=== PATIENT | female | born 1960 | race Two or more races ===

== ENCOUNTER 2020-02-07 14:23 | Outpatient (REF) | payer OTHER, SELFPAY ==
[2020-02-10 08:47] LABS: C. trachomatis RNA TMA NOT DETECTED (NOT DETECTED); N. gonorrhoeae RNA TMA NOT DETECTED (NOT DETECTED)
[2020-02-11 02:47] LABS: HPV mRNA E6/E7 rflx Not Detected (Not Detected)
== END 2020-02-07 14:24 | disposition home or self-care (01) ==
LOC: HO.LAB 14:23
PROVIDERS: PCP Nurse Practitioner Family; Visit Provider Advanced Practice Midwife
DX: Z12.4 Encounter for screening for malignant neoplasm of cervix (principal); R19.00 Intra-abdominal and pelvic swelling, mass and lump, unspecified site; Z20.2 Contact with and (suspected) exposure to infections with a predominantly sexual mode of transmission
CPT/HCPCS: 87491; 87591; 87624; 88141; 88142

== ENCOUNTER 2020-02-20 15:45 | Outpatient (REF) | payer OTHER, SELFPAY | END 2020-02-20 15:46 | disposition home or self-care (01) | LOC: HO.US 15:45 | PROVIDERS: PCP Nurse Practitioner Family; Visit Provider Advanced Practice Midwife | DX: Z13.89 Encounter for screening for other disorder (principal) ==

== ENCOUNTER 2020-02-21 11:49 | Outpatient (REF) | payer OTHER, SELFPAY ==
--- NOTE | 2020-02-21 11:54 | MM_ITS ---
EXAMINATION: MM SCREENING DIGITAL BREAST TOMOSYNTHESIS, BILATERAL CLINICAL INFORMATION: Screening. Asymptomatic. Prior outside mammography from [place] performed decades ago and no longer available. Family history breast cancer paternal aunt, age 50. The lifetime risk of breast cancer based on the Tyrer-Cuzick Model is 15%. COMPARISON: None (current study represents new baseline exam). TECHNIQUE: Digital breast tomosynthesis is performed in both the craniocaudal and mediolateral oblique views along with computer-aided detection (CAD). Synthesized 2D images are generated from the tomosynthesis. FINDINGS: There are scattered areas of fibroglandular density (ACR BI-RADS breast composition Category b). Right breast shows no mass or architectural abnormality or abnormal calcifications. There is a biopsy clip marker 3:30 o'clock position mid to posterior depth. The left breast has a benign-appearing oval nodule mid 5:00 position measuring under 1 cm with smooth borders. As this represents new baseline, patient will be recalled for additional targeted ultrasound. Remainder of the left breast shows no mass or architectural abnormality or abnormal calcifications. The bilateral axilla and skin contours are unremarkable. MM/MM tomosynthesis screening BI IMPRESSION: 1. Left: Benign-appearing nodule mid 5:00 position. 2. Right: No mammographic evidence of malignancy. ASSESSMENT: BI-RADS 0: Incomplete - Need Additional Imaging Evaluation RECOMMENDATION: 1. Targeted ultrasound left breast. 2. Radiology department staff will contact the patient for additional imaging. This patient's information was entered into a reminder system with a target due date for their next mammogram.
== END 2020-02-21 11:50 | disposition home or self-care (01) ==
LOC: HO.MAMMO 11:49
PROVIDERS: PCP Nurse Practitioner Family; Visit Provider Nurse Practitioner Family
DX: Z12.31 Encounter for screening mammogram for malignant neoplasm of breast (principal)
CPT/HCPCS: 77063; 77067

== ENCOUNTER 2020-02-26 12:42 | Outpatient (REF) | payer OTHER, SELFPAY ==
--- NOTE | 2020-02-26 | US_ITS ---
EXAMINATION: US DIAGNOSTIC ULTRASOUND BREAST, LEFT CLINICAL INFORMATION: Recall from new baseline for benign-appearing nodule mid 5:00 position left breast. COMPARISON: New baseline mammography 02/21/2020. TECHNIQUE: Ultrasound left breast is targeted to the lower outer quadrant. Grayscale imaging and color Doppler are performed without and with harmonics. FINDINGS: The nodule lower left breast corresponds to a simple cyst 5:00 position 5 cm from nipple measuring approximately 0.7 x 0.5 x 0.4 cm. There is also a smaller cyst in this area measuring 0.5 x 0.4 cm. The cysts show increased through-transmission of sound. There is no solid mass or architectural abnormality. Results are discussed with the patient at time of visit, using an pharmacist manager. US/US breast LT limited IMPRESSION: Nodule left breast corresponds to a simple cyst. There is a smaller satellite cyst in this area. ASSESSMENT: BI-RADS 2: Benign RECOMMENDATION: Routine annual mammography screening. This patient's information was entered into a reminder system with a target due date for their next mammogram.
== END 2020-02-26 12:43 | disposition home or self-care (01) ==
LOC: HO.MAMMO 12:42
PROVIDERS: Visit Provider Nurse Practitioner Family
DX: N63.23 Unspecified lump in the left breast, lower outer quadrant (principal)
CPT/HCPCS: 76642

== ENCOUNTER 2020-08-19 14:49 | Emergency (ER) | payer OTHER, SELFPAY ==
--- NOTE | 2020-08-19 | ECG_ITS ---
Test Reason : ARITHMIA Blood Pressure : / mmHG Vent. Rate : 058 BPM Atrial Rate : 058 BPM P-R Int : 168 ms QRS Dur : 078 ms QT Int : 422 ms P-R-T Axes : 055 015 016 degrees QTc Int : 414 ms Sinus bradycardia with sinus arrhythmia Otherwise normal ECG No previous ECGs available Referred By: Generic ED Physician Electronically Signed By:Alpesh Ayers
--- NOTE | ~2020-08-19 | XR_ITS ---
EXAMINATION: XR CHEST CLINICAL INFORMATION: Chest pain COMPARISON: None TECHNIQUE: Frontal view of the chest was obtained. FINDINGS: No significant abnormality is noted involving the heart, lungs, mediastinum, bony thorax or soft tissues. Incidental note made of biconvex thoracolumbar scoliosis. XR/XR chest 1V IMPRESSION: No acute intrathoracic disease
[2020-08-19 15:04] VITALS: BP 151/73; PULSE 63; RESP 18; TEMP 36.8; O2SAT 98; BMI 34.2
--- NOTE | 2020-08-19 17:15 | ED.ARRPALP ---
HPI - Arrhythmia/Palpitations General Chief Complaint: Arrhythmia/Palpitations Stated Complaint: Chest Pain Time Seen by Provider: 08/19/20 17:15 Source: patient Mode of arrival: ambulatory Limitations: no limitations History of Present Illness HPI narrative: 59 yo female no sig PMH here with palpitations, chest pressure x 3 weeks no sig associated symptoms but reports tachycardia and pressure, no prior issues with her heart MD complaint: heart racing Onset (ago): week(s) (3) Duration: constant Severity: moderate Context: occurred during rest and occurred during exertion Associated symptoms: chest pain and shortness of breath Related Data Home Medications Medication Instructions Recorded Confirmed albuterol sulfate 90 mcg/actuation 2 puff INHALATION Q6H PRN 02/07/20 aerosol inhaler fluticasone propionate 250 1 inh INHALATION Q12H 02/07/20 mcg/actuation blister powder for inhalation Previous Rx's Medication Instructions Recorded cyclobenzaprine 10 mg PO TID PRN #14 tab 08/19/20 famotidine [Pepcid] 20 mg PO DAILY PRN #30 tab 08/19/20 ondansetron 4 mg PO Q8H PRN #20 tab 08/19/20 Allergies Allergy/AdvReac Type Severity Reaction Status Date / Time No Known Allergies Allergy Verified 08/19/20 15:04 Review of Systems Review of Systems: Constitutional : No Weight loss, No Fever, No Chills ENT/Mouth : No sore throat, No Rhinorrhea Eyes: No Eye Pain, No Swelling Cardiovascular : pos Chest Pain, no SOB, no Dyspnea on Exertion, No Orthopnea, No Edema, pos Palpitations Respiratory : No Cough, No Sputum Gastrointestinal : pos Nausea, No Vomiting, No Diarrhea, No abdominal Pain, No Hematochezia, No Melena Genitourinary : No Dysuria, No Urinary Frequency Musculoskeletal : No joint pain, No Myalgias, No Joint Swelling Skin : No Skin Lesions, No rash Neuro : No Weakness, No Numbness, No Dizziness, No Headache Psych : No Anxiety/Panic, No Depression Heme/Lymph: No Bruising, No Lymphadenopathy Endocrine : No Polyuria, No Polydipsia All other systems reviewed and are negative PMFSH Past Medical History Attestation statement: The following information was validated with the patient. Medical History Asthma Family History Family History Father Cancer Mother Respiratory arrest Social History Social History (Updated 08/19/20 @ 17:56 by Brandie Trent DO) Alcohol intake: current Alcohol intake frequency: holidays/special occasions only Patient Tobacco Use Status: Never used Tobacco Use of substances other than those prescribed or required for medical reasons: No Advance Directives: No Advance Directives Information Provided: No Patient : No Gender identity: female Physical Exam Vital Signs: Vital Signs: Last Vital Signs Temp 98.3 F 08/19/20 15:04 Pulse 65 08/19/20 18:03 Resp 15 08/19/20 18:03 BP 146/61 H 08/19/20 18:03 Pulse Ox 97 08/19/20 18:03 Body Mass Index 34.2 Appearance: Alert. Oriented X3. No acute distress. Eyes: Pupils equal, round and reactive to light. ENT: Pharynx normal. Neck: Normal inspection. Neck supple. CVS: Normal heart rate and rhythm. Pulses normal. Chest: mild ttp along bilateral chest wall Respiratory: No respiratory distress. Breath sounds normal. Abdomen: Soft and nontender. Skin: Skin warm and dry. Normal skin color. Normal skin turgor. Extremities: No lower extremity edema. No calf ttp Neuro: Oriented X 3. No motor deficit. No sensory deficit. Course Course Course Narrative: EKG, CXR, troponin negative, ddimer negative, stable for DC at this time MDM - Arrhythmia/Palpitations MDM Narrative Medical decision making narrative: 59 yo female no sig PMH here with palpitations, chest pressure x 3 weeks no sig associated symptoms but reports tachycardia and pressure, no prior issues with her heart at this time will need labs, EKG, CXR, troponin x 1 given duration, ddimer - dispo per results and findings Lab Data Result diagrams: 08/19/20 17:59 08/19/20 17:59 Labs: Lab Results 08/19/20 08/19/20 08/19/20 Range/Units 17:59 17:59 17:59 WBC 6.7 (4.8-10.8) X10*3/uL RBC 4.89 (4.20-5.50) X10*6/uL Hgb 14.1 (12.0-16.0) g/dl Hct 42.5 (37-47) % MCV 86.9 (80-98) fL MCH 28.8 (27.0-33.0) pg MCHC 33.2 (31.0-35.0) g/dl RDW 12.3 (11.0-16.0) % Plt Count 225 (160-400) X10*3/uL MPV 11.7 (9.4-12.3) fL Immature Gran % (Auto) 1.0 H (0.0-0.4) % Neut % (Auto) 54.2 (45-73) % Lymph % (Auto) 26.1 (20-40) % Treasure % (Auto) 8.1 (2-11) % Eos % (Auto) 9.3 H (0-4) % Baso % (Auto) 1.3 (0-2) % Lymph # (Auto) 1.7 (1.2-4.9) X10*3/uL [place] # (Auto) 0.5 (0.1-1.2) X10*3/uL Eos # (Auto) 0.6 H (0.0-0.4) X10*3/uL Baso # (Auto) 0.1 (0.0-0.2) X10*3/uL Abs Immat Gran (auto) 0.07 H (0.00-0.03) X10*3/uL Absolute Neuts (auto) 3.6 (2.0-8.3) X10*3/uL Absolute Nucleated RBC 0.000 (0.0-0.012) X10*3/uL Nucleated RBC % (auto) 0.0 (0.0-0.2) /100WBC D-Dimer NG/ML Sodium 142 (135-145) mmol/L Potassium 4.1 (3.3-5.1) mmol/L Chloride 107 (96-108) mmol/L Carbon Dioxide 26 (22-29) mmol/L Anion Gap 13 (12-20) BUN 11 (9-16) mg/dL Creatinine 0.79 (0.5-1.4) mg/dL Estim Creat Clear Calc 69.8 Estimated GFR > 60 Random Glucose 94 (60-115) mg/dL Calcium 9.7 (8.4-10.2) mg/dL Magnesium 2.2 (1.6-2.6) mg/dL Total Bilirubin 0.5 (0.0-1.0) mg/dL Direct Bilirubin 0.2 (0.0-0.5) mg/dL AST 19 (5-31) U/L ALT 22 (0-31) U/L Alkaline Phosphatase 81 (39-117) U/L Troponin I High Sens < 3.5 (<3.5-17.0) ng/L Total Protein 7.3 (6.5-8.0) g/dL Albumin 4.3 (3.5-5.0) g/dL TSH 2.45 (0.32-4.0) uIU/mL 08/19/20 Range/Units 18:55 WBC (4.8-10.8) X10*3/uL RBC (4.20-5.50) X10*6/uL Hgb (12.0-16.0) g/dl Hct (37-47) % MCV (80-98) fL MCH (27.0-33.0) pg MCHC (31.0-35.0) g/dl RDW (11.0-16.0) % Plt Count (160-400) X10*3/uL MPV (9.4-12.3) fL Immature Gran % (Auto) (0.0-0.4) % Neut % (Auto) (45-73) % Lymph % (Auto) (20-40) % Treasure % (Auto) (2-11) % Eos % (Auto) (0-4) % Baso % (Auto) (0-2) % Lymph # (Auto) (1.2-4.9) X10*3/uL Treasure # (Auto) (0.1-1.2) X10*3/uL Eos # (Auto) (0.0-0.4) X10*3/uL Baso # (Auto) (0.0-0.2) X10*3/uL Abs Immat Gran (auto) (0.00-0.03) X10*3/uL Absolute Neuts (auto) (2.0-8.3) X10*3/uL Absolute Nucleated RBC (0.0-0.012) X10*3/uL Nucleated RBC % (auto) (0.0-0.2) /100WBC D-Dimer < 200 NG/ML Sodium (135-145) mmol/L Potassium (3.3-5.1) mmol/L Chloride (96-108) mmol/L Carbon Dioxide (22-29) mmol/L Anion Gap (12-20) BUN (9-16) mg/dL Creatinine (0.5-1.4) mg/dL Estim Creat Clear Calc Estimated GFR Random Glucose (60-115) mg/dL Calcium (8.4-10.2) mg/dL Magnesium (1.6-2.6) mg/dL Total Bilirubin (0.0-1.0) mg/dL Direct Bilirubin (0.0-0.5) mg/dL AST (5-31) U/L ALT (0-31) U/L Alkaline Phosphatase (39-117) U/L Troponin I High Sens (<3.5-17.0) ng/L Total Protein (6.5-8.0) g/dL Albumin (3.5-5.0) g/dL TSH (0.32-4.0) uIU/mL ECG Data Attestation: I personally reviewed and interpreted this ECG as follows: ECG interpretation date: 08/19/20 ECG interpretation time: 17:54 Interpretation: Rate: 58 Rhythm: sinus bradycardia [place]: normal Normal P waves. Normal ADRIANO. Normal QRS complex. ST T wave : normal no ELVA qTC: normal prior studies: no acute ischemia The study has been interpreted contemporaneously by me. . Discharge Plan Discharge Clinical Impression: Chest pain Qualifiers: Chest pain type: unspecified Qualified Code(s): R07.9 - Chest pain, unspecified Patient Disposition: Home, Self-Care Instructions: Chest Pain (ED) Additional Instructions: return to ED for any worsening symptoms or concerns debe comunicarse con velasquez m?dico sobre kinsey posible prueba de esfuerzo para pacientes ambulatorios Prescriptions: New cyclobenzaprine 10 mg tablet 10 mg PO TID PRN (Reason: muscle spasm) Qty: 14 RF: 0 famotidine [Pepcid] 20 mg tablet 20 mg PO DAILY PRN (Reason: abdominal discomfort) Qty: 30 RF: 0 ondansetron 4 mg tablet,disintegrating 4 mg PO Q8H PRN (Reason: nausea and vomiting) Qty: 20 RF: 0 No Action Flovent Diskus 250 mcg/actuation blister with device 1 inh inhalation Q12H RF: 0 albuterol sulfate [Ventolin HFA] 90 mcg/actuation HFA aerosol inhaler 2 puff inhalation Q6H PRNRF: 0 Referrals: Physician,Unknown [Primary Care Provider] - 2 days Stand Alone Forms: Work/School Release Print Language: Canadian
[2020-08-19 18:01] VITALS: PULSE 61
[2020-08-19 18:03] VITALS: BP 146/61; PULSE 65; RESP 15; O2SAT 97
[2020-08-19 18:12] LABS: MANUAL DIFF FLAG NO
[2020-08-19 18:32] LABS: Basophils Absolute Auto 0.1 X10*3/uL (0.0-0.2); Basophils Percent Auto 1.3 % (0-2); Eosinophils Absolute Auto 0.6 X10*3/uL (0.0-0.4); Eosinophils Percent Auto 9.3 % (0-4); Hematocrit 42.5 % (37-47); Hemoglobin 14.1 g/dl (12.0-16.0); Imm Gran Abs Auto 0.07 X10*3/uL (0.00-0.03); Lymphocytes Absolute Auto 1.7 X10*3/uL (1.2-4.9); Lymphocytes Percent Auto 26.1 % (20-40); Mean Corpuscular HGB Conc 33.2 g/dl (31.0-35.0); Mean Corpuscular Hemoglobin 28.8 pg (27.0-33.0); Mean Corpuscular Volume 86.9 fL (80-98); Mean Platelet Volume 11.7 fL (9.4-12.3); Monocytes Absolute Auto 0.5 X10*3/uL (0.1-1.2); Monocytes Percent Auto 8.1 % (2-11); Neutrophils Absolute Auto 3.6 X10*3/uL (2.0-8.3); Neutrophils Percent Auto 54.2 % (45-73); Platelet Count 225 X10*3/uL (160-400); Red Blood Count 4.89 X10*6/uL (4.20-5.50); Red Cell Distribution Width 12.3 % (11.0-16.0); White Blood Count 6.7 X10*3/uL (4.8-10.8)
[2020-08-19 18:41] LABS: Alanine Aminotransferase 22 U/L (0-31); Albumin Level 4.3 g/dL (3.5-5.0); Alkaline Phosphatase 81 U/L (39-117); Anion Gap 13 (12-20); Aspartate Amino Transferase 19 U/L (5-31); Bilirubin Direct 0.2 mg/dL (0.0-0.5); Bilirubin Total 0.5 mg/dL (0.0-1.0); Blood Urea Nitrogen 11 mg/dL (9-16); Calcium 9.7 mg/dL (8.4-10.2); Carbon Dioxide 26 mmol/L (22-29); Chloride 107 mmol/L (96-108); Creatinine Clr Calc Pharmacy 69.8; Estimated Glomerular Filt Rate > 60; Glucose Random 94 mg/dL (60-115); Magnesium 2.2 mg/dL (1.6-2.6); Potassium 4.1 mmol/L (3.3-5.1); Sodium 142 mmol/L (135-145); Total Protein 7.3 g/dL (6.5-8.0)
[2020-08-19 18:44] LABS: Troponin-I High Sensitivity < 3.5 ng/L (<3.5-17.0)
[2020-08-19 19:02] LABS: TSH reflex Free T4 2.45 uIU/mL (0.32-4.0)
[2020-08-19 19:10] LABS: D Dimer < 200 NG/ML
== END 2020-08-19 19:32 | disposition home or self-care (01) ==
PROVIDERS: Emergency Provider Emergency Medicine
DX: R07.9 Chest pain, unspecified (principal); Z79.899 Other long term (current) drug therapy
CPT/HCPCS: 36415; 71045; 80048; 80076; 83735; 84443; 84484; 85025; 85379; 93005; 99285

== ENCOUNTER 2021-03-12 13:37 | Outpatient (REF) | payer OTHER, SELFPAY ==
--- NOTE | ~2021-03-12 | MM_ITS ---
EXAMINATION: MM SCREENING DIGITAL BREAST TOMOSYNTHESIS, BILATERAL CLINICAL INFORMATION: Screening. Asymptomatic. The lifetime risk of breast cancer based on the Tyrer-Cuzick Model is 11%. COMPARISON: Mammography: 02/21/2020 (new baseline, left breast ultrasound 02/26/2020. TECHNIQUE: Digital breast tomosynthesis is performed in both the craniocaudal and mediolateral oblique views along with computer-aided detection (CAD). Synthesized 2D images are generated from the tomosynthesis. FINDINGS: There are scattered areas of fibroglandular density (ACR BI-RADS breast composition Category b). There are no significant masses, abnormal calcifications, or other abnormalities. There is a nodule mid 5:00 left breast corresponding to a simple cyst on prior ultrasound. There are no interval architectural changes. Small clip marker again noted right breast lower inner quadrant. The axilla and skin contours are unremarkable. No significant changes. MM/MM tomosynthesis screening BI IMPRESSION: There are no significant changes from prior new baseline exam. ASSESSMENT: BI-RADS 2: Benign RECOMMENDATION: Routine annual mammography screening. This patient's information was entered into a reminder system with a target due date for their next mammogram.
== END 2021-03-12 13:38 | disposition home or self-care (01) ==
LOC: HO.MAMMO 13:37
PROVIDERS: PCP Physician Assistant; Visit Provider Physician Assistant
DX: Z12.31 Encounter for screening mammogram for malignant neoplasm of breast (principal)
CPT/HCPCS: 77063; 77067

== ENCOUNTER 2021-09-11 07:27 | Outpatient (REF) | payer OTHER, SELFPAY ==
[2021-09-11 08:08] LABS: Hematocrit 40.8 % (37.0-47.0); Hemoglobin 13.4 g/dl (12.0-16.0); Mean Corpuscular HGB Conc 32.8 g/dl (31.0-35.0); Mean Corpuscular Hemoglobin 28.5 pg (27.0-33.0); Mean Corpuscular Volume 86.8 fL (80.0-98.0); Mean Platelet Volume 11.5 fL (9.4-12.3); Platelet Count 220 X10*3/uL (160-400); Red Cell Distribution Width 11.9 % (11.0-16.0); White Blood Count 5.8 X10*3/uL (4.8-10.8)
[2021-09-11 08:17] LABS: Estimated Average Glucose 111 mg/dL; Hemoglobin A1c % 5.5 %
[2021-09-11 08:34] LABS: Alanine Aminotransferase 27 U/L (0-31); Albumin Level 4.3 g/dL (3.5-5.0); Alkaline Phosphatase 79 U/L (39-117); Anion Gap 13 (12-20); Aspartate Amino Transferase 17 U/L (5-31); Bilirubin Total 0.5 mg/dL (0.0-1.0); Blood Urea Nitrogen 16 mg/dL (9-16); Calcium 9.4 mg/dL (8.4-10.2); Carbon Dioxide 30 mmol/L (22-29); Chloride 106 mmol/L (96-108); Cholesterol 233 mg/dL; Estimated Glomerular Filt Rate > 60; Glucose Fasting 102 mg/dL (60-99); HDL Cholesterol 59 mg/dL; LDL Cholesterol Calculated 156 mg/dl; Potassium 4.6 mmol/L (3.3-5.1); Sodium 144 mmol/L (135-145); Triglycerides 93 mg/dL
[2021-09-11 08:56] LABS: TSH reflex Free T4 3.05 uIU/mL (0.32-4.0)
== END 2021-09-11 07:28 | disposition home or self-care (01) ==
LOC: HO.LAB 07:27
PROVIDERS: PCP Physician Assistant; Visit Provider Physician Assistant
DX: Z13.29 Encounter for screening for other suspected endocrine disorder (principal); Z13.220 Encounter for screening for lipoid disorders
CPT/HCPCS: 36415; 80053; 80061; 83036; 84443; 85027

== ENCOUNTER 2021-10-30 15:58 | Inpatient (IN) | payer OTHER, SELFPAY ==
[2021-10-30 16:47] VITALS: BP 139/70; PULSE 81; RESP 18; TEMP 36.8; O2SAT 97; BMI 35.3
[2021-10-30 17:24] LABS: MANUAL DIFF FLAG NO
[2021-10-30 17:33] LABS: Basophils Absolute Auto 0.1 X10*3/uL (0.0-0.2); Basophils Percent Auto 1.2 % (0-2); Eosinophils Absolute Auto 0.4 X10*3/uL (0.0-0.4); Eosinophils Percent Auto 5.4 % (0-4); Hematocrit 43.3 % (37.0-47.0); Hemoglobin 14.1 g/dl (12.0-16.0); Imm Gran Abs Auto 0.13 X10*3/uL (0.00-0.03); Imm Gran Pct Auto 1.7 % (0.0-0.4); Lymphocytes Absolute Auto 1.9 X10*3/uL (1.2-4.9); Lymphocytes Percent Auto 25.7 % (20-40); Mean Corpuscular HGB Conc 32.6 g/dl (31.0-35.0); Mean Corpuscular Hemoglobin 27.8 pg (27.0-33.0); Mean Corpuscular Volume 85.2 fL (80.0-98.0); Mean Platelet Volume 10.1 fL (9.4-12.3); Monocytes Absolute Auto 0.8 X10*3/uL (0.1-1.2); Monocytes Percent Auto 10.1 % (2-11); Neutrophils Absolute Auto 4.2 x10*3/uL (2.0-8.3); Neutrophils Percent Auto 55.9 % (45-73); Platelet Count 328 X10*3/uL (160-400); Red Blood Count 5.08 X10*6/uL (4.20-5.50); Red Cell Distribution Width 11.8 % (11.0-16.0); White Blood Count 7.6 X10*3/uL (4.8-10.8)
[2021-10-30 17:39] LABS: Lactic Acid 1.3 mmol/L (0.5-2.0)
[2021-10-30 17:43] LABS: COVID-19 Test Negative (Negative); IDNOW Serial# 55D5AD1C
[2021-10-30 17:46] LABS: Alanine Aminotransferase 63 U/L (0-31); Albumin Level 4.2 g/dL (3.5-5.0); Alkaline Phosphatase 81 U/L (39-117); Anion Gap 17 (12-20); Aspartate Amino Transferase 48 U/L (5-31); Blood Urea Nitrogen 15 mg/dL (9-16); Calcium 9.5 mg/dL (8.4-10.2); Carbon Dioxide 24 mmol/L (22-29); Chloride 103 mmol/L (96-108); Creatinine Clr Calc Pharmacy 52.4; Estimated Glomerular Filt Rate 56; Glucose Random 99 mg/dL (60-115); Potassium 4.5 mmol/L (3.3-5.1); Sodium 139 mmol/L (135-145); Total Protein 7.2 g/dL (6.5-8.0)
[2021-10-30 17:57] LABS: Bilirubin Direct < 0.2 mg/dL (0.0-0.5); Bilirubin Total 0.2 mg/dL (0.0-1.0)
[2021-10-30 21:51] VITALS: BP 118/55; PULSE 62; RESP 18; TEMP 36; O2SAT 97
--- NOTE | 2021-10-31 02:26 | ED.GENADULT ---
HPI - General Adult General Chief complaint: Skin/Abscess/Foreign Body Stated complaint: Abscess/Fever Time Seen by Provider: 10/31/21 01:56 Source: patient Mode of arrival: ambulatory Limitations: language barrier (Luxembourgish speaking, technology integration specialist used) History of Present Illness HPI narrative: 61-year-old female who presents emergency department for evaluation of possible infection after having an abscess incised and drained at [facility] on 10/26/2021 (6 days prior to evaluation). The patient states that she developed some small pimples to her left inner thigh approximately 8 days prior. The pimples then became large and she developed a large abscess with significant cellulitis to her left inner thigh (patient does have pictures on her phone). She went to [facility] and she states that she was taken to the operating room and had the abscess incised and drained. She states she spent 2 days in the hospital and received IV antibiotics with improvement of the redness and warmth of the left thigh pain. She states that she did grow MRSA out of the wound. She was discharged on Bactrim. She states that over the past 2 days she has felt sick again. She states she has had subjective fever and chills. She has felt weak and fatigued. She has lost her appetite and has not been able to eat or drink secondary to feeling ill. She had nausea with no vomiting. She states that the redness on her left thigh has come back but is not as bad as it was previously. She has also noted red circular lesions on her left and right lower abdomen and on her left buttocks area. She was concerned that her infection was coming back and getting worse again therefore she came to the emergency department for evaluation. She denied rhinorrhea, sore throat, cough, chest pain, shortness of breath, dyspnea on exertion, diarrhea. Related Data Previous Rx's Medication Instructions Recorded albuterol sulfate 2.5 mg/3 mL 2.5 mg (3 mL) inhalation Q6H 30 05/15/21 (0.083 %) solution for nebulization days #360 mL albuterol sulfate 90 mcg/actuation 2 puff inhalation Q6H PRN 05/15/21 aerosol inhaler (Ventolin HFA) shortness of breath or wheezing #8.5 grams fluticasone propionate 110 2 puff inhalation BID 30 days #12 05/15/21 mcg/actuation HFA aerosol inhaler grams (Flovent HFA) triamcinolone acetonide 0.1 % 1 appl topical DAILY 14 days #30 05/15/21 topical cream grams prednisone 10 mg tablet 10 mg PO DAILY 9 days #18 tabs 05/27/21 Allergies Allergy/AdvReac Type Severity Reaction Status Date / Time No Known Allergies Allergy Verified 05/15/21 15:18 Review of Systems Review of Systems: Yes all other systems are reviewed and are negative [facility] Past Medical History [facility] Narrative: Past medical history: Asthma, obesity. Past surgical history: Abscess incised and drained at [facility] 10/26/2021, no other surgical procedures. Social history: She denies tobacco use. She states she drinks alcohol once or twice a week. She denies drug use. 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 Gender identity: Female Cognitive needs: No Hearing needs: No Vision needs: No Physical Exam ED Vital Signs: Vital Signs - 24 hr 10/30/21 16:47 10/30/21 21:51 Temperature 98.3 F 96.8 F Pulse Rate 81 62 Respiratory Rate 18 18 Blood Pressure 139/70 118/55 L Pulse Oximetry 97 97 Oxygen Delivery Method Room Air Room Air BMI result Body Mass Index 35.3 Const General: cooperative and no acute distress Orientation/consciousness: oriented to person and oriented to place Limitations: no limitations [facility] Head: Yes normal to inspection, Yes normocephalic and Yes atraumatic Ears: external ears normal General nose exam: Normal external nose present Face and sinus: Yes normal facial exam Mouth: Normal oral and palatal mucosa present Throat: Yes posterior oropharynx normal Eyes General: appearance normal, both eyes and all related structures Pupils: Equal, round and reactive pupils present Neck Neck: Yes normal visual inspection, Yes no lymphadenopathy, Yes trachea midline and Yes supple Chest Chest palpation & inspection: normal inspection of the chest and normal palpation of entire chest wall Resp Effort & Inspection: normal respiratory effort and able to speak in complete sentences Auscultation: clear to auscultation bilaterally Cardio Rate: regular rate Rhythm: regular rhythm Heart sounds: S1 normal heart sound present, S2 normal heart sound present and no murmurs GI Inspection: Yes normal to inspection Palpation (GI): Soft to palpation, nontender and no guarding Auscultation: normal bowel sounds General: Yes no CVA tenderness Back/Spine/Pelvis Back: no CVA tenderness Skin General skin exam: no rashes or lesions noted Neuro General: oriented to person and oriented to place Cranial nerves: Yes CN's II-XII intact bilaterally and Yes Equal, round and reactive pupils present Cognition (Neuro): normal cognition Motor exam (neuro): 5/5 motor strength present throughout Extrem Other: The patient has an ulcerative wound to the left inner thigh with several jones and dark areas in the wound, there does not appear to be any purulent discharge. The patient does have erythema to the left fine which is warm to the touch and blanches pressure (see the photo). Patient also has 2 circular erythematous lesions to the right and left lower abdomen and 2 circular lesions the left lateral thigh area consistent with staph infection. Psych Appearance: grossly normal Speech and movement: Normal speech and movement present Affect: normal affect Attitude: cooperative Thought process: Normal thought process present Thought content: Normal thought content present Course Course Course Narrative: 61-year-old female who had a MRSA abscess to her left inner thigh requiring incision and drainage in the operating room at [facility] on 10/26/2021 who spent 2 days in the hospital for IV antibiotics and then discharged. Over the last several days the patient has felt ill with systemic symptoms including subjective fever, chills, weakness, loss of appetite. She has also noticed increased erythema around the left thigh wound with several small circular erythematous lesions to her lower abdomen and to her left thigh. The patient has been taking Bactrim orally. The patient's initial laboratory evaluation revealed a normal CBC and CMP. COVID-19 was negative. I ordered blood cultures x2, lactic acid, ESR and CRP. Patient's presentation is concerning for recurrence of her MRSA cellulitis and she may be bacteremic developing staff lesions on other parts of her skin. I ordered vancomycin 2 g IV and normal saline x1 L. I will discuss admission with the covering hospitalist. The wound may also need to be debrided. I will discuss admission with the covering hospitalist. Medical Decision Making Lab Data Result diagrams: 10/30/21 17:19 10/30/21 17:19 Labs: Lab Results 10/30/21 10/30/21 10/30/21 Range/Units 17:13 17:19 17:19 WBC 7.6 (4.8-10.8) X10*3/uL RBC 5.08 (4.20-5.50) X10*6/uL Hgb 14.1 (12.0-16.0) g/dl Hct 43.3 (37.0-47.0) % MCV 85.2 (80.0-98.0) fL MCH 27.8 (27.0-33.0) pg MCHC 32.6 (31.0-35.0) g/dl RDW 11.8 (11.0-16.0) % Plt Count 328 D (160-400) X10*3/uL MPV 10.1 (9.4-12.3) fL Immature Gran % (Auto) 1.7 H (0.0-0.4) % Neut % (Auto) 55.9 (45-73) % Lymph % (Auto) 25.7 (20-40) % Long % (Auto) 10.1 (2-11) % Eos % (Auto) 5.4 H (0-4) % Baso % (Auto) 1.2 (0-2) % Lymph # (Auto) 1.9 (1.2-4.9) X10*3/uL Long # (Auto) 0.8 (0.1-1.2) X10*3/uL Eos # (Auto) 0.4 (0.0-0.4) X10*3/uL Baso # (Auto) 0.1 (0.0-0.2) X10*3/uL Abs Immat Gran (auto) 0.13 H (0.00-0.03) X10*3/uL Absolute Neuts (auto) 4.2 (2.0-8.3) x10*3/uL Absolute Nucleated RBC 0.000 (0.0-0.012) X10*3/uL Nucleated RBC % (auto) 0.0 (0.0-0.2) /100WBC Sodium 139 (135-145) mmol/L Potassium 4.5 (3.3-5.1) mmol/L Chloride 103 (96-108) mmol/L Carbon Dioxide 24 (22-29) mmol/L Anion Gap 17 (12-20) BUN 15 (9-16) mg/dL Creatinine 1.00 (0.5-1.4) mg/dL Estim Creat Clear Calc 52.4 Estimated GFR 56 Random Glucose 99 (60-115) mg/dL Lactic Acid (0.5-2.0) mmol/L Calcium 9.5 (8.4-10.2) mg/dL Total Bilirubin 0.2 (0.0-1.0) mg/dL Direct Bilirubin < 0.2 (0.0-0.5) mg/dL AST 48 H D (5-31) U/L ALT 63 H (0-31) U/L Alkaline Phosphatase 81 (39-117) U/L C-Reactive Protein 0.56 H (< or = 0.50) mg/dL Total Protein 7.2 (6.5-8.0) g/dL Albumin 4.2 (3.5-5.0) g/dL COVID-19 (KARELY) Negative (Negative) COVID-19 Clin Com See Note 10/30/21 Range/Units 17:19 WBC (4.8-10.8) X10*3/uL RBC (4.20-5.50) X10*6/uL Hgb (12.0-16.0) g/dl Hct (37.0-47.0) % MCV (80.0-98.0) fL MCH (27.0-33.0) pg MCHC (31.0-35.0) g/dl RDW (11.0-16.0) % Plt Count (160-400) X10*3/uL MPV (9.4-12.3) fL Immature Gran % (Auto) (0.0-0.4) % Neut % (Auto) (45-73) % Lymph % (Auto) (20-40) % Long % (Auto) (2-11) % Eos % (Auto) (0-4) % Baso % (Auto) (0-2) % Lymph # (Auto) (1.2-4.9) X10*3/uL Long # (Auto) (0.1-1.2) X10*3/uL Eos # (Auto) (0.0-0.4) X10*3/uL Baso # (Auto) (0.0-0.2) X10*3/uL Abs Immat Gran (auto) (0.00-0.03) X10*3/uL Absolute Neuts (auto) (2.0-8.3) x10*3/uL Absolute Nucleated RBC (0.0-0.012) X10*3/uL Nucleated RBC % (auto) (0.0-0.2) /100WBC Sodium (135-145) mmol/L Potassium (3.3-5.1) mmol/L Chloride (96-108) mmol/L Carbon Dioxide (22-29) mmol/L Anion Gap (12-20) BUN (9-16) mg/dL Creatinine (0.5-1.4) mg/dL Estim Creat Clear Calc Estimated GFR Random Glucose (60-115) mg/dL Lactic Acid 1.3 (0.5-2.0) mmol/L Calcium (8.4-10.2) mg/dL Total Bilirubin (0.0-1.0) mg/dL Direct Bilirubin (0.0-0.5) mg/dL AST (5-31) U/L ALT (0-31) U/L Alkaline Phosphatase (39-117) U/L C-Reactive Protein (< or = 0.50) mg/dL Total Protein (6.5-8.0) g/dL Albumin (3.5-5.0) g/dL COVID-19 (KARELY) (Negative) COVID-19 Clin Com Discharge Plan Discharge Prescriptions: No Action prednisone 10 mg tablet 10 mg PO DAILY 9 Days Qty: 18 0RF albuterol sulfate [Ventolin HFA] 90 mcg/actuation HFA aerosol inhaler 2 puff inhalation Q6H PRN (Reason: shortness of breath or wheezing) Qty: 8.5 2RF Flovent HFA 110 mcg/actuation HFA aerosol inhaler 2 puff inhalation BID 30 Days Qty: 12 3RF albuterol sulfate 2.5 mg /3 mL (0.083 %) solution for nebulization 2.5 mg inhalation Q6H 30 Days Qty: 360 3RF triamcinolone acetonide 0.1 % cream 1 appl topical DAILY 14 Days Qty: 30 1RF
[2021-10-31 02:47] LABS: C Reactive Protein 0.56 mg/dL (< or = 0.50)
[2021-10-31 03:37] LABS: Lactic Acid 0.8 mmol/L (0.5-2.0)
[2021-10-31] MEDS: 0.9 % Sodium Chloride 1,000 ML 999 ML IV (03:37)
--- NOTE | 2021-10-31 03:41 | PC.NURSE ---
Pt a&o, no sob or chest pain, labs drawn, Iv placed. Wound area marked and dressing applied. Medicated per apr. Will continue to monitor.
[2021-10-31 03:48] LABS: Erythrocyte Sedimentation Rate 20 MM/HR (0-20)
[2021-10-31 03:53] VITALS: BP 96/52; PULSE 54; TEMP 36.6; O2SAT 96
[2021-10-31] MEDS: Enoxaparin Sodium 40 MG/0.4 ML SYRINGE SUBCUT (03:59)
--- NOTE | 2021-10-31 05:38 | P.HPHOSP_ITS ---
History of Present Illness Date of Service: 10/31/21 Chief Complaint: cellulitis patient is Urdu-speaking only, history is obtained with the help of an set designer 61-year-old female with past medical history of asthma presents to the hospital with complaints of cellulitis. Patient reports that she had a red spots on her thigh that developed about a week ago, she went to outside hospital, had I&D done on 10/26 and discharged on 10/28 on p.o. antibiotics returns stating that she has recurrence of these red spots on her thigh in different locations now. She reports no fever but has chills. Reports compliance with her p.o. medications. She denies any chest pain, no shortness of breath, no dizziness or headache, no change in vision. No chest pain, no shortness of breath, no abdominal pain nausea vomiting, no diarrhea constipation, no urinary symptoms and no lower extremity edema. Arrival to the ED patient hemodynamically stable with no significant abnormal vitals labs are significant for WBC count of 7.6, hemoglobin 14.1, AST of 48, ALT of 63, labs otherwise stable patient started on IV antibiotics will be admitted for further management Review of Systems Review of Systems: Yes all other systems are reviewed and are negative [facility] Medical History Asthma Family History Father Cancer Colon cancer Mother Respiratory arrest Daughter Lymphoma Surgical History (Updated 10/31/21 @ 05:51 by Roselyn Dowling MD) No pertinent past surgical history Social History Housing: Apartment Alcohol intake: current Alcohol intake frequency: holidays/special occasions only Patient Tobacco Use Status: Never used Tobacco Use of substances other than those prescribed or required for medical reasons: No Advance Directives: No Current occupational status: employed 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 [employer] Gender identity: Female Cognitive needs: No Hearing needs: No Vision needs: No Meds Allergies Allergy/AdvReac Type Severity Reaction Status Date / Time No Known Allergies Allergy Verified 05/15/21 15:18 Active Medications: Current Medications Acetaminophen (Acetaminophen 325 Mg Tablet) 650 mg PO Q6H PRN PRN Reason: Pain, Mild (Pain Scale 1-3) Docusate Sodium (Docusate Sodium 100 Mg Capsule) 100 mg PO DAILY PRN PRN Reason: Constipation Enoxaparin Sodium (Enoxaparin Sodium 40 Mg/0.4 Ml Syringe) 40 mg SUBCUT Q24H [facility] Last Admin: 10/31/21 03:59 Dose: 40 mg Vancomycin HCl 1,250 mg/ (Sodium Chloride) 250 mls @ 166.667 mls/hr IV Q12H [facility] Ceftriaxone Sodium 1 gm/ (Sodium Chloride) 50 mls @ 100 mls/hr IV Q24H [facility] Ondansetron HCl (Ondansetron Hcl 4 Mg/2 Ml Vial) 4 mg IVPUSH Q8H PRN PRN Reason: Nausea and Vomiting Oxycodone HCl (Oxycodone Hcl Immed Release 5 Mg Tablet) 5 mg PO Q6H PRN PRN Reason: Pain, Severe (Pain Scale 7-10) Pharmacy Consult (Consult Rx Vancomycin Dosing) 1 each MISCELLANE DAILY PRN PRN Reason: Consult order Pharmacy Consult (Consult Rx Vancomycin Dosing) 1 each MISCELLANE DAILY PRN PRN Reason: Consult order Pharmacy Consult (Consult Rx Perform Med Rec) 1 each MISCELLANE ONCE PRN PRN Reason: Consult order Sodium Chloride (0.9 % Sodium Chloride Flush 3 Ml Syringe) 3 ml IVFLUSH QSHIFT [facility] Physical Exam Vital Signs and Narrative: Vital Signs: Last Vital Signs Temp 97.9 F 10/31/21 03:53 Pulse 54 10/31/21 03:53 Resp 18 10/30/21 21:51 BP 96/52 L 10/31/21 03:53 Pulse Ox 96 10/31/21 03:53 O2 Del Method 10/31/21 03:53 BMI result Body Mass Index 35.3 Const: General: cooperative and no acute distress Orientation/consciousness: patient oriented x3 Eyes: General: appearance normal, both eyes and all related structures Resp: Effort & Inspection: normal respiratory effort Auscultation: clear to auscultation bilaterally Cardio: Rate: regular rate Rhythm: regular rhythm GI: Palpation (GI): Soft to palpation Auscultation: normal bowel sounds Skin: Other: patient has about a 5 cm induration in the left inner thigh, status post I&D she has multiple small there is modest lesion in the lateral thigh on the left inner thigh lesion is very tender, there is modest, swollen, Neuro: General: patient oriented x3 Cognition (Neuro): normal cognition Extrem: General: Yes no pedal edema Results Labs CBC and Chem 7: 10/30/21 17:19 10/30/21 17:19 Labs: Laboratory Results - last 24 hr 10/30/21 10/30/21 10/30/21 17:13 17:19 17:19 MCV 85.2 MCH 27.8 MCHC 32.6 RDW 11.8 Plt Count 328 D MPV 10.1 Immature Gran % (Auto) 1.7 H Neut % (Auto) 55.9 Lymph % (Auto) 25.7 Bland % (Auto) 10.1 Eos % (Auto) 5.4 H Baso % (Auto) 1.2 Lymph # (Auto) 1.9 Bland # (Auto) 0.8 Eos # (Auto) 0.4 Baso # (Auto) 0.1 Abs Immat Gran (auto) 0.13 H Absolute Neuts (auto) 4.2 Absolute Nucleated RBC 0.000 Nucleated RBC % (auto) 0.0 ESR Anion Gap 17 Estim Creat Clear Calc 52.4 Estimated GFR 56 Random Glucose 99 Lactic Acid Calcium 9.5 Total Bilirubin 0.2 Direct Bilirubin < 0.2 AST 48 H D ALT 63 H Alkaline Phosphatase 81 C-Reactive Protein 0.56 H Total Protein 7.2 Albumin 4.2 COVID-19 (KARELY) Negative COVID-19 Clin Com See Note 10/30/21 10/31/21 10/31/21 17:19 03:11 03:11 MCV MCH MCHC RDW Plt Count MPV Immature Gran % (Auto) Neut % (Auto) Lymph % (Auto) Bland % (Auto) Eos % (Auto) Baso % (Auto) Lymph # (Auto) Bland # (Auto) Eos # (Auto) Baso # (Auto) Abs Immat Gran (auto) Absolute Neuts (auto) Absolute Nucleated RBC Nucleated RBC % (auto) ESR 20 Anion Gap Estim Creat Clear Calc Estimated GFR Random Glucose Lactic Acid 1.3 0.8 Calcium Total Bilirubin Direct Bilirubin AST ALT Alkaline Phosphatase C-Reactive Protein Total Protein Albumin COVID-19 (KARELY) COVID-19 Clin Com Assessment and Plan (1) Cellulitis due to methicillin-resistant Staphylococcus aureus (MRSA): Status: Acute Plan 61-year-old female with a recent I&D due to cellulitis / abscess of the left inner thigh with MRSA colonization, returns with worsening cellulitis # cellulitis due to MRSA - failed outpatient therapy with p.o. antibiotics - will treat with vancomycin - follow cultures # asthma - controlled - p.r.n. DuoNeb if necessary DVT prophylaxis: Lovenox given need for IV antibiotics patient will require a minimum 2 night hospital stay for further management and monitoring Quality Stroke Does the patient have a stroke diagnosis?: No VTE Prior VTE?: No VTE Risk Level:: Medical - moderate - high VTE Device Contraindication: Treatment Not Indicated VTE Drug Contraindication: N/A - Med Ordered
[2021-10-31 06:00] VITALS: BP 129/70; PULSE 56; RESP 12; O2SAT 98
[2021-10-31] MEDS: cefTRIAXone sodium 1 GM in 0.9 % Sodium Chloride 50 ML IV (06:39)
--- NOTE | 2021-10-31 06:44 | PC.NURSE ---
pt on the phone with daughter. pt oob to bedside commode. pillow placed under left leg for comfort. pedal pulse and cms intact.
[2021-10-31 07:10] LABS: MANUAL DIFF FLAG NO
[2021-10-31 07:13] LABS: Basophils Absolute Auto 0.1 X10*3/uL (0.0-0.2); Basophils Percent Auto 1.1 % (0-2); Eosinophils Absolute Auto 0.6 X10*3/uL (0.0-0.4); Eosinophils Percent Auto 7.5 % (0-4); Hematocrit 36.7 % (37.0-47.0); Imm Gran Abs Auto 0.15 X10*3/uL (0.00-0.03); Lymphocytes Absolute Auto 2.5 X10*3/uL (1.2-4.9); Lymphocytes Percent Auto 33.4 % (20-40); Mean Corpuscular HGB Conc 32.7 g/dl (31.0-35.0); Mean Corpuscular Hemoglobin 28.2 pg (27.0-33.0); Mean Corpuscular Volume 86.2 fL (80.0-98.0); Mean Platelet Volume 10.2 fL (9.4-12.3); Monocytes Absolute Auto 0.6 X10*3/uL (0.1-1.2); Monocytes Percent Auto 8.3 % (2-11); Neutrophils Absolute Auto 3.6 x10*3/uL (2.0-8.3); Neutrophils Percent Auto 47.7 % (45-73); Platelet Count 285 X10*3/uL (160-400); Red Blood Count 4.26 X10*6/uL (4.20-5.50); Red Cell Distribution Width 11.8 % (11.0-16.0); White Blood Count 7.6 X10*3/uL (4.8-10.8)
[2021-10-31 07:35] LABS: Anion Gap 13 (12-20); Blood Urea Nitrogen 11 mg/dL (9-16); Calcium 8.5 mg/dL (8.4-10.2); Carbon Dioxide 23 mmol/L (22-29); Chloride 109 mmol/L (96-108); Creatinine Clr Calc Pharmacy 60.9; Estimated Glomerular Filt Rate > 60; Glucose Random 101 mg/dL (60-115); Potassium 4.3 mmol/L (3.3-5.1); Sodium 141 mmol/L (135-145)
--- NOTE | 2021-10-31 07:51 | PHA.MEDREC ---
Pharmacy Consult ? Medication Reconciliation Pharmacy has completed the medication reconciliation.
[2021-10-31] MEDS: Lactated Ringers 1,000 ML 999 ML IV (08:28)
[2021-10-31] MEDS: 0.9 % Sodium Chloride Flush 3 ML SYRINGE IVFLUSH ×2 (08:29→16:07)
[2021-10-31 08:30] VITALS: BP 129/70; PULSE 62; RESP 16; TEMP 36.7; O2SAT 97
--- NOTE | 2021-10-31 08:38 | PC.NURSE ---
patient assessed with use of driver examiner.patient a/ox4 . rayo . heart rate regular at 70 beats . lungs clear . abdomen soft non tender . positive bowel sounds in all quadrants . patient recently had procedure at [facility] inner left thigh . wound size 3 cm by 3 cm . wound open covered with alleve , no drainage noted . redness noted around area . previous nurse outlined area with skin marker no further traveling noted at this time . patient is aware of the plan of care for admission .
--- NOTE | 2021-10-31 08:51 | PHA.PROG ---
Admission Date/Time: October 31, 2021 03:32 Indication: Skin Infection Weight in k.379 kg Adjusted body weight in Kg: Steen body weight in Kg: Obesity Dosing Indication % IBW: Serum Creatinine - Last 168 Hours 10/30/21 10/31/21 17:19 06:57 Creatinine 1.00 0.86 Estimated CrCl and GFR - Last 168 Hours 10/30/21 10/31/21 17:19 06:57 Estim Creat Clear Calc 52.4 60.9 Estimated GFR 56 > 60 Vancomycin Loading Dose: 2000 mg Current Vancomycin Dosing Regimen: 1250 mg Q24H Date and Time for next Vancomycin Level to be drawn: 11/02 @ 2099 Pharmacist Comments on Vancomycin Plan: Patient is obese with BMI of 35 Patient received loading dose vancomycin 2000 mg in the ed 10/31 @ 0330. Maintenance dose vancomycin 1250 mg Q12H scheduled 10/31 @ 2300. Dose given slightly earlier to allow trough to be drawn while pharmacy can access and change if necessary. Expected AUC 534 with a trough of 14.3. Trough to be drawn 11/02 @ 2100. Pharmacy to monitor renal function daily. Abigail Walls pharmD Vancomycin dosing will take advantage of [employer] as a clinical decision support tool that uses Bayesian modeling to calculate individual patient's pharmacokinetic parameters and forecast the patient's drug concentration time course with the target goal AUC 24 range of 400 - 600 mg/L/hr.
--- NOTE | 2021-10-31 10:15 | PM.EVENT ---
Event Note Date of Service: 10/31/21 Event Note: Seen for ? cellulitis or wound infectin.. woud doesn't appear infectious to me and will ID--wound of left inner tight area
--- NOTE | 2021-10-31 12:17 | P.CDIC_ITS ---
CDI Concurrent Query Documentation Clarification: PHYSICIAN'S DOCUMENTATION REQUEST Date of Query: 10/31/21 1217 Patient Name: Sandra Patton Admit Date: 10/31/21 Dear Doctor, Please review the following and provide your response in the progress notes. Clinical Indicators: Risk Factors/Clinical Indicators/Treatments PMH: Asthma Controlled p.r.n. Duoneb if necessary Based on the above, please clarify in the Progress Notes further specificity regarding the type and acuity of the asthma: Type: * Mild intermittent - less than 2x/week * Mild persistent - more than 2x/week but not daily * Moderate persistent - daily and may restrict physical activity * Severe persistent - throughout the day with frequent attacks, limiting activities * Exercise induced * Other ? please specify * Unable to determine Use of terms such as suspected, likely, concern for, or probable (associated with a specific diagnosis that is being evaluated, monitored, or treated as if it exists) are acceptable and can be coded in the inpatient setting, when documented at the time of discharge. Thank you, Nano Breaux [facility], CDIS Extension: [phone] Please use your independent medical judgment in providing your response. THIS QUERY IS PART OF THE PERMANENT MEDICAL RECORD
--- NOTE | 2021-10-31 12:17 | MHC.CDI.CONC ---
CDI Concurrent Query Documentation Clarification: PHYSICIAN'S DOCUMENTATION REQUEST Date of Query: 10/31/21 1217 Patient Name: Sandra Patton Admit Date: 10/31/21 Dear Doctor, Please review the following and provide your response in the progress notes. Clinical Indicators: Risk Factors/Clinical Indicators/Treatments PMH: Asthma Controlled p.r.n. Duoneb if necessary Based on the above, please clarify in the Progress Notes further specificity regarding the type and acuity of the asthma: Type: Mild intermittent - less than 2x/week Mild persistent - more than 2x/week but not daily Moderate persistent - daily and may restrict physical activity Severe persistent - throughout the day with frequent attacks, limiting activities Exercise induced Other ? please specify Unable to determine Use of terms such as suspected, likely, concern for, or probable (associated with a specific diagnosis that is being evaluated, monitored, or treated as if it exists) are acceptable and can be coded in the inpatient setting, when documented at the time of discharge. Thank you, Nano Breaux [facility], CDIS Extension: [phone] Please use your independent medical judgment in providing your response. THIS QUERY IS PART OF THE PERMANENT MEDICAL RECORD
[2021-10-31] MEDS: Acetaminophen 325 MG TABLET 650 MG PO (16:06)
--- NOTE | 2021-10-31 16:10 | PC.NURSE ---
patient medicated with PRN 650 mg tylenol for pain 10/10 for wound on inner thigh .
[2021-10-31 16:11] VITALS: BP 121/56; PULSE 65; RESP 18; TEMP 36.8; O2SAT 96
--- NOTE | 2021-10-31 19:13 | PC.NURSE ---
Report given to KENYETTA Gordon at this time
[2021-10-31 21:01] VITALS: BP 127/64; PULSE 64; RESP 16; TEMP 36.7; O2SAT 96
[2021-10-31] MEDS: vancomycin HCL 1,250 MG in 0.9 % Sodium Chloride 250 ML 166.67 MG IV (22:42)
[2021-11-01] VITALS: BP 128/78; PULSE 61; RESP 17; TEMP 36.1; O2SAT 98
--- NOTE | 2021-11-01 00:01 | PC.NURSE ---
Assumed care of patient at 1900. Patient is alert and oriented. Offers no complaints at this time. [place] foam dressing changed to left inner thigh. Patient independent to bathroom.
[2021-11-01] MEDS: 0.9 % Sodium Chloride Flush 3 ML SYRINGE IVFLUSH ×3 (00:12→16:03)
[2021-11-01 03:53] VITALS: BP 103/67; PULSE 60; RESP 17; TEMP 35.9; O2SAT 98
[2021-11-01] MEDS: cefTRIAXone sodium 1 GM in 0.9 % Sodium Chloride 50 ML IV (06:21)
--- NOTE | 2021-11-01 07:00 | PC.NURSE ---
Assumed care of patient at this time.
[2021-11-01 07:53] VITALS: BP 128/54; PULSE 58; RESP 18; TEMP 35.9; O2SAT 98
[2021-11-01] MEDS: Acetaminophen 325 MG TABLET 650 MG PO ×2 (09:04→16:01)
--- NOTE | 2021-11-01 09:37 | HO.PM.IMPN ---
Subjective Subjective Date of Service: 11/01/21 Interval History: Pt seen for follow up on LLE cellulitis No purulent drainage from abcess s/p I&D 6 days ago [facility]. Afebrile. Pt reports 9/10 burning pain. Only wants tylenol. Review of Systems General: No fevers, malaise, unintentional weight loss Cardiovascular: No chest pain, palpitations, or leg edema Respiratory: No shortness of breath, wheezing, cough Neuro: +pain L upper thigh. No headaches, weakness, paresthesias Skin: +cellulitis/abscess left upper thigh. Physical Exam Vital Signs: Vital Signs: Last Vital Signs Temp 96.7 F L 11/01/21 07:53 Pulse 58 11/01/21 07:53 Resp 18 11/01/21 07:53 BP 128/54 L 11/01/21 07:53 Pulse Ox 98 11/01/21 07:53 O2 Del Method 11/01/21 07:53 BMI result Body Mass Index 35.3 Constitutional - Awake and Alert, No apparent distress Eyes - PERRLA, EOMI Cardiovascular - S1S2, RRR, No edema Respiratory - Normal lung expansion, Normal respiratory effort, No respiratory distress, CTA bilaterally Gastrointestinal - NT / ND; +BS; No rebound or guarding - No CVA tenderness Extremities - no calf tenderness bilaterally, no swelling Skin - Warm/Dry. 4cm area induration with surrounding erythema that is receding from skin marker. No purulent drainage. See below Neurological - Alert & oriented x3, No focal deficit Psychological - Appropriate affect Objective Data Active Medications Acetaminophen (Acetaminophen 325 Mg Tablet) 650 mg PO Q6H PRN PRN Reason: Pain, Mild (Pain Scale 1-3) Last Admin: 11/01/21 09:04 Dose: 650 mg Documented By: SHRUTHI Docusate Sodium (Docusate Sodium 100 Mg Capsule) 100 mg PO DAILY PRN PRN Reason: Constipation Enoxaparin Sodium (Enoxaparin Sodium 40 Mg/0.4 Ml Syringe) 40 mg SUBCUT Q24H [facility] Last Admin: 11/01/21 05:21 Dose: Not Given Documented By: VIDYA Non-Admin Reason: Patient Refused Ceftriaxone Sodium 1 gm/ (Sodium Chloride) 50 mls @ 100 mls/hr IV Q24H [facility] Last Infusion: 11/01/21 07:17 Dose: 0 mls/hr Documented By: VIDYA Vancomycin HCl 1,250 mg/ (Sodium Chloride) 250 mls @ 166.667 mls/hr IV Q24H [facility] Last Infusion: 11/01/21 02:43 Dose: 0 mls/hr Documented By: VIDYA Ondansetron HCl (Ondansetron Hcl 4 Mg/2 Ml Vial) 4 mg IVPUSH Q8H PRN PRN Reason: Nausea and Vomiting Oxycodone HCl (Oxycodone Hcl Immed Release 5 Mg Tablet) 5 mg PO Q6H PRN PRN Reason: Pain, Severe (Pain Scale 7-10) Pharmacy Consult (Consult Rx Vancomycin Dosing) 1 each MISCELLANE DAILY PRN PRN Reason: Consult order Pharmacy Consult (Consult Rx Perform Med Rec) 1 each MISCELLANE ONCE PRN PRN Reason: Consult order Sodium Chloride (0.9 % Sodium Chloride Flush 3 Ml Syringe) 3 ml IVFLUSH QSHIFT [facility] Last Admin: 11/01/21 09:14 Dose: 3 ml Documented By: SHRUTHI Labs CBC & Chem 7: 10/31/21 06:57 10/31/21 06:57 Microbiology Microbiology Results: Microbiology 10/30/21 17:20 Blood Culture - Preliminary Blood - Venous No growth after 24 hours. 10/30/21 17:19 Blood Culture - Preliminary Blood - Venous No growth after 24 hours. 10/31/21 02:42 Blood Culture - Final Blood - Venous 10/31/21 02:42 Blood Culture - Final Blood - Venous Assessment and Plan (1) Cellulitis due to methicillin-resistant Staphylococcus aureus (MRSA): Status: Acute (2) Wound of left lower extremity: Status: Acute Plan 61-year-old female with a recent I&D due to cellulitis / abscess of the left inner thigh with? MRSA colonization, returns with worsening cellulitis 1- Cellulitis due to MRSA -Continue vancomycin -Blood cultures negative. No leukocytosis. Hemodynamically stable. No sepsis -Pt with history of abscess s/p I&D [facility] 6 days ago. Wound is clean and dry. Continue sterile dressings and reposition q2h. May need outpt wound care -ID consult pending -Tylenol prn pain 2-Mild persistent asthma -Continue maintenance inhalers -Albuterol prn DVT prophylaxis- lovenox Full code Pt requires ongoing inpt stay due to MRSA cellulitis s/p I&D requiring IV antiobiotics and consultation with infectious disease to prevent worsening infection having failed outpt abx. Quality Stroke Does the patient have a stroke diagnosis?: No VTE Prior VTE?: No VTE Risk Level:: Medical - moderate - high VTE Device Contraindication: Treatment Not Indicated VTE Drug Contraindication: N/A - Med Ordered
[2021-11-01 11:45] VITALS: BP 142/55; PULSE 63; RESP 20; TEMP 36.4; O2SAT 97
[2021-11-01 11:58] LABS: Creatinine Clr Calc Pharmacy 66.3; Estimated Glomerular Filt Rate > 60
--- NOTE | 2021-11-01 12:10 | HE.PHANOTE ---
belinda hager continue current dose, next trough due 11/02 @2100
[2021-11-01] MEDS: hydrOXYzine HCL 10 MG TABLET PO ×2 (13:00→20:08)
[2021-11-01 16:56] VITALS: BP 124/55; PULSE 64; RESP 17; TEMP 36.5; O2SAT 97
--- NOTE | 2021-11-01 19:04 | PC.NURSE ---
Report given to KENYETTA Florence assuming care of patient at this time.
[2021-11-01 20:06] VITALS: BP 115/57; PULSE 62; RESP 17; TEMP 36.7; O2SAT 97
[2021-11-01] MEDS: vancomycin HCL 1,250 MG in 0.9 % Sodium Chloride 250 ML 166.67 MG IV (22:29)
[2021-11-02 00:02] VITALS: BP 109/54; PULSE 65; RESP 18; TEMP 36.4; O2SAT 94
[2021-11-02] MEDS: 0.9 % Sodium Chloride Flush 3 ML SYRINGE IVFLUSH ×2 (00:13→09:33)
[2021-11-02] MEDS: Enoxaparin Sodium 40 MG/0.4 ML SYRINGE SUBCUT (03:42)
[2021-11-02] MEDS: Acetaminophen 325 MG TABLET 650 MG PO ×2 (03:46→18:38)
[2021-11-02 04:20] VITALS: BP 135/61; PULSE 60; RESP 18; TEMP 35.6; O2SAT 96
[2021-11-02] MEDS: cefTRIAXone sodium 1 GM in 0.9 % Sodium Chloride 50 ML IV (05:35)
[2021-11-02 05:44] LABS: Creatinine Clr Calc Pharmacy 63.9; Estimated Glomerular Filt Rate > 60
[2021-11-02 08:15] VITALS: BP 110/61; PULSE 62; RESP 18; TEMP 36.3; O2SAT 98
--- NOTE | 2021-11-02 10:17 | HO.PM.IMPN ---
Subjective Subjective Date of Service: 11/02/21 Interval History: Pt seen for follow up on LLE cellulitis No purulent drainage from abcess s/p I&D 6 days ago [facility]. Afebrile. Pt improvement in pain to 7/10. No purulent drainage. Still indurated and warm. Review of Systems General: No fevers, malaise, unintentional weight loss Cardiovascular: No chest pain, palpitations, or leg edema Respiratory: No shortness of breath, wheezing, cough Neuro: +pain L upper thigh. No headaches, weakness, paresthesias Skin: +cellulitis/abscess left upper thigh. Physical Exam Vital Signs: Vital Signs: Last Vital Signs Temp 97.3 F 11/02/21 08:15 Pulse 62 11/02/21 08:15 Resp 18 11/02/21 08:15 BP 110/61 11/02/21 08:15 Pulse Ox 98 11/02/21 08:15 O2 Del Method 11/02/21 08:15 BMI result Body Mass Index 35.3 Constitutional - Awake and Alert, No apparent distress Eyes - PERRLA, EOMI Cardiovascular - S1S2, RRR, No edema Respiratory - Normal lung expansion, Normal respiratory effort, No respiratory distress, CTA bilaterally Gastrointestinal - NT / ND; +BS; No rebound or guarding - No CVA tenderness Extremities - no calf tenderness bilaterally, no swelling Skin - Warm/Dry. 4cm area induration with faint surrounding erythema that remains within borders of skin marker. No purulent drainage. There are also 2 ciruclar erythematous lesions on the right and left lower abdomen and two similar lesions on the lateral left thigh. See below- no change Neurological - Alert & oriented x3, No focal deficit Psychological - Appropriate affect Objective Data Active Medications Acetaminophen (Acetaminophen 325 Mg Tablet) 650 mg PO Q6H PRN PRN Reason: Pain, Mild (Pain Scale 1-3) Last Admin: 11/02/21 03:46 Dose: 650 mg Documented By: LAURA Docusate Sodium (Docusate Sodium 100 Mg Capsule) 100 mg PO DAILY PRN PRN Reason: Constipation Enoxaparin Sodium (Enoxaparin Sodium 40 Mg/0.4 Ml Syringe) 40 mg SUBCUT Q24H [facility] Last Admin: 11/02/21 03:42 Dose: 40 mg Documented By: LAURA Fluticasone Propionate (Fluticasone Propionate 100 Mcg Blst.W.Dev) 2 puff INHALE RBID COUNTS INCLUDE 234 BEDS AT THE [facility] Last Admin: 11/02/21 08:10 Dose: Not Given Documented By: MNIDI Non-Admin Reason: Med Not Available Hydroxyzine HCl (Hydroxyzine Hcl 10 Mg Tablet) 10 mg PO Q8H PRN PRN Reason: Itching Last Admin: 11/01/21 20:08 Dose: 10 mg Documented By: BIRD Ceftriaxone Sodium 1 gm/ (Sodium Chloride) 50 mls @ 100 mls/hr IV Q24H COUNTS INCLUDE 234 BEDS AT THE [facility] Last Infusion: 11/02/21 06:52 Dose: 0 mls/hr Documented By: LAURA Vancomycin HCl 1,250 mg/ (Sodium Chloride) 250 mls @ 166.667 mls/hr IV Q24H COUNTS INCLUDE 234 BEDS AT THE [facility] Last Infusion: 11/02/21 00:14 Dose: 0 mls/hr Documented By: LAURA Ondansetron HCl (Ondansetron Hcl 4 Mg/2 Ml Vial) 4 mg IVPUSH Q8H PRN PRN Reason: Nausea and Vomiting Oxycodone HCl (Oxycodone Hcl Immed Release 5 Mg Tablet) 5 mg PO Q6H PRN PRN Reason: Pain, Severe (Pain Scale 7-10) Pharmacy Consult (Consult Rx Vancomycin Dosing) 1 each MISCELLANE DAILY PRN PRN Reason: Consult order Pharmacy Consult (Consult Rx Perform Med Rec) 1 each MISCELLANE ONCE PRN PRN Reason: Consult order Sodium Chloride (0.9 % Sodium Chloride Flush 3 Ml Syringe) 3 ml IVFLUSH QSHIFT COUNTS INCLUDE 234 BEDS AT THE [facility] Last Admin: 11/02/21 09:33 Dose: 3 ml Documented By: BRANDI Labs CBC & Chem 7: 10/31/21 06:57 11/02/21 04:43 Labs: Laboratory Results - last 24 hr 11/01/21 11/02/21 11:14 04:43 Estim Creat Clear Calc 66.3 63.9 Estimated GFR > 60 > 60 Microbiology Microbiology Results: Microbiology 10/30/21 17:20 Blood Culture - Preliminary Blood - Venous No growth after 48 hours. 10/30/21 17:19 Blood Culture - Preliminary Blood - Venous No growth after 48 hours. Assessment and Plan (1) Cellulitis due to methicillin-resistant Staphylococcus aureus (MRSA): Status: Acute (2) Wound of left lower extremity: Status: Acute Plan 61-year-old female with a recent I&D due to cellulitis / abscess of the left inner thigh with? MRSA colonization, returns with worsening cellulitis 1- Cellulitis due to MRSA -Pt received 3 doses vancomycin and ceftriaxone. Continue -Blood cultures negative. No leukocytosis. Hemodynamically stable. No sepsis -Pt with history of abscess s/p I&D [facility] 6 days ago. Wound is clean and dry. Discussed with general surgery. I&D not indicated. Cover with silver agitate dressings daily. May need outpt wound care -ID consult pending -Tylenol prn pain 2-Mild persistent asthma -Continue maintenance inhalers -Albuterol prn DVT prophylaxis- lovenox Full code Pt requires ongoing inpt stay due to MRSA cellulitis s/p I&D requiring IV antiobiotics and consultation with infectious disease to prevent worsening infection having failed outpt abx. Quality Stroke Does the patient have a stroke diagnosis?: No VTE Prior VTE?: No VTE Risk Level:: Medical - moderate - high VTE Device Contraindication: Treatment Not Indicated VTE Drug Contraindication: N/A - Med Ordered
--- NOTE | 2021-11-02 10:47 | MHC.CM.PN ---
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 For D/C planning, she is requesting (if qualifies) for home w/new VNA-nursing. She has a friend who will provide transportation. CM to follow for D/C planning needs.
[2021-11-02 11:18] VITALS: BP 140/82; PULSE 61; RESP 20; TEMP 36.5; O2SAT 96
[2021-11-02] MEDS: Ibuprofen 600 MG TABLET PO (11:50)
[2021-11-02 20:00] VITALS: BP 106/48; PULSE 65; RESP 16; TEMP 36.9; O2SAT 98
[2021-11-02 22:04] LABS: Vancomycin Random 7.4 mcg/mL (15-20)
--- NOTE | 2021-11-02 22:55 | PC.NURSE ---
PATIENT HAD A SHOWER ,BEDDING CHANGE .
[2021-11-02] MEDS: vancomycin HCL 750 MG in 0.9 % Sodium Chloride 250 ML 265 MG IV (23:34)
[2021-11-03] VITALS (7 sets, daily range): BP systolic 115–133; BP diastolic 56–80; PULSE 60–76; RESP 14–18; TEMP 35.9–36.8; O2SAT 92–98; BMI 35.6
[2021-11-03] MEDS: Acetaminophen 325 MG TABLET 650 MG PO ×3 (00:50→23:00)
[2021-11-03] MEDS: Enoxaparin Sodium 40 MG/0.4 ML SYRINGE SUBCUT (03:33)
--- NOTE | 2021-11-03 03:50 | PC.NURSE ---
Patient reports burning pain in the center of the left inner thigh wound. Dressing removed, wound assessed: wound bed remaining unchanged-mixed about 15% granulation tissue, 70% yellow/whitish slough, and 15% brown eschar. Small amount of serosang drainage noted on the old dressing, circumferential erythema to periwound resolving-at present pink/red, mild warmth. Wound cleansed with NS, gently dried, Aquacel Ag applied to wound bed, covered with adhesive border foam dressing. Patient reports less burning pain after wound assessment/care.
[2021-11-03] MEDS: cefTRIAXone sodium 1 GM in 0.9 % Sodium Chloride 50 ML IV (05:48)
[2021-11-03 07:18] LABS: Creatinine Clr Calc Pharmacy 71.7; Estimated Glomerular Filt Rate > 60
[2021-11-03] MEDS: 0.9 % Sodium Chloride Flush 3 ML SYRINGE IVFLUSH ×3 (08:45→22:32)
[2021-11-03] MEDS: vancomycin HCL 750 MG in 0.9 % Sodium Chloride 250 ML 265 MG IV (11:20)
[2021-11-03] MEDS: Fluticasone Propionate 100 MCG BLST.W.DEV 2 PUFF INHALE ×2 (11:37→19:46)
--- NOTE | 2021-11-03 12:22 | P.PNIM_ITS ---
Subjective Subjective Date of Service: 11/03/21 Review of Systems Follow-up cellulitis with MRSA Denies pain, nausea, vomiting Physical Exam Vital Signs: Vital Signs: Last Vital Signs Temp 96.8 F 11/03/21 09:06 Pulse 71 11/03/21 11:41 Resp 18 11/03/21 11:41 BP 127/56 L 11/03/21 09:06 Pulse Ox 98 11/03/21 09:06 O2 Del Method 11/03/21 09:06 BMI result Body Mass Index 35.3 Appearing in no acute distress lung sounds are clear to auscultation heart regular rate rhythm, clear S1, S2 positive bowel sounds, abdomen is soft, nontender neuro patient is alert x3, no focal deficits half dollar size open wound to left inner thigh Objective Data Active Medications Acetaminophen (Acetaminophen 325 Mg Tablet) 650 mg PO Q6H PRN PRN Reason: Pain, Mild (Pain Scale 1-3) Last Admin: 11/03/21 08:44 Dose: 650 mg Documented By: KENZIE Docusate Sodium (Docusate Sodium 100 Mg Capsule) 100 mg PO DAILY PRN PRN Reason: Constipation Enoxaparin Sodium (Enoxaparin Sodium 40 Mg/0.4 Ml Syringe) 40 mg SUBCUT Q24H [facility] Last Admin: 11/03/21 03:33 Dose: 40 mg Documented By: NICK Fluticasone Propionate (Fluticasone Propionate 100 Mcg Blst.W.Dev) 2 puff INHALE RBID [facility] Last Admin: 11/03/21 11:37 Dose: 2 puff Documented By: MEG Hydroxyzine HCl (Hydroxyzine Hcl 10 Mg Tablet) 10 mg PO Q8H PRN PRN Reason: Itching Last Admin: 11/01/21 20:08 Dose: 10 mg Documented By: BIRD Ceftriaxone Sodium 1 gm/ (Sodium Chloride) 50 mls @ 100 mls/hr IV Q24H [facility] Last Infusion: 11/03/21 06:45 Dose: 0 mls/hr Documented By: NICK Vancomycin HCl 750 mg/ Sodium (Chloride) 265 mls @ 265 mls/hr IV Q12H [facility] Last Admin: 11/03/21 11:20 Dose: 265 mls/hr Documented By: KENZIE Ibuprofen (Ibuprofen 600 Mg Tablet) 600 mg PO Q6H PRN PRN Reason: Pain, Moderate (Pain Scale 4-6 Last Admin: 11/02/21 11:50 Dose: 600 mg Documented By: BRANDI Ondansetron HCl (Ondansetron Hcl 4 Mg/2 Ml Vial) 4 mg IVPUSH Q8H PRN PRN Reason: Nausea and Vomiting Oxycodone HCl (Oxycodone Hcl Immed Release 5 Mg Tablet) 5 mg PO Q6H PRN PRN Reason: Pain, Severe (Pain Scale 7-10) Pharmacy Consult (Consult Rx Vancomycin Dosing) 1 each MISCELLANE DAILY PRN PRN Reason: Consult order Pharmacy Consult (Consult Rx Perform Med Rec) 1 each MISCELLANE ONCE PRN PRN Reason: Consult order Sodium Chloride (0.9 % Sodium Chloride Flush 3 Ml Syringe) 3 ml IVFLUSH QSHIFT [facility] Last Admin: 11/03/21 08:45 Dose: 3 ml Documented By: KENZIE Labs CBC & Chem 7: 10/31/21 06:57 11/03/21 06:42 Labs: Laboratory Results - last 24 hr 11/02/21 11/03/21 21:13 06:42 Estim Creat Clear Calc 71.7 Estimated GFR > 60 Random Vancomycin 7.4 L Assessment and Plan (1) Cellulitis due to methicillin-resistant Staphylococcus aureus (MRSA): Status: Acute (2) Wound of left lower extremity: Status: Acute Plan 61-year-old female with a recent I&D due to cellulitis / abscess of the left inner thigh with?MRSA colonization, returns with worsening cellulitis Cellulitis with history of MRSA colonization Recent I&D at [facility] approximately 1 week ago MRSA nasal swab pending Blood cultures negative ID consult pending Continue vancomycin Rocephin for now Pain management Wound dressing alginate daily Mild intermittent asthma No exacerbation Albuterol as needed DVT prophylaxis- lovenox Attending Dr. Tarango Full code Pt requires ongoing inpt stay due to MRSA cellulitis s/p I&D requiring IV antiobiotics and consultation with infectious disease to prevent worsening infection having failed outpt abx. Quality Stroke Does the patient have a stroke diagnosis?: No VTE Prior VTE?: No VTE Risk Level:: Medical - moderate - high VTE Device Contraindication: Treatment Not Indicated VTE Drug Contraindication: N/A - Med Ordered
[2021-11-03 13:24] LABS: MRSA Nasal PCR POSITIVE (Negative); SA Nasal PCR POSITIVE (Negative)
--- NOTE | 2021-11-03 16:31 | P.CNID_ITS ---
History of Present Illness Data of Consult Service Date: 11/03/21 Requesting physician: Yudy Eden Primary Care Provider: EFFIE Overton Reason for consult: ulcer left thigh She presents with blister lateral left leg and inner thigh which has 1 cm area with no cellulitis. She has no fever or chills. She has no nausea or vomiting. Review of Systems Review of Systems: Yes all other systems are reviewed and are negative PMFSH Past Medical History Medical History Asthma Family History Family History Father Cancer Colon cancer Mother Respiratory arrest Daughter Lymphoma Family history: reviewed and not pertinent Surgical History Surgical History No pertinent past surgical history Social History Social History Housing: Apartment Alcohol intake: current Alcohol intake frequency: holidays/special occasions only Patient Tobacco Use Status: Never used Tobacco Use of substances other than those prescribed or required for medical reasons: No Advance Directives: No Patient : No service: No Current occupational status: employed 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 Gender identity: Female Cognitive needs: No Hearing needs: No Vision needs: No Meds Allergies Allergy/AdvReac Type Severity Reaction Status Date / Time No Known Allergies Allergy Verified 05/15/21 15:18 Active Medications: Current Medications Acetaminophen (Acetaminophen 325 Mg Tablet) 650 mg PO Q6H PRN PRN Reason: Pain, Mild (Pain Scale 1-3) Last Admin: 11/03/21 08:44 Dose: 650 mg Docusate Sodium (Docusate Sodium 100 Mg Capsule) 100 mg PO DAILY PRN PRN Reason: Constipation Enoxaparin Sodium (Enoxaparin Sodium 40 Mg/0.4 Ml Syringe) 40 mg SUBCUT Q24H [facility] Last Admin: 11/03/21 03:33 Dose: 40 mg Fluticasone Propionate (Fluticasone Propionate 100 Mcg Blst.W.Dev) 2 puff INHALE RBID [facility] Last Admin: 11/03/21 11:37 Dose: 2 puff Hydroxyzine HCl (Hydroxyzine Hcl 10 Mg Tablet) 10 mg PO Q8H PRN PRN Reason: Itching Last Admin: 11/01/21 20:08 Dose: 10 mg Ceftriaxone Sodium 1 gm/ (Sodium Chloride) 50 mls @ 100 mls/hr IV Q24H [facility] Last Infusion: 11/03/21 06:45 Dose: Infused Vancomycin HCl 750 mg/ Sodium (Chloride) 265 mls @ 265 mls/hr IV Q12H [facility] Last Infusion: 11/03/21 12:22 Dose: Infused Ibuprofen (Ibuprofen 600 Mg Tablet) 600 mg PO Q6H PRN PRN Reason: Pain, Moderate (Pain Scale 4-6 Last Admin: 11/02/21 11:50 Dose: 600 mg Ondansetron HCl (Ondansetron Hcl 4 Mg/2 Ml Vial) 4 mg IVPUSH Q8H PRN PRN Reason: Nausea and Vomiting Oxycodone HCl (Oxycodone Hcl Immed Release 5 Mg Tablet) 5 mg PO Q6H PRN PRN Reason: Pain, Severe (Pain Scale 7-10) Pharmacy Consult (Consult Rx Vancomycin Dosing) 1 each MISCELLANE DAILY PRN PRN Reason: Consult order Pharmacy Consult (Consult Rx Perform Med Rec) 1 each MISCELLANE ONCE PRN PRN Reason: Consult order Sodium Chloride (0.9 % Sodium Chloride Flush 3 Ml Syringe) [facility] Last Admin: 11/03/21 08:45 Dose: 3 ml Home Medications Medication Instructions Recorded Confirmed Last Taken Type sulfamethoxazole 800 1 tab PO BID 10/31/21 10/31/21 Unknown History mg-trimethoprim 160 mg tablet tramadol 50 mg tablet 50 mg PO Q12H 10/31/21 10/31/21 Unknown History Physical Exam Vital Signs: Vital Signs: Last Vital Signs Temp 96.6 F L 11/03/21 16:00 Pulse 70 11/03/21 16:00 Resp 18 11/03/21 16:00 BP 133/61 11/03/21 16:00 Pulse Ox 96 11/03/21 16:00 O2 Del Method 11/03/21 16:00 BMI result Body Mass Index 35.3 Const: General: cooperative HEENT: Head: Yes normal to inspection Face and sinus: Yes normal facial exam Mouth: Normal oral and palatal mucosa present Teeth and gingiva: dentition normal Eyes: General: appearance normal, both eyes and all related structures Pupils: Equal, round and reactive pupils present Resp: Effort & Inspection: normal respiratory effort Cardio: Rate: regular rate Rhythm: regular rhythm GI: Palpation (GI): Soft to palpation and nontender : General: Yes no CVA tenderness Back/Spine/Pelvis: Back: no CVA tenderness Skin: General skin exam: no rashes or lesions noted Neuro: General: moves all extremities Cranial nerves: Yes Equal, round and reactive pupils present Extrem: Other: clear open area left thigh 3 x 5 cm,resolving lesions lateral leg Psych: Appearance: grossly normal Results Labs CBC & Chem 7: 10/31/21 06:57 11/03/21 06:42 Labs: BMP 11/03/21 06:42 Creatinine 0.73 Microbiology Microbiology Results: Microbiology 10/30/21 17:20 Blood - Venous Blood Culture - Preliminary No growth after 48 hours. 10/30/21 17:19 Blood - Venous Blood Culture - Preliminary No growth after 48 hours. 10/31/21 02:42 Blood - Venous Blood Culture - Final 10/31/21 02:42 Blood - Venous Blood Culture - Final Assessment and Plan (1) Wound of left lower extremity: Status: Acute (2) Cellulitis due to methicillin-resistant Staphylococcus aureus (MRSA): Status: Acute There are no active areas cellulitis,just open wound area. Plan Po Doxycycline 100 mg bid for two weeks.
--- NOTE | 2021-11-03 18:35 | PC.NURSE ---
Report received from ED overflow RN. Pt up to floor at 1600. [employer] called for assistance with admission as pt is primarily estonian speaking. A+Ox4, c/o pain at wound site but states she does not want any tylenol navarro and will call when she feels she needs it. Pt oriented to room, admission complete and pt set up and assisted into bathroom to shower, IV wrapped. Pt requests after shower for her dressing to be changed. call miranda within reach, safety precautions taken.
[2021-11-03 21:31] LABS: Vancomycin Random 10.5 mcg/mL (15-20)
--- NOTE | 2021-11-03 22:35 | HE.PHANOTE ---
VANCO DOSING ADJUSTMENT Based on trough of 10.5 doses increased to [id number]. next trough 11/04 @ 2100
[2021-11-03] MEDS: hydrOXYzine HCL 10 MG TABLET PO (23:00)
[2021-11-03] MEDS: vancomycin HCL 1,000 MG in 0.9 % Sodium Chloride 250 ML 270 MG IV (23:01)
[2021-11-04 04:00] VITALS: BP 125/73; PULSE 68; RESP 15; O2SAT 98
[2021-11-04] MEDS: Enoxaparin Sodium 40 MG/0.4 ML SYRINGE SUBCUT (04:35)
[2021-11-04 06:11] LABS: MANUAL DIFF FLAG NO
[2021-11-04 06:17] LABS: Basophils Absolute Auto 0.1 X10*3/uL (0.0-0.2); Basophils Percent Auto 1.1 % (0-2); Eosinophils Absolute Auto 0.5 X10*3/uL (0.0-0.4); Hematocrit 41.2 % (37.0-47.0); Hemoglobin 13.5 g/dl (12.0-16.0); Imm Gran Abs Auto 0.06 X10*3/uL (0.00-0.03); Lymphocytes Absolute Auto 1.7 X10*3/uL (1.2-4.9); Lymphocytes Percent Auto 27.7 % (20-40); Mean Corpuscular HGB Conc 32.8 g/dl (31.0-35.0); Mean Corpuscular Hemoglobin 28.2 pg (27.0-33.0); Mean Corpuscular Volume 86.2 fL (80.0-98.0); Mean Platelet Volume 10.8 fL (9.4-12.3); Monocytes Absolute Auto 0.6 X10*3/uL (0.1-1.2); Monocytes Percent Auto 9.1 % (2-11); Neutrophils Absolute Auto 3.3 x10*3/uL (2.0-8.3); Neutrophils Percent Auto 53.1 % (45-73); Platelet Count 261 X10*3/uL (160-400); Red Blood Count 4.78 X10*6/uL (4.20-5.50); Red Cell Distribution Width 11.9 % (11.0-16.0); White Blood Count 6.1 X10*3/uL (4.8-10.8)
[2021-11-04] MEDS: cefTRIAXone sodium 1 GM in 0.9 % Sodium Chloride 50 ML IV (06:29)
[2021-11-04 06:32] LABS: Creatinine Clr Calc Pharmacy 65.8; Estimated Glomerular Filt Rate > 60
[2021-11-04 06:39] LABS: Anion Gap 14 (12-20); Blood Urea Nitrogen 14 mg/dL (9-16); Calcium 9.6 mg/dL (8.4-10.2); Carbon Dioxide 25 mmol/L (22-29); Chloride 107 mmol/L (96-108); Creatinine Clr Calc Pharmacy 64.2; Estimated Glomerular Filt Rate > 60; Glucose Random 103 mg/dL (60-115); Potassium 4.2 mmol/L (3.3-5.1); Sodium 142 mmol/L (135-145)
[2021-11-04] MEDS: Acetaminophen 325 MG TABLET 650 MG PO (07:27)
[2021-11-04 07:42] VITALS: BP 136/65; PULSE 62; RESP 18; TEMP 36.4; O2SAT 95
[2021-11-04] MEDS: Fluticasone Propionate 100 MCG BLST.W.DEV 2 PUFF INHALE (08:35)
[2021-11-04 08:36] VITALS: PULSE 65; RESP 18; O2SAT 95
[2021-11-04] MEDS: vancomycin HCL 1,000 MG in 0.9 % Sodium Chloride 250 ML 270 MG IV (11:01)
[2021-11-04] MEDS: 0.9 % Sodium Chloride Flush 3 ML SYRINGE IVFLUSH (11:01)
--- NOTE | 2021-11-04 11:20 | P.DS_ITS ---
DS: Providers Provider Date of Service: 11/04/21 Date of admission: 10/31/21 03:32 Primary care physician: Vaughn Ly PA-C Consults: 10/31/21 10:12 Consult to Infectious Diseases Routine Consulting Provider: Anisa Carmichael Reason for consultation: cellulitis of the tight Has provider been notified: No Attending physician on discharge: Compa Tarango Discharging clinician: Yudy Eden DS: Diagnosis Discharge Diagnosis (1) Wound of left lower extremity: Status: Acute (2) Cellulitis due to methicillin-resistant Staphylococcus aureus (MRSA): Status: Acute DS: Summary Hospital Course Hospital Course: HP as per admitting provider 61-year-old female with past medical history of asthma presents to the hospital with complaints of cellulitis.? Patient reports that she had a red spots on her? thigh that developed about a week ago, she went to outside hospital, had I&D done on 10/26 and discharged? on 10/28 on p.o. antibiotics returns stating that she has recurrence? of these red spots on her thigh in different locations now.? She reports no fever but has chills.? Reports compliance with her p.o. medications.? She denies any chest pain, no shortness of breath, no dizziness or headache, no change in vision.? No chest pain, no shortness of breath, no abdominal pain nausea vomiting, no diarrhea constipation, no urinary symptoms and no lower extremity edema. Arrival to the ED patient hemodynamically stable with no significant abnormal vitals labs are significant for? WBC count of 7.6, hemoglobin 14.1, AST of 48, ALT of 63, labs otherwise stable patient started on IV antibiotics will be admitted for further management . Cellulitis with history of MRSA colonization Recent I&D at [facility] approximately 1 week ago MRSA nasal swab positive Blood cultures negative Be evaluated by Dr. Nelson, ID with recommendation for 2 weeks of doxycycline Treated with vancomycin Rocephin while inpatient Wound dressing alginate daily, continue at home Mild intermittent asthma No exacerbation Albuterol as needed Time Spent with Patient Time attestation: Total time spent providing and/or coordinating discharge services: Discharge coordination time: Greater than 30 minutes Quality: Safe Use of Opioids Does Pt have an Active Cancer Diagnosis on the Problem List?: No Quality: Stroke Does the patient have a stroke diagnosis?: No Physical Exam Vital Signs: Vital Signs: Last Vital Signs Temp 97.6 F 11/04/21 07:42 Pulse 65 11/04/21 08:36 Resp 18 11/04/21 08:36 BP 136/65 11/04/21 07:42 Pulse Ox 95 11/04/21 07:42 O2 Del Method 11/04/21 07:42 BMI result Body Mass Index 35.6 Appearing in no acute distress head is normocephalic atraumatic eyes pupils are PERRLA sclera is anicteric mouth throat mucous membranes are intact and moist neck is supple no lymphadenopathy, no JVD noted lung sounds are clear to auscultation heart regular rate rhythm, clear S1, S2 positive bowel sounds, abdomen is soft, nontender neuro patient is alert x3, no focal deficits DS: Data Data Completed and Pending Labs on day of discharge: Laboratory Results - last 24 hr 11/03/21 11/03/21 11/04/21 10:54 20:59 05:43 WBC RBC Hgb Hct MCV MCH MCHC RDW Plt Count MPV Immature Gran % (Auto) Neut % (Auto) Lymph % (Auto) [place] % (Auto) Eos % (Auto) Baso % (Auto) Lymph # (Auto) [place] # (Auto) Eos # (Auto) Baso # (Auto) Abs Immat Gran (auto) Absolute Neuts (auto) Absolute Nucleated RBC Nucleated RBC % (auto) Sodium Potassium Chloride Carbon Dioxide Anion Gap BUN Creatinine 0.80 Estim Creat Clear Calc 65.8 Estimated GFR > 60 Random Glucose Calcium Nasal Screen MRSA (PCR) POSITIVE A Nasal S. aureus Screen POSITIVE A Nasal MRSA/S.aureus Interp SEE NOTE Random Vancomycin 10.5 L 11/04/21 11/04/21 05:43 05:43 WBC 6.1 RBC 4.78 Hgb 13.5 Hct 41.2 MCV 86.2 MCH 28.2 MCHC 32.8 RDW 11.9 Plt Count 261 MPV 10.8 Immature Gran % (Auto) 1.0 H Neut % (Auto) 53.1 Lymph % (Auto) 27.7 [place] % (Auto) 9.1 Eos % (Auto) 8.0 H Baso % (Auto) 1.1 Lymph # (Auto) 1.7 [place] # (Auto) 0.6 Eos # (Auto) 0.5 H Baso # (Auto) 0.1 Abs Immat Gran (auto) 0.06 H Absolute Neuts (auto) 3.3 Absolute Nucleated RBC 0.000 Nucleated RBC % (auto) 0.0 Sodium 142 Potassium 4.2 Chloride 107 Carbon Dioxide 25 Anion Gap 14 BUN 14 Creatinine 0.82 Estim Creat Clear Calc 64.2 Estimated GFR > 60 Random Glucose 103 Calcium 9.6 D Nasal Screen MRSA (PCR) Nasal S. aureus Screen Nasal MRSA/S.aureus Interp Random Vancomycin Preliminary micro results at discharge 10/30/21 17:20 Blood Culture - Preliminary Blood - Venous No growth after 48 hours. 10/30/21 17:19 Blood Culture - Preliminary Blood - Venous No growth after 48 hours. Discharge Plan Discharge Anticipated Discharge Date/Time: 11/04/21 11:09 Patient Disposition: Home, Self-Care Discharge Diagnosis: Cellulitis with history of MRSA colonization Referrals: Vaughn Ly PA-C [Primary Care Provider] - 1 Week Anisa Carmichael MD [Physician] - 2 Weeks (Follow-up after completion of antibiotics) Odalis Chen MD [Physician] - 1 Week (Please call to make an appointment) Discharge Medications: New ibuprofen 600 mg Tablet 600 mg PO Q6H PRN (Reason: Pain, Moderate (Pain Scale 4-6) Qty: 12 0RF doxycycline hyclate 100 mg tablet 100 mg PO BID Qty: 28 0RF Continued tramadol 50 mg tablet 50 mg PO Q12H Flovent HFA 110 mcg/actuation HFA aerosol inhaler 2 puff inhalation BID 30 Days Qty: 12 3RF Discontinued sulfamethoxazole-trimethoprim 800-160 mg tablet 1 tab PO BID Discharge Orders: Discharge Order (Routine); Ordered 11/04/21 Ordered By: Yudy Eden Diet: Advance to usual diet Activity on Discharge: As tolerated Stand Alone Forms: Patient Portal Discharge page Activity Restrictions/Additional Instructions: ?C?mo puedo evitar el contagio del SARM? Para evitar la propagaci?n del SARM y otras bacterias: L?vese las charles krystal 15 a 20 segundos con agua y jab?n o use desinfectante con alcohol a menudo, en especial despu?s de tocar kinsey lesi?n en la piel. Mantenga limpio cualquier alin o lesi?n. Mant?ngalos cubiertos con vendajes limpios y secos hasta que cicatricen. No toque los ruelas o vendajes de otras personas. No comparta art?culos personales rm toallas, navajas, ropa o equipos. Limpie las superficies que se frotan contra la piel descubierta rm equipos de ejercicios, colchones de huan cara y superficies en el hogar. D?ch viraj con jab?n despu?s de hacer ejercicios o hacer deportes. Lave la ropa y la ropa de cama con white earth. Use lej?a, cuando sea posible Care Plan Goals: Complete resolution of symptoms Health Concerns: Cellulitis with history of MRSA colonization Plan of Treatment: Make an appointment with [facility] Continue daily wound care with alginate dressing, keep wound clean and dry Take doxycycline for 2 weeks and follow up with Dr. Tiffanie Carmichael, infectious Disease provider You may use hydrocortisone cream for itching, keep areas clean and dry Assessment: See discharge summary
--- NOTE | 2021-11-04 11:21 | MHC.CM.PN ---
Patient has been medically cleared for dc to home today, self care.
== END 2021-11-04 14:34 | disposition home or self-care (01) | DRG 721 ==
LOC: HO.ED 10-31 03:29 → HO.EDOVER 10-31 03:37 → HO.IMC 11-03 14:20
PROVIDERS: Physician Assistant; Admitting Provider Internal Medicine; Emergency Provider Emergency Medicine Emergency Medical Services; PCP Physician Assistant; Visit Provider Nurse Practitioner Acute Care
DX: T81.41XA Infection following a procedure, superficial incisional surgical site, initial encounter (principal); L03.116 Cellulitis of left lower limb; B95.62 Methicillin resistant Staphylococcus aureus infection as the cause of diseases classified elsewhere; J45.20 Mild intermittent asthma, uncomplicated; Z20.822 Contact with and (suspected) exposure to COVID-19; Z79.51 Long term (current) use of inhaled steroids; Z79.899 Other long term (current) drug therapy
CPT/HCPCS: 36415; 80048; 80053; 80202; 82248; 82565; 83605; 85025; 85652; 86140; 87040; 87635; 87640; 87641; 94640; 99219; 99285; J0696; J1650; J3370

== ENCOUNTER 2021-11-12 08:10 | Outpatient (RCR) | payer OTHER, SELFPAY | END 2022-01-06 14:09 | disposition home or self-care (01) | LOC: HO.WCC 08:10 | PROVIDERS: PCP Physician Assistant; Visit Provider Surgery | DX: S71.102D Unspecified open wound, left thigh, subsequent encounter (principal); L02.225 Furuncle of perineum | CPT/HCPCS: 11042; 99212 ==

== ENCOUNTER 2022-03-11 17:06 | Emergency (ER) | payer OTHER, SELFPAY ==
--- NOTE | ~2022-03-11 | CT_ITS ---
EXAMINATION: CT ABDOMEN AND PELVIS WITHOUT CONTRAST CLINICAL INFORMATION: Epigastric, left upper quadrant, left lower quadrant pain and tenderness COMPARISON: None TECHNIQUE: Multidetector volumetric imaging was performed from the superior aspect of the liver through the pubic symphysis. Sagittal and coronal reformatted images were obtained on the technologist's workstation. This CT examination was performed using dose optimization techniques as appropriate, variously including the following: *Automated exposure control *Adjustment of mA and/or kV according to patient size (this includes techniques or standardized protocols for targeted exams where dose is matched to indication/reason for exam; i.e. extremities or head) *Use of iterative reconstruction technique DLP: 672 mGy-cm FINDINGS: LUNG BASES: The visualized lung bases are unremarkable aside from bibasilar scarring/atelectasis.. LIVER, GALLBLADDER, AND BILIARY TREE: The liver is normal in size, shape, and attenuation. No focal hepatic lesion or biliary ductal dilatation is present. 2 large gallstones are present in the contracted gallbladder without obvious pericholecystic inflammatory changes. PANCREAS: Unremarkable. SPLEEN: Unremarkable. ADRENAL GLANDS: Unremarkable. KIDNEYS AND URETERS: The kidneys are normal in size, shape, and attenuation. No hydronephrosis, hydroureter, or calculi seen. No perinephric stranding. BLADDER: Unremarkable. GASTROINTESTINAL TRACT: The small and large bowel are unremarkable aside from colonic diverticula without diverticulitis. The appendix is unremarkable. ABDOMINAL WALL: No significant hernia is appreciated. Tiny periumbilical hernia containing only fat. LYMPH NODES: No retroperitoneal lymphadenopathy. VASCULAR: Unremarkable. PELVIC VISCERA: An anteverted uterus is present. This is 3.8 cm left ovarian cyst present within the adjacent smaller cyst or possibly a septation. No free pelvic fluid is seen. A normal anteverted uterus is present OSSEOUS STRUCTURES: Unremarkable. CT/CT abdomen pelvis wo IV con IMPRESSION: 1. A cause for the patient's abdominal pain has not been found. 2. Cholelithiasis without cholecystitis. 3. Left ovarian cyst. Pelvic ultrasound is recommended for further evaluation and characterization. Fleischner guidelines were followed.
--- NOTE | 2022-03-11 17:24 | ED.ABDPAIN ---
HPI - Abdominal Pain General Chief Complaint: Abdominal Pain <Harriett Denny NP - Last Filed: 03/11/22 17:26> Stated Complaint: abdominal pain <Harriett Denny NP - Last Filed: 03/11/22 17:26> Time Seen by Provider: 03/11/22 21:58 <Harriett Denny NP - Last Filed: 03/11/22 17:26> Source: patient and family (Daughter, [place]) <Bryce Perez MD - Last Filed: 03/11/22 23:49> Mode of arrival: ambulatory <Bryce Perez MD - Last Filed: 03/11/22 23:49> Limitations: no limitations <Bryce Perez MD - Last Filed: 03/11/22 23:49> History of Present Illness HPI narrative: 61-year-old female who presents emergency department for evaluation epigastric, left upper quadrant and left lower quadrant abdominal pain. The patient states that the pain started on 02/13/2022 after she ate 2 bites of a sandwich. She states she developed immediate epigastric pain and then immediate diarrhea. Since that time she has had epigastric pain, left upper quadrant and left lower quadrant pain. She states that the pain is constant but is made worse immediately after eating. She describes the pain is a burning sensation and she runs or hand from her throat down to her epigastric area and then down her left side of her abdomen when asked to localize the pain. The pain is currently 10/10. She states that she has had difficulty eating secondary to the pain but she can drink Ensure shakes. She denies any weight loss. She denied fever, chills, night sweats, dark tarry stools or bloody stools. She states that she does have nausea after eating and has vomited 2 times a day for the past 2 days. Patient states that there is a history of colon cancer, pancreatic cancer and ovarian cancer in her family. She states that she had a negative colonoscopy 5 years prior. <Bryce Perez MD - Last Filed: 03/11/22 23:49> Related Data Home Medications: Home Medications Medication Instructions Recorded Confirmed hydrocolloid dressing 4 X 4 11/18/21 11/18/21 (Durafiber Dressing) Previous Rx's Medication Instructions Recorded fluticasone propionate 110 2 puff inhalation BID 30 days #12 05/15/21 mcg/actuation HFA aerosol inhaler grams (Flovent HFA) ibuprofen 600 mg tablet 600 mg PO Q6H PRN Pain, Moderate 11/04/21 (Pain Scale 4-6 #12 tabs chlorhexidine gluconate 4 % 1 appl topical .twice per week 30 11/05/21 topical liquid days #946 mL mupirocin 2 % topical ointment 1 appl topical BID 15 days #22 11/05/21 grams MEPILEX #30 ea 11/07/21 ostomy supplies (Skin Prep Wipes) #50 ea 11/18/21 silver 1.2 %-hydrocolloid dressing 1 ea topical DAILY 10 days #10 ea 11/18/21 3.5 X 12 bandage doxycycline hyclate 100 mg tablet 100 mg PO BID 5 days #10 tabs 12/16/21 aluminum hydrox-magnesium carb 254 10 ml PO QID PRN dyspepsia #355 mL 03/11/22 mg-237.5 mg/5 mL oral suspension (Gaviscon Extra Strength) omeprazole 20 mg capsule,delayed 20 mg PO DAILY 30 days #30 caps 03/11/22 release <Harriett Denny NP - Last Filed: 03/11/22 17:26> Allergies/Adverse Reactions: Allergies Allergy/AdvReac Type Severity Reaction Status Date / Time No Known Allergies Allergy Verified 11/18/21 13:55 <Harriett Denny NP - Last Filed: 03/11/22 17:26> Review of Systems Review of Systems Yes all other systems are reviewed and are negative <Bryce Perez MD - Last Filed: 03/11/22 23:49> [facility] Past Medical History [facility] Narrative: Past medical history: Hyperlipidemia, asthma, obesity, MRSA cellulitis admitted on 10/31/2021. Social history: She denies tobacco use. She occasionally drinks alcohol. She denies drug use. <Bryce Perez MD - Last Filed: 03/11/22 23:49> Medical History: Medical History Asthma <Harriett Denny NP - Last Filed: 03/11/22 17:26> Surgical History: Surgical History No pertinent past surgical history <Harriett Denny NP - Last Filed: 03/11/22 17:26> Family History Family History: Family History Father Cancer Colon cancer Mother Respiratory arrest Daughter Lymphoma <Harriett Denny NP - Last Filed: 03/11/22 17:26> Social History Social History: Social History Household Members: Family Housing: Apartment Do you presently have visiting nurse or other home services: No Alcohol intake: current Alcohol intake frequency: holidays/special occasions only Patient Tobacco Use Status: Never used Tobacco e-Cigarette/Vaping Use: Never Used Advance Directives: No Advance Directives Information Provided: Yes service: No Current occupational status: employed 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 [employer] Gender identity: Female Cognitive needs: No Hearing needs: No Vision needs: No <Harriett Denny NP - Last Filed: 03/11/22 17:26> Physical Exam ED Vital Signs: Vital Signs - 24 hr 03/11/22 17:25 03/11/22 21:31 Temperature 98.2 F 98.6 F Pulse Rate 73 66 Respiratory Rate 18 16 Blood Pressure 152/70 H 131/60 Pulse Oximetry 98 94 Oxygen Delivery Method Room Air Room Air BMI result Body Mass Index 36.3 <Harriett Denny NP - Last Filed: 03/11/22 17:26> Vital Signs - 24 hr 03/11/22 17:25 03/11/22 21:31 Temperature 98.2 F 98.6 F Pulse Rate 73 66 Respiratory Rate 18 16 Blood Pressure 152/70 H 131/60 Pulse Oximetry 98 94 Oxygen Delivery Method Room Air Room Air BMI result Body Mass Index 36.3 <Bryce Perez MD - Last Filed: 03/11/22 23:49> Const General: cooperative and no acute distress <Bryce Perez MD - Last Filed: 03/11/22 23:49> Orientation/consciousness: oriented to person and oriented to place <MD Shelly Szymanski Last Filed: 03/11/22 23:49> Limitations: no limitations <MD Shelly Szymanski Last Filed: 03/11/22 23:49> HENMT Head: Yes normal to inspection, Yes normocephalic and Yes atraumatic <MD Shelly Szymanski Last Filed: 03/11/22 23:49> Ears: external ears normal <MD Shelly Szymanski Last Filed: 03/11/22 23:49> General nose exam: Normal external nose present <MD Shelly Szymanski Last Filed: 03/11/22 23:49> Face and sinus: Yes normal facial exam <MD Shelly Szymanski Last Filed: 03/11/22 23:49> Mouth: Normal oral and palatal mucosa present <MD Shelly Szymanski Last Filed: 03/11/22 23:49> Throat: Yes posterior oropharynx normal <MD Shelly Szymanski Last Filed: 03/11/22 23:49> Eyes General: appearance normal, both eyes and all related structures <MD Shelly Szymanski Last Filed: 03/11/22 23:49> Pupils: Equal, round and reactive pupils present <MD Shelly Szymanski Last Filed: 03/11/22 23:49> Neck Neck: Yes normal visual inspection, Yes no lymphadenopathy, Yes trachea midline and Yes supple <MD Shelly Szymanski Last Filed: 03/11/22 23:49> Chest Chest palpation & inspection: normal inspection of the chest and normal palpation of entire chest wall <MD Shelly Szymanski Last Filed: 03/11/22 23:49> Resp Effort & Inspection: normal respiratory effort and able to speak in complete sentences <MD Shelly Szymanski Last Filed: 03/11/22 23:49> Auscultation: clear to auscultation bilaterally <MD Shelly Szymanski Last Filed: 03/11/22 23:49> Cardio Rate: regular rate <MD Shelly Szymanski Last Filed: 03/11/22 23:49> Rhythm: regular rhythm <Bryce Perez MD - Last Filed: 03/11/22 23:49> Heart sounds: S1 normal heart sound present, S2 normal heart sound present and no murmurs <Bryce Perez MD - Last Filed: 03/11/22 23:49> GI Other: Patient's abdomen is obese, soft, she has moderate epigastric, left upper quadrant and left lower quadrant tenderness, she has normoactive bowel sounds, there is no rebound, no voluntary or involuntary guarding <Bryce Perez MD - Last Filed: 03/11/22 23:49> General: Yes no CVA tenderness <Bryce Perez MD - Last Filed: 03/11/22 23:49> Back/Spine/Pelvis Back: no CVA tenderness <Bryce Perez MD - Last Filed: 03/11/22 23:49> Skin General skin exam: no rashes or lesions noted <Bryce Perez MD - Last Filed: 03/11/22 23:49> Neuro General: oriented to person and oriented to place <Bryce Perez MD - Last Filed: 03/11/22 23:49> Cranial nerves: Yes CN's II-XII intact bilaterally and Yes Equal, round and reactive pupils present <Bryce Perez MD - Last Filed: 03/11/22 23:49> Cognition (Neuro): normal cognition <Bryce Perez MD - Last Filed: 03/11/22 23:49> Motor exam (neuro): 5/5 motor strength present throughout <Bryce Perez MD - Last Filed: 03/11/22 23:49> Extrem General: Yes normal to inspection <Bryce Perez MD - Last Filed: 03/11/22 23:49> Psych Appearance: grossly normal <Bryce Perez MD - Last Filed: 03/11/22 23:49> Speech and movement: Normal speech and movement present <Bryce Perez MD - Last Filed: 03/11/22 23:49> Affect: normal affect <Bryce Perez MD - Last Filed: 03/11/22 23:49> Attitude: cooperative <Bryce Perez MD - Last Filed: 03/11/22 23:49> Thought process: Normal thought process present <Bryce Perez MD - Last Filed: 03/11/22 23:49> Thought content: Normal thought content present <Bryce Perez MD - Last Filed: 03/11/22 23:49> Course Course Course Narrative: This is rapid medical exam. Deferred additional HPI, ROS, PE to primary provider. 61-year-old female with a history of asthma, obesity presents with 1 month of upper abdominal pain/vomiting worsened with eating. No fevers, chills, urinary symptoms. Will obtain labs, UA, covid screen. VSS, <Harriett Denny NP - Last Filed: 03/11/22 17:26> Medical Decision Making Medical Decision Making MDM Narrative: 61-year-old female who presents emergency department for evaluation of 1 month epigastric, left upper quadrant left lower quadrant pain, the pain has gotten worse over the past week. The pain is immediately worse after eating and associated with nausea and occasional vomiting. She has had no systemic symptoms such as fever, chills, night sweats, weight loss. Vital signs were unremarkable. Patient does have epigastric, left upper quadrant left lower quadrant tenderness. Laboratory evaluation was ordered at [facility] including CBC, BMP, liver panel, lipase and COVID-19. My interpretation of these tests are as follows: CBC was normal. CMP was normal except for an elevated CO2 of 30. Liver panel was normal. Lipase was normal. COVID-19 was negative. Given her tenderness and concerned that she may have diverticulitis therefore I did order a CT scan of the abdomen pelvis without IV contrast. Patient was also treated with Maalox 30 cc orally, viscous lidocaine 10 cc orally and 1139: The CT scan of the patient's abdomen pelvis did not reveal a clear cause for her pain. She did have 2 incidental findings (cholelithiasis and left ovarian cyst). I did discuss these findings with the patient. The patient did receive her GI cocktail with some improvement of her pain. This time I believe the patient's pain is consistent with gastritis or peptic ulcer disease. The patient was prescribed Gaviscon extra-strength and Prilosec. Patient was advised to follow-up with her PCP for re-evaluation and to pursue outpatient ultrasound of her left ovarian cyst. <Bryce Perez MD - Last Filed: 03/11/22 23:49> Differential Diagnosis The differential diagnosis includes was not limited to gastritis, peptic ulcer disease, diverticulitis, malignancy, ovarian cyst, ovarian torsion <Bryce Perez MD - Last Filed: 03/11/22 23:49> Lab Data [facility] Lab Attestation statement: I reviewed the patient's lab results. <Bryce Perez MD - Last Filed: 03/11/22 23:49> Please see the [facility] discussion of the patient's labs <Bryce Perez MD - Last Filed: 03/11/22 23:49> Result Diagrams: 03/11/22 20:25 03/11/22 20:25 <Harriett Denny NP - Last Filed: 03/11/22 17:26> Labs: Lab Results 03/11/22 03/11/22 03/11/22 Range/Units 20:22 20:25 20:25 WBC 7.1 (4.8-10.8) X10*3/uL RBC 4.86 (4.20-5.50) X10*6/uL Hgb 13.5 (12.0-16.0) g/dl Hct 41.9 (37.0-47.0) % MCV 86.2 (80.0-98.0) fL MCH 27.8 (27.0-33.0) pg MCHC 32.2 (31.0-35.0) g/dl RDW 12.3 (11.0-16.0) % Plt Count 227 (160-400) X10*3/uL MPV 11.7 (9.4-12.3) fL Immature Gran % (Auto) 0.3 (0.0-0.4) % Neut % (Auto) 53.4 (45-73) % Lymph % (Auto) 29.8 (20-40) % [place] % (Auto) 7.6 (2-11) % Eos % (Auto) 7.8 H (0-4) % Baso % (Auto) 1.1 (0-2) % Lymph # (Auto) 2.1 (1.2-4.9) X10*3/uL [place] # (Auto) 0.5 (0.1-1.2) X10*3/uL Eos # (Auto) 0.6 H (0.0-0.4) X10*3/uL Baso # (Auto) 0.1 (0.0-0.2) X10*3/uL Abs Immat Gran (auto) 0.02 (0.00-0.03) X10*3/uL Absolute Neuts (auto) 3.8 (2.0-8.3) x10*3/uL Absolute Nucleated RBC 0.000 (0.0-0.012) X10*3/uL Nucleated RBC % (auto) 0.0 (0.0-0.2) /100WBC Sodium 142 (135-145) mmol/L Potassium 4.0 (3.3-5.1) mmol/L Chloride 107 (96-108) mmol/L Carbon Dioxide 30 H (22-29) mmol/L Anion Gap 9 L (12-20) BUN 15 (9-16) mg/dL Creatinine 0.89 (0.5-1.4) mg/dL Estim Creat Clear Calc 59.8 Estimated GFR > 60 Random Glucose 103 (60-115) mg/dL Calcium 9.7 (8.4-10.2) mg/dL Total Bilirubin 0.4 (0.0-1.0) mg/dL Direct Bilirubin < 0.2 (0.0-0.5) mg/dL AST 15 (5-31) U/L ALT 18 (0-31) U/L Alkaline Phosphatase 85 (39-117) U/L Total Protein 6.9 (6.5-8.0) g/dL Albumin 4.3 (3.5-5.0) g/dL Lipase 34 (8-78) U/L Urine Color Urine Appearance Urine pH (5.0-9.0) Ur Specific [place] (1.005-1.025) Urine Protein (Neg-Trace) mg/dL Urine Glucose (UA) (Negative) mg/dL Urine Ketones (Negative) mg/dL Urine Blood (Negative) Urine Nitrite (Negative) Ur Leukocyte Esterase (Negative) Urine RBC (0-2) /HPF Urine WBC (0-5) /HPF Ur Squamous Epith Cells (0-2) /HPF Urine Bacteria (None Seen) Hyaline Casts (0-2) /LPF COVID-19 (KARELY) Negative (Negative) COVID-19 Clin Com See Note 03/11/22 Range/Units 20:34 WBC (4.8-10.8) X10*3/uL RBC (4.20-5.50) X10*6/uL Hgb (12.0-16.0) g/dl Hct (37.0-47.0) % MCV (80.0-98.0) fL MCH (27.0-33.0) pg MCHC (31.0-35.0) g/dl RDW (11.0-16.0) % Plt Count (160-400) X10*3/uL MPV (9.4-12.3) fL Immature Gran % (Auto) (0.0-0.4) % Neut % (Auto) (45-73) % Lymph % (Auto) (20-40) % [place] % (Auto) (2-11) % Eos % (Auto) (0-4) % Baso % (Auto) (0-2) % Lymph # (Auto) (1.2-4.9) X10*3/uL [place] # (Auto) (0.1-1.2) X10*3/uL Eos # (Auto) (0.0-0.4) X10*3/uL Baso # (Auto) (0.0-0.2) X10*3/uL Abs Immat Gran (auto) (0.00-0.03) X10*3/uL Absolute Neuts (auto) (2.0-8.3) x10*3/uL Absolute Nucleated RBC (0.0-0.012) X10*3/uL Nucleated RBC % (auto) (0.0-0.2) /100WBC Sodium (135-145) mmol/L Potassium (3.3-5.1) mmol/L Chloride (96-108) mmol/L Carbon Dioxide (22-29) mmol/L Anion Gap (12-20) BUN (9-16) mg/dL Creatinine (0.5-1.4) mg/dL Estim Creat Clear Calc Estimated GFR Random Glucose (60-115) mg/dL Calcium (8.4-10.2) mg/dL Total Bilirubin (0.0-1.0) mg/dL Direct Bilirubin (0.0-0.5) mg/dL AST (5-31) U/L ALT (0-31) U/L Alkaline Phosphatase (39-117) U/L Total Protein (6.5-8.0) g/dL Albumin (3.5-5.0) g/dL Lipase (8-78) U/L Urine Color Yellow Urine Appearance Clear Urine pH 6.5 (5.0-9.0) Ur Specific [place] 1.020 (1.005-1.025) Urine Protein Negative (Neg-Trace) mg/dL Urine Glucose (UA) Negative (Negative) mg/dL Urine Ketones Negative (Negative) mg/dL Urine Blood Negative (Negative) Urine Nitrite Negative (Negative) Ur Leukocyte Esterase Trace H (Negative) Urine RBC 3-5 H (0-2) /HPF Urine WBC 0-5 (0-5) /HPF Ur Squamous Epith Cells 0-2 (0-2) /HPF Urine Bacteria None Seen (None Seen) Hyaline Casts 0-2 (0-2) /LPF COVID-19 (KARELY) (Negative) COVID-19 Clin Com <Harriett Denny, [employer] - Last Filed: 03/11/22 17:26> Lab Results 03/11/22 03/11/22 03/11/22 Range/Units 20:22 20:25 20:25 WBC 7.1 (4.8-10.8) X10*3/uL RBC 4.86 (4.20-5.50) X10*6/uL Hgb 13.5 (12.0-16.0) g/dl Hct 41.9 (37.0-47.0) % MCV 86.2 (80.0-98.0) fL MCH 27.8 (27.0-33.0) pg MCHC 32.2 (31.0-35.0) g/dl RDW 12.3 (11.0-16.0) % Plt Count 227 (160-400) X10*3/uL MPV 11.7 (9.4-12.3) fL Immature Gran % (Auto) 0.3 (0.0-0.4) % Neut % (Auto) 53.4 (45-73) % Lymph % (Auto) 29.8 (20-40) % [place] % (Auto) 7.6 (2-11) % Eos % (Auto) 7.8 H (0-4) % Baso % (Auto) 1.1 (0-2) % Lymph # (Auto) 2.1 (1.2-4.9) X10*3/uL [place] # (Auto) 0.5 (0.1-1.2) X10*3/uL Eos # (Auto) 0.6 H (0.0-0.4) X10*3/uL Baso # (Auto) 0.1 (0.0-0.2) X10*3/uL Abs Immat Gran (auto) 0.02 (0.00-0.03) X10*3/uL Absolute Neuts (auto) 3.8 (2.0-8.3) x10*3/uL Absolute Nucleated RBC 0.000 (0.0-0.012) X10*3/uL Nucleated RBC % (auto) 0.0 (0.0-0.2) /100WBC Sodium 142 (135-145) mmol/L Potassium 4.0 (3.3-5.1) mmol/L Chloride 107 (96-108) mmol/L Carbon Dioxide 30 H (22-29) mmol/L Anion Gap 9 L (12-20) BUN 15 (9-16) mg/dL Creatinine 0.89 (0.5-1.4) mg/dL Estim Creat Clear Calc 59.8 Estimated GFR > 60 Random Glucose 103 (60-115) mg/dL Calcium 9.7 (8.4-10.2) mg/dL Total Bilirubin 0.4 (0.0-1.0) mg/dL Direct Bilirubin < 0.2 (0.0-0.5) mg/dL AST 15 (5-31) U/L ALT 18 (0-31) U/L Alkaline Phosphatase 85 (39-117) U/L Total Protein 6.9 (6.5-8.0) g/dL Albumin 4.3 (3.5-5.0) g/dL Lipase 34 (8-78) U/L Urine Color Urine Appearance Urine pH (5.0-9.0) Ur Specific [place] (1.005-1.025) Urine Protein (Neg-Trace) mg/dL Urine Glucose (UA) (Negative) mg/dL Urine Ketones (Negative) mg/dL Urine Blood (Negative) Urine Nitrite (Negative) Ur Leukocyte Esterase (Negative) Urine RBC (0-2) /HPF Urine WBC (0-5) /HPF Ur Squamous Epith Cells (0-2) /HPF Urine Bacteria (None Seen) Hyaline Casts (0-2) /LPF COVID-19 (KARELY) Negative (Negative) COVID-19 Clin Com See Note 03/11/22 Range/Units 20:34 WBC (4.8-10.8) X10*3/uL RBC (4.20-5.50) X10*6/uL Hgb (12.0-16.0) g/dl Hct (37.0-47.0) % MCV (80.0-98.0) fL MCH (27.0-33.0) pg MCHC (31.0-35.0) g/dl RDW (11.0-16.0) % Plt Count (160-400) X10*3/uL MPV (9.4-12.3) fL Immature Gran % (Auto) (0.0-0.4) % Neut % (Auto) (45-73) % Lymph % (Auto) (20-40) % [place] % (Auto) (2-11) % Eos % (Auto) (0-4) % Baso % (Auto) (0-2) % Lymph # (Auto) (1.2-4.9) X10*3/uL [place] # (Auto) (0.1-1.2) X10*3/uL Eos # (Auto) (0.0-0.4) X10*3/uL Baso # (Auto) (0.0-0.2) X10*3/uL Abs Immat Gran (auto) (0.00-0.03) X10*3/uL Absolute Neuts (auto) (2.0-8.3) x10*3/uL Absolute Nucleated RBC (0.0-0.012) X10*3/uL Nucleated RBC % (auto) (0.0-0.2) /100WBC Sodium (135-145) mmol/L Potassium (3.3-5.1) mmol/L Chloride (96-108) mmol/L Carbon Dioxide (22-29) mmol/L Anion Gap (12-20) BUN (9-16) mg/dL Creatinine (0.5-1.4) mg/dL Estim Creat Clear Calc Estimated GFR Random Glucose (60-115) mg/dL Calcium (8.4-10.2) mg/dL Total Bilirubin (0.0-1.0) mg/dL Direct Bilirubin (0.0-0.5) mg/dL AST (5-31) U/L ALT (0-31) U/L Alkaline Phosphatase (39-117) U/L Total Protein (6.5-8.0) g/dL Albumin (3.5-5.0) g/dL Lipase (8-78) U/L Urine Color Yellow Urine Appearance Clear Urine pH 6.5 (5.0-9.0) Ur Specific [place] 1.020 (1.005-1.025) Urine Protein Negative (Neg-Trace) mg/dL Urine Glucose (UA) Negative (Negative) mg/dL Urine Ketones Negative (Negative) mg/dL Urine Blood Negative (Negative) Urine Nitrite Negative (Negative) Ur Leukocyte Esterase Trace H (Negative) Urine RBC 3-5 H (0-2) /HPF Urine WBC 0-5 (0-5) /HPF Ur Squamous Epith Cells 0-2 (0-2) /HPF Urine Bacteria None Seen (None Seen) Hyaline Casts 0-2 (0-2) /LPF COVID-19 (KARELY) (Negative) COVID-19 Clin Com <Bryce Perez MD - Last Filed: 03/11/22 23:49> Radiology Impression Discussion of test interpretation with radiology: I have reviewed the radiologist's reading. <Bryce Perez MD - Last Filed: 03/11/22 23:49> Radiologist Impression: CT abdomen pelvis wo IV con IMPRESSION: 1.? A cause for the patient's abdominal pain has not been found. 2.? Cholelithiasis without cholecystitis. 3.? Left ovarian cyst. Pelvic ultrasound is recommended for further evaluation and characterization. ?Fleischner guidelines were followed. Dictated By: Esteban Castro MD Signed By:<Electronically signed by Esteban Castro MD in [place]>03/11/222258 <Bryce Perez MD - Last Filed: 03/11/22 23:49> Independent Historian Clinical information obtained from an independent historian. History obtained from or confirmed by: Other (Daughter) <Bryce Perez MD - Last Filed: 03/11/22 23:49> External Record Review External record reviewed: Inpatient record (10/31/2021 until 11/04/2021 records regarding MRSA infection/nonhealing wound) <Bryce Perez MD - Last Filed: 03/11/22 23:49> Chronic Conditions Hyperlipidemia, asthma, obesity, MRSA cellulitis <Bryce Perez MD - Last Filed: 03/11/22 23:49> Medications Administered Discontinued Medications Generic Name Dose Route Start Last Admin Trade Name Freq PRN Reason Stop Dose Admin Al Hydroxide/Mg Hydroxide 30 ml 03/11/22 22:26 03/11/22 23:20 Magnesium Hydrox/Alum Hydrox 30 Ml Oral.Susp PO 03/11/22 22:27 30 ml ONCE STA Administration Belladonna Alkaloids/Phenobarbital 10 ml 03/11/22 22:26 03/11/22 23:20 Phenobarb/Hyoscy/Atropine/Scop 10 Ml Elixir PO 03/11/22 22:27 10 ml ONCE ONE Administration Lidocaine HCl 10 ml 03/11/22 22:26 03/11/22 23:20 Lidocaine Hcl Viscous 2 % 15 Ml Solution PO 03/11/22 22:27 10 ml ONCE ONE Administration <Harriett Denny NP - Last Filed: 03/11/22 17:26> Medications Administered Discontinued Medications Generic Name Dose Route Start Last Admin Trade Name Freq PRN Reason Stop Dose Admin Al Hydroxide/Mg Hydroxide 30 ml 03/11/22 22:26 03/11/22 23:20 Magnesium Hydrox/Alum Hydrox 30 Ml Oral.Susp PO 03/11/22 22:27 30 ml ONCE STA Administration Belladonna Alkaloids/Phenobarbital 10 ml 03/11/22 22:26 03/11/22 23:20 Phenobarb/Hyoscy/Atropine/Scop 10 Ml Elixir PO 03/11/22 22:27 10 ml ONCE ONE Administration Lidocaine HCl 10 ml 03/11/22 22:26 03/11/22 23:20 Lidocaine Hcl Viscous 2 % 15 Ml Solution PO 03/11/22 22:27 10 ml ONCE ONE Administration <Bryce Perez MD - Last Filed: 03/11/22 23:49> Discharge Plan Discharge Clinical Impression: Gastritis Qualifiers: Gastritis type: unspecified gastritis Chronicity: acute Gastritis bleeding: without bleeding Qualified Code(s): K29.00 - Acute gastritis without bleeding Cholelithiasis Qualifiers: Cholelithiasis location: gallbladder Cholecystitis presence: with cholecystitis Biliary obstruction: without biliary obstruction Ovarian cyst Qualifiers: Laterality: left Qualified Code(s): N83.202 - Unspecified ovarian cyst, left side <Harriett Denny NP - Last Filed: 03/11/22 17:26> Patient Disposition: Home, Self-Care <Harriett Denny NP - Last Filed: 03/11/22 17:26> Additional Instructions: Your complete blood count was normal. Your basic metabolic panel was normal. Your liver tests were normal. Your lipase (pancreas enzyme) was normal. The CT scan of your abdomen pelvis did not reveal a clear cause for your abdominal pain. There were 2 incidental findings, please see the report below, you will need to follow-up outpatient ultrasound of your left ovarian cyst as per the radiologist recommendation Your symptoms and exam are consistent with gastritis (inflammation of your stomach secondary to too much acid) or small stomach ulcer (peptic ulcer disease) Take Prilosec (omeprazole) 20 mg pills, 1 pill once a day for 1 month. This medication shuts off your acid production and lets the inflammation in your stomach and esophagus heal. Take extra-strength Gaviscon 10 mL (2 tsp) 4 times a day as needed for abdominal pain. Follow-up with your doctor in 2 days. Please return to the emergency department if your symptoms get worse or if you develop any symptoms that are concerning to you. Below is the radiology impression of your CT scan of the abdomen pelvis without IV contrast, you need to review this with your doctor. CT abdomen pelvis wo IV con IMPRESSION: 1.? A cause for the patient's abdominal pain has not been found. 2.? Cholelithiasis without cholecystitis. 3.? Left ovarian cyst. Pelvic ultrasound is recommended for further evaluation and characterization. ?Fleischner guidelines were followed. Dictated By: Esteban Castro MD Signed By:<Electronically signed by Esteban Castro MD in [place]>03/11/22 4118 <Harriett Denny NP - Last Filed: 03/11/22 17:26> Prescriptions: New omeprazole 20 mg capsule,delayed release(DR/EC) 20 mg PO DAILY 30 Days Qty: 30 0RF Gaviscon Extra Strength 254-237.5 mg/5 mL suspension 10 ml PO QID PRN (Reason: dyspepsia) Qty: 355 0RF No Action (DME) MEPILEX See Rx Instructions .Route .MEDSUPPLY Qty: 30 11RF Rx Instructions: As directed doxycycline hyclate 100 mg tablet 100 mg PO BID 5 Days Qty: 10 0RF ibuprofen 600 mg Tablet 600 mg PO Q6H PRN (Reason: Pain, Moderate (Pain Scale 4-6) Qty: 12 0RF Flovent HFA 110 mcg/actuation HFA aerosol inhaler 2 puff inhalation BID 30 Days Qty: 12 3RF mupirocin 2 % ointment 1 appl topical BID 15 Days Qty: 22 0RF chlorhexidine gluconate 4 % liquid 1 appl topical .twice per week 30 Days Qty: 946 0RF (DME) hydrocolloid dressing [Durafiber Dressing] 4 X 4 bandage See Rx Instructions .Route Rx Instructions: As directed silver-hydrocolloid dressing 1.2-3.5 X 12 %- bandage 1 ea topical DAILY 10 Days Qty: 10 3RF (DME) Skin Prep Wipes Misc See Rx Instructions .Route Qty: 50 1RF Rx Instructions: As directed <Harriett Denny NP - Last Filed: 03/11/22 17:26> Print Language: Kinyarwanda <Harriett Denny NP - Last Filed: 03/11/22 17:26>
[2022-03-11 17:25] VITALS: BP 152/70; PULSE 73; RESP 18; TEMP 36.8; O2SAT 98; BMI 36.3
[2022-03-11 20:41] LABS: MANUAL DIFF FLAG NO
[2022-03-11 20:42] LABS: Basophils Absolute Auto 0.1 X10*3/uL (0.0-0.2); Basophils Percent Auto 1.1 % (0-2); Eosinophils Absolute Auto 0.6 X10*3/uL (0.0-0.4); Eosinophils Percent Auto 7.8 % (0-4); Hematocrit 41.9 % (37.0-47.0); Hemoglobin 13.5 g/dl (12.0-16.0); Imm Gran Abs Auto 0.02 X10*3/uL (0.00-0.03); Imm Gran Pct Auto 0.3 % (0.0-0.4); Lymphocytes Absolute Auto 2.1 X10*3/uL (1.2-4.9); Lymphocytes Percent Auto 29.8 % (20-40); Mean Corpuscular HGB Conc 32.2 g/dl (31.0-35.0); Mean Corpuscular Hemoglobin 27.8 pg (27.0-33.0); Mean Corpuscular Volume 86.2 fL (80.0-98.0); Mean Platelet Volume 11.7 fL (9.4-12.3); Monocytes Absolute Auto 0.5 X10*3/uL (0.1-1.2); Monocytes Percent Auto 7.6 % (2-11); Neutrophils Absolute Auto 3.8 x10*3/uL (2.0-8.3); Neutrophils Percent Auto 53.4 % (45-73); Platelet Count 227 X10*3/uL (160-400); Red Blood Count 4.86 X10*6/uL (4.20-5.50); Red Cell Distribution Width 12.3 % (11.0-16.0); White Blood Count 7.1 X10*3/uL (4.8-10.8)
[2022-03-11 20:43] LABS: Appearance Urine Clear; Color Urine Yellow; Glucose Urine UA Negative (Negative); Leukocyte Esterase Urine Trace (Negative); Nitrite Urine Negative (Negative); PH 6.5 (5.0-9.0); UMIC TRIGGER UACC YES; Urine Blood Negative (Negative); Urine Ketones Negative (Negative); Urine Protein Negative (Neg-Trace)
[2022-03-11 20:48] LABS: Bacteria Urine None Seen (None Seen); Hyaline Casts Urine 0-2 /LPF (0-2); Squamous Epithelial Cell Urine 0-2 /HPF (0-2); WBC Urine 0-5 /HPF (0-5)
[2022-03-11 20:57] LABS: COVID-19 Test Negative (Negative); IDNOW Serial# 6674DD1D
[2022-03-11 21:15] LABS: Alanine Aminotransferase 18 U/L (0-31); Albumin Level 4.3 g/dL (3.5-5.0); Alkaline Phosphatase 85 U/L (39-117); Anion Gap 9 (12-20); Aspartate Amino Transferase 15 U/L (5-31); Bilirubin Direct < 0.2 mg/dL (0.0-0.5); Bilirubin Total 0.4 mg/dL (0.0-1.0); Blood Urea Nitrogen 15 mg/dL (9-16); Calcium 9.7 mg/dL (8.4-10.2); Carbon Dioxide 30 mmol/L (22-29); Chloride 107 mmol/L (96-108); Creatinine Clr Calc Pharmacy 59.8; Estimated Glomerular Filt Rate > 60; Glucose Random 103 mg/dL (60-115); Lipase 34 U/L (8-78); Sodium 142 mmol/L (135-145); Total Protein 6.9 g/dL (6.5-8.0)
[2022-03-11 21:31] VITALS: BP 131/60; PULSE 66; RESP 16; TEMP 37; O2SAT 94
[2022-03-11] MEDS: Lidocaine HCl Viscous 2 % 15 ML SOLUTION 10 ML PO (23:20)
[2022-03-11] MEDS: Magnesium Hydrox/Alum Hydrox 30 ML ORAL.SUSP PO (23:20)
[2022-03-11] MEDS: PHENobarb/Hyoscy/Atropine/Scop 10 ML ELIXIR PO (23:20)
[2022-03-11 23:47] VITALS: BP 134/85; PULSE 71; RESP 14; O2SAT 98
== END 2022-03-11 23:50 | disposition home or self-care (01) ==
PROVIDERS: Nurse Practitioner Family; Emergency Provider Emergency Medicine Emergency Medical Services; PCP Physician Assistant
DX: K29.00 Acute gastritis without bleeding (principal); N83.202 Unspecified ovarian cyst, left side; R10.13 Epigastric pain; R10.12 Left upper quadrant pain; Z20.828 Contact with and (suspected) exposure to other viral communicable diseases; Z20.822 Contact with and (suspected) exposure to COVID-19; Z79.899 Other long term (current) drug therapy
CPT/HCPCS: 36415; 74176; 80048; 80076; 81001; 83690; 85025; 87635; 99284

== ENCOUNTER 2022-05-29 09:34 | Outpatient (REF) | payer OTHER, SELFPAY ==
--- NOTE | ~2022-05-29 | XR_ITS ---
EXAMINATION: XR THORACIC SPINE CLINICAL INFORMATION: M54.6 - Pain in thoracic spine COMPARISON: Chest radiographs 05/29/2022, 08/19/2020, CT abdomen 03/11/2022 TECHNIQUE: 3 views of the thoracic spine were obtained. FINDINGS: There is normal thoracic segmentation with 12 rib-bearing thoracic vertebrae of normal height and normal thoracic kyphosis. There is a dextrocurvature midthoracic spine and levocurvature lower thoracic spine. No vertebral compression, spondylolisthesis, destructive process, or paraspinal soft tissue swelling. There are multilevel degenerative disc changes with mild disc narrowing and mild endplate sclerosis and borderline vertebral spurring. No erosive changes. XR/XR thoracic spine 3V IMPRESSION: - Mild multilevel degenerative disc changes. - No vertebral compression, spondylolisthesis, or destructive process.
--- NOTE | ~2022-05-29 | XR_ITS ---
EXAMINATION: XR CHEST CLINICAL INFORMATION: J45.20 - Mild intermittent asthma, uncomplicated. Patient notes posterior chest and back pain for 2 months. COMPARISON: Chest radiographs 08/19/2020, thoracic spine 05/29/2022 TECHNIQUE: 2 views of the chest were obtained. FINDINGS: The lungs are clear. No pneumothorax, pleural reaction, airspace consolidation, or groundglass opacity. The costophrenic sulci are clear. There is no effusion. The heart is normal in size. The vascularity is normal. The hilar and mediastinal contours are normal. No acute bony abnormality. XR/XR chest 2V IMPRESSION: Unremarkable examination.
[2022-05-29 11:05] LABS: Hematocrit 40.9 % (37.0-47.0); Hemoglobin 13.4 g/dl (12.0-16.0); Mean Corpuscular HGB Conc 32.8 g/dl (31.0-35.0); Mean Corpuscular Hemoglobin 28.3 pg (27.0-33.0); Mean Corpuscular Volume 86.5 fL (80.0-98.0); Mean Platelet Volume 11.2 fL (9.4-12.3); Platelet Count 210 X10*3/uL (160-400); Red Blood Count 4.73 X10*6/uL (4.20-5.50); Red Cell Distribution Width 12.1 % (11.0-16.0); White Blood Count 5.1 X10*3/uL (4.8-10.8)
[2022-05-29 11:49] LABS: Alanine Aminotransferase 16 U/L (0-31); Albumin Level 4.2 g/dL (3.5-5.0); Alkaline Phosphatase 72 U/L (39-117); Anion Gap 14 (12-20); Aspartate Amino Transferase 13 U/L (5-31); Bilirubin Total 0.4 mg/dL (0.0-1.0); Blood Urea Nitrogen 17 mg/dL (9-16); Calcium 9.1 mg/dL (8.4-10.2); Carbon Dioxide 27 mmol/L (22-29); Chloride 106 mmol/L (96-108); Cholesterol 217 mg/dL; Estimated Glomerular Filt Rate > 60; Glucose Fasting 90 mg/dL (60-99); HDL Cholesterol 53 mg/dL; LDL Cholesterol Calculated 144 mg/dl; Potassium 4.6 mmol/L (3.3-5.1); Sodium 142 mmol/L (135-145); Total Protein 6.8 g/dL (6.5-8.0); Triglycerides 103 mg/dL
[2022-05-29 11:54] LABS: TSH reflex Free T4 2.21 uIU/mL (0.32-4.0)
== END 2022-05-29 09:35 | disposition home or self-care (01) ==
LOC: HO.LAB 09:34
PROVIDERS: PCP Physician Assistant; Visit Provider Physician Assistant
DX: Z13.1 Encounter for screening for diabetes mellitus (principal); E66.09 Other obesity due to excess calories; Z68.35 Body mass index [BMI] 35.0-35.9, adult; E78.9 Disorder of lipoprotein metabolism, unspecified; J45.20 Mild intermittent asthma, uncomplicated; M54.6 Pain in thoracic spine; E78.00 Pure hypercholesterolemia, unspecified
CPT/HCPCS: 36415; 71046; 72072; 80053; 80061; 84443; 85027

== ENCOUNTER 2022-06-11 15:29 | Outpatient (REF) | payer OTHER, SELFPAY ==
--- NOTE | ~2022-06-11 | US_ITS ---
EXAMINATION: US PELVIS CLINICAL INFORMATION: Pelvic fullness, ovarian cyst. COMPARISON: None available. TECHNIQUE: Ultrasound of the pelvis is performed using both transabdominal and transvaginal transducers along with Doppler. Transvaginal imaging is performed due to inadequate visualization transabdominally. FINDINGS: UTERUS: The uterus is anteverted, anteflexed and measures 7.0 x 3.1 x 3.3 cm. The double wall endometrial thickness is 0.5 cm. The uterus is smooth in contour and has normal myometrial echogenicity. There is a hypoechoic lesion in the anterior upper body of uterus measuring 1.9 x 1.8 x 2.0 cm. No additional lesions seen. ADNEXA: Both ovaries are visualized. There is normal color flow to the adnexa. There is no ovarian torsion. There is no pelvic ascites or fluid collection. Right ovary measures 2.7 x 1.4 x 2.2 cm and volume 4.3 mL. It appears unremarkable. Left ovary measures 5.2 x 3.5 x 5.7 cm and volume 54.3 mL. There is a moderate-sized anechoic cyst measuring 3.6 x 3.4 x 3.5 cm with echogenic septation. Normal arterial and venous flow seen in the left ovary. There is no free fluid in the cul-de-sac. US/US pelvic and transvaginal IMPRESSION: 1. Complex cyst with septation left ovary. 2. Small uterine fibroid measuring 1.9 cm.
== END 2022-06-11 15:30 | disposition home or self-care (01) ==
LOC: HO.US 15:29
PROVIDERS: Visit Provider Physician Assistant
DX: N83.202 Unspecified ovarian cyst, left side (principal); R19.00 Intra-abdominal and pelvic swelling, mass and lump, unspecified site
CPT/HCPCS: 76830; 76856

== ENCOUNTER 2022-08-10 14:51 | Outpatient (REF) | payer OTHER, SELFPAY ==
[2022-08-14 10:28] LABS: Carbohydrate Antigen 19-9 22 U/mL (<34)
[2022-08-14 10:54] LABS: CA-125 7 U/mL (<35)
== END 2022-08-10 14:52 | disposition home or self-care (01) ==
LOC: HO.LAB 14:51
PROVIDERS: PCP Physician Assistant; Visit Provider Obstetrics & Gynecology
DX: N83.299 Other ovarian cyst, unspecified side (principal); D25.9 Leiomyoma of uterus, unspecified
CPT/HCPCS: 36415; 82378; 86301; 86304

== ENCOUNTER → 2022-08-17 12:15 | Outpatient (BNV) | payer OTHER, SELFPAY | PROVIDERS: PCP Physician Assistant; Referring Provider Obstetrics & Gynecology; Visit Provider Radiology Diagnostic Radiology | DX: Z12.31 Encounter for screening mammogram for malignant neoplasm of breast (principal) | CPT/HCPCS: 77063; 77067 ==

== ENCOUNTER 2022-08-17 12:17 | Outpatient (REF) | payer OTHER, SELFPAY ==
--- NOTE | ~2022-08-17 | MM_ITS ---
EXAMINATION: MM SCREENING DIGITAL BREAST TOMOSYNTHESIS, BILATERAL CLINICAL INFORMATION: Screening. Asymptomatic. The lifetime risk of breast cancer based on the Tyrer-Cuzick Model is 10.7%. COMPARISON: Mammography: This study is compared with prior exams dating back to 2020. TECHNIQUE: Digital breast tomosynthesis is performed in both the craniocaudal and mediolateral oblique views along with computer-aided detection (CAD). Synthesized 2D images are generated from the tomosynthesis. FINDINGS: There are scattered areas of fibroglandular density (ACR BI-RADS breast composition Category b). There are no significant masses, abnormal calcifications, or other abnormalities. There is a tissue marker in the medial aspect of the right breast from prior benign heterogeneous biopsy. MM/MM tomosynthesis screening BI IMPRESSION: No mammographic evidence of malignancy. ASSESSMENT: BI-RADS BI-RADS 2 - Benign Findings RECOMMENDATION: Routine annual mammography screening. 1 year F/U This examination should not preclude the clinical evaluation of a suspicious palpable abnormality. This patient's information was entered into a reminder system with a target due date for their next mammogram.
== END 2022-08-17 12:18 | disposition home or self-care (01) ==
LOC: HO.MAMMO 12:17
PROVIDERS: PCP Physician Assistant; Referring Provider Obstetrics & Gynecology; Visit Provider Physician Assistant
DX: Z12.31 Encounter for screening mammogram for malignant neoplasm of breast (principal)
CPT/HCPCS: 77063; 77067

== ENCOUNTER 2022-08-26 15:16 | Outpatient (AMB) | payer OTHER, SELFPAY ==
[2022-08-26 15:18] VITALS: BP 114/70; PULSE 61; O2SAT 97; BMI 37.0
--- NOTE | 2022-08-26 15:18 | MHC.PC.OV ---
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 Required: No Accompanied by: Self / Same As Patient Allergies No Known Allergies Allergy (Verified 08/26/22 15:32) Medication List - Last Reconciled 08/26/22 by Vaughn Ly PA-C fluticasone propionate 110 mcg/actuation (Flovent HFA) 2 puffs inhalation BID 30 days Tobacco use date assessed: 08/26/22 Dental Screening Dental Screen Date: 08/26/22 Did you have a dental visit in the last 12 months?: Yes Did you have a dental problem in the last 6 months where you did not have access to dental care?: No Was dental information given to patient?: Patient has dentist HPI f/u HLD HPI Details Patient is a 61-year-old female here today for follow-up visit .? Patient's past medical history significant for asthma and obesity. Recently noted to have a left complex ovarian cyst. Has follow-up with OBGYN and was sent for tumor markers which are essentially negative. Has been ordered a new CT of abdomen pelvis to evaluate. Did have CT abdomen and pelvis and March 2022 that did show 3.8 cm left ovarian cyst. She does report having left pelvic pain from time to time though does not report any abdominal bloating. .. Asthma: Asthma has been generally well controlled on current dose of Flovent though at times she reports having some asthma symptoms flare up. She would like to start which care with them building consultant. Offered her PFT testing though she declines at this time.? . Borderline high cholesterol:? Also noted most recent labs showing borderline high cholesterol has been working on lifestyle modifications to help reduce her total cholesterol. Laboratory Tests 11/03/21 05/29/22 10:54 09:45 Cholesterol 217 LDL Cholesterol, C alc 144 TSH 2.21 Nasal S. aureus Sc reen POSITIVE [facility] Medical History Asthma Surgical History No pertinent past surgical history Family History Father Cancer Colon cancer Mother Respiratory arrest Daughter Lymphoma Paternal Aunt Breast CA Ovarian cancer Social History Household Members: Family Housing: Apartment Do you presently have visiting nurse or other home services: No Alcohol intake: current Alcohol intake frequency: holidays/special occasions only Patient Tobacco Use Status: Never used Tobacco e-Cigarette/Vaping Use: Never Used Second Hand Smoke Exposure: No service: No Current occupational status: employed 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 1. Little interest or pleasure in doing things: not at all 2. Feeling down, depressed, or hopeless: not at all 3. Trouble falling or staying asleep, or sleeping too much: not at all 4. Feeling tired or having little energy: not at all 5. Poor appetite or overeating: not at all 6. Feeling bad about yourself - or that you are a failure or have let yourself or your family down: not at all 7. Trouble concentrating on things, such as reading the newspaper or watching television: not at all 8. Moving or speaking so slowly that other people could have noticed. Or the opposite - being so fidgety or restless that you have been moving around a lot more than usual: not at all 9. Thoughts that you would be better off or of hurting yourself in some way: not at all Total score: 0 Depression Screening Interpretation: Negative 22167 - PHQ-9 Billing: Yes Source: Developed by Drs. Luiz Lee, Lorna Mackay, Kevin Gold and colleagues, with an educational lola from [employer]. Thrive Questionnaire Date Thrive assessed: 08/26/22 I am a: Patient What is your living situation today?: I have a steady place to live Within the past 12 months, did the food you bought not last and you didn't have the money to get more?: Never true Within the past 12 months, did you worry whether your food would run out before you got money to buy more?: Never true Do you have trouble paying for medicines?: No Do you have trouble getting transportation to medical appointments?: No Do you have trouble paying your heating and electricity bill?: No Do you have trouble taking care of your child, family member or friend?: No Do you have trouble with day-to-day activities such as bathing, preparing meals, shopping, managing finances, etc.?: No Are you currently unemployed and looking for a job?: No Are you interested in more education?: No Please select the resources that you would like help with: None Currently or been in a relationship where the following occur: no concerns reported AUDIT C Alcohol Use Questionnaire (AUDIT-C) 1. How often do you have a drink containing alcohol?: Monthly or less 2. How many drinks containing alcohol do you have on a typical day when you are drinking?: 1 or 2 Total Score: 1 FLAKITO-7 AMB Questionnaire FLAKITO-7 Date FLAKITO - 7 assessed: 08/26/22 Feeling nervous, anxious, or on edge: 0 = Not at all Not being able to stop or control worryin = Not at all Worrying too much about different things: 0 = Not at all Trouble relaxin = Not at all Being so restless that it is hard to sit still: 0 = Not at all Becoming easily annoyed or irritable: 0 = Not at all Feeling afraid as if something awful might happen: 0 = Not at all Total FLAKITO-7 score (0-4 normal; 5-9 mild; 10-14 moderate; 15-21 severe): 0 Source: Developed by Drs. Luiz Lee, Lorna Mackay, Kevin Gold and colleagues, with an educational lola from [employer]. FLAKITO-7 Assessment Billing FLAKITO-7 Assessment Tool: FLAKITO-7 Assessment 56325 Review of Systems Const Denies headache(s) Eyes Denies loss of vision ENT Denies vertigo, Denies dizziness, Denies headache(s) and Denies sore throat Card Denies chest pain, Denies leg edema and Denies lightheadedness Resp Denies cough, Denies hemoptysis and Denies wheezing GI Denies abdominal pain, Denies melena, Denies constipation, Denies diarrhea and Denies vomiting Denies urinary frequency, Denies dysuria and Denies urinary urgency Musc Denies arthralgias, Denies joint swelling, Denies numbness and Denies tingling Neuro Denies Abnormal speech present, Denies behavioral changes, Denies vertigo, Denies dizziness, Denies headache(s), Denies loss of vision, Denies memory loss, Denies numbness and Denies tingling Psych Denies anxiety, Denies behavioral changes, Denies depression, Denies memory loss and Denies panic attacks David/Lymph Denies easy bleeding and Denies easy bruising Aller/Immun Denies wheezing Physical exam (Primary Care) Vital Signs: Last Vital Signs Pulse 61 08/26/22 15:18 BP 114/70 08/26/22 15:18 Pulse Ox 97 08/26/22 15:18 Oxygen Delivery Method Room Air 08/26/22 15:18 BMI result Body Mass Index 37.0 BMI Assessment/Plan discussion: High Tobacco/Smoking Status: Tobacco use Status Tobacco use date assessed 08/26/22 08/26/22 15:25 Patient Tobacco Use Status Never used Tobacco 08/26/22 15:25 e-Cigarette/Vaping Use Never Used 08/26/22 15:25 PHQ-9: PHQ-9 Score PHQ-9: Total score 0 08/26/22 15:25 Depression Screening Interpretation: Negative Thrive Assessment: Date of Thrive Assessment Date Thrive assessed 08/26/22 08/26/22 15:25 Currently or been in a relationship where the following occur: no concerns reported Const Other: obese General: healthy appearing, no acute distress, alert and awake Nutritional Appearance: well nourished Orientation/consciousness: oriented to person, oriented to place and oriented to time [facility] Ears: TM's normal bilaterally General nose exam: Normal nasal mucous membranes and turbinates present Eyes Conjunctivae: conjunctivae normal Sclerae: sclerae normal Pupils: Equal, round and reactive pupils present Neck Neck: Yes no lymphadenopathy and Yes no JVD Thyroid: Thyroid normal Carotids: no bruits Resp Effort & Inspection: normal respiratory effort and not tachypneic Auscultation: no crackles, no rales, no rhonchi and no wheezes Cardio Rate: regular rate Rhythm: regular rhythm Heart sounds: no murmurs and normal S1 and S2 GI Palpation (GI): Soft to palpation, nontender, no hepatomegaly and no splenomegaly Auscultation: normal bowel sounds Skin General skin exam: no rashes or lesions noted and dry skin Neuro General: oriented to person, oriented to place and oriented to time Cranial nerves: Yes Equal, round and reactive pupils present Speech: No Abnormal speech present Gait exam (Neuro): Normal gait present Motor exam (neuro): no tremor noted Extrem Right upper extremity: full ROM Left upper extremity: full ROM Right lower extremity: full ROM; no edema Left lower extremity: full ROM; no edema Psych Mental Status: mental status grossly normal Speech and movement: Normal speech and movement present Affect: normal affect Attitude: cooperative Thought process: Normal thought process present Assessment and Plan Assessment & Plan (1) Borderline high cholesterol: Code(s): E78.9 - Disorder of lipoprotein metabolism, unspecified Plan: Patient's most recent fasting lipid panel showing borderline high total cholesterol. Will work on lifestyle modifications to help reduce her cholesterol. (2) Left ovarian cyst: Code(s): N83.202 - Unspecified ovarian cyst, left side Plan: Has a complex left ovarian cyst, has followed up with OBGYN and tumor markers are negative. CT abdomen pelvis recommended in patient awaiting call to schedule this. (3) Asthma: Code(s): J45.909 - Unspecified asthma, uncomplicated Qualifiers: Asthma severity: mild Asthma persistence: intermittent Asthma complication type: uncomplicated Qualified Code(s): J45.20 - Mild intermittent asthma, uncomplicated Plan: Patient reports her asthma is fairly well controlled with current Flovent inhaler p.r.n. use of her albuterol inhaler. She is interested in establishing care with a building consultant as she feels at times her asthma is not the best controlled. Otherwise denies any recent exacerbations of her asthma. (4) Obese: Code(s): E66.9 - Obesity, unspecified Qualifiers: Obesity type: due to excess calories Obesity classification: adult class 2 (BMI 35 - 39.9) Serious obesity comorbidity presence: without serious comorbidity Body mass index: BMI 36.0-36.9 Qualified Code(s): E66.09 - Other obesity due to excess calories; Z68.36 - Body mass index [BMI] 36.0-36.9, adult Plan: Patient does understand her BMI is over 30 will work on being more physically active and adapting to better eating habits to reduce her weight Orders: Orders CT abdomen pelvis wo/w IV con Today N83.299 - Other ovarian cyst, unspecified side Comprehensive [place]. Panel Fast Today E78.9 - Disorder of lipoprotein metabolism, unspecified Lipid Panel Today E78.9 - Disorder of lipoprotein metabolism, unspecified Complete Blood Count no Diff Today E78.9 - Disorder of lipoprotein metabolism, unspecified Referrals Pulmonology Referral J45.20 - Mild intermittent asthma, uncomplicated Coding Level of Care Code Est Pt Level 4 (50214) Diagnoses Borderline high cholesterol E78.9 Left ovarian cyst N83.202 Asthma J45.20 Asthma severity: mild Asthma persistence: intermittent Asthma complication type: uncomplicated Obese E66.09; Z68.36 Obesity type: due to excess calories Obesity classification: adult class 2 (BMI 35 - 39.9) Serious obesity comorbidity presence: without serious comorbidity Body mass index: BMI 36.0-36.9 Additional Codes FLAKITO-7 Assessment Billing - FLAKITO-7 Assessment Tool: FLAKITO-7 Assessment [id number] ([id number])
== END 2022-08-26 16:16 | disposition home or self-care (01) ==
PROVIDERS: Visit Provider Physician Assistant
DX: J45.20 Mild intermittent asthma, uncomplicated (principal); E78.9 Disorder of lipoprotein metabolism, unspecified; E66.09 Other obesity due to excess calories; Z68.36 Body mass index [BMI] 36.0-36.9, adult; N83.202 Unspecified ovarian cyst, left side
CPT/HCPCS: 99214

== ENCOUNTER 2022-09-09 13:44 | Outpatient (REF) | payer OTHER, SELFPAY | END 2022-09-09 13:45 | disposition home or self-care (01) | LOC: HO.LNP 13:44 | PROVIDERS: Visit Provider Obstetrics & Gynecology | DX: Z13.89 Encounter for screening for other disorder (principal) ==

== ENCOUNTER 2022-09-10 11:21 | Outpatient (REF) | payer OTHER, SELFPAY ==
[2022-09-10 12:49] LABS: Blood Urea Nitrogen 15 mg/dL (9-16); Estimated Glomerular Filt Rate > 60
== END 2022-09-10 11:22 | disposition home or self-care (01) ==
LOC: HO.LAB 11:21
PROVIDERS: PCP Physician Assistant; Visit Provider Obstetrics & Gynecology
DX: N83.299 Other ovarian cyst, unspecified side (principal)
CPT/HCPCS: 36415; 82565; 84520

== ENCOUNTER 2022-11-03 15:13 | Outpatient (REF) | payer OTHER, SELFPAY ==
--- NOTE | ~2022-11-03 | CT_ITS ---
EXAMINATION: CT PELVIS WITH CONTRAST CLINICAL INFORMATION: Complex ovarian cyst. COMPARISON: Pelvic ultrasound 06/11/2022. TECHNIQUE: Helical scanning was performed with submillimeter collimation through the pelvis with the use of oral contrast and during bolus intravenous injection of 85 mL of Omnipaque 350 intravenous contrast. Sagittal and coronal multiplanar 2-D reconstructions were obtained. This CT examination was performed using dose optimization techniques as appropriate, variously including the following: *Automated exposure control *Adjustment of mA and/or kV according to patient size (this includes techniques or standardized protocols for targeted exams where dose is matched to indication/reason for exam; i.e. extremities or head) *Use of iterative reconstruction technique DLP: 596 mGy-cm FINDINGS: 4.1 x 3.9 x 3.3 cm (3.8 cm average diameter) cyst in the left ovary measuring simple fluid density. On coronal imaging there is a single thin less than 2 mm septation. The imaging appearance is similar to prior imaging and likely not significantly changed in size allowing for differences in technique between CT and ultrasound. On the prior CT this measured 3.8 x 3.4 x 3.3 cm (3.5 cm average diameter). The right ovary appears normal. Probable small fibroid in the uterus. Diverticulosis of the colon. Visible small bowel normal in caliber. No adenopathy. Degenerative changes in the spine. CT/CT pelvis w IV con IMPRESSION: Thinly septated left ovarian cyst measuring 3.8 cm average diameter increased from 3.5 cm average diameter on CT 03/11/2022. Growth of less than 10% is considered stable. Finding is consistent with a nonneoplastic cyst or benign cystic neoplasm. Gynecology consult recommended. If not resected, imaging follow-up with ultrasound is recommended for 2 years to better establish potential growth pattern.
[2022-11-03] MEDS: Diatrizoate Meglumine, Sodium 30 ML SOLUTION PO (17:58)
[2022-11-03] MEDS: iohexoL 350 MG/ML 75 ML INFUS..BTL 85 ML IV (17:58)
[2022-11-04 13:21] LABS: Creatinine POC 0.6 mg/dL (0.5-1.4); GFR POC > 60
== END 2022-11-03 15:14 | disposition home or self-care (01) ==
LOC: HO.CT 15:13
PROVIDERS: Visit Provider Obstetrics & Gynecology
DX: N83.292 Other ovarian cyst, left side (principal)
CPT/HCPCS: 72193; 82565; Q9967

== ENCOUNTER 2022-11-11 13:27 | Outpatient (AMB) | payer OTHER, SELFPAY ==
--- NOTE | 2022-11-11 13:40 | MHC.OFFVIS ---
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 The double wall endometrial thickness is 0.5 cm. The uterus is smooth in contour and has normal myometrial echogenicity. There is a hypoechoic lesion in the anterior upper body of uterus measuring 1.9 x 1.8 x 2.0 cm. No additional lesions seen. ADNEXA: Both ovaries are visualized. There is normal color flow to the adnexa. There is no ovarian torsion. There is no pelvic ascites or fluid collection. Right ovary measures 2.7 x 1.4 x 2.2 cm and volume 4.3 mL. It appears unremarkable. Left ovary measures 5.2 x 3.5 x 5.7 cm and volume 54.3 mL. There is a moderate-sized anechoic cyst measuring 3.6 x 3.4 x 3.5 cm with echogenic septation. Normal arterial and venous flow seen in the left ovary. There is no free fluid in the cul-de-sac. The following workup was done. CT scan of the pelvis showed the followin.1 x 3.9 x 3.3 cm (3.8 cm average diameter) cyst in the left ovary measuring simple fluid density. On coronal imaging there is a single thin less than 2 mm septation. The imaging appearance is similar to prior imaging and likely not significantly changed in size allowing for differences in technique between CT and ultrasound. On the prior CT this measured 3.8 x 3.4 x 3.3 cm (3.5 cm average diameter). The right ovary appears normal. Probable small fibroid in the uterus. Diverticulosis of the colon. Visible small bowel normal in caliber. No adenopathy. Degenerative changes in the spine. CA 125, CEA and CA 19-9 were negative Mammogram was BI-RADS 2 Last co testing done in 01/27 was negative PFSH Medical History Asthma Surgical History No pertinent past surgical history Family History Father Cancer Colon cancer Mother Respiratory arrest Daughter Lymphoma Paternal Aunt Breast CA Ovarian cancer Social History Household Members: Family Housing: Apartment Do you presently have visiting nurse or other home services: No Alcohol intake: current Alcohol intake frequency: holidays/special occasions only Patient Tobacco Use Status: Never used Tobacco e-Cigarette/Vaping Use: Never Used Second Hand Smoke Exposure: No service: No Current occupational status: employed 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 [employer] Gender identity: Female Cognitive needs: No Hearing needs: No Vision needs: No Female Reproductive History Menstrual Age of Menarche: 9 Review of Systems Const All systems reviewed & are unremarkable except as noted in HPI and below Reports as per HPI and Reports no additional complaints GI Reports no additional complaints Reports no additional complaints Physical Exam Vital Signs: Last Vital Signs BP 122/76 11/11/22 13:43 BMI result Body Mass Index 37.0 Assessment & Plan Assessment & Plan (1) Complex ovarian cyst: Code(s): N83.299 - Other ovarian cyst, unspecified side Plan: Discussed with the patient the complex ovarian cyst by Ultrasound and CT scan and normal CA 125, CEA and CA 19 9. The differential diagnosis discussed with the patient includes the following but not limited to: benign and malignant gynecological and non-gynecological. Will refer to mechanical lead Oncology. All questions answered, the patient verbalized understanding Appointment and [facility] mechanical lead Oncology scheduled on 12/03 at 15:[address] Bonilla, the patient is aware. Orders: Referrals Gynecologic Oncology Referral N83.299 - Other ovarian cyst, unspecified side Coding Level of Care Code Est Pt Level 3 (53354) Diagnoses Complex ovarian cyst N83.299
[2022-11-11 13:43] VITALS: BP 122/76; BMI 37.0
== END 2022-11-11 15:17 | disposition home or self-care (01) ==
PROVIDERS: PCP Physician Assistant; Visit Provider Obstetrics & Gynecology
DX: N83.299 Other ovarian cyst, unspecified side (principal)
CPT/HCPCS: 99213

== ENCOUNTER → 2022-11-11 13:27 | Outpatient (BNVA) | payer OTHER, SELFPAY | PROVIDERS: PCP Physician Assistant; Visit Provider Obstetrics & Gynecology ==

== ENCOUNTER 2023-03-08 09:47 | Outpatient (AMB) | payer OTHER, SELFPAY ==
[2023-03-08 09:50] VITALS: BP 116/80; PULSE 77; O2SAT 97; BMI 36.6
--- NOTE | 2023-03-08 09:50 | MHC.PC.OV ---
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 Required: No Accompanied by: Self / Same As Patient Allergies No Known Allergies Allergy (Verified 03/08/23 10:17) Medication List - Last Reconciled 03/08/23 by Vaughn Ly PA-C fluticasone propionate 110 mcg/actuation (Flovent HFA) 2 puffs inhalation BID 30 days Tobacco use date assessed: 03/08/23 Fall risk assessment: No Falls in past year Last assessed Fall Risk: 03/08/23 Dental Screening Dental Screen Date: 03/08/23 Did you have a dental visit in the last 12 months?: Yes Did you have a dental problem in the last 6 months where you did not have access to dental care?: No Was dental information given to patient?: Patient has dentist HPI HLD HPI Details Patient is a 62-year-old female here today for follow-up visit .? Patient's past medical history significant for asthma and obesity. Concern--> has noted a small skin abnormality at anus. She denies any pain or difficulty defecating. Left posterior knee pain: Also has been having left posterior knee pain over the last several weeks. Has been using a knee brace which has been helpful. She denies any acute trauma to the left knee. 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 She has been doing her home stretches which also has been helpful. Recently noted to have a left complex ovarian cyst. Has follow-up with OBGYN and was sent for tumor markers which are essentially negative. Has been ordered a new CT of abdomen pelvis to evaluate. Did have CT abdomen and pelvis and March 2022 that did show 3.8 cm left ovarian cyst. She she did a follow-up with a [facility] seater grinder surgeon and is considering an oophorectomy .. Asthma: Asthma has been generally well controlled on current dose of Flovent though at times she reports having some asthma symptoms flare up. . Borderline high cholesterol:? Also noted most recent labs showing borderline high cholesterol has been working on lifestyle modifications to help reduce her total cholesterol. 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 1. Little interest or pleasure in doing things: not at all 2. Feeling down, depressed, or hopeless: not at all 3. Trouble falling or staying asleep, or sleeping too much: not at all 4. Feeling tired or having little energy: not at all 5. Poor appetite or overeating: not at all 6. Feeling bad about yourself - or that you are a failure or have let yourself or your family down: not at all 7. Trouble concentrating on things, such as reading the newspaper or watching television: not at all 8. Moving or speaking so slowly that other people could have noticed. Or the opposite - being so fidgety or restless that you have been moving around a lot more than usual: not at all 9. Thoughts that you would be better off or of hurting yourself in some way: not at all Total score: 0 Depression Screening Interpretation: Negative Depression Screening Done: Yes 91037 - PHQ-9 Billing: Yes Source: Developed by Drs. Luiz Lee, Lorna Mackay, Kevin Gold and colleagues, with an educational lola from [employer] Thrive Questionnaire Date Thrive assessed: 03/08/23 I am a: Patient What is your living situation today?: I have a steady place to live Within the past 12 months, did the food you bought not last and you didn't have the money to get more?: Never true Within the past 12 months, did you worry whether your food would run out before you got money to buy more?: Never true Do you have trouble paying for medicines?: No Do you have trouble getting transportation to medical appointments?: No Do you have trouble paying your heating and electricity bill?: No Do you have trouble taking care of your child, family member or friend?: No Do you have trouble with day-to-day activities such as bathing, preparing meals, shopping, managing finances, etc.?: No Are you currently unemployed and looking for a job?: No Are you interested in more education?: No Please select the resources that you would like help with: None Currently or been in a relationship where the following occur: no concerns reported THRIVE Score: 0 AUDIT C Alcohol Use Questionnaire (AUDIT-C) 1. How often do you have a drink containing alcohol?: Monthly or less 2. How many drinks containing alcohol do you have on a typical day when you are drinking?: 1 or 2 Total Score: 1 FLAKITO-7 AMB Questionnaire FLAKITO-7 Date FLAKITO - 7 assessed: 03/08/23 Feeling nervous, anxious, or on edge: 0 = Not at all Not being able to stop or control worryin = Not at all Worrying too much about different things: 0 = Not at all Trouble relaxin = Not at all Being so restless that it is hard to sit still: 0 = Not at all Becoming easily annoyed or irritable: 0 = Not at all Feeling afraid as if something awful might happen: 0 = Not at all Total FLAKITO-7 score (0-4 normal; 5-9 mild; 10-14 moderate; 15-21 severe): 0 Source: Developed by Drs. Luiz Lee, Lorna Mackay, Kevin Gold and colleagues, with an educational lola from [employer] FLAKITO-7 Assessment Billing FLAKITO-7 Assessment Tool: FLAKITO-7 Assessment 41354 Review of Systems Const Denies headache(s) Eyes Denies loss of vision ENT Denies vertigo, Denies dizziness, Denies headache(s) and Denies sore throat Card Denies chest pain, Denies leg edema and Denies lightheadedness Resp Denies cough, Denies hemoptysis and Denies wheezing GI Denies abdominal pain, Denies melena, Denies constipation, Denies diarrhea and Denies vomiting Denies urinary frequency, Denies dysuria and Denies urinary urgency Musc Denies arthralgias, Denies joint swelling, Denies numbness and Denies tingling Neuro Denies Abnormal speech present, Denies behavioral changes, Denies vertigo, Denies dizziness, Denies headache(s), Denies loss of vision, Denies memory loss, Denies numbness and Denies tingling Psych Denies anxiety, Denies behavioral changes, Denies depression, Denies memory loss and Denies panic attacks David/Lymph Denies easy bleeding and Denies easy bruising Aller/Immun Denies wheezing Physical exam (Primary Care) Vital Signs: Last Vital Signs Pulse 77 03/08/23 09:50 BP 116/80 03/08/23 09:50 Pulse Ox 97 03/08/23 09:50 Oxygen Delivery Method Room Air 03/08/23 09:50 BMI result Body Mass Index 36.6 BMI Assessment/Plan discussion: High Tobacco/Smoking Status: Tobacco use Status Tobacco use date assessed 03/08/23 03/08/23 09:58 Patient Tobacco Use Status Never used Tobacco 03/08/23 09:58 e-Cigarette/Vaping Use Never Used 03/08/23 09:58 PHQ-9: PHQ-9 Score PHQ-9: Total score 0 03/08/23 15:41 Depression Screening Interpretation: Negative Thrive Assessment: Date of Thrive Assessment Date Thrive assessed 03/08/23 03/08/23 09:58 Currently or been in a relationship where the following occur: no concerns reported Const General: healthy appearing, no acute distress, alert and awake Nutritional Appearance: well nourished Orientation/consciousness: oriented to person, oriented to place and oriented to time HENMT Ears: TM's normal bilaterally General nose exam: Normal nasal mucous membranes and turbinates present Eyes Conjunctivae: conjunctivae normal Sclerae: sclerae normal Pupils: Equal, round and reactive pupils present Neck Neck: Yes no lymphadenopathy and Yes no JVD Thyroid: Thyroid normal Carotids: no bruits Resp Effort & Inspection: normal respiratory effort and not tachypneic Auscultation: no crackles, no rales, no rhonchi and no wheezes Cardio Rate: regular rate Rhythm: regular rhythm Heart sounds: no murmurs and normal S1 and S2 GI Other: INSPECTION OF THE ANUS NOTED A PEDUNCULATED POLYP AT 06:00 O'CLOCK. FILM PROCESSOR PRESENT DURING EXAM (ANA YOUNG) Palpation (GI): Soft to palpation, nontender, no hepatomegaly and no splenomegaly Auscultation: normal bowel sounds Skin General skin exam: no rashes or lesions noted and dry skin Neuro General: oriented to person, oriented to place and oriented to time Cranial nerves: Yes Equal, round and reactive pupils present Speech: No Abnormal speech present Gait exam (Neuro): Normal gait present Motor exam (neuro): no tremor noted Extrem Right upper extremity: full ROM Left upper extremity: full ROM Right lower extremity: full ROM; no edema Left lower extremity: full ROM; no edema Knee images: 1. PAIN REPORTED IN THE AREA OUTLINED IN THE POSTERIOR ASPECT OF THE KNEE Psych Mental Status: mental status grossly normal Speech and movement: Normal speech and movement present Affect: normal affect Attitude: cooperative Thought process: Normal thought process present Assessment and Plan Assessment & Plan (1) Borderline high cholesterol: Code(s): E78.9 - Disorder of lipoprotein metabolism, unspecified Plan: Patient's most recent fasting lipid panel showing borderline high total cholesterol. Will work on lifestyle modifications to help reduce her cholesterol. (2) Left ovarian cyst: Code(s): N83.202 - Unspecified ovarian cyst, left side Plan: Has a complex left ovarian cyst, has followed up with OBGYN and tumor markers are negative. She has followed up with the [facility] seater grinder surgeon whom recommends oophorectomy though patient is still considering.. (3) Asthma: Code(s): J45.909 - Unspecified asthma, uncomplicated Qualifiers: Asthma complication type: uncomplicated Asthma persistence: intermittent Asthma severity: mild Qualified Code(s): J45.20 - Mild intermittent asthma, uncomplicated Plan: Patient reports her asthma is fairly well controlled with current Flovent inhaler p.r.n. use of her albuterol inhaler. Otherwise denies any recent exacerbations of her asthma. (4) Obese: Code(s): E66.9 - Obesity, unspecified Qualifiers: Body mass index: BMI 36.0-36.9 Obesity classification: adult class 2 (BMI 35 - 39.9) Obesity type: due to excess calories Serious obesity comorbidity presence: without serious comorbidity Qualified Code(s): E66.09 - Other obesity due to excess calories; Z68.36 - Body mass index [BMI] 36.0-36.9, adult Plan: Patient does understand her BMI is over 30 will work on being more physically active and adapting to better eating habits to reduce her weight (5) Hamstring tendinitis of left thigh: Code(s): M76.892 - Other specified enthesopathies of left lower limb, excluding foot Plan: Patient's posterior knee pain is most consistent with a hamstring tendinitis. No notable trauma to her left knee. She has been wearing a knee brace which has been helpful. She would likely benefit from physical therapy to help stretch the hamstring tendons. (6) Anal polyp: Code(s): K62.0 - Anal polyp Plan: On physical exam anal polyp noted. She is asymptomatic.. Give in choice to be seen by general surgeon for removal though patient would like to hold off on this for now. Orders: Orders PT Evaluation and Treatment 03/08/23 M76.892 - Other specified enthesopathies of left lower limb, excluding foot Medications: New mometasone 100 mcg/actuation (Asmanex HFA) 2 puffs inhalation BID 30 days 13 grams 3RF J45.20 - Mild intermittent asthma, uncomplicated albuterol sulfate 2.5 mg (3 mL) inhalation Q6H 30 days PRN 180 mL 0RF shortness of breath or wheezing J45.20 - Mild intermittent asthma, uncomplicated meloxicam 15 mg PO DAILY 30 days 30 tabs 0RF M76.892 - Other specified enthesopathies of left lower limb, excluding foot Discontinued fluticasone propionate 110 mcg/actuation (Flovent HFA) Discontinued Reason: Doctor's Order 2 puffs inhalation BID 30 days 12 grams 3RF J45.20 - Mild intermittent asthma, uncomplicated Coding Level of Care Code Est Pt Level 4 (58052) Diagnoses Borderline high cholesterol E78.9 Left ovarian cyst N83.202 Mild intermittent asthma without complication J45.20 Asthma complication type: uncomplicated Asthma persistence: intermittent Asthma severity: mild Class 2 obesity due to excess calories without serious comorbidity with body mass index (BMI) of 36.0 to 36.9 in adult E66.09; Z68.36 Body mass index: BMI 36.0-36.9 Obesity classification: adult class 2 (BMI 35 - 39.9) Obesity type: due to excess calories Serious obesity comorbidity presence: without serious comorbidity Hamstring tendinitis of left thigh M76.892 Anal polyp K62.0 Additional Codes FLAKITO-7 Assessment Billing - FLAKITO-7 Assessment Tool: FLAKITO-7 Assessment [id number] ([id number])
== END 2023-03-08 10:50 | disposition home or self-care (01) ==
PROVIDERS: PCP Physician Assistant; Visit Provider Physician Assistant
DX: E78.9 Disorder of lipoprotein metabolism, unspecified (principal); N83.202 Unspecified ovarian cyst, left side; J45.20 Mild intermittent asthma, uncomplicated; E66.09 Other obesity due to excess calories; Z68.36 Body mass index [BMI] 36.0-36.9, adult; M76.892 Other specified enthesopathies of left lower limb, excluding foot; K62.0 Anal polyp
CPT/HCPCS: 99214

== ENCOUNTER 2023-06-01 15:55 | Outpatient (AMB) | payer OTHER, SELFPAY ==
[2023-06-01 16:14] VITALS: BP 122/84; PULSE 76; O2SAT 96; BMI 36.6
--- NOTE | 2023-06-01 16:14 | A.OFFPC_ITS ---
Vital Signs 06/01/23 16:14 Height 4 ft 11 in Weight 181 lb 2 oz BMI 36.6 BP 122/84 Blood Pressure Location Lt brachial Position Sitting Pulse 76 Pulse Source Pulse Oximeter Pulse Oximetry (%) 96 Oxygen Delivery Method Room Air Intake Visit Reasons: pe Intake Note: Patient is here today for a physical. 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 Patient's past medical history significant for asthma and obesity. Concern--> has noted a small skin abnormality at anus. She denies any pain or difficulty defecating. Complex left ovarian cyst: Recently noted to have a left complex ovarian cyst. Has follow-up with OBGYN and was sent for tumor markers which are essentially negative. Has been ordered a new CT of abdomen pelvis to evaluate. Did have CT abdomen and pelvis and March 2022 that did show 3.8 cm left ovarian cyst. She she did a follow-up with a [facility] school custodian surgeon and was considering an oophorectomy though is still considering. She is interested in imaging surveillance .. Asthma: Asthma has been generally well controlled on current dose of asthmanex though at times she reports having some asthma symptoms flare up. She does use a portable nebulizer inhaler quite often. She is still interested in seeing a chief medical physicist. . Borderline high cholesterol:? Also noted most recent labs showing borderline high cholesterol has been working on lifestyle modifications to help reduce her total cholesterol. Colon cancer screening: Done in 2014 and [place] Mammogram: Done in 08/2022 BI-RADS 1, .. 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 Pap in 2019 Vaccines: Up-to-date with COVID vaccine, needs tetanus and shingles vaccine, Need PCV-though was still considering [facility] Medical History Asthma Surgical History No pertinent past surgical history Family History Father Cancer Colon cancer Mother Respiratory arrest Daughter Lymphoma Paternal Aunt Breast CA Ovarian cancer Social History Household Members: Family Housing: Apartment Do you presently have visiting nurse or other home services: No Alcohol intake: current Alcohol intake frequency: holidays/special occasions only Patient Tobacco Use Status: Never used Tobacco e-Cigarette/Vaping Use: Never Used Second Hand Smoke Exposure: No service: No Current occupational status: employed 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 Luiz Lee, Lorna Mackay, Kevin Gold and colleagues, with an educational lola from [employer]. ACT Questionnaire In the past 4 weeks, how much of the time did your asthma keep you from getting as much done at work, school or at home?: A little of the time During the past 4 weeks, how often have you had shortness of breath?: 1-2 times a week During the past 4 weeks, how often did your asthma symptoms wake you up at night or earlier than usual in the morning?: Not at all During the past 4 weeks, how often have you had to use your rescue inhaler or nebulizer medication?: 2-3 times a week How would you rate your asthma control during the past 4 weeks?: Well controlled ACT Interpretation: Positive ACT Branch: Change in medication Score: 20 Review of Systems Const Denies body aches, Denies chills, Denies excessive sweating, Denies fatigue, Denies fever(s) and Denies headache(s) Eyes Denies blurry vision ENT Denies dysphagia, Denies vertigo, Denies dizziness, Denies headache(s), Denies hearing loss and Denies tinnitus Card Denies chest pain, Denies chest pain with activity, Denies syncope, Denies irregular heart rhythm and Denies dyspnea Resp Denies chest congestion, Denies cough, Denies hemoptysis, Denies dyspnea and Denies wheezing GI Denies abdominal pain, Denies melena, Denies hematochezia, Denies coffee ground emesis, Denies dysphagia, Denies diarrhea, Denies nausea and Denies vomiting Denies urinary frequency, Denies dysuria, Denies urinary hesitancy and Denies urinary urgency Musc Denies arthralgias, Denies limited range of motion, Denies muscle cramps and Denies muscle weakness Skin/Breast Denies rash and Denies skin ulcer Neuro Denies Abnormal speech present, Denies confusion, Denies vertigo, Denies dizziness, Denies syncope, Denies headache(s), Denies memory loss and Denies seizure-like activity Psych Denies anxiety, Denies confusion, Denies depression, Denies memory loss, Denies panic attacks and Denies paranoia Endo Denies excessive sweating, Denies fatigue, Denies flushing, Denies polydipsia and Denies polyuria Aller/Immun Denies wheezing Physical exam (Primary Care) Vital Signs: Last Vital Signs Pulse 76 06/01/23 16:14 BP 122/84 06/01/23 16:14 Pulse Ox 96 06/01/23 16:14 Oxygen Delivery Method Room Air 06/01/23 16:14 BMI result Body Mass Index 36.6 Tobacco/Smoking Status: Tobacco use Status Tobacco use date assessed 03/08/23 06/01/23 16:18 Patient Tobacco Use Status Never used Tobacco 06/01/23 16:18 e-Cigarette/Vaping Use Never Used 06/01/23 16:18 Thrive Assessment: Date of Thrive Assessment Date Thrive assessed 03/08/23 06/01/23 16:18 Const General: cooperative, comfortable, no acute distress, alert and awake; No confusion Orientation/consciousness: oriented to person, oriented to place, patient oriented x3 and No confusion HENMT Head: Yes normocephalic Ears: external ears normal and TM's normal bilaterally Face and sinus: No sinus tenderness Mouth: Normal oral and palatal mucosa present and tongue normal Teeth and gingiva: dentition normal and gingiva normal Throat: Yes posterior oropharynx normal, Yes tonsils normal and Yes uvula midline Eyes Conjunctivae: conjunctivae normal Sclerae: sclerae normal Pupils: Equal, round and reactive pupils present EOM: EOMs intact bilaterally Direct Ophthalmoscopy: No no photophobia Neck Neck: Yes no lymphadenopathy, No tender and Yes no JVD Thyroid: Thyroid normal Carotids: no bruits Chest Chest palpation & inspection: no tenderness Resp Effort & Inspection: normal respiratory effort, no audible wheezes, not labored and no stridor Auscultation: no crackles, no rales, no rhonchi and no wheezes Cardio Jugular venous distension: no JVD Rate: regular rate, not bradycardic and not tachycardic Rhythm: regular rhythm Bruits: no carotid bruits Peripheral pulses: Peripheral pulses 2+ throughout GI Inspection: Yes normal to inspection, No abdominal wall ecchymosis and No visible herniation Palpation (GI): Soft to palpation, nontender, no guarding, not rigid and No hepatosplenomegaly present Auscultation: normoactive bowel sounds General: Yes no CVA tenderness Back/Spine/Pelvis Back: no CVA tenderness and No back tenderness Cervical Spine: cervical ROM normal Thoracic/Lumbar Spine: thoracic and lumbar spine normal to inspection, straight leg raise negative bilaterally, No thoraco-lumbar ROM limited and No lumbar spinal tenderness Skin Lesions: no lesions Rashes: no rashes Wounds: no wounds Neuro General: oriented to person, oriented to place, patient oriented x3, CN's II-XI intact bilaterally and No confusion Cranial nerves: Yes Equal, round and reactive pupils present and Yes Normal accommodation reflex present Cognition (Neuro): normal cognition Speech: No Abnormal speech present Gait exam (Neuro): Normal gait present Motor exam (neuro): 5/5 motor strength present throughout Extrem Right upper extremity: full ROM; no cyanosis Left upper extremity: full ROM; no cyanosis Right lower extremity: no edema Left lower extremity: no edema Psych Appearance: grossly normal Mental Status: mental status grossly normal Affect: normal affect Attitude: cooperative Thought process: Normal thought process present Assessment and Plan Assessment & Plan (1) Annual physical exam: Code(s): Z00.00 - Encounter for general adult medical examination without abnormal findings (2) Borderline high cholesterol: Code(s): E78.9 - Disorder of lipoprotein metabolism, unspecified Plan: Patient's most recent fasting lipid panel showing borderline high total cholesterol. Will work on lifestyle modifications to help reduce her cholesterol. (3) Left ovarian cyst: Code(s): N83.202 - Unspecified ovarian cyst, left side Plan: Has a complex left ovarian cyst, has followed up with OBGYN and tumor markers are negative. She has followed up with the [facility] school custodian surgeon whom recommends oophorectomy though patient is still considering.. (4) Asthma: Code(s): J45.909 - Unspecified asthma, uncomplicated Qualifiers: Asthma complication type: uncomplicated Asthma persistence: intermittent Asthma severity: mild Qualified Code(s): J45.20 - Mild intermittent asthma, uncomplicated Plan: Patient reports her asthma is fairly well controlled with current maintenance inhaler p.r.n. use of her albuterol inhaler. She does report still using her portable nebulizer quite often due to symptoms of shortness of breath. She is interested establishing care with [place] pulmonology Otherwise denies any recent exacerbations of her asthma. (5) Obese: Code(s): E66.9 - Obesity, unspecified Qualifiers: Body mass index: BMI 36.0-36.9 Obesity classification: adult class 2 (BMI 35 - 39.9) Obesity type: due to excess calories Serious obesity comorbidity presence: without serious comorbidity Qualified Code(s): E66.09 - Other obesity due to excess calories; Z68.36 - Body mass index [BMI] 36.0-36.9, adult Plan: Patient does understand her BMI is over 30 will work on being more physically active and adapting to better eating habits to reduce her weight Orders: Orders MM screening mammo BI 06/01/23 Z12.31 - Encounter for screening mammogram for malignant neoplasm of breast US pelvic and transvaginal 06/01/23 N83.202 - Unspecified ovarian cyst, left side Referrals Pulmonology Referral J45.20 - Mild intermittent asthma, uncomplicated Medications: Refilled albuterol sulfate 2.5 mg (3 mL) inhalation Q6H PRN 180 mL 0RF shortness of breath or wheezing 30 days J45.20 - Mild intermittent asthma, uncomplicated Coding Level of Care Code Est Pt Prev Care 40-64y(34037) Diagnoses Annual physical exam Z00.00 Borderline high cholesterol E78.9 Left ovarian cyst N83.202 Mild intermittent asthma without complication J45.20 Asthma complication type: uncomplicated Asthma persistence: intermittent Asthma severity: mild Class 2 obesity due to excess calories without serious comorbidity with body mass index (BMI) of 36.0 to 36.9 in adult E66.09; Z68.36 Body mass index: BMI 36.0-36.9 Obesity classification: adult class 2 (BMI 35 - 39.9) Obesity type: due to excess calories Serious obesity comorbidity presence: without serious comorbidity
== END 2023-06-01 17:03 | disposition home or self-care (01) ==
PROVIDERS: PCP Physician Assistant; Visit Provider Physician Assistant
DX: Z00.00 Encounter for general adult medical examination without abnormal findings (principal); E78.9 Disorder of lipoprotein metabolism, unspecified; N83.202 Unspecified ovarian cyst, left side; J45.20 Mild intermittent asthma, uncomplicated; E66.09 Other obesity due to excess calories; Z68.36 Body mass index [BMI] 36.0-36.9, adult
CPT/HCPCS: 99396

== ENCOUNTER 2023-06-10 08:36 | Outpatient (REF) | payer OTHER, SELFPAY ==
[2023-06-10 09:24] LABS: Hematocrit 40.9 % (37.0-47.0); Hemoglobin 13.4 g/dl (12.0-16.0); Mean Corpuscular HGB Conc 32.8 g/dl (31.0-35.0); Mean Corpuscular Hemoglobin 28.6 pg (27.0-33.0); Mean Corpuscular Volume 87.2 fL (80.0-98.0); Mean Platelet Volume 11.5 fL (9.4-12.3); Platelet Count 208 X10*3/uL (160-400); Red Blood Count 4.69 X10*6/uL (4.20-5.50); Red Cell Distribution Width 12.5 % (11.0-16.0); White Blood Count 6.5 X10*3/uL (4.8-10.8)
[2023-06-10 10:06] LABS: Alanine Aminotransferase 17 U/L (0-31); Alkaline Phosphatase 75 U/L (39-117); Anion Gap 11 (12-20); Aspartate Amino Transferase 13 U/L (5-31); Bilirubin Total 0.5 mg/dL (0.0-1.0); Blood Urea Nitrogen 12 mg/dL (9-16); Calcium 9.7 mg/dL (8.4-10.2); Carbon Dioxide 26 mmol/L (22-29); Chloride 108 mmol/L (96-108); Cholesterol 224 mg/dL (<200); Estimated Glomerular Filt Rate > 60; Glucose Fasting 109 mg/dL (60-99); HDL Cholesterol 59 mg/dL (>40); LDL Cholesterol Calculated 149 mg/dL (<100); Potassium 3.8 mmol/L (3.3-5.1); Sodium 141 mmol/L (135-145); Triglycerides 83 mg/dL (<150)
== END 2023-06-10 08:37 | disposition home or self-care (01) ==
LOC: HO.LAB 08:36
PROVIDERS: PCP Physician Assistant; Visit Provider Physician Assistant
DX: E78.9 Disorder of lipoprotein metabolism, unspecified (principal)
CPT/HCPCS: 36415; 80053; 80061; 85027

== ENCOUNTER 2023-06-10 09:20 | Emergency (ER) | payer OTHER, SELFPAY ==
--- NOTE | ~2023-06-10 | XR_ITS ---
EXAMINATION: XR CHEST CLINICAL INFORMATION: Dyspnea. COMPARISON: 05/29/2022 TECHNIQUE: 2 views of the chest were obtained. FINDINGS: The lungs are well expanded. No focal consolidation. No pleural effusion. Cardiac silhouette is unchanged. XR/XR chest 2V IMPRESSION: No acute abnormality.
[2023-06-10 09:29] VITALS: BP 122/46; PULSE 74; RESP 16; TEMP 36.4; O2SAT 94; BMI 37.2
--- NOTE | 2023-06-10 09:52 | ECG_ITS ---
Test Reason : dyspnea Blood Pressure : / mmHG Vent. Rate : 072 BPM Atrial Rate : 072 BPM P-R Int : 168 ms QRS Dur : 074 ms QT Int : 374 ms P-R-T Axes : 055 004 -03 degrees QTc Int : 409 ms Normal sinus rhythm Normal ECG When compared with ECG of 19-AUG-2020 17:43, Nonspecific T wave abnormality now evident in Anterior leads Referred By: Meera Trent Electronically Signed By:SIA HOWELL
--- NOTE | 2023-06-10 10:06 | ED_ITS ---
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 Her father was sick with a cough. She notes she ran out of her nebulizer liquid. She denies fevers. She notes her cough is productive. MD complaint: asthma attack , shortness of breath and wheezing Onset (ago): week(s) (1) Severity: moderate Context: recent URI Associated symptoms: productive cough Treatments Prior to Arrival: inhaled bronchodilator Related Data Previous Rx's ?Medication ?Instructions ?Recorded meloxicam 15 mg tablet 15 mg PO DAILY 30 days #30 tabs 03/08/23 mometasone 100 mcg/actuation HFA 2 puff inhalation BID 30 days #13 03/08/23 aerosol inhaler (Asmanex HFA) grams albuterol sulfate 2.5 mg/3 mL 2.5 mg (3 mL) inhalation Q6H PRN 06/01/23 (0.083 %) solution for nebulization shortness of breath or wheezing 30 days #180 mL albuterol sulfate 2.5 mg/3 mL 2.5 mg (3 mL) inhalation Q4-6H PRN 06/10/23 (0.083 %) solution for nebulization bronchospasm #75 mL azithromycin 250 mg tablet See Rx Instructions PO .COMPLEX #6 06/10/23 tabs prednisone 20 mg tablet 40 mg (2 x 20 mg) PO DAILY 5 days 06/10/23 #10 tabs Allergies Allergy/AdvReac Type Severity Reaction Status Date / Time No Known Allergies Allergy Verified 06/10/23 09:36 Review of Systems 2 Review of Systems: Constitutional : No Fever, No Chills ENT/Mouth : No Hoarseness, No sore throat, No Rhinorrhea Eyes: No Redness, No Discharge, No Vision Changes Cardiovascular : No Chest Pain, positive SOB, positive Dyspnea on Exertion, No Edema Respiratory : positive Cough, pos Sputum, positive Wheezing, Gastrointestinal : No Nausea, No Vomiting, No Diarrhea, No abdominal Pain Genitourinary : No Dysuria, No Hematuria Musculoskeletal : No joint pain, No Myalgias Skin : No rash Neuro : No Weakness, No Numbness, No Headache Psych : No anxiety, depression All other systems reviewed and are negative [facility] Past Medical History Attestation statement: The following information was validated with the patient. Source: old records reviewed Medical History Asthma Surgical History No pertinent past surgical history Family History Family History Father Cancer Colon cancer Mother Respiratory arrest Daughter Lymphoma Paternal Aunt Breast CA Ovarian cancer Social History Social History Household Members: Family Housing: Apartment Do you presently have visiting nurse or other home services: No Alcohol intake: current Alcohol intake frequency: holidays/special occasions only Patient Tobacco Use Status: Never used Tobacco Smoked in Last 30 Days: No e-Cigarette/Vaping Use: Never Used Second Hand Smoke Exposure: No Use of substances other than those prescribed or required for medical reasons: No Advance Directives: No Do you have a plan to hurt others: No Plan service: No Current occupational status: employed 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 Oriented X3. No acute distress. Eyes: Pupils equal, round and reactive to light. ENT: Pharynx normal. Neck: Normal inspection. Neck supple. CVS: Normal heart rate and rhythm. Pulses normal. Respiratory: No respiratory distress. Breath sounds coarse throughout and diminished has productive cough Abdomen: Soft and nontender. Skin: Skin warm and dry. Normal skin color. Normal skin turgor. Extremities: No lower extremity edema. No calf ttp Neuro: Oriented X 3. No motor deficit. No sensory deficit. Medications Administered Discontinued Medications Generic Name Dose Route Start Last Admin Trade Name Kimberly PRN Reason Stop Dose Admin Albuterol Sulfate 2.5 mg/ 0 mg 06/10/23 10:26 06/10/23 10:31 Albuterol/Ipratropium 3 ml INHALE 06/10/23 10:27 5 dose ONCE ONE Administration Methylprednisolone Sodium Succinate 125 mg 06/10/23 09:53 06/10/23 10:34 Methylprednisolone Sod Succ 125 Mg/2 Ml Vial IVPUSH 06/10/23 09:54 125 mg ONCE ONE Administration Medical Decision Making Medical Decision Making MDM Narrative: 62 yo female with PMH of asthma, HLD, obesity, MRSA cellulitis, DM, hypothyroidism here with c/o asthma exacerbation x 1 week with productive cough and sick contact in father - ran out of nebulizer liquid. At this time will need basic labs, EKG, CXR, viral panel, bronch protocol and IV steroids ordered. The patient denies chest pain has no signs of leg edema Differential Diagnosis Differential Diagnoses: The differential diagnosis associated with the presentation includes asthma, viral syndrome, bronchitis Admission/Observation Consideration of admission/observation: Escalation of care including admission/observation considered no hypoxia feels better can be managed as outpatient stable for DC Lab Data [facility] Lab Attestation statement: I reviewed the patient's lab results. 06/10/23 10:20 06/10/23 10:20 Labs: Lab Results 06/10/23 06/10/23 Range/Units 09:42 10:20 WBC 5.9 (4.8-10.8) X10*3/uL RBC 4.55 (4.20-5.50) X10*6/uL Hgb 13.1 (12.0-16.0) g/dl Hct 39.3 (37.0-47.0) % MCV 86.4 (80.0-98.0) fL MCH 28.8 (27.0-33.0) pg MCHC 33.3 (31.0-35.0) g/dl RDW 12.4 (11.0-16.0) % Plt Count 203 (160-400) X10*3/uL MPV 11.3 (9.4-12.3) fL Immature Gran % (Auto) 0.5 H (0.0-0.4) % Neut % (Auto) 56.3 (45-73) % Lymph % (Auto) 21.8 (20-40) % [place] % (Auto) 7.8 (2-11) % Eos % (Auto) 11.7 H (0-4) % Baso % (Auto) 1.9 (0-2) % Lymph # (Auto) 1.3 (1.2-4.9) X10*3/uL [place] # (Auto) 0.5 (0.1-1.2) X10*3/uL Eos # (Auto) 0.7 H (0.0-0.4) X10*3/uL Baso # (Auto) 0.1 (0.0-0.2) X10*3/uL Abs Immat Gran (auto) 0.03 (0.00-0.03) X10*3/uL Absolute Neuts (auto) 3.3 (2.0-8.3) x10*3/uL Absolute Nucleated RBC 0.000 (0.0-0.012) X10*3/uL Nucleated RBC % (auto) 0.0 (0.0-0.2) /100WBC Sodium 142 (135-145) mmol/L Potassium 3.8 (3.3-5.1) mmol/L Chloride 108 (96-108) mmol/L Carbon Dioxide 25 (22-29) mmol/L Anion Gap 13 (12-20) BUN 11 (9-16) mg/dL Creatinine 0.80 (0.5-1.4) mg/dL Estim Creat Clear Calc 66.6 Estimated GFR > 60 Random Glucose 119 H (60-115) mg/dL Calcium 9.7 (8.4-10.2) mg/dL Magnesium 2.0 (1.6-2.6) mg/dL Total Bilirubin 0.4 (0.0-1.0) mg/dL Direct Bilirubin 0.2 (0.0-0.5) mg/dL AST 12 (5-31) U/L ALT 15 (0-31) U/L Alkaline Phosphatase 73 (39-117) U/L Troponin I High Sens < 2.7 (<3.5-17.0) ng/L B-Natriuretic Peptide < 10 (<100) pg/mL Total Protein 6.8 (6.5-8.0) g/dL Albumin 3.8 (3.5-5.0) g/dL Lipase 42 (8-78) U/L Influenza Type A (PCR) NEGATIVE (Negative) Influenza Type B (PCR) NEGATIVE (Negative) RSV RNA Qual (PCR) NEGATIVE (Negative) SARS-CoV-2 RNA (RT-PCR) NEGATIVE (Negative) Independent Interpretation I performed an independent interpretation of an: EKG and Plain X-Ray (no pneumonia) Interpretation: Rate: 72 Rhythm: NSR Berkley: normal Normal P waves. Normal ADRIANO. Normal QRS complex. ST T wave : inverted t wave V3, no ELVA qTC: 409 prior studies: normal no acute ischemia The study has been interpreted contemporaneously by me. . Radiology Impression Discussion of test interpretation with radiology: I have reviewed the radiologist's reading. Independent Historian Clinical information obtained from an independent historian. History obtained from or confirmed by: Other External Record Review External record reviewed: Inpatient record Prescription Management I considered prescription management with: Antibiotic and Other Discharge Plan Discharge Clinical Impression: Acute bronchitis Qualifiers: Bronchitis organism: unspecified organism Qualified Code(s): J20.9 - Acute bronchitis, unspecified Patient Disposition: Home, Self-Care Instructions: Acute Bronchitis (ED) Additional Instructions: return for wheezing increased difficulty breathing or any other concerns Prescriptions: New albuterol sulfate 2.5 mg /3 mL (0.083 %) solution for nebulization 2.5 mg inhalation Q4-6H PRN (Reason: bronchospasm) Qty: 75 0RF azithromycin 250 mg tablet See Rx Instructions .ROUTE .COMPLEX Qty: 6 0RF Rx Instructions: For 250 mg dose pack: take 500 mg today (day 1), then 250 mg for 4 days (days 2-5) prednisone 20 mg tablet 40 mg PO DAILY 5 Days Qty: 10 0RF No Action Asmanex HFA 100 mcg/actuation HFA aerosol inhaler 2 puff inhalation BID 30 Days Qty: 13 3RF meloxicam 15 mg tablet 15 mg PO DAILY 30 Days Qty: 30 0RF albuterol sulfate 2.5 mg /3 mL (0.083 %) solution for nebulization 2.5 mg inhalation Q6H PRN (Reason: shortness of breath or wheezing) 30 Days Qty: 180 0RF Stand Alone Forms: Work/School Release Print Language: Turkish
[2023-06-10 10:24] LABS: MANUAL DIFF FLAG NO
[2023-06-10 10:29] LABS: Influenza A PCR NEGATIVE (Negative); Influenza B PCR NEGATIVE (Negative); Resp Syncy Virus RNA Qual PCR NEGATIVE (Negative); SARS COV2 PCR INHOUSE NEGATIVE (Negative)
[2023-06-10 10:29] LABS: Basophils Absolute Auto 0.1 X10*3/uL (0.0-0.2); Basophils Percent Auto 1.9 % (0-2); Eosinophils Absolute Auto 0.7 X10*3/uL (0.0-0.4); Eosinophils Percent Auto 11.7 % (0-4); Hematocrit 39.3 % (37.0-47.0); Hemoglobin 13.1 g/dl (12.0-16.0); Imm Gran Abs Auto 0.03 X10*3/uL (0.00-0.03); Imm Gran Pct Auto 0.5 % (0.0-0.4); Lymphocytes Absolute Auto 1.3 X10*3/uL (1.2-4.9); Lymphocytes Percent Auto 21.8 % (20-40); Mean Corpuscular HGB Conc 33.3 g/dl (31.0-35.0); Mean Corpuscular Hemoglobin 28.8 pg (27.0-33.0); Mean Corpuscular Volume 86.4 fL (80.0-98.0); Mean Platelet Volume 11.3 fL (9.4-12.3); Monocytes Absolute Auto 0.5 X10*3/uL (0.1-1.2); Monocytes Percent Auto 7.8 % (2-11); Neutrophils Absolute Auto 3.3 x10*3/uL (2.0-8.3); Neutrophils Percent Auto 56.3 % (45-73); Platelet Count 203 X10*3/uL (160-400); Red Blood Count 4.55 X10*6/uL (4.20-5.50); Red Cell Distribution Width 12.4 % (11.0-16.0); White Blood Count 5.9 X10*3/uL (4.8-10.8)
[2023-06-10] MEDS: Albuterol Sulfate 2.5 MG, Albuterol/Iprat 2.5/0.5MG 3 ML 3 ML INHALE (10:31)
--- NOTE | 2023-06-10 10:31 | PC.NURSE ---
pt a&o x4, calm and cooperative. 20G IV placed to LAC. EKG obtained, respiratory at bedside with neb treatment. pt resting quietly on stretcher in no apparent distress. rr even/unlabored. plan of care ongoing.
[2023-06-10 10:34] VITALS: PULSE 77; RESP 18; O2SAT 97
[2023-06-10] MEDS: methylPREDNISolone Sod Succ 125 MG/2 ML VIAL IVPUSH (10:34)
[2023-06-10 10:45] LABS: Alanine Aminotransferase 15 U/L (0-31); Albumin Level 3.8 g/dL (3.5-5.0); Alkaline Phosphatase 73 U/L (39-117); Anion Gap 13 (12-20); Aspartate Amino Transferase 12 U/L (5-31); Bilirubin Direct 0.2 mg/dL (0.0-0.5); Bilirubin Total 0.4 mg/dL (0.0-1.0); Blood Urea Nitrogen 11 mg/dL (9-16); Calcium 9.7 mg/dL (8.4-10.2); Carbon Dioxide 25 mmol/L (22-29); Chloride 108 mmol/L (96-108); Creatinine Clr Calc Pharmacy 66.6; Estimated Glomerular Filt Rate > 60; Glucose Random 119 mg/dL (60-115); Lipase 42 U/L (8-78); Potassium 3.8 mmol/L (3.3-5.1); Sodium 142 mmol/L (135-145); Total Protein 6.8 g/dL (6.5-8.0)
[2023-06-10 10:50] LABS: B Type Natriuretic Peptide < 10 pg/mL (<100)
[2023-06-10 10:53] LABS: Troponin-I High Sensitivity < 2.7 ng/L (<3.5-17.0)
[2023-06-10 11:31] VITALS: BP 121/58; PULSE 71; RESP 18; TEMP 36.7; O2SAT 95
[2023-06-10 11:35] VITALS: BP 127/88; PULSE 63; RESP 19; TEMP 36.6; O2SAT 98
[2023-06-10 11:36] VITALS: BP 121/58; PULSE 71; RESP 16; TEMP 36.7; O2SAT 95
== END 2023-06-10 11:37 | disposition home or self-care (01) ==
PROVIDERS: Emergency Provider Emergency Medicine; PCP Physician Assistant
DX: J20.9 Acute bronchitis, unspecified (principal); R06.02 Shortness of breath; R05.9 Cough, unspecified; Z79.899 Other long term (current) drug therapy; Z11.52 Encounter for screening for COVID-19; Z20.822 Contact with and (suspected) exposure to COVID-19
CPT/HCPCS: 0241U; 36415; 71046; 80048; 80076; 83690; 83735; 83880; 84484; 85025; 93005; 94640; 96374; 99284; 99285; J2919

== ENCOUNTER → 2023-06-10 09:52 | Outpatient (BNV) | payer OTHER, SELFPAY | PROVIDERS: Emergency Provider Emergency Medicine; PCP Physician Assistant; Visit Provider Internal Medicine | DX: R06.00 Dyspnea, unspecified (principal) | CPT/HCPCS: 93010 ==

== ENCOUNTER 2023-06-15 16:23 | Outpatient (REF) | payer OTHER, SELFPAY ==
--- NOTE | ~2023-06-15 | US_ITS ---
EXAMINATION: US PELVIS COMPLETE CLINICAL INFORMATION: Follow-up complex left ovarian cyst; postmenopausal patient. COMPARISON: CT pelvis dated 11/03/2022; pelvic ultrasound dated 06/11/2022. TECHNIQUE: Transabdominal and transvaginal imaging were performed. FINDINGS: The uterus is of normal size and echogenicity measuring 7.3 x 2.8 x 4.0 cm. The uterus is anteverted and anteflexed. A regular, homogeneous endometrium is identified measuring 0.5 cm. FIBROIDS: There is 1 fibroid seen. 1. Location: Anterior upper body, myometrial. Size: 1.6 x 1.1 x 1.7 cm. Prior: 1.9 x 1.8 x 2.0 cm. Fibroid characteristics: Heterogeneously hyperechoic. Both ovaries are of normal size and echogenicity. The right ovary measures 1.7 x 1.4 x 1.3 cm for a volume of 1.6 mL. The left ovary measures 5.0 x 4.3 x 3.8 cm for a volume of 42.7 mL. The left ovary contains a 3.8 x 3.7 x 2.6 cm mildly complex cyst with fine septation. This shows mild peripheral color Doppler flow. On the ultrasound examination of 06/11/2022, this measured 3.6 x 3.4 x 3.5 cm. There is no pelvic free fluid. US/US pelvic and transvaginal IMPRESSION: 1. There is a continued stable appearance of a 3.6 cm mildly complex cyst, with fine septation. This cyst is almost certainly benign, and annual pelvic ultrasound follow-up is recommended. 2. A small uterine fibroid is again seen.
== END 2023-06-15 16:24 | disposition home or self-care (01) ==
LOC: HO.US 16:23
PROVIDERS: PCP Physician Assistant; Visit Provider Physician Assistant
DX: N83.202 Unspecified ovarian cyst, left side (principal)
CPT/HCPCS: 76830; 76856

== ENCOUNTER 2023-07-26 13:20 | Outpatient (AMB) | payer OTHER, SELFPAY ==
[2023-07-26 13:26] VITALS: PULSE 72; O2SAT 96; BMI 36.4
--- NOTE | 2023-07-26 13:26 | MHC.OFFVIS ---
Vital Signs 07/26/23 13:26 Height 4 ft 11 in Weight 180 lb BMI 36.4 Pulse 72 Pulse Source Pulse Oximeter Pulse Oximetry (%) 96 Oxygen Delivery Method Room Air Intake Visit Reasons: asthma Reference Assistant Required: No Allergies No Known Allergies Allergy (Verified 07/26/23 13:28) HPI Comments Details: the patient is here for pulmonary evaluation. The patient is a 62 year woman with known severe persistent asthma. She has been living in the [place] now for several years after moving from [place]. Since she has moved to the [facility] she has had significant asthma symptoms. She is required multiple courses of prednisone. She has been on multiple inhalers without any significant improvement. She does get better response to her nebulizer therapy. She does have a portable nebulizer and also nebulizer in the home. She does perform the nebulized treatments 2 to 3 times a day to help her symptoms. She has a chronic cough typically productive in nature. The patient did have imaging studies including CT scan of the abdomen and pelvis in the past. I did review the images of the lung windows with her. She appears to have significant bronchitis and also mucus plugging. In addition to that she did have a right lower lobe pulmonary nodule subcentimeter in size the needs to have further follow-up. In addition to that we did review blood work. The patient has significant eosinophilia. She was in the hospital back in June when she was having significant symptoms. At that point she did have the highest eosinophil count above a 1000. the patient required multiple courses of prednisone she does respond well to the prednisone. She was switched over to Asmanex inhaler although she is confused about which is her rescue and maintenance inhaler. I do believe that her inhalers have to be simplified in order for her to have the most effective in the best adherence during inhalers. Therefore, we did teach her how to use Trelegy inhaler and we sent 1 prescription to the pharmacy. In addition to that she can use her nebulizer treatments and oral albuterol HFA as needed. The patient also will start allergy medication. The patient does have significant wheezing on examination and I do believe that may benefit from biologic therapy. Will go ahead and request blood work in addition to allergy testing at this time. If her eosinophils continue to be elevated and her IgE level then will further consider biologic therapy. This is specially if she continues to be symptomatic even On maximum respiratory therapy. [facility] Medical History (Updated 07/26/23 @ 22:05 by Jaciel Eden MD) Pulmonary nodule Chronic cough Allergies Asthma Surgical History No pertinent past surgical history Family History Father Cancer Colon cancer Mother Respiratory arrest Daughter Lymphoma Paternal Aunt Breast CA Ovarian cancer Social History Household Members: Family Housing: Apartment Do you presently have visiting nurse or other home services: No Alcohol intake: current Alcohol intake frequency: holidays/special occasions only Patient Tobacco Use Status: Never used Tobacco e-Cigarette/Vaping Use: Never Used Second Hand Smoke Exposure: No service: No Current occupational status: employed 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 [employer] Gender identity: Female Cognitive needs: No Hearing needs: No Vision needs: No Female Reproductive History Menstrual Age of Menarche: 9 Review of Systems Const Denies fever(s) Eyes Reports no additional complaints ENT Reports nasal congestion and Reports nasal discharge Card Denies chest pain and Reports dyspnea on exertion Resp Reports chest congestion, Reports cough, Reports dyspnea on exertion and Reports wheezing GI Reports no additional complaints Musc Reports no additional complaints Skin/Breast Denies rash Neuro Reports no additional complaints David/Lymph Denies lymphadenopathy Aller/Immun Reports wheezing Physical Exam Vital Signs: Last Vital Signs Pulse 72 07/26/23 13:26 Pulse Ox 96 07/26/23 13:26 Oxygen Delivery Method Room Air 07/26/23 13:26 BMI result Body Mass Index 36.4 Const General: comfortable HEENT Head: Yes normocephalic Neck Neck: Yes supple Chest Chest palpation & inspection: normal inspection of the chest Resp Effort & Inspection: normal respiratory effort, Actively coughing Quality: actively coughing and prolonged expiratory phase Auscultation: wheezes and diminished lung sounds Cardio Heart sounds: S1 normal heart sound present and S2 normal heart sound present GI Palpation (GI): Soft to palpation Skin General skin exam: no rashes or lesions noted Extrem General: Yes no clubbing, cyanosis or edema Office Procedures Nebulizer Treatment Nebulizer Treatment 00532-Pjorkvsnf/MDI RX initial, or Nebulizer Subsequent Treatment Office Meds ipratropium 0.5 mg-albuterol 3 mg (2.5 mg base)/3 mL nebulization soln Performing Provider: Jaciel Eden MD Performing Location: [facility] Administered by: Niurka Madrigal LPN on 07/26/23 14:11 Dose Route Admin Location Dispensed Lot Number Expiration Date NDC Grinder Set Up Operator Thread Tool 6 mL inhalation 6 mL [id number] 06/07/25 39732-467-54 AHP Assessment & Plan Assessment & Plan (1) Asthma: Code(s): J45.909 - Unspecified asthma, uncomplicated Category: Medical Qualifiers: Asthma severity: severe Asthma persistence: persistent Asthma complication type: uncomplicated Qualified Code(s): J45.50 - Severe persistent asthma, uncomplicated (2) Allergies: Code(s): T78.40XA - Allergy, unspecified, initial encounter Category: Medical Qualifiers: Encounter type: initial encounter Qualified Code(s): T78.40XA - Allergy, unspecified, initial encounter (3) Chronic cough: Code(s): R05.3 - Chronic cough Category: Medical (4) Pulmonary nodule: Code(s): R91.1 - Solitary pulmonary nodule Category: Medical Plan start Trelegy 200 SARIKA as needed, responds better to nebulizer therapy start Singulair PM Bloodwork/allergy testing CT chest to address pulmonary nodule noted on CT abd/pelvis 11/03/2022 consider Biologic therapy, we will reassess duering her f/u vist Prednisone if no better Orders: Orders Erythrocyte Sedimentation Rate Today T78.40XA - Allergy, unspecified, initial encounter Complete Blood Count Auto Diff Today T78.40XA - Allergy, unspecified, initial encounter Resp Allergy Profile Region I Today R91.1 - Solitary pulmonary nodule, T78.40XA - Allergy, unspecified, initial encounter Hypersensitive Pneumonitis Prf Today R91.8 - Other nonspecific abnormal finding of lung field, T78.40XA - Allergy, unspecified, initial encounter AMB Nebulizer Treatment Today J45.20 - Mild intermittent asthma, uncomplicated CT chest wo IV con Today R91.1 - Solitary pulmonary nodule Medications: New mybzttekgbx-xpxfchexw-anmiwmuq 200-62.5-25 mcg (Trelegy Ellipta) 1 inh inhalation DAILY 30 days 60 ea 12RF montelukast (Singulair) 10 mg PO BEDTIME 30 days 30 tabs 11RF J45.909 - Unspecified asthma, uncomplicated prednisone PO daily; Take 2 tabs daily x 5 days, then 1 tablet daily x 5 days 10 days 15 tabs 0RF albuterol sulfate 90 mcg/actuation (Ventolin HFA) 2 puffs inhalation QID 30 days PRN 18 grams 11RF shortness of breath or wheezing Refilled albuterol sulfate 2.5 mg (3 mL) inhalation Q6H 30 days PRN 360 mL 9RF shortness of breath or wheezing J45.20 - Mild intermittent asthma, uncomplicated Discontinued mometasone 100 mcg/actuation (Asmanex HFA) Discontinued Reason: Doctor's Order 2 puffs inhalation BID 30 days 13 grams 3RF J45.20 - Mild intermittent asthma, uncomplicated Coding Level of Care Code New Pt Level 5 (21187) Diagnoses Severe persistent asthma without complication J45.50 Asthma severity: severe Asthma persistence: persistent Asthma complication type: uncomplicated Allergy, initial encounter T78.40XA Encounter type: initial encounter Chronic cough R05.3 Pulmonary nodule R91.1 CPT Codes Nebulizer Treatment - Nebulizer Treatment, initial or subsequent: [id number]/MDI RX initial, or Nebulizer Subsequent Treatment ([id number]) Time Spent (min) 60
== END 2023-07-26 14:27 | disposition home or self-care (01) ==
PROVIDERS: PCP Physician Assistant; Visit Provider Hospitalist
DX: J45.50 Severe persistent asthma, uncomplicated (principal); R05.3 Chronic cough; R91.1 Solitary pulmonary nodule
CPT/HCPCS: 99205

== ENCOUNTER → 2023-07-26 13:20 | Outpatient (BNVA) | payer OTHER, SELFPAY | PROVIDERS: PCP Physician Assistant; Visit Provider Hospitalist | DX: J45.50 Severe persistent asthma, uncomplicated (principal); T78.40XA Allergy, unspecified, initial encounter; R05.3 Chronic cough; R91.1 Solitary pulmonary nodule | CPT/HCPCS: 94640 ==

== ENCOUNTER 2023-07-27 13:35 | Outpatient (REF) | payer OTHER, SELFPAY ==
[2023-07-27 13:58] LABS: MANUAL DIFF FLAG NO
[2023-07-27 14:39] LABS: Basophils Absolute Auto 0.1 X10*3/uL (0.0-0.2); Basophils Percent Auto 1.2 % (0-2); Eosinophils Absolute Auto 0.7 X10*3/uL (0.0-0.4); Eosinophils Percent Auto 11.7 % (0-4); Hematocrit 39.5 % (37.0-47.0); Hemoglobin 13.3 g/dl (12.0-16.0); Imm Gran Abs Auto 0.03 X10*3/uL (0.00-0.03); Imm Gran Pct Auto 0.5 % (0.0-0.4); Lymphocytes Absolute Auto 1.5 X10*3/uL (1.2-4.9); Lymphocytes Percent Auto 25.8 % (20-40); Mean Corpuscular HGB Conc 33.7 g/dl (31.0-35.0); Mean Corpuscular Hemoglobin 28.9 pg (27.0-33.0); Mean Corpuscular Volume 85.9 fL (80.0-98.0); Mean Platelet Volume 11.7 fL (9.4-12.3); Monocytes Absolute Auto 0.5 X10*3/uL (0.1-1.2); Monocytes Percent Auto 9.1 % (2-11); Neutrophils Absolute Auto 2.9 x10*3/uL (2.0-8.3); Neutrophils Percent Auto 51.7 % (45-73); Platelet Count 212 X10*3/uL (160-400); Red Cell Distribution Width 12.3 % (11.0-16.0); White Blood Count 5.6 X10*3/uL (4.8-10.8)
[2023-07-27 15:24] LABS: Erythrocyte Sedimentation Rate 14 MM/HR (0-20)
[2023-07-28 22:53] LABS: Class Alternaria alternata 0; Class Aspergillus fumigatus 0; Class Bermuda Grass 0; Class Birch 0; Class Cat Dander 0; Class Cladosporium herbarum 0; Class Cockroach 0; Class Common Ragweed 0; Class Cottonwood 0; Class Derm. pterony 0; Class Dermatophagoides farinae 0; Class Dog Dander 0; Class Elm 0; Class Maple Box Elder 0; Class Mountain Cedar 0; Class Mouse Urine Protein 0; Class Mugwort 0; Class Oak 0; Class Penicillium crysogenum 0; Class Rough Pigweed 0; Class Sheep Sorrel 0; Class Sycamore 0; Class Timothy Grass 0; Class Walnut Tree 0; Class White Ash 0; Class White Mulberry 0; D001 IgE D pteronyssinus <0.10 kU/L; D002 - IgE D farinae <0.10 kU/L; E001 - IgE Cat Dander <0.10 kU/L; E005 - IgE Dog Dander <0.10 kU/L; E072-IgE Mouse Urine <0.10 kU/L; G002 IgE Bermuda Grass <0.10 kU/L; G006 - IgE Timothy Grass <0.10 kU/L; I006-IgE Cockroach, German <0.10 kU/L; Immunoglobulin E 190 kU/L (<OR=114); M001 IgE Penicillium chrysogen <0.10 kU/L; M002 - IgE Cladosporium herbar <0.10 kU/L; M003 - IgE Aspergillus fumigat <0.10 kU/L; M006 - IgE Alternaria alternat <0.10 kU/L; T001 IgE Maple/Box Elder <0.10 kU/L; T003 IgE Common Silver Birch <0.10 kU/L; T006 - IgE Cedar, Mountain <0.10 kU/L; T007 - IgE Oak, White <0.10 kU/L; T008 IgE Elm, American <0.10 kU/L; T010 - IgE Walnut <0.10 kU/L; T011 - IgE Maple Leaf Sycamore <0.10 kU/L; T014 - IgE Cottonwood <0.10 kU/L; T015 - IgE Ash, White <0.10 kU/L; T070 - IgE White Mulberry <0.10 kU/L; W001 - IgE Ragweed, Short <0.10 kU/L; W006 - IgE Mugwort <0.10 kU/L; W014 IgE Pigweed, Common <0.10 kU/L; W018 IgE Sheep Sorrel <0.10 kU/L
[2023-08-05 15:24] LABS: Asperg fumigatus Precip Abs NEGATIVE (NEGATIVE); Micropoly faeni Abs NEGATIVE (NEGATIVE); Pigeon serum Abs NEGATIVE (NEGATIVE); Saccharo pora viridis Abs NEGATIVE (NEGATIVE); Thermo candidus Abs NEGATIVE (NEGATIVE); Thermoa vulgaris #1 NEGATIVE (NEGATIVE)
== END 2023-07-27 13:36 | disposition home or self-care (01) ==
LOC: HO.LAB 13:35
PROVIDERS: PCP Physician Assistant; Visit Provider Hospitalist
DX: T78.40XA Allergy, unspecified, initial encounter (principal); R91.1 Solitary pulmonary nodule; R91.8 Other nonspecific abnormal finding of lung field
CPT/HCPCS: 36415; 82785; 85025; 85652; 86003; 86331; 86606; 86609

== ENCOUNTER 2023-08-27 15:07 | Outpatient (REF) | payer OTHER, SELFPAY ==
--- NOTE | ~2023-08-27 | MM_ITS ---
EXAMINATION: MM SCREENING DIGITAL BREAST TOMOSYNTHESIS, BILATERAL CLINICAL INFORMATION: Screening. Asymptomatic. COMPARISON: Mammography: This study is compared with prior exams dating back to 2020. TECHNIQUE: Digital breast tomosynthesis is performed in both the craniocaudal and mediolateral oblique views along with computer-aided detection (CAD). Synthesized 2D images are generated from the tomosynthesis. FINDINGS: There are scattered areas of fibroglandular density (ACR BI-RADS breast composition Category b). There are no significant masses, abnormal calcifications, or other abnormalities. There is a biopsy tissue marker in the right breast. MM/MM tomosynthesis screening BI IMPRESSION: No mammographic evidence of malignancy. ASSESSMENT: BI-RADS BI-RADS 2 - Benign Findings RECOMMENDATION: Routine annual mammography screening. 1 year F/U This examination should not preclude the clinical evaluation of a suspicious palpable abnormality. This patient's information was entered into a reminder system with a target due date for their next mammogram.
== END 2023-08-27 15:08 | disposition home or self-care (01) ==
LOC: HO.MAMMO 15:07
PROVIDERS: PCP Physician Assistant; Visit Provider Physician Assistant
DX: Z12.31 Encounter for screening mammogram for malignant neoplasm of breast (principal)
CPT/HCPCS: 77063; 77067

== ENCOUNTER → 2023-08-27 16:30 | Outpatient (BNV) | payer OTHER, SELFPAY | PROVIDERS: PCP Physician Assistant; Visit Provider Radiology Diagnostic Radiology | DX: Z12.31 Encounter for screening mammogram for malignant neoplasm of breast (principal) | CPT/HCPCS: 77063; 77067 ==

== ENCOUNTER 2023-09-02 08:54 | Outpatient (AMB) | payer OTHER, SELFPAY ==
--- NOTE | 2023-09-02 09:06 | A.OFFVIS_ITS ---
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 She has been living in the [place] now for several years after moving from [place]. Since she has moved to the [facility] she has had significant asthma symptoms. She is required multiple courses of prednisone. She has been on multiple inhalers without any significant improvement. She does get better response to her nebulizer therapy. She does have a portable nebulizer and also nebulizer in the home. She does perform the nebulized treatments 2 to 3 times a day to help her symptoms. She has a chronic cough typically productive in nature. The patient did have imaging studies including CT scan of the abdomen and pelvis in the past. I did review the images of the lung windows with her. She appears to have significant bronchitis and also mucus plugging. In addition to that she did have a right lower lobe pulmonary nodule subcentimeter in size the needs to have further follow-up. In addition to that we did review blood work. The patient has significant eosinophilia. She was in the hospital back in June when she was having significant symptoms. At that point she did have the highest eosinophil count above a 1000. the patient required multiple courses of prednisone she does respond well to the prednisone. She was switched over to Asmanex inhaler although she is confused about which is her rescue and maintenance inhaler. I do believe that her inhalers have to be simplified in order for her to have the most effective in the best adherence during inhalers. Therefore, we did teach her how to use Trelegy inhaler and we sent 1 prescription to the pharmacy. In addition to that she can use her nebulizer treatments and oral albuterol HFA as needed. The patient also will start allergy medication. The patient does have significant wheezing on examination and I do believe that may benefit from biologic therapy. Will go ahead and request blood work in addition to allergy testing at this time. If her eosinophils continue to be elevated and her IgE level then will further consider biologic therapy. This is specially if she continues to be symptomatic even On maximum respiratory therapy. 09/02/2023 The patient is here for a pulmonary follow up visit. Overall, she is feeling better. She took the Trelegy for a month and felt great, then she stopped it. Slowly her symptoms have been coming back. She went back to her asmanex. We did review her labs demonstrating a significant allergic asthma. She did not feel comfortable taking the singulair because of potential side effects. I did reassure her and would be a good medicine based on her allergy component and also to decrease her inhaled steroid requirements. She will also be a good Biologic therapy candidate if her symptoms continue to worsen. [facility] Medical History (Updated 07/26/23 @ 22:05 by Jaciel Eden MD) Pulmonary nodule Chronic cough Allergies Asthma Surgical History No pertinent past surgical history Family History Father Cancer Colon cancer Mother Respiratory arrest Daughter Lymphoma Paternal Aunt Breast CA Ovarian cancer Social History Household Members: Family Housing: Apartment Do you presently have visiting nurse or other home services: No Alcohol intake: current Alcohol intake frequency: holidays/special occasions only Patient Tobacco Use Status: Never used Tobacco e-Cigarette/Vaping Use: Never Used Second Hand Smoke Exposure: No service: No Current occupational status: employed 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 [employer] Gender identity: Female Cognitive needs: No Hearing needs: No Vision needs: No Female Reproductive History Menstrual Age of Menarche: 9 Review of Systems Const Denies fever(s) Eyes Reports no additional complaints ENT Reports nasal congestion and Reports nasal discharge Card Denies chest pain and Reports dyspnea on exertion Resp Reports chest congestion, Reports cough, Reports dyspnea on exertion and Reports wheezing GI Reports no additional complaints Musc Reports no additional complaints Skin/Breast Denies rash Neuro Reports no additional complaints David/Lymph Denies lymphadenopathy Aller/Immun Reports wheezing Physical Exam Vital Signs: Last Vital Signs Pulse 66 09/02/23 09:10 Pulse Ox 98 09/02/23 09:10 Oxygen Delivery Method Room Air 09/02/23 09:10 BMI result Body Mass Index 36.3 Const General: comfortable HEENT Head: Yes normocephalic Neck Neck: Yes supple Chest Chest palpation & inspection: normal inspection of the chest Resp Effort & Inspection: normal respiratory effort, Actively coughing Quality: actively coughing and prolonged expiratory phase Auscultation: no wheezes and diminished lung sounds Cardio Heart sounds: S1 normal heart sound present and S2 normal heart sound present GI Palpation (GI): Soft to palpation Skin General skin exam: no rashes or lesions noted Extrem General: Yes no clubbing, cyanosis or edema Assessment & Plan Assessment & Plan (1) Asthma: Code(s): J45.909 - Unspecified asthma, uncomplicated Category: Medical Qualifiers: Asthma complication type: uncomplicated Asthma persistence: persistent Asthma severity: severe Qualified Code(s): J45.50 - Severe persistent asthma, uncomplicated (2) Allergies: Code(s): T78.40XA - Allergy, unspecified, initial encounter Category: Medical Qualifiers: Encounter type: initial encounter Qualified Code(s): T78.40XA - Allergy, unspecified, initial encounter (3) Chronic cough: Code(s): R05.3 - Chronic cough Category: Medical (4) Pulmonary nodule: Code(s): R91.1 - Solitary pulmonary nodule Category: Medical Plan restart Trelegy 200 SARIKA as needed, responds better to nebulizer therapy stopped Singulair PM consider Biologic therapy, we will reassess duering her f/u vist F/U 6 months Medications: New albuterol sulfate 90 mcg/actuation (Ventolin HFA) 2 puffs inhalation QID PRN 18 grams 11RF shortness of breath or wheezing 30 days Refilled apznrikorvy-cmenpzscr-kqamvneo 200-62.5-25 mcg (Trelegy Ellipta) 1 inh inhalation DAILY 60 ea 12RF 30 days thhgtgezclk-zvqznqntm-pjxhguth 200-62.5-25 mcg (Trelegy Ellipta) 1 inh inhalation DAILY 30 days 60 ea 12RF Coding Level of Care Code Est Pt Level 4 (17882) Diagnoses Severe persistent asthma without complication J45.50 Asthma complication type: uncomplicated Asthma persistence: persistent Asthma severity: severe Allergy, initial encounter T78.40XA Encounter type: initial encounter Chronic cough R05.3 Pulmonary nodule R91.1 Time Spent (min) 16
[2023-09-02 09:10] VITALS: PULSE 66; O2SAT 98; BMI 36.3
== END 2023-09-02 09:38 | disposition home or self-care (01) ==
PROVIDERS: PCP Physician Assistant; Visit Provider Hospitalist
DX: J45.50 Severe persistent asthma, uncomplicated (principal); T78.40XA Allergy, unspecified, initial encounter; R05.3 Chronic cough; R91.1 Solitary pulmonary nodule
CPT/HCPCS: 99214

== ENCOUNTER → 2023-09-02 08:54 | Outpatient (BNVA) | payer OTHER, SELFPAY | PROVIDERS: PCP Physician Assistant; Visit Provider Hospitalist | DX: J45.909 Unspecified asthma, uncomplicated (principal); T78.40XA Allergy, unspecified, initial encounter; J45.20 Mild intermittent asthma, uncomplicated ==

== ENCOUNTER 2023-09-03 13:51 | Outpatient (REF) | payer OTHER, SELFPAY ==
--- NOTE | ~2023-09-03 | CT_ITS ---
EXAMINATION: CT CHEST WITHOUT CONTRAST CLINICAL INFORMATION: Solitary pulmonary nodule. COMPARISON: No prior chest CT available. Correlation made with CT abdomen and pelvis 03/11/2022. TECHNIQUE: Multidetector volumetric CT imaging of the chest was done. Axial MIP volume rendering provided. Sagittal and coronal reformatted images were obtained. This CT examination was performed using dose optimization techniques as appropriate, variously including the following: *Automated exposure control *Adjustment of mA and/or kV according to patient size (this includes techniques or standardized protocols for targeted exams where dose is matched to indication/reason for exam; i.e. extremities or head) *Use of iterative reconstruction technique DLP: 153 mGy-cm FINDINGS: PULMONARY NODULES: -5 mm pleural-based nodule right upper lobe laterally (series 5, image 256). -3 mm solid nodule lateral right middle lobe, and previous CT abdomen and pelvis measured 4 mm and has involuted somewhat, consistent with benign entity. -3 mm fissural nodule left superior major fissure, (series 5, image 157), consistent with intrapulmonary lymph node. LUNGS: -There is mild thickening of the small airways, most notably in the lower lobes bilaterally, suggesting chronic bronchitis. -The central airways and mainstem bronchi are patent. -Mild scarring/atelectasis present in both posterior inferior lower lobes as well as the lingula. -Otherwise, no consolidations or abnormal groundglass opacities. -No pleural effusion or mass. MEDIASTINUM: -Aorta is normal in caliber and mildly tortuous in its disc descending aspect. -There is a probable small type I hiatus hernia. -Heart size is normal. No pericardial effusion. -Main pulmonary artery is normal in size. -There is no abnormal lymphadenopathy present in the mediastinum or hilum. -The thyroid gland images normally. CORONARY ARTERY CALCIFICATION: There are minimal RCA and LAD calcifications. AXILLA/CHEST WALL: No masses or abnormal lymph nodes are appreciated. UPPER ABDOMEN: -There are large lamellated gallstones in an otherwise normal-appearing gallbladder. -Type I hiatus hernia. -Remainder of the imaged upper abdominal contents appear normal allowing for noncontrast technique.. OSSEOUS STRUCTURES: No suspicious lytic or blastic bone lesions. There is a dextroconvex upper thoracic scoliosis, moderate in severity. There is a compensatory mild levoconvex thoracolumbar scoliosis. There is a normal thoracic lordosis. -There are mild to moderate spinal degenerative changes. CT/CT chest wo IV con IMPRESSION: 1. A few scattered pulmonary nodules measuring up to 5 mm as discussed. Previously seen 4 mm lateral right middle lobe nodule prior CT of abdomen and pelvis has involuted and is visibly smaller measuring 3 mm in diameter. This is a benign finding. Overall chance of malignancy less than 1%. If patient has high risk, one-year follow-up recommended. 2. Mild thickening of the small airways with bibasilar scarring, unchanged. Otherwise, no active lung disease. 3. Small type I hiatus hernia. 4. Cholelithiasis. 5. Additional ancillary findings as discussed in the body of the report. Fleischner guidelines were followed. Electronically signed by: Ezra Cisneros MD 10/18/2023 10:55 AM EDT
== END 2023-09-03 13:52 | disposition home or self-care (01) ==
LOC: HO.CT 13:51
PROVIDERS: PCP Physician Assistant; Visit Provider Hospitalist
DX: R91.1 Solitary pulmonary nodule (principal)
CPT/HCPCS: 71250

== ENCOUNTER → 2023-09-03 13:52 | Outpatient (BNV) | payer OTHER, SELFPAY | PROVIDERS: PCP Physician Assistant; Visit Provider Radiology Diagnostic Radiology | DX: R91.1 Solitary pulmonary nodule (principal) | CPT/HCPCS: 71250 ==

== ENCOUNTER 2023-12-06 15:44 | Outpatient (AMB) | payer OTHER, SELFPAY ==
[2023-12-06 15:52] VITALS: BP 128/70; PULSE 57; O2SAT 97; BMI 33.4
--- NOTE | 2023-12-06 15:52 | A.OFFVIS_ITS ---
Vital Signs 12/06/23 15:52 Height 4 ft 11 in Weight 165 lb 5.547 oz BMI 33.4 BP 128/70 Blood Pressure Location Lt brachial Position Sitting Pulse 57 Pulse Source Pulse Oximeter Pulse Oximetry (%) 97 Oxygen Delivery Method Room Air Intake Visit Reasons: Asthma Allergies No Known Allergies Allergy (Verified 09/02/23 09:13) HPI Comments Details: The patient is a 63 year woman with known severe persistent asthma. She has been living in the [place] now for several years after moving from [place]. Since she has moved to the [facility] she has had significant asthma symptoms. She is required multiple courses of prednisone. She has been on multiple inhalers without any significant improvement. She does get better response to her nebulizer therapy. She does have a portable nebulizer and also nebulizer in the home. She does perform the nebulized treatments 2 to 3 times a day to help her symptoms. She has a chronic cough typically productive in nature. The patient did have imaging studies including CT scan of the abdomen and pelvis in the past. I did review the images of the lung windows with her. She appears to have significant bronchitis and also mucus plugging. In addition to that she did have a right lower lobe pulmonary nodule subcentimeter in size the needs to have further follow-up. In addition to that we did review blood work. The patient has significant eosinophilia. She was in the hospital back in June when she was having significant symptoms. At that point she did have the highest eosinophil count above a 1000. the patient required multiple courses of prednisone she does respond well to the prednisone. She was switched over to Asmanex inhaler although she is confused about which is her rescue and maintenance inhaler. I do believe that her inhalers have to be simplified in order for her to have the most effective in the best adherence during inhalers. Therefore, we did teach her how to use Trelegy inhaler and we sent 1 prescription to the pharmacy. In addition to that she can use her nebulizer treatments and oral albuterol HFA as needed. The patient also will start allergy medication. The patient does have significant wheezing on examination and I do believe that may benefit from biologic therapy. Will go ahead and request blood work in addition to allergy testing at this time. If her eosinophils continue to be elevated and her IgE level then will further consider biologic therapy. This is specially if she continues to be symptomatic even On maximum respiratory therapy. 09/02/2023 The patient is here for a pulmonary follow up visit. Overall, she is feeling better. She took the Trelegy for a month and felt great, then she stopped it. Slowly her symptoms have been coming back. She went back to her asmanex. We did review her labs demonstrating a significant allergic asthma. She did not feel comfortable taking the singulair because of potential side effects. I did reassure her and would be a good medicine based on her allergy component and also to decrease her inhaled steroid requirements. She will also be a good Biologic therapy candidate if her symptoms continue to worsen. 12/06/2023 the patient is here for a pulmonary follow-up visit. The patient overall has been doing well. She has responded well to the Trelegy. The Trel egy has been affecting beneficial. She has not had to use any prednisone which is reassuring. The patient also has been taking Claritin although is making a little bit more awake at nighttime so therefore she has not been using it. We did review her blood work including allergy testing. Her IgE level is elevated and also her eosinophils continue significantly elevated consistent with allergic asthma. Although her allergy testing did not show any particular allergens in the RAST testing. Any other potential allergens would have to be checked with scratch test with an urban forester. However, since she is doing well we can hold off on that. She needs to go back on the Claritin. She will try half dose of team she makes that work for her. She is also complaining of some arthralgias. Typically of the hand the small joints. This is something new and she is concerned about it. She is also concerned about her cholesterol. She had to miss her doctor's appointment today because of disappointment and she is concerned that her cholesterol was elevated. Therefore I will go ahead and request blood work and she can follow-up with her primary care atThis time. [facility] Medical History (Updated 12/06/23 @ 16:25 by Jaciel Eden MD) Arthralgia Pulmonary nodule Chronic cough Allergies Asthma Surgical History No pertinent past surgical history Family History Father Cancer Colon cancer Mother Respiratory arrest Daughter Lymphoma Paternal Aunt Breast CA Ovarian cancer Social History Household Members: Family Housing: Apartment Do you presently have visiting nurse or other home services: No Alcohol intake: current Alcohol intake frequency: holidays/special occasions only Patient Tobacco Use Status: Never used Tobacco e-Cigarette/Vaping Use: Never Used Second Hand Smoke Exposure: No service: No Current occupational status: employed 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 [employer] Gender identity: Female Cognitive needs: No Hearing needs: No Vision needs: No Female Reproductive History Menstrual Age of Menarche: 9 Review of Systems Const Denies fever(s) Eyes Reports no additional complaints ENT Reports nasal congestion and Reports nasal discharge Card Denies chest pain and Reports dyspnea on exertion Resp Reports chest congestion, Reports cough, Reports dyspnea on exertion and Reports wheezing GI Reports no additional complaints Musc Reports myalgias, Reports arthralgias and Reports joint swelling Skin/Breast Denies rash Neuro Reports no additional complaints David/Lymph Denies lymphadenopathy Aller/Immun Reports wheezing Physical Exam Vital Signs: Last Vital Signs Pulse 57 12/06/23 15:52 BP 128/70 12/06/23 15:52 Pulse Ox 97 12/06/23 15:52 Oxygen Delivery Method Room Air 12/06/23 15:52 BMI result Body Mass Index 33.4 Const General: comfortable HEENT Head: Yes normocephalic Neck Neck: Yes supple Chest Chest palpation & inspection: normal inspection of the chest Resp Effort & Inspection: normal respiratory effort, Actively coughing Quality: actively coughing and No prolonged expiratory phase Auscultation: clear to auscultation bilaterally and no wheezes Cardio Heart sounds: S1 normal heart sound present and S2 normal heart sound present GI Palpation (GI): Soft to palpation Skin General skin exam: no rashes or lesions noted Extrem General: Yes no clubbing, cyanosis or edema Assessment & Plan Assessment & Plan (1) Asthma: Code(s): J45.909 - Unspecified asthma, uncomplicated Category: Medical Qualifiers: Asthma complication type: uncomplicated Asthma persistence: persistent Asthma severity: severe Qualified Code(s): J45.50 - Severe persistent asthma, uncomplicated (2) Allergies: Code(s): T78.40XA - Allergy, unspecified, initial encounter Category: Medical Qualifiers: Encounter type: initial encounter Qualified Code(s): T78.40XA - Allergy, unspecified, initial encounter (3) Chronic cough: Code(s): R05.3 - Chronic cough Category: Medical (4) Pulmonary nodule: Code(s): R91.1 - Solitary pulmonary nodule Category: Medical (5) Arthralgia: Code(s): M25.50 - Pain in unspecified joint Category: Medical Qualifiers: Joint pain location: unspecified Qualified Code(s): M25.50 - Pain in unspecified joint Plan Trelegy 200 SARIKA as needed, responds better to nebulizer therapy stopped Singulair PM half dose claritin consider Biologic therapy if worsens Bloodwork F/U 6-8 months Orders: Orders HDL Cholesterol Today M25.50 - Pain in unspecified joint, Z13.220 - Encounter for screening for lipoid disorders LDL Cholesterol Direct Today M25.50 - Pain in unspecified joint, Z13.220 - Encounter for screening for lipoid disorders Basic Metabolic Panel Today Z13.220 - Encounter for screening for lipoid disorders Cholesterol Today M25.50 - Pain in unspecified joint, Z13.220 - Encounter for screening for lipoid disorders Cyclic Citrullinated Peptide Today M25.50 - Pain in unspecified joint, Z13.220 - Encounter for screening for lipoid disorders Erythrocyte Sedimentation Rate Today M25.50 - Pain in unspecified joint, Z13.220 - Encounter for screening for lipoid disorders CONCHIS Reflex Titer and Pattern Today M25.50 - Pain in unspecified joint, Z13.220 - Encounter for screening for lipoid disorders Triglycerides Today Z13.220 - Encounter for screening for lipoid disorders Coding Level of Care Code Est Pt Level 4 (66543) Diagnoses Severe persistent asthma without complication J45.50 Asthma complication type: uncomplicated Asthma persistence: persistent Asthma severity: severe Allergy, initial encounter T78.40XA Encounter type: initial encounter Chronic cough R05.3 Pulmonary nodule R91.1 Arthralgia, unspecified joint M25.50 Joint pain location: unspecified Time Spent (min) 17
== END 2023-12-06 16:23 | disposition home or self-care (01) ==
LOC: HO.HPS 15:45
PROVIDERS: PCP Physician Assistant; Visit Provider Hospitalist
DX: J45.50 Severe persistent asthma, uncomplicated (principal); T78.40XA Allergy, unspecified, initial encounter; R05.3 Chronic cough; R91.1 Solitary pulmonary nodule; M25.50 Pain in unspecified joint
CPT/HCPCS: 99214

== ENCOUNTER → 2023-12-06 15:44 | Outpatient (BNVA) | payer OTHER, SELFPAY | PROVIDERS: PCP Physician Assistant; Visit Provider Hospitalist | DX: J45.909 Unspecified asthma, uncomplicated (principal); T78.40XA Allergy, unspecified, initial encounter; J45.20 Mild intermittent asthma, uncomplicated ==

== ENCOUNTER 2024-02-24 | Outpatient (REF) | payer OTHER, MEDICARE, SELFPAY ==
[2024-02-25 11:24] LABS: Influenza A PCR NEGATIVE (Negative); Influenza B PCR NEGATIVE (Negative); Resp Syncy Virus RNA Qual PCR NEGATIVE (Negative); SARS COV2 PCR INHOUSE POSITIVE (Negative)
== END 2024-02-24 00:01 | disposition home or self-care (01) ==
LOC: HO.LNP
PROVIDERS: Visit Provider Physician Assistant
DX: J22 Unspecified acute lower respiratory infection (principal); R09.89 Other specified symptoms and signs involving the circulatory and respiratory systems
CPT/HCPCS: 0241U

== ENCOUNTER 2024-02-24 14:59 | Outpatient (REF) | payer OTHER, SELFPAY | END 2024-02-24 15:00 | disposition home or self-care (01) | LOC: HO.LAB 14:59 | PROVIDERS: PCP Physician Assistant | DX: Z13.89 Encounter for screening for other disorder (principal) ==

== ENCOUNTER → 2024-02-24 14:59 | Outpatient (AMB) | payer OTHER, MEDICARE, SELFPAY ==
[2024-02-24 15:07] VITALS: BP 120/66; PULSE 83; TEMP 37.4; O2SAT 98; BMI 33.5
--- NOTE | 2024-02-24 15:07 | AM.OFFWIN_ITS ---
Intake Vital Signs 02/24/24 15:07 Height 4 ft 11 in Weight 166 lb BMI 33.5 BP 120/66 Blood Pressure Location Lt brachial Position Sitting Pulse 83 Pulse Source Pulse Oximeter Temp 99.3 F Temp Source Oral Pulse Oximetry (%) 98 Intake Visit Reasons: EP headache, congestion, body aches Intake Note: pt is here for headache, congestion, body aches Patient Tobacco Use Status: Never used Tobacco Allergies No Known Allergies Allergy (Verified 02/24/24 15:07) Do you need a note to return to daycare/school/sports/work: No HPI HPI Comments History of Present Illness Details History - The patient is a 63-year-old female pr esenting with symptoms associated with an upper respiratory infection, including sore throat, generalized body aches, and headaches, which have progressively deteriorated over the past two days. The patient reports an elevated internal body temperature resembling a fever. - She has a history of asthma requiring inhaler use, which partially alleviates her shortness of breath, exacerbated by the present illness. - Currently experiencing muscle spasms p ossibly due to low magnesium levels, prompting a recommendation for magnesium supplementation. - The patient also reports sinus pain an d other symptoms consistent with sinusitis, although no ear pain is evident. - Reports of paraesthesias, particularly involving a persistent sleeping and tingling sensation in her hand, have appeared over the last month. - Her symptom management thus far involv es Tylenol, with additional testing for infectious causes recommended, and recent instructions to use her asthma and allergy inhalers appropriately. Physical Exam General: Cooperative, healthy appearing, comfortable and no acute distress Orientation/consciousness: Patient oriented x3 Limitations: No limitations Head: Normal to inspection Ears: Hearing grossly normal bilaterally, external ears normal and TM's normal b ilaterally, slight fluid present Nose: Normal external nose present, Normal nares present and No nasal discharge present Face and sinus: Normal facial exam and Yes sinuses nontender, sinus pain report ed Mouth: Normal oral and palatal mucosa present and moist mucous membranes Throat: Yes tonsils normal, Yes uvula midline. Posterior oropharynx erythema Eyes: Appearance normal, both eyes and all related structures Neck: Normal visual inspection Respiratory: Clear to auscultation bilaterally. Normal respiratory effort, able to speak in complete sentences, Actively coughing, no respiratory distress, not tachypneic, no tripod positioning and no use of accessory muscles Cardiovascular: Regular rate and rhythm. Normal S1 and S2 Skin: No rashes or lesions noted Neuro: Patient oriented x3 Extremities: Normal to inspection and Yes no clubbing, cyanosis or edema [facility] Medical History (Updated 02/24/24 @ 16:07 by Bertha Montoya PA-C) Arthralgia Pulmonary nodule Chronic cough Allergies Asthma Surgical History No pertinent past surgical history Family History Father Cancer Colon cancer Mother Respiratory arrest Daughter Lymphoma Paternal Aunt Breast CA Ovarian cancer Social History Household Members: Family Housing: Apartment Do you presently have visiting nurse or other home services: No Alcohol intake: current Alcohol intake frequency: holidays/special occasions only Patient Tobacco Use Status: Never used Tobacco e-Cigarette/Vaping Use: Never Used Second Hand Smoke Exposure: No service: No Current occupational status: employed 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 Gender identity: Female Cognitive needs: No Hearing needs: No Vision needs: No Female Reproductive History Menstrual Age of Menarche: 9 Review of Systems Const All systems reviewed & are unremarkable except as noted in HPI and below Physical Exam Vital Signs: Last Vital Signs Temp 99.3 F 02/24/24 15:07 Pulse 83 02/24/24 15:07 BP 120/66 02/24/24 15:07 Pulse Ox 98 02/24/24 15:07 BMI result Body Mass Index 33.5 Assessment & Plan Assessment & Plan (1) Lower respiratory infection (e.g., bronchitis, pneumonia, pneumonitis, pulmonitis): Code(s): J22 - Unspecified acute lower respiratory infection Plan: VSS, pt well appearing, PE unremarkable, no indication for CXR. Pending the results of tests for influenza, COVID-19, and RSV, a Solumedrol Dosepak is prescribed for the patient's respiratory distress related to her upper respiratory tract symptoms. Instructions are given to administer the medication in the morning to avoid disrupting sleep. Tessalon Perles are prescribed to aid in symptom management by minimizing coughing during nighttime, facilitating rest. The patient is advised to maintain hydration, enhance decongestion with Mucinex, and use her nebulizer for asthma control, with guidance provided to secure a refill of her prescribed medication. The patient's ability to resume occupational duties is addressed with a work note, and she will be notified of test results to guide further management steps. Patient was informed and verbally consented to the use of an ambient scribe for clinic note documentation during this visit (2) Muscle spasm of both lower legs: Code(s): M62.838 - Other muscle spasm Plan: For her muscle spasms possibly due to hypomagnesemia, magnesium glycinate supplementation is recommended, with an emphasis on resting and increasing fluid intake. Orders: Orders SARS-CoV2/FLU/RSV Today R09.89 - Other specified symptoms and signs involving the circulatory and respiratory systems Medications: New methylprednisolone PO PER PKG DIR for 6 days 21 ea 0RF benzonatate 200 mg PO TID PRN 14 caps 0RF cough Coding Level of Care Code Est Pt Level 4 (42648) Diagnoses Lower respiratory infection (e.g., bronchitis, pneumonia, pneumonitis, pulmonitis) J22 Muscle spasm of both lower legs M62.838
== END ==
PROVIDERS: PCP Physician Assistant; Visit Provider Physician Assistant
DX: J22 Unspecified acute lower respiratory infection (principal); M62.838 Other muscle spasm

== ENCOUNTER 2024-04-12 14:56 | Outpatient (AMB) | payer OTHER, MEDICARE, SELFPAY ==
--- NOTE | 2024-04-12 14:59 | MHC.PC.OV ---
Vital Signs 04/12/24 15:09 Height 4 ft 11 in Weight 167 lb 6 oz BMI 33.8 BP 102/72 Blood Pressure Location Lt brachial Position Sitting Pulse 67 Pulse Source Pulse Oximeter Temp 97.3 F Temp Source Temporal Artery Scan Pulse Oximetry (%) 96 Oxygen Delivery Method Room Air Intake Visit Reasons: Cramps f/u Fruit Coordinator Required: No Accompanied by: Self / Same As Patient Allergies No Known Allergies Allergy (Verified 04/16/24 09:56) Medication List - Last Reconciled 04/12/24 by Vaughn Ly PA-C albuterol sulfate 90 mcg/actuation (Ventolin HFA) 2 puffs inhalation QID PRN 30 days albuterol sulfate 2.5 mg (3 mL) inhalation Q6H PRN 30 days cmdryakxlti-zujtxvdyx-cvkhcryf 200-62.5-25 mcg (Trelegy Ellipta) 1 inh inhalation DAILY 30 days methylprednisolone PO PER PKG DIR for 6 days mometasone 100 mcg/actuation (Asmanex HFA) 2 puffs inhalation BID montelukast (Singulair) 10 mg PO BEDTIME 30 days nebulizers As directed Tobacco use date assessed: 04/12/24 Fall risk assessment: No Falls in past year Last assessed Fall Risk: 04/12/24 Dental Screening Dental Screen Date: 04/12/24 Did you have a dental visit in the last 12 months?: Yes Did you have a dental problem in the last 6 months where you did not have access to dental care?: No Was dental information given to patient?: Patient has dentist HPI Cramps f/u HPI Details Patient is a 63-year-old female here today for a follow-up visit .? Patient's past medical history significant for asthma and obesity. Concern--> reports she has lower leg muscle cramps to which she attributes to being a bit dehydrated times. .. Asthma: She has establish care with [facility] (Dr. Eden). Asthma has been generally well controlled on current dose of Trelegy though at times she reports having some asthma symptoms flare up. She does use a portable nebulizer inhaler quite often. . . Borderline high cholesterol:? Also noted most recent labs showing borderline high cholesterol has been working on lifestyle modifications to help reduce her total cholesterol. .. Class 1 obesity: Patient does understand her BMI is over 30 work on being more physically active and adapting to better eating habits to reduce her weight [facility] Medical History Arthralgia Pulmonary nodule Chronic cough Allergies Asthma Surgical History No pertinent past surgical history Family History Father Cancer Colon cancer Mother Respiratory arrest Daughter Lymphoma Paternal Aunt Breast CA Ovarian cancer Social History Household Members: Family Housing: Apartment Do you presently have visiting nurse or other home services: No Alcohol intake: current Alcohol intake frequency: holidays/special occasions only Patient Tobacco Use Status: Never used Tobacco Smoked in Last 30 Days: No e-Cigarette/Vaping Use: Never Used Second Hand Smoke Exposure: No Use of substances other than those prescribed or required for medical reasons: No Advance Directives: No Advance Directives Information Provided: No service: No Current occupational status: employed 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 1. Little interest or pleasure in doing things: not at all 2. Feeling down, depressed, or hopeless: not at all 3. Trouble falling or staying asleep, or sleeping too much: not at all 4. Feeling tired or having little energy: not at all 5. Poor appetite or overeating: not at all 6. Feeling bad about yourself - or that you are a failure or have let yourself or your family down: not at all 7. Trouble concentrating on things, such as reading the newspaper or watching television: not at all 8. Moving or speaking so slowly that other people could have noticed. Or the opposite - being so fidgety or restless that you have been moving around a lot more than usual: not at all 9. Thoughts that you would be better off or of hurting yourself in some way: not at all Total score: 0 Depression Screening Interpretation: Negative Depression Screening Done: Yes 81485 - PHQ-9 Billing: Yes Source: Developed by Drs. Luiz Lee, Lorna Mackay, Kevin Gold and colleagues, with an educational lola from [employer]. Thrive Questionnaire Date Thrive assessed: 04/12/24 I am a: Patient What is your living situation today?: I have a steady place to live Within the past 12 months, did the food you bought not last and you didn't have the money to get more?: Never true Within the past 12 months, did you worry whether your food would run out before you got money to buy more?: Never true Do you have trouble paying for medicines?: No Do you have trouble getting transportation to medical appointments?: No Do you have trouble paying your heating and electricity bill?: No Do you have trouble taking care of your child, family member or friend?: No Do you have trouble with day-to-day activities such as bathing, preparing meals, shopping, managing finances, etc.?: No Are you currently unemployed and looking for a job?: No Are you interested in more education?: No Please select the resources that you would like help with: None Currently or been in a relationship where the following occur: No concerns reported THRIVE Score: 0 AUDIT C Alcohol Use Questionnaire (AUDIT-C) 1. How often do you have a drink containing alcohol?: Monthly or less 2. How many drinks containing alcohol do you have on a typical day when you are drinking?: 1 or 2 3. How often do you have six or more drinks on one occasion?: Never Total Score: 1 FLAKITO-7 AMB Questionnaire FLAKITO-7 Date FLAKITO - 7 assessed: 04/12/24 Feeling nervous, anxious, or on edge: 0 = Not at all Not being able to stop or control worryin = Not at all Worrying too much about different things: 0 = Not at all Trouble relaxin = Not at all Being so restless that it is hard to sit still: 0 = Not at all Becoming easily annoyed or irritable: 0 = Not at all Feeling afraid as if something awful might happen: 0 = Not at all Total FLAKITO-7 score (0-4 normal; 5-9 mild; 10-14 moderate; 15-21 severe): 0 Source: Developed by Drs. Luiz Lee, Lorna Mackay, Kevin Gold and colleagues, with an educational lola from [employer]. FLAKITO-7 Assessment Billing FLAKITO-7 Assessment Tool: FLAKITO-7 Assessment 31594 Review of Systems Const Denies headache(s) Eyes Denies loss of vision ENT Denies vertigo, Denies dizziness, Denies headache(s) and Denies sore throat Card Denies chest pain, Denies leg edema and Denies lightheadedness Resp Denies cough, Denies hemoptysis and Denies wheezing GI Denies abdominal pain, Denies melena, Denies constipation, Denies diarrhea and Denies vomiting Denies urinary frequency, Denies dysuria and Denies urinary urgency Musc Denies arthralgias, Denies joint swelling, Denies numbness and Denies tingling Neuro Denies Abnormal speech present, Denies behavioral changes, Denies vertigo, Denies dizziness, Denies headache(s), Denies loss of vision, Denies memory loss, Denies numbness and Denies tingling Psych Denies anxiety, Denies behavioral changes, Denies depression, Denies memory loss and Denies panic attacks David/Lymph Denies easy bleeding and Denies easy bruising Aller/Immun Denies wheezing Physical exam (Primary Care) Vital Signs: Last Vital Signs Temp 97.3 F 04/12/24 15:09 Pulse 67 04/12/24 15:09 BP 102/72 04/12/24 15:09 Pulse Ox 96 04/12/24 15:09 Oxygen Delivery Method Room Air 04/12/24 15:09 BMI result Body Mass Index 33.8 BMI Assessment/Plan discussion: High BMI High, discussed plan: lifestyle, weight reduction, dietary and physical activity Tobacco/Smoking Status: Tobacco use Status Tobacco use date assessed 04/12/24 04/12/24 15:14 Patient Tobacco Use Status Never used Tobacco 04/12/24 15:00 e-Cigarette/Vaping Use Never Used 04/12/24 15:00 PHQ-9: PHQ-9 Score PHQ-9: Total score 0 04/12/24 15:19 Depression Screening Interpretation: Negative Thrive Assessment: Date of Thrive Assessment Date Thrive assessed 04/12/24 04/12/24 15:00 Currently or been in a relationship where the following occur: No concerns reported Const General: healthy appearing, no acute distress, alert and awake Nutritional Appearance: well nourished Orientation/consciousness: oriented to person, oriented to place and oriented to time HENMT Ears: TM's normal bilaterally General nose exam: Normal nasal mucous membranes and turbinates present Eyes Conjunctivae: conjunctivae normal Sclerae: sclerae normal Pupils: Equal, round and reactive pupils present Neck Neck: Yes no lymphadenopathy and Yes no JVD Thyroid: Thyroid normal Carotids: no bruits Resp Effort & Inspection: normal respiratory effort and not tachypneic Auscultation: no crackles, no rales, no rhonchi and no wheezes Cardio Rate: regular rate Rhythm: regular rhythm Heart sounds: no murmurs and normal S1 and S2 GI Palpation (GI): Soft to palpation, nontender, no hepatomegaly and no splenomegaly Auscultation: normal bowel sounds Skin General skin exam: no rashes or lesions noted and dry skin Neuro General: oriented to person, oriented to place and oriented to time Cranial nerves: Yes Equal, round and reactive pupils present Speech: No Abnormal speech present Gait exam (Neuro): Normal gait present Motor exam (neuro): no tremor noted Extrem Right upper extremity: full ROM Left upper extremity: full ROM Right lower extremity: full ROM; no edema Left lower extremity: full ROM; no edema Psych Mental Status: mental status grossly normal Speech and movement: Normal speech and movement present Affect: normal affect Attitude: cooperative Thought process: Normal thought process present Coding Level of Care Code Est Pt Level 4 (17009) Diagnoses Severe persistent asthma without complication J45.50 Asthma complication type: uncomplicated Asthma persistence: persistent Asthma severity: severe Borderline high cholesterol E78.9 Screening for diabetes mellitus (DM) Z13.1 Class 1 obesity E66.811 Additional Codes FLAKITO-7 Assessment Billing - FLAKITO-7 Assessment Tool: FLAKITO-7 Assessment 73650 ([id number]) PHQ-9 - 49115 - PHQ-9 Billing: Yes ([id number]) Assessment & Plan Assessment & Plan (1) Asthma: Code(s): J45.909 - Unspecified asthma, uncomplicated Category: Medical Qualifiers: Asthma complication type: uncomplicated Asthma persistence: persistent Asthma severity: severe Qualified Code(s): J45.50 - Severe persistent asthma, uncomplicated Plan: Patient reports her asthma is fairly well controlled now on maintenance inhaler trilogy. She does have an albuterol inhaler available to her for rescue. (2) Borderline high cholesterol: Code(s): E78.9 - Disorder of lipoprotein metabolism, unspecified Category: Medical Plan: Patient's most recent lipid panel showing borderline high total cholesterol. She has been working on dietary modifications to reduce her high cholesterol foods. Will continue to follow fasting lipid panel with goal total cholesterol to be below 200. (3) Screening for diabetes mellitus (DM): Code(s): Z13.1 - Encounter for screening for diabetes mellitus Category: Medical Plan: As per HPI (4) Class 1 obesity: Code(s): E66.811 - Obesity, class 1 Category: Medical Plan: Patient does understand her BMI is over 30 will work on being more physically active and adapting to better eating habits to reduce her weight Orders: Orders Lipid Panel 04/12/24 E78.9 - Disorder of lipoprotein metabolism, unspecified Magnesium 04/12/24 M62.838 - Other muscle spasm Comprehensive [facility]. Panel Fast 04/12/24 Z13.1 - Encounter for screening for diabetes mellitus Complete Blood Count no Diff 04/12/24 Z13.1 - Encounter for screening for diabetes mellitus Vitamin D 25-OH Total 04/12/24 M62.838 - Other muscle spasm
[2024-04-12 15:09] VITALS: BP 102/72; PULSE 67; TEMP 36.3; O2SAT 96; BMI 33.8
--- OUTSIDE RECORDS SUMMARY | 2024-04-12 18:04 | XMS_ITS | Clinical Summary ---
Author Organization [facility] Address [address] [place] [address] Care Team Providers Care Fugitive Investigator Name Role Phone Mary Garcia MD Primary Care Provider [phone] Social History Tobacco Use Types Packs/Day Years Used Date Smoking Tobacco: Never Assessed Comments Unknown Sex and Gender Information Value Date Recorded Sex Assigned at Not on file Legal Sex Female 6:03 PM EST Gender Identity Not on file Sexual Orientation Not on file Plan of Treatment Health Maintenance Due Date Last Done Comments Breast Cancer Screening 1960 DTaP,Tdap,and Td Vaccines (1 - Tdap) 1977 Cervical Cancer Screening: P ap Smear 10/31/1979 Pneumococcal Vaccine: 50+ Ye ars (1 of 1 - PCV) 2008 Zoster Vaccines (1 of 2) 2008 Colorectal Cancer Screening: Colonoscopy 01/10/2022 Depression Screening 01/10/2022 Hepatitis C Screening 01/10/2022 Osteoporosis Screening (Bone Density Screening) 01/10/2022 Social Influencers of Health Screening 01/10/2022 COVID-19 Vaccine (2023-2 5 season) 2023 Influenza Vaccine (#1) 2023 Falls Risk Assessment 10/31/2023 RSV Immunization Patients 60 + Years Old (1 - 1-dose 75+ series) 2033 HIB Vaccines Aged Out No longer eligi ble based on patient's age to complete this topic HPV Vaccines Aged Out No longer eligi ble based on patient's age to complete this topic Hepatitis A Vaccines Aged Out No long er eligible based on patient's age to complete this topic Hepatitis B Vaccines Aged Out No long er eligible based on patient's age to complete this topic IPV Vaccines Aged Out No longer eligi ble based on patient's age to complete this topic MMR Vaccines Aged Out No longer eligi ble based on patient's age to complete this topic Meningococcal ACWY Vaccine Aged Out N o longer eligible based on patient's age to complete this topic Meningococcal B Vacine Aged Out No lo nger eligible based on patient's age to complete this topic Pneumococcal Vaccine: Pediat rics (0 to 5 Years) and At-Risk Patients (6 to 64 Years) Aged Out No longer eligible b ased on patient's age to complete this topic RSV Immunization Patients Un xavier 20 months Aged Out No longer eligible b ased on patient's age to complete this topic Varicella Vaccines Aged Out No longer eligible based on patient's age to complete this topic Care Teams Fugitive Investigator Relationship Specialty Start Date End Date Mary Garcia MD [address] [place] [id number] PCP - General Internal Medicine 12/25/16
--- OUTSIDE RECORDS SUMMARY | 2024-04-12 18:05 | XMS_ITS ---
Author Organization [facility] Address [address] [place] [id number] Care Team Providers [facility] Counselor Name Role Phone Vaughn Ly Primary Care Provider Unavail Nano Whitehead Unavailable [phone] ALLERGIES No Known Allergies REASON FOR VISIT Pt here for weight management follow up, SECA done. SEMA .5mg given on LLQ sub q, pt tolerated wellwith no reaction. MEDICATIONS Medication SIG (Take, Route, Frequency, Duration) Notes Start Date End Date Status Semaglutide(0.25 or 0.5MG/DOS) 2 MG/3ML as directed Subcutaneous Active Trelegy Ellipta 200-62.5-25 MCG/ACT Inhalation for 30 Days Active Montelukast Sodium 10 MG TAKE 1 TABLET B Y MOUTH AT BEDTIME Oral for 90 Days Active Albuterol Sulfate HFA 108 (90 Base) MCG/ACT INHALE 2 PUUFS BY MOUTH FOUR TIMES DAILY NEEDED FIR SHORTNESS OF BRATH ORN WHEEZING Inhalation for 30 Days Active SOCIAL HISTORY Tobacco Use: Social History Observation Description Date Details (start date - stop date) Never Smoker NA - NA Sex Assigned At : Social History Observation Description Sex Assigned At Unknown Tobacco Use/Smoking Question Answer Notes Are you a nonsmoker PROBLEMS Problem Type ICD Code Onset Dates Problem Status W/U Status Risk SNOMED Code Notes Problem BMI 35.0-35.9,ad ult (Z68.35) Active confirmed [id number] VITAL SIGNS Blood pressure systolic 122 mm Hg 09/29/19 24 Blood pressure diastolic 76 mm Hg 024 Heart Rate 66 /min 09/29/2023 Height 58 in 09/29/2023 Weight 168 lbs 09/29/2023 BMI 35.11 kg/m2 09/29/2023 Oximetry 98 % 09/29/2023 Encounters Encounter Location Date Provider Diagnosis [address] [facility] [address] [place] [address] 09/29/2023 Nano Arrington Other obesity due to excess calories E66.09 ; BMI 35.0-35.9,adult Z68.35 and Moderate asthma without complication, unspecified whether persistent J45.909 ASSESSMENTS Encounter Date Diagnosis Assessment Notes Treatment Notes Treatment Clinical Notes Section Notes 09/29/2023 Other obesity due to excess calories (ICD-10 - E66.09) #Obesity. 09/29/23: 168.8 pounds, BMI 35.3. She has been on compounded semaglutide and tolerating well. Will continue compounded semaglutide 0.5 mg. Today is her second dose at 0.5 mg. May increase to 1 mg after 4 weeks. Weight is down 15 pounds. Fat mass down 10 pounds and waist circumference down 1-1/2 inches. Discussed importance of protein intake, hydration and regular exercise. Will follow-up in 4 to 6 weeks sooner with any concerns. 09/22/23: Sema 0.5 mg 09/08/23: Sema 0.25 mg 09/01/23: Sema 0.25 mg 08/25/23: Sema 0.25mg 08/18/23: Sema 0.25 mg 08/11/23: 183.5 pounds, BMI 38.4. New patient welcomed to the practice today. Reviewed ceca scale in detail with patient. Discussed medical weight loss options in detail with patient including phentermine, Contrave, Wegovy, compounded semaglutide, Zepbound, compounded tirzepatide, Topamax and metformin. She is most interested in Wegovy or compounded semaglutide. Reviewed risk benefits adverse effects of medication in detail. Will start on compounded semaglutide 0.25 mg today and well as JOSE RAUL injection. Discussed adding probiotic as well. She had recent comprehensive labs done with her primary care and will bring a copy of her results to her follow-up visit next month. #Asthma- now on inhaler regimen and well controlled. Has limited her exercise in the past. Follows with PCP. The patient will continue exercise regimen with an emphasis on improving/increasing steps to at least 6,000-10,000 steps per day. Increasing cardio and strength training exercises as tolerated to improve weight loss and work on building muscle mass. Patient is committed to smarter eating with calorie counting and mindful eating. Limiting processed foods and carbohydrates and increasing leafy greens and lean proteins as well as fruits into their diet. Patient was counseled on the importance of eating local, organic food when possible. Patient has been counseled regarding effects of GLP/GIP-1 agonists and other FDA approved weight loss medications with regards to a multifactorial approach of weight loss as mentioned above and that the medication alone will not be sufficient to meet patients goals. We discussed holistic medication approach with emphasis on lifestyle modification. Discussed obesity as it increases risk of diabetes, cardiovascular disease, and/or organ damage. We spent a lot of time discussing the relationship between food, exercise, sleep, mental health, and obesity. We discussed the importance of having SECAs done every visit and having accountability done during these visits. That the scale is done to monitor not only weight loss but the body composition during medication management and healthy lifestyle changes. We discussed that if the patient is unable at times to financially afford this scale that we would rather waive the fee and have the scale done than have the patient not have the scale obtained. Will follow up with the patient in 4 weeks time to monitor weight loss. Total time was 30 min, greater than 50 % of time was spent on care coordination Case discussed with collaborating physician Halley Ku who reviewed the assessment and plan. Chart, medications, labs, vital signs reviewed. Dictation was accomplished with the use of [employer] voice recognition software, prone to medical misidentifications and grammatical errors. This is unintentional and the practitioner does try to identify and correct these, but some could still be present. Please do not hesitate to contact practitioner for clarification. All questions answered to patients satisfaction. Patient verbalized understanding of diagnosis and treatments explained. To call sooner prior to next visit it any questions/concerns arise. 09/29/2023 BMI 35.0-35.9,adul t (ICD-10 - Z68.35) #Obesity. 09/29/23: 168.8 pounds, BMI 35.3. She has been on compounded semaglutide and tolerating well. Will continue compounded semaglutide 0.5 mg. Today is her second dose at 0.5 mg. May increase to 1 mg after 4 weeks. Weight is down 15 pounds. Fat mass down 10 pounds and waist circumference down 1-1/2 inches. Discussed importance of protein intake, hydration and regular exercise. Will follow-up in 4 to 6 weeks sooner with any concerns. 09/22/23: Sema 0.5 mg 09/08/23: Sema 0.25 mg 09/01/23: Sema 0.25 mg 08/25/23: Sema 0.25mg 08/18/23: Sema 0.25 mg 08/11/23: 183.5 pounds, BMI 38.4. New patient welcomed to the practice today. Reviewed ceca scale in detail with patient. Discussed medical weight loss options in detail with patient including phentermine, Contrave, Wegovy, compounded semaglutide, Zepbound, compounded tirzepatide, Topamax and metformin. She is most interested in Wegovy or compounded semaglutide. Reviewed risk benefits adverse effects of medication in detail. Will start on compounded semaglutide 0.25 mg today and well as JOSE RAUL injection. Discussed adding probiotic as well. She had recent comprehensive labs done with her primary care and will bring a copy of her results to her follow-up visit next month. #Asthma- now on inhaler regimen and well controlled. Has limited her exercise in the past. Follows with PCP. The patient will continue exercise regimen with an emphasis on improving/increasing steps to at least 6,000-10,000 steps per day. Increasing cardio and strength training exercises as tolerated to improve weight loss and work on building muscle mass. Patient is committed to smarter eating with calorie counting and mindful eating. Limiting processed foods and carbohydrates and increasing leafy greens and lean proteins as well as fruits into their diet. Patient was counseled on the importance of eating local, organic food when possible. Patient has been counseled regarding effects of GLP/GIP-1 agonists and other FDA approved weight loss medications with regards to a multifactorial approach of weight loss as mentioned above and that the medication alone will not be sufficient to meet patients goals. We discussed holistic medication approach with emphasis on lifestyle modification. Discussed obesity as it increases risk of diabetes, cardiovascular disease, and/or organ damage. We spent a lot of time discussing the relationship between food, exercise, sleep, mental health, and obesity. We discussed the importance of having SECAs done every visit and having accountability done during these visits. That the scale is done to monitor not only weight loss but the body composition during medication management and healthy lifestyle changes. We discussed that if the patient is unable at times to financially afford this scale that we would rather waive the fee and have the scale done than have the patient not have the scale obtained. Will follow up with the patient in 4 weeks time to monitor weight loss. Total time was 30 min, greater than 50 % of time was spent on care coordination Case discussed with collaborating physician Halley Ku who reviewed the assessment and plan. Chart, medications, labs, vital signs reviewed. Dictation was accomplished with the use of [employer] voice recognition software, prone to medical misidentifications and grammatical errors. This is unintentional and the practitioner does try to identify and correct these, but some could still be present. Please do not hesitate to contact practitioner for clarification. All questions answered to patients satisfaction. Patient verbalized understanding of diagnosis and treatments explained. To call sooner prior to next visit it any questions/concerns arise. 09/29/2023 Moderate asthma without complication, unspecified whether persistent (ICD-10 - J45.909) #Obesity. 09/29/23: 168.8 pounds, BMI 35.3. She has been on compounded semaglutide and tolerating well. Will continue compounded semaglutide 0.5 mg. Today is her second dose at 0.5 mg. May increase to 1 mg after 4 weeks. Weight is down 15 pounds. Fat mass down 10 pounds and waist circumference down 1-1/2 inches. Discussed importance of protein intake, hydration and regular exercise. Will follow-up in 4 to 6 weeks sooner with any concerns. 09/22/23: Sema 0.5 mg 09/08/23: Sema 0.25 mg 09/01/23: Sema 0.25 mg 08/25/23: Sema 0.25mg 08/18/23: Sema 0.25 mg 08/11/23: 183.5 pounds, BMI 38.4. New patient welcomed to the practice today. Reviewed ceca scale in detail with patient. Discussed medical weight loss options in detail with patient including phentermine, Contrave, Wegovy, compounded semaglutide, Zepbound, compounded tirzepatide, Topamax and metformin. She is most interested in Wegovy or compounded semaglutide. Reviewed risk benefits adverse effects of medication in detail. Will start on compounded semaglutide 0.25 mg today and well as JOSE RAUL injection. Discussed adding probiotic as well. She had recent comprehensive labs done with her primary care and will bring a copy of her results to her follow-up visit next month. #Asthma- now on inhaler regimen and well controlled. Has limited her exercise in the past. Follows with PCP. The patient will continue exercise regimen with an emphasis on improving/increasing steps to at least 6,000-10,000 steps per day. Increasing cardio and strength training exercises as tolerated to improve weight loss and work on building muscle mass. Patient is committed to smarter eating with calorie counting and mindful eating. Limiting processed foods and carbohydrates and increasing leafy greens and lean proteins as well as fruits into their diet. Patient was counseled on the importance of eating local, organic food when possible. Patient has been counseled regarding effects of GLP/GIP-1 agonists and other FDA approved weight loss medications with regards to a multifactorial approach of weight loss as mentioned above and that the medication alone will not be sufficient to meet patients goals. We discussed holistic medication approach with emphasis on lifestyle modification. Discussed obesity as it increases risk of diabetes, cardiovascular disease, and/or organ damage. We spent a lot of time discussing the relationship between food, exercise, sleep, mental health, and obesity. We discussed the importance of having SECAs done every visit and having accountability done during these visits. That the scale is done to monitor not only weight loss but the body composition during medication management and healthy lifestyle changes. We discussed that if the patient is unable at times to financially afford this scale that we would rather waive the fee and have the scale done than have the patient not have the scale obtained. Will follow up with the patient in 4 weeks time to monitor weight loss. Total time was 30 min, greater than 50 % of time was spent on care coordination Case discussed with collaborating physician Halley Ku who reviewed the assessment and plan. Chart, medications, labs, vital signs reviewed. Dictation was accomplished with the use of [employer] voice recognition software, prone to medical misidentifications and grammatical errors. This is unintentional and the practitioner does try to identify and correct these, but some could still be present. Please do not hesitate to contact practitioner for clarification. All questions answered to patients satisfaction. Patient verbalized understanding of diagnosis and treatments explained. To call sooner prior to next visit it any questions/concerns arise. PLAN OF TREATMENT Next Appt Details Follow Up: 4 Weeks, Reason: Sema MEDICATIONS ADMINISTERED Medication Instructions Date of Administration Dosage Notes Semaglutide 09/29/2023 .5 mg Progress Notes * Vita CARBALLOaDOB:1960 (62 yo F)Acc No.[id number]:09/29/2023 Patient:??Anne Marie CARBALLO Provider:??Nano Arrington PA-C :1960?Age:62 Y?Sex:Fe male Date:09/29/2023 Address:[address] [place] [address] Pcp:Vaughn Ly Subjective: * Chief Complaints: * ?1. Pt here for weight management follow up, CORRY done. SEMA .5mg given on LLQ sub q, pt tolerated well with no reaction.. * HPI: ?Constitutional:? Sandra is a 62-year-old female here today for weight management follow up. 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 She typically will eat crackers or muffins in the morning often will skip lunch and has rice or sandwich in the evenings. She just restarted exercise regimen at [employer] 2-3 times a week in the past week. Past medical history significant for asthma which has been limiting as far as exercise in the past. Currently her symptoms are well-controlled. She was started on compounded semaglutide at her initial visit 08/11/23 and has titrated up to 0.5 mg dose (2 doses) She is tolerating well without side effects. Wishes she lost more. ?PMH: Asthma ?PCP: [facility], Harish Ly ?Highest weight: 183.5 ?Lowest weight: 120 ?Current weight: 168.8, BMI 35.3 (-15!) ?Weight last visit: 183.5, BMI 38.4 ?Goal weight: 130-140 ?Trials in the past: exercise regimen, ?Protein intake: limited ?Water intake: good amount ?Exercise: Started again at [employer] last week- 2-3 times a week. ?Barriers: asthma, limits exercise ?Sleep: not great- 4-5 hours avg a night. ?FH: Daughter- Hodgkins lymphoma, father- colon cancer, paternal aunt- skin cancer, ovarian cancer, pancereatic cancer, daughter- diabetes. No FH of thyroid cancer ?Recent Labs: Just had labs last week, will get copy. * ROS:?All Other Systems:?Review of Systems (ROS)??All others negative except those mentioned in HPI.? * Medical History:??Asthma. * Surgical History:??right ank le surgery 2016. * Family History:??Father: bigg rodriguez.??Mother: .??1 brother(s) . .?? father-dementia mother- 1daughter-diabetes 1daughter-history of Hodgkins lymphoma. * Social History:?Tobacco Use:??Tobacco Use/Smoking??Are you a??nonsmoker.?? * Medications:??Taking Semaglu tide(0.25 or 0.5MG/DOS) 2 MG/3ML Solution Pen- injector as directed Subcutaneous , Taking Albuterol Sulfate HFA 108 (90 Base) MCG/ACT Aerosol Solution INHALE 2 PUUFS BY MOUTH FOUR TIMES DAILY NEEDED FIR SHORTNESS OF BRATH ORN WHEEZING Inhalation , Taking Montelukast Sodium 10 MG Tablet TAKE 1 TABLET BY MOUTH AT BEDTIME Oral , Taking Trelegy Ellipta 200-62.5-25 MCG/ACT Aerosol Powder Breath Activated Inhalation , Medication List reviewed and reconciled with the patient * Allergies:??N.K.D.A. Objective: * Vitals:??HR:66/min, BP:122/7 6mm Hg, Wt:168lbs, BMI:35.11Index, Ht: 58 in, Oxygen sat %:98%. * Physical Examination:?General: Well appearing, well nourished, age appropriate in no acute distress. Speaking in full, clear sentences. ?SKIN: Warm, dry intact. No rashes/lesions. ?HEENT: Normocephalic atraumatic. EOM intact. No nystagmus noted. PERRLA. ?LUNGS: Clear to auscultation bilaterally, no wheezes, rales or rhonchi ?CARDIAC: Regular rate and rhythm, no murmurs, rubs or gallops. ?Extremities: Warm and well perfused. No edema noted. ?Neuro: CN II-XI grossly intact. Speaking in full sentences. Hearing intact. Assessment: * Assessment: 1.??Other obesity due to exc ess calories - E66.09 (Primary)??2.??BMI 35.0- 35.9,adult - Z68.35??3.??Moderate asthma without complication, unspecified whether persistent - J45.909?? #Obesity. 09/29/23: 168.8 pounds, BMI 35.3. She has been on compounded semaglutide and tolerating well. Will continue compounded semaglutide 0.5 mg. Today is her second dose at 0.5 mg. May increase to 1 mg after 4 weeks. Weight is down 15 pounds. Fat mass down 10 pounds and waist circumference down 1-1/2 inches. Discussed importance of protein intake, hydration and regular exercise. Will follow-up in 4 to 6 weeks sooner with any concerns. 09/22/23: Sema 0.5 mg 09/08/23: Sema 0.25 mg 09/01/23: Sema 0.25 mg 08/25/23: Sema 0.25mg 08/18/23: Sema 0.25 mg 08/11/23: 183.5 pounds, BMI 38.4. New patient welcomed to the practice today. Reviewed ceca scale in detail with patient. Discussed medical weight loss options in detail with patient including phentermine, Contrave, Wegovy, compounded semaglutide, Zepbound, compounded tirzepatide, Topamax and metformin. She is most interested in Wegovy or compounded semaglutide. Reviewed risk benefits adverse effects of medication in detail. Will start on compounded semaglutide 0.25 mg today and well as JOSE RAUL injection. Discussed adding probiotic as well. She had recent comprehensive labs done with her primary care and will bring a copy of her results to her follow-up visit next month. #Asthma- now on inhaler regimen and well controlled. Has limited her exercise in the past. Follows with PCP. The patient will continue exercise regimen with an emphasis on improving/increasing steps to at least 6,000-10,000 steps per day. Increasing cardio and strength training exercises as tolerated to improve weight loss and work on building muscle mass. Patient is committed to smarter eating with calorie counting and mindful eating. Limiting processed foods and carbohydrates and increasing leafy greens and lean proteins as well as fruits into their diet. Patient was counseled on the importance of eating local, organic food when possible. Patient has been counseled regarding effects of GLP/GIP-1 agonists and other FDA approved weight loss medications with regards to a multifactorial approach of weight loss as mentioned above and that the medication alone will not be sufficient to meet patients goals. We discussed holistic medication approach with emphasis on lifestyle modification. Discussed obesity as it increases risk of diabetes, cardiovascular disease, and/or organ damage. We spent a lot of time discussing the relationship between food, exercise, sleep, mental health, and obesity. We discussed the importance of having SECAs done every visit and having accountability done during these visits. That the scale is done to monitor not only weight loss but the body composition during medication management and healthy lifestyle changes. We discussed that if the patient is unable at times to financially afford this scale that we would rather waive the fee and have the scale done than have the patient not have the scale obtained. Will follow up with the patient in 4 weeks time to monitor weight loss. Total time was 30 min, greater than 50 % of time was spent on care coordination Case discussed with collaborating physician Halley Ku who reviewed the assessment and plan. Chart, medications, labs, vital signs reviewed. Dictation was accomplished with the use of [employer] voice recognition software, prone to medical misidentifications and grammatical errors. This is unintentional and the practitioner does try to identify and correct these, but some could still be present. Please do not hesitate to contact practitioner for clarification. All questions answered to patients satisfaction. Patient verbalized understanding of diagnosis and treatments explained. To call sooner prior to next visit it any questions/concerns arise. Plan: * Treatment: * Therapeutic Injections:? Semaglutide : .5 mg (Route: Subcutaneous) given by Reji Rick on subcutaneus * Procedure Codes:??53129 P/M [employer], INDIV 15 MIN * Follow Up:??4 Weeks (Reason: Sema) * Images: Billing Information: * Visit Code:?? 00404 Office Visit, Est Pt., Level 4. * Procedure Codes:?? 09720 P/M [employer], INDIV 15 MIN. * Sign off status: Completed true * Provider:??Nano Arrington PA-C Date:??09/09 History and Physical Notes * HPI (History [...] evenings. She just restarted exercise regimen at [employer] 2-3 times a week in the past [...] Wishes she lost more. PMH: Asthma PCP: [facility], Harish Ly Highest weight: 183.5 Lowest weight: 120 Current weight: 168.8, BMI 35.3 (-15!) Weight last visit: 183.5, BMI 38.4 Goal weight: 130-140 Trials in the past: exercise regimen, Protein intake: limited Water intake: good amount Exercise: Started again at [employer] last week- 2-3 times a week. Barriers: [...]
--- OUTSIDE RECORDS SUMMARY | 2024-04-12 18:05 | XMS_ITS | Patient Health Record ---
Author Organization [facility] Address [address] [place] [address] Care Team Providers Care Natural Resources Professor Name Role Phone Vaughn Ly Primary Care Provider Unavailab jerson Guardadoderick Nano Unavailable [phone] DIO ANTUNEZ Unavailable [phone] ALLERGIES No Known Allergies REASON FOR REFERRAL No Information MEDICATIONS Medication SIG (Take, Route, Frequency, Duration) Notes Start Date End Date Status Albuterol Sulfate HFA 108 (90 Base) MCG/ACT INHALE 2 PUUFS BY MOUTH FOUR TIMES DAILY NEEDED FIR SHORTNESS OF BRATH ORN WHEEZING Inhalation for 30 Days Active Trelegy Ellipta 200-62.5-25 MCG/ACT Inhalation for 30 Days Active Montelukast Sodium 10 MG TAKE 1 TABLET B Y MOUTH AT BEDTIME Oral for 90 Days Active Semaglutide(0.25 or 0.5MG/DOS) 2 MG/3ML as directed Subcutaneous Active SOCIAL HISTORY Tobacco Use: Social History Observation Description Date Details (start date - stop date) Never Smoker NA - NA Sex Assigned At : Social History Observation Description Sex Assigned At Unknown Tobacco Use/Smoking Question Answer Notes Are you a nonsmoker Alcohol Screen (Audit-C) Question Answer Notes Did you have a drink contain ing alcohol in the past year? Yes How often did you have a dri nk containing alcohol in the past year? Monthly or less (1 point) Points 1 Interpretation Negative PROBLEMS Problem Type ICD Code Onset Dates Problem Status W/U Status Risk SNOMED Code Notes Problem Other obesity due to excess calories (E66.09) Active confirmed 491551606 Problem Moderate asthma without complication, unspecified whether persistent (J45.909) Active confirmed 107460192 Problem Body mass index [BMI] 38.0-38.9, adult (Z68.38) Active confirmed 242187881 Problem BMI 35.0-35.9,adult (Z68.35) Active confirmed 081525945 VITAL SIGNS Heart Rate 66 /min 09/29/2023 Blood pressure diastolic 76 mm Hg 09/29/2023 Oximetry 98 % 09/29/2023 Height 58 in 09/29/2023 Blood pressure systolic 122 mm Hg 09/29/2023 Weight 168 lbs 09/29/2023 BMI 35.11 kg/m2 09/29/2023 Encounters Encounter Location Date Provider Diagnosis [facility] [address] [place] [address] 08/18/2023 [facility] [facility] [place] [address] 08/25/2023 [facility] [facility] [address] [place] [address] 09/01/2023 [facility] [facility] [address] [place] [address] 09/08/2023 [facility] [facility] [address] [place] [address] 09/22/2023 [facility] [facility] [address] [place] [address] 10/06/2023 [facility] [address] [place] [address] 11/25/2023 Nano [facility] [address] [place] [address] 08/11/2023 Nano Svrcek Other obesity due to excess calories E66.09 ; Body mass index [BMI] 38.0-38.9, adult Z68.38 and Moderate asthma without complication, unspecified whether persistent J45.909 [address] [place] [address] 09/29/2023 Nano Svrcek Other obesity due to excess calories E66.09 ; BMI 35.0-35.9,adult Z68.35 and Moderate asthma without complication, unspecified whether persistent J45.[address] [place] [address] 08/11/2023 Nano Arrington ASSESSMENTS Encounter Date Diagnosis Assessment Notes Treatment Notes Treatment Clinical Notes Section Notes 08/11/2023 Other obesity due to excess calories (ICD-10 - E66.09) #Obesity. 183.5 pounds, BMI 38.4. New patient welcomed [...] results to her follow-up visit next month. Patient will be started on Semaglutide compounded per our office protocol. They will start on 0.25 mg once weekly for weeks 1-4. They will follow up with me in 4 weeks at which time a repeat SECA scale will be reviewed. If Semaglutide has been tolerated well, the dose will increase to 0.5 mg once weekly for weeks 5-8. Follow up with the provider every 4 weeks with repeat SECA scale is required. If tolerated, dose will be increased to 1 mg after 8 weeks for weeks 9-12. Prior authorization for Wegovy will be started between weeks 11-13 and can take up to 4 weeks to complete. Out of pocket cost was reviewed with patient and escalating cost with escalating dose was reviewed. Discussed importance of supplementation with probiotics, B complex vitamins. We also reviewed lab monitoring routinely throughout. Discussed importance of protein intake, water intake, regular exercise and good sleep habits. The patient will continue exercise regimen with [...] the patient not have the scale obtained. Patient has been advised that we have compounded semaglutide and tirzepatide from [facility] in [place]. These medications are not FDA approved for medical weight loss and are manufactured in the compounding pharmacy. They are being used in the practice to help patients who cannot get access to FDA approved medications like Wegovy or Zepp bound either because of prior authorization issues or lack of coverage by insurance companies or lack of supply of these medications. Patient has made informed decision to use these compounded products and agreed to cost which will not be covered by insurance plan. An advanced beneficiary notice was provided. #Asthma- now on inhaler regimen and well controlled. Has limited her exercise in the past. Follows with PCP. Weight Consult Plan: Patient has been found to be obese with a BMI of 38.4. Patient has class 2 obesity. Patient was reassured and welcomed to the practice. We discussed that we stress a hollistic medical approach with emphasis on lifestyle modification. Patient was informed that a healthy lifestyle with exercise and good eating habits can help reduce his risk of medical complications. He is explained that obesity increases his risk of diabetes, cardiovascular disease, or organ damage. We spent a lot of time discussing the relationship between food, exercise, sleep, mental health and obesity. Patient was counseled on the importance EATING local, organic food when possible. Patient was educated on clean 15 and dirty dozen. I provided information about reading books called The Food Rules by Attila Howe and Eat Fat Get Lean by Dr Richard Balderas. Self education is important in the journey for weight management. Patient was offered diagnostic testing. We want to measure visceral adiposity, advanced body composition, adverse lipids, fatty acid balance, risk for heart disease and atherosclerosis, markers of inflammation and genetic susceptibility. Patient was counseled on weight management and was advised to lose weight using 1. Eat a low carbohydrate good fat good protein diet. Eliminate refined carbohydrates from the diet. Continue blood sugar and sugared beverages. Eat local organic when possible. Cook your own meals. Read food labels. None about healthy snacks. Portion control and food with low glycemic index 2. Exercise regularly. Try to get at least 6000 steps a day. Use a predominant to track activity level. Consider using apps like GlobalCrypto, Nutricatepal, lose it, stick as needed for self-monitoring and weight management. Consider group exercises. Consider hiring a personal development mentor. Regular exercise is oseguera to sustainable health and prevents as a buffer against weight regain 3. Sleep is most important for healing. Tried to sleep at least 8 hours a night. A good quality sleep needs a sleep ritual with ideal room temperature of around 68. It might help to take a shower and have no electronics in the room and sleep in a very dark room without artificial light. Start her sleep routine and get up early in the morning and go to bed on time 4. Make a social connection. Surround yourself with positive people with positive energy. Connect with friends and family. 5. Get into the habit of meditating and mindfulness while doing everything. 6. Go outside and connect with nature. C. Prescription medications Patient was educated on the use of prescription medications for medical weight loss. This is a growing list and includes phentermine, Topamax,Qsymia, contrave, belviq and saxenda. All prescription medications could have side effects including but not limited to kidney stones, seizure disorder cardiac arrhythmias heart attack pancreatitis etc. etc.. Patient was encouraged to read the prescription insert and have coaching with their pharmacist and make an informed decision about taking medication and know that these medications are being prescribed with good intentions and we do not know how a patient would react to her medication. Sudden medications are FDA approved for weight loss and there is also off label use depending on patient's inability to afford medications in an attempt to lose weight D. Behavioral counseling was done to establish a relationship between food and an mood. Patient was provided information about local counseling and psychiatry and Dr Covarrubias at [facility]. We would like to cover regular topics and build on low glycemic eating exercise mindful eating, using yoga and meditation along with deep breathing and connecting with friends and family. E. MASS PAT reviewed, Patient's current medications were reviewed and opinion was given on medication that can cause weight gain and can be substituted F. Patient was assessed for risk with obesity including and not limiting to atherosclerosis heart disease stroke kidney disease, restrictive lung disease, irritable bowel syndrome and overall mortality. Risk of developing prediabetes diabetes and metabolic syndrome was discussed G. Therapeutic plan: We have decided to make therapeutic plan which would include choosing wisely on calories restricting portion getting active, tracking weight, getting good quality sleep and working on time management H. Patient will follow up in (4) weeks for weight management Total time spent today was 60 minutes of which greater than 50% was spent on coordinating and counseling Case discussed with collaborating physician Halley Ku who reviewed the assessment and plan. Chart, medications, labs, vital signs reviewed. Dictation was accomplished with the use of [employer] voice recognition software, prone to medical misidentifications and grammatical errors. This is unintentional and the practitioner does try to identify and correct these, but some could still be present. Please do not hesitate to contact practitioner for clarification. All questions answered to patients satisfaction. Patient verbalized understanding of diagnosis and treatments explained. To call sooner prior to next visit it any questions/concerns arise. 08/11/2023 Body mass index [BMI] 38.0-38.9, adult (ICD-10 - Z68.38) #Obesity. 183.5 pounds, BMI 38.4. New patient welcomed [...] results to her follow-up visit next month. Patient will be started on Semaglutide compounded per our office protocol. They will start on 0.25 mg once weekly for weeks 1-4. They will follow up with me in 4 weeks at which time a repeat SECA scale will be reviewed. If Semaglutide has been tolerated well, the dose will increase to 0.5 mg once weekly for weeks 5-8. Follow up with the provider every 4 weeks with repeat SECA scale is required. If tolerated, dose will be increased to 1 mg after 8 weeks for weeks 9-12. Prior authorization for Wegovy will be started between weeks 11-13 and can take up to 4 weeks to complete. Out of pocket cost was reviewed with patient and escalating cost with escalating dose was reviewed. Discussed importance of supplementation with probiotics, B complex vitamins. We also reviewed lab monitoring routinely throughout. Discussed importance of protein intake, water intake, regular exercise and good sleep habits. The patient will continue exercise regimen with [...] the patient not have the scale obtained. Patient has been advised that we have compounded semaglutide and tirzepatide from [facility] in [place]. These medications are not FDA approved for medical weight loss and are manufactured in the compounding pharmacy. They are being used in the practice to help patients who cannot get access to FDA approved medications like Wegovy or Zepp bound either because of prior authorization issues or lack of coverage by insurance companies or lack of supply of these medications. Patient has made informed decision to use these compounded products and agreed to cost which will not be covered by insurance plan. An advanced beneficiary notice was provided. #Asthma- now on inhaler regimen and well controlled. Has limited her exercise in the past. Follows with PCP. Weight Consult Plan: Patient has been found to be obese with a BMI of 38.4. Patient has class 2 obesity. Patient was reassured and welcomed to the practice. We discussed that we stress a hollistic medical approach with emphasis on lifestyle modification. Patient was informed that a healthy lifestyle with exercise and good eating habits can help reduce his risk of medical complications. He is explained that obesity increases his risk of diabetes, cardiovascular disease, or organ damage. We spent a lot of time discussing the relationship between food, exercise, sleep, mental health and obesity. Patient was counseled on the importance EATING local, organic food when possible. Patient was educated on clean 15 and dirty dozen. I provided information about reading books called The Food Rules by Attila Howe and Eat Fat Get Lean by Dr Richard Balderas. Self education is important in the journey for weight management. Patient was offered diagnostic testing. We want to measure visceral adiposity, advanced body composition, adverse lipids, fatty acid balance, risk for heart disease and atherosclerosis, markers of inflammation and genetic susceptibility. Patient was counseled on weight management and was advised to lose weight using 1. Eat a low carbohydrate good fat good protein diet. Eliminate refined carbohydrates from the diet. Continue blood sugar and sugared beverages. Eat local organic when possible. Cook your own meals. Read food labels. None about healthy snacks. Portion control and food with low glycemic index 2. Exercise regularly. Try to get at least 6000 steps a day. Use a predominant to track activity level. Consider using apps like [employer], Nutricatepal, lose it, stick as needed for self-monitoring and weight management. Consider group exercises. Consider hiring a personal development mentor. Regular exercise is oseguera to sustainable health and prevents as a buffer against weight regain 3. Sleep is most important for healing. Tried to sleep at least 8 hours a night. A good quality sleep needs a sleep ritual with ideal room temperature of around 68. It might help to take a shower and have no electronics in the room and sleep in a very dark room without artificial light. Start her sleep routine and get up early in the morning and go to bed on time 4. Make a social connection. Surround yourself with positive people with positive energy. Connect with friends and family. 5. Get into the habit of meditating and mindfulness while doing everything. 6. Go outside and connect with nature. C. Prescription medications Patient was educated on the use of prescription medications for medical weight loss. This is a growing list and includes phentermine, Topamax,Qsymia, contrave, belviq and saxenda. All prescription medications could have side effects including but not limited to kidney stones, seizure disorder cardiac arrhythmias heart attack pancreatitis etc. etc.. Patient was encouraged to read the prescription insert and have coaching with their pharmacist and make an informed decision about taking medication and know that these medications are being prescribed with good intentions and we do not know how a patient would react to her medication. Sudden medications are FDA approved for weight loss and there is also off label use depending on patient's inability to afford medications in an attempt to lose weight D. Behavioral counseling was done to establish a relationship between food and an mood. Patient was provided information about local counseling and psychiatry and Dr Covarrubias at [facility]. We would like to cover regular topics and build on low glycemic eating exercise mindful eating, using yoga and meditation along with deep breathing and connecting with friends and family. E. MASS PAT reviewed, Patient's current medications were reviewed and opinion was given on medication that can cause weight gain and can be substituted F. Patient was assessed for risk with obesity including and not limiting to atherosclerosis heart disease stroke kidney disease, restrictive lung disease, irritable bowel syndrome and overall mortality. Risk of developing prediabetes diabetes and metabolic syndrome was discussed G. Therapeutic plan: We have decided to make therapeutic plan which would include choosing wisely on calories restricting portion getting active, tracking weight, getting good quality sleep and working on time management H. Patient will follow up in (4) weeks for weight management Total time spent today was 60 minutes of which greater than 50% was spent on coordinating and counseling Case discussed with collaborating physician Halley Ku who reviewed the assessment and plan. Chart, medications, labs, vital signs reviewed. Dictation was accomplished with the use of [employer] voice recognition software, prone to medical misidentifications [...] next visit it any questions/concerns arise. 09/29/2023 Other obesity due to excess calories [...] Dictation was accomplished with the use of [employer] voice recognition software, prone to medical misidentifications [...] Dictation was accomplished with the use of [employer] voice recognition software, prone to medical misidentifications [...] Dictation was accomplished with the use of [employer] voice recognition software, prone to medical misidentifications and grammatical errors. This is unintentional and the practitioner does try to identify and correct these, but some could still be present. Please do not hesitate to contact practitioner for clarification. All questions answered to patients satisfaction. Patient verbalized understanding of diagnosis and treatments explained. To call sooner prior to next visit it any questions/concerns arise. 08/11/2023 Moderate asthma without complication, unspecified whether persistent (ICD-10 - J45.909) #Obesity. 183.5 pounds, BMI 38.4. New patient welcomed [...] results to her follow-up visit next month. Patient will be started on Semaglutide compounded per our office protocol. They will start on 0.25 mg once weekly for weeks 1-4. They will follow up with me in 4 weeks at which time a repeat SECA scale will be reviewed. If Semaglutide has been tolerated well, the dose will increase to 0.5 mg once weekly for weeks 5-8. Follow up with the provider every 4 weeks with repeat SECA scale is required. If tolerated, dose will be increased to 1 mg after 8 weeks for weeks 9-12. Prior authorization for Wegovy will be started between weeks 11-13 and can take up to 4 weeks to complete. Out of pocket cost was reviewed with patient and escalating cost with escalating dose was reviewed. Discussed importance of supplementation with probiotics, B complex vitamins. We also reviewed lab monitoring routinely throughout. Discussed importance of protein intake, water intake, regular exercise and good sleep habits. The patient will continue exercise regimen with [...] the patient not have the scale obtained. Patient has been advised that we have compounded semaglutide and tirzepatide from [facility] in [place]. These medications are not FDA approved for medical weight loss and are manufactured in the compounding pharmacy. They are being used in the practice to help patients who cannot get access to FDA approved medications like Wegovy or Zepp bound either because of prior authorization issues or lack of coverage by insurance companies or lack of supply of these medications. Patient has made informed decision to use these compounded products and agreed to cost which will not be covered by insurance plan. An advanced beneficiary notice was provided. #Asthma- now on inhaler regimen and well controlled. Has limited her exercise in the past. Follows with PCP. Weight Consult Plan: Patient has been found to be obese with a BMI of 38.4. Patient has class 2 obesity. Patient was reassured and welcomed to the practice. We discussed that we stress a hollistic medical approach with emphasis on lifestyle modification. Patient was informed that a healthy lifestyle with exercise and good eating habits can help reduce his risk of medical complications. He is explained that obesity increases his risk of diabetes, cardiovascular disease, or organ damage. We spent a lot of time discussing the relationship between food, exercise, sleep, mental health and obesity. Patient was counseled on the importance EATING local, organic food when possible. Patient was educated on clean 15 and dirty dozen. I provided information about reading books called The Food Rules by Attila Howe and Eat Fat Get Lean by Dr Richard Balderas. Self education is important in the journey for weight management. Patient was offered diagnostic testing. We want to measure visceral adiposity, advanced body composition, adverse lipids, fatty acid balance, risk for heart disease and atherosclerosis, markers of inflammation and genetic susceptibility. Patient was counseled on weight management and was advised to lose weight using 1. Eat a low carbohydrate good fat good protein diet. Eliminate refined carbohydrates from the diet. Continue blood sugar and sugared beverages. Eat local organic when possible. Cook your own meals. Read food labels. None about healthy snacks. Portion control and food with low glycemic index 2. Exercise regularly. Try to get at least 6000 steps a day. Use a predominant to track activity level. Consider using apps like [employer], Nutricatepal, lose it, stick as needed for self-monitoring and weight management. Consider group exercises. Consider hiring a personal development mentor. Regular exercise is oseguera to sustainable health and prevents as a buffer against weight regain 3. Sleep is most important for healing. Tried to sleep at least 8 hours a night. A good quality sleep needs a sleep ritual with ideal room temperature of around 68. It might help to take a shower and have no electronics in the room and sleep in a very dark room without artificial light. Start her sleep routine and get up early in the morning and go to bed on time 4. Make a social connection. Surround yourself with positive people with positive energy. Connect with friends and family. 5. Get into the habit of meditating and mindfulness while doing everything. 6. Go outside and connect with nature. C. Prescription medications Patient was educated on the use of prescription medications for medical weight loss. This is a growing list and includes phentermine, Topamax,Qsymia, contrave, belviq and saxenda. All prescription medications could have side effects including but not limited to kidney stones, seizure disorder cardiac arrhythmias heart attack pancreatitis etc. etc.. Patient was encouraged to read the prescription insert and have coaching with their pharmacist and make an informed decision about taking medication and know that these medications are being prescribed with good intentions and we do not know how a patient would react to her medication. Sudden medications are FDA approved for weight loss and there is also off label use depending on patient's inability to afford medications in an attempt to lose weight D. Behavioral counseling was done to establish a relationship between food and an mood. Patient was provided information about local counseling and psychiatry and Dr Covarrubias at [facility]. We would like to cover regular topics and build on low glycemic eating exercise mindful eating, using yoga and meditation along with deep breathing and connecting with friends and family. E. MASS PAT reviewed, Patient's current medications were reviewed and opinion was given on medication that can cause weight gain and can be substituted F. Patient was assessed for risk with obesity including and not limiting to atherosclerosis heart disease stroke kidney disease, restrictive lung disease, irritable bowel syndrome and overall mortality. Risk of developing prediabetes diabetes and metabolic syndrome was discussed G. Therapeutic plan: We have decided to make therapeutic plan which would include choosing wisely on calories restricting portion getting active, tracking weight, getting good quality sleep and working on time management H. Patient will follow up in (4) weeks for weight management Total time spent today was 60 minutes of which greater than 50% was spent on coordinating and counseling Case discussed with collaborating physician Halley Ku who reviewed the assessment and plan. Chart, medications, labs, vital signs reviewed. Dictation was accomplished with the use of [employer] voice recognition software, prone to medical misidentifications [...] it any questions/concerns arise. PLAN OF TREATMENT No Information Insurance Providers Payer Name Payer Address Payer Phone Subscriber Number Group Number Insured Name Patient Relationship to Insured Coverage Start Date Coverage End Date [facility] [address] [place] [address] [id number] Anne Marie Carballo Self - patient is the insured 3 MEDICATIONS ADMINISTERED Medication Instructions Date of Administration Dosage Notes MICC B12 INJECTION 08/11/2023 Semaglutide 08/11/2023 .25 mg Semaglutide 08/18/2023 0.25 mg Semaglutide 08/25/2023 0.25 mg Semaglutide 09/01/2023 .25 mg Semaglutide 09/08/2023 0.25 mg Semaglutide 09/22/2023 .5 mg Semaglutide 09/29/2023 .5 mg Semaglutide 10/06/2023 0.5 mg MEDICAL (GENERAL) HISTORY Medical History History ICD Code asthma Surgical History Surgery Date(Month/Year) right ankle surgery 2016
--- OUTSIDE RECORDS SUMMARY | 2024-04-12 18:05 | XMS_ITS ---
Author Organization [employer] [facility] Address [address] [place] [address] Care Team Providers Care Operations And Maintenance Technician Name Role Phone Vaughn Ly Primary Care Provider UnavailNano Raymond Unavailable [phone] MEDICATIONS Medication SIG (Take, Route, Frequency, Duration) [...] Active Encounters Encounter Location Date Provider Diagnosis [address] [address] 11/25/2023 Nano Arrington PLAN OF TREATMENT No Information Progress Notes * Vita CARBALLOaDOB:1960 (63 yo F)Acc No.[id number]:11/25/2023 Patient:??Anne Marie CARBALLO Provider:??Nano Arrington PA-C :1960?Age:63 Y?Sex:Fe male Date:11/25/2023 Address:[address], [place], [place] Pcp:Vaughn Ly Subjective: * Chief Complaints: * ? * HPI: ?Constitutional:? Snadra is a 62-year-old female here today for weight management follow up. 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 She typically will eat crackers or muffins in the morning often will skip lunch and has rice or sandwich in the evenings. She just restarted exercise regimen at [employer] 2-3 times a week in the past [...] Wishes she lost more. ?PMH: Asthma [facility] ?Highest weight: 183.5 ?Lowest weight: 120 ?Current weight: ?Weight last visit: 168.8, BMI 35.3 ?Goal weight: 130-140 ?Trials in the past: exercise regimen, ?Protein intake: limited ?Water intake: good amount ?Exercise: Started again at [employer] last week- 2-3 times a week. ?Barriers: [...] except those mentioned in HPI.? * Medical History:?? * Medications:??Taking Semaglu tide(0.25 or 0.5MG/DOS) 2 [...] Aerosol Powder Breath Activated Inhalation Objective: * Physical Examination:?General: Well appearing, well nourished, [...] intact. Assessment: Plan: * Treatment: * Procedure Codes:??56089 NO S HOW OFFICE VISIT * Images: Billing Information: * Visit Code:?? * Procedure Codes:?? 97276 NO SHOW OFFICE VISIT. * Sign off status: Pending * Provider:??Nano Arrington PA-C Date:??11/08 History and Physical Notes * HPI (History [...] evenings. She just restarted exercise regimen at [employer] 2-3 times a week in the past [...] Wishes she lost more. PMH: Asthma PCP: [facility], Harish Ly Highest weight: 183.5 Lowest weight: 120 Current weight: Weight last visit: 168.8, BMI 35.3 Goal weight: 130-140 Trials in the past: exercise regimen, Protein intake: limited Water intake: good amount Exercise: Started again at [employer] last week- 2-3 times a week. Barriers: [...]
--- OUTSIDE RECORDS SUMMARY | 2024-04-12 18:05 | XMS_ITS ---
Author Organization [employer] [facility] Address [address] [place] [address] Care Team Providers Care Lace Winder Name Role Phone Vaughn Ly Primary Care Provider Unavailab jerson Gastongrupo Nano Unavailable [phone] DIO ANTUNEZ Unavailable [phone] REASON FOR VISIT pt here for sema injection; pt signed consent; 0.5mg administered subcutaneously into left thigh; pt tolerated well and left in stable condition MEDICATIONS Medication SIG (Take, Route, Frequency, Duration) Notes Start Date End Date Status Trelegy Ellipta 200-62.5-25 MCG/ACT Inhalation for 30 Days Active Montelukast Sodium 10 MG TAKE 1 TABLET B Y MOUTH AT BEDTIME Oral for 90 Days Active Albuterol Sulfate HFA 108 (90 Base) MCG/ACT INHALE 2 PUUFS BY MOUTH FOUR TIMES DAILY NEEDED FIR SHORTNESS OF BRATH ORN WHEEZING Inhalation for 30 Days Active Semaglutide(0.25 or 0.5MG/DOS) 2 MG/3ML as directed Subcutaneous Active Encounters Encounter Location Date Provider Diagnosis [facility] [address] [address] 10/06/2023 DIO ANTUNEZ PLAN OF TREATMENT No Information MEDICATIONS ADMINISTERED Medication Instructions Date of Administration Dosage Notes Semaglutide 10/06/2023 0.5 mg Progress Notes * Saul CARBALLOB:1960 (63 yo F)Acc No.[id number]:10/06/2023 Patient:??Anne Marie CARBALLO Provider:??DIO ANTUNEZ NP :1960?Age:62 Y?Sex:Fe male Date:10/06/2023 Address:[address] [place], [place] [id number] Pcp:Vaughn Ly Subjective: * Chief Complaints: * ?1. Pt here for sema in jection; pt signed consent; 0.5mg administered subcutaneously into left thigh; pt tolerated well and left in stable condition. * Medical History:?? * Medications:??Taking Semaglu tide(0.25 [...] MCG/ACT Aerosol Powder Breath Activated Inhalation Objective: Assessment: Plan: * Treatment: * Therapeutic Injections:? Semaglutide : 0.5 mg (Route: Subcutaneous) given by Sherry Crawford on left thigh subcutaneous * Images: Billing Information: * Visit Code:?? * Procedure Codes:?? * Sign off status: Pending * Provider:??DIO ANTUNEZ NP Date:??09/09
== END 2024-04-12 15:35 | disposition home or self-care (01) ==
PROVIDERS: PCP Physician Assistant; Visit Provider Physician Assistant
DX: J45.50 Severe persistent asthma, uncomplicated (principal); E66.811 Obesity, class 1; Z68.33 Body mass index [BMI] 33.0-33.9, adult; E78.9 Disorder of lipoprotein metabolism, unspecified; Z13.1 Encounter for screening for diabetes mellitus

== ENCOUNTER → 2024-04-12 14:56 | Outpatient (BNVA) | payer OTHER, MEDICARE, SELFPAY | PROVIDERS: PCP Physician Assistant; Visit Provider Physician Assistant | DX: J45.50 Severe persistent asthma, uncomplicated (principal); E78.9 Disorder of lipoprotein metabolism, unspecified; E66.811 Obesity, class 1; Z68.33 Body mass index [BMI] 33.0-33.9, adult | CPT/HCPCS: 96127 ==

== ENCOUNTER 2024-04-16 09:46 | Emergency (ER) | payer OTHER, MEDICARE, SELFPAY ==
--- NOTE | ~2024-04-16 | CT_ITS ---
CLINICAL HISTORY: headache after vomiting CT head without contrast Comparison: None Findings: No intra-axial mass, midline shift, hydrocephalus, or acute hemorrhage. Involutional change brain parenchyma, compatible with age. Mild white matter disease. Complete opacification of the right maxillary sinus. Moderate mucosal thickening within multiple additional paranasal sinuses. The orbits are within normal limits. No skull fracture. IMPRESSION: No acute abnormality of the brain. This document has been electronically signed by: Katja Barlow MD on 04/16/2024 14:20:27
[2024-04-16 09:54] VITALS: BP 148/62; PULSE 85; RESP 18; TEMP 36.9; O2SAT 98; BMI 33.3
[2024-04-16 10:13] LABS: MANUAL DIFF FLAG NO
--- NOTE | 2024-04-16 10:16 | ECG_ITS ---
Test Reason : WEAKNESS Blood Pressure : */* mmHG Vent. Rate : 83 BPM Atrial Rate : 83 BPM P-R Int : 168 ms QRS Dur : 70 ms QT Int : 332 ms P-R-T Axes : 35 11 2 degrees QTcB Int : 390 ms Normal sinus rhythm Normal ECG When compared with ECG of 10-Jun-2023 10:21, No significant change was found Referred By: Meera Trent Electronically Signed By: SIA HOWELL
[2024-04-16 10:17] LABS: Basophils Percent Auto 0.3 % (0-2); Eosinophils Absolute Auto 0.4 X10*3/uL (0.0-0.4); Eosinophils Percent Auto 3.8 % (0-4); Hematocrit 41.4 % (37.0-47.0); Imm Gran Abs Auto 0.04 X10*3/uL (0.00-0.03); Imm Gran Pct Auto 0.4 % (0.0-0.4); Lymphocytes Absolute Auto 0.4 X10*3/uL (1.2-4.9); Lymphocytes Percent Auto 4.1 % (20-40); Mean Corpuscular HGB Conc 33.8 g/dl (31.0-35.0); Mean Corpuscular Hemoglobin 29.4 pg (27.0-33.0); Mean Corpuscular Volume 86.8 fL (80.0-98.0); Mean Platelet Volume 11.2 fL (9.4-12.3); Monocytes Absolute Auto 0.4 X10*3/uL (0.1-1.2); Monocytes Percent Auto 4.1 % (2-11); Neutrophils Absolute Auto 9.1 x10*3/uL (2.0-8.3); Neutrophils Percent Auto 87.3 % (45-73); Platelet Count 189 X10*3/uL (160-400); Red Blood Count 4.77 X10*6/uL (4.20-5.50); Red Cell Distribution Width 12.1 % (11.0-16.0); White Blood Count 10.4 X10*3/uL (4.8-10.8)
--- NOTE | 2024-04-16 10:21 | ED_ITS ---
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 She states she was helping care for her father who had same illness. She denies travel or abx use. She denies pain to me, no fevers and no GIB symptoms reported. She states she has intense nausea. MD elicited complaint: nausea, vomiting and diarrhea Onset (ago): hour(s) (several) Description of vomiting: food contents and watery Description of diarrhea: watery Associated nausea: Yes Associated abdominal pain: Yes Location of pain: epigastric Radiation: diffuse Pain consistency: intermittent Severity: mild Quality: cramping Exacerbating factors: vomiting Relieving factors: none Context: sick contacts Associated symptoms: myalgias, loss of appetite, malaise, nausea/vomiting and weakness Related Data Home Medications ?Medication ?Instructions ?Recorded ?Confirmed nebulizers 07/26/23 04/12/24 mometasone 100 mcg/actuation HFA 2 puff inhalation BID 09/02/23 04/12/24 aerosol inhaler (Asmanex HFA) Previous Rx's ?Medication ?Instructions ?Recorded albuterol sulfate 2.5 mg/3 mL 2.5 mg (3 mL) inhalation Q6H PRN 07/26/23 (0.083 %) solution for nebulization shortness of breath or wheezing 30 days #360 mL montelukast 10 mg tablet 10 mg PO BEDTIME 30 days #30 tabs 07/26/23 (Singulair) albuterol sulfate 90 mcg/actuation 2 puff inhalation QID PRN 09/02/23 aerosol inhaler (Ventolin HFA) shortness of breath or wheezing 30 days #18 grams fluticasone fur. 200 mcg-umeclid 1 inh inhalation DAILY 30 days #60 09/02/23 62.5 mcg-vilant 25 mcg ea inhalat.powder (Trelegy Ellipta) methylprednisolone 4 mg tablets in See Rx Instructions PO PER PKG DIR 02/24/24 a dose pack #21 ea loperamide 2 mg capsule (Imodium 2 mg PO Q6H PRN loose stool #20 04/16/24 A-D) caps ondansetron 4 mg disintegrating 4 mg PO Q8H PRN nausea and 04/16/24 tablet vomiting #20 tabs Allergies Allergy/AdvReac Type Severity Reaction Status Date / Time No Known Allergies Allergy Verified 04/16/24 09:56 Review of Systems 2 Review of Systems: Constitutional : No Weight loss, No Fever, No Chills ENT/Mouth : No sore throat, No Rhinorrhea Eyes: No Swelling, No Redness Cardiovascular : No Chest Pain, No SOB, NoEdema Respiratory : No Cough, No Sputum, No Wheezing Gastrointestinal : Positive Nausea, Positive Vomiting, positive Diarrhea, positive abdominal Pain, No Hematochezia, No Melena Genitourinary : No Dysuria, No Urinary Frequency, No Hematuria, No Urgency Musculoskeletal : No joint pain, pos Myalgias, No Joint Swelling Skin : No Skin Lesions, No rash Neuro : No Weakness, No Numbness, No Dizziness, No Headache All other systems reviewed and are negative. Gastrointestinal: Gastrointestinal: Reports nausea PMFSH Past Medical History Attestation statement: The following information was validated with the patient. Source: old records reviewed Medical History Arthralgia Pulmonary nodule Chronic cough Allergies Asthma Surgical History No pertinent past surgical history Family History Family History Father Cancer Colon cancer Mother Respiratory arrest Daughter Lymphoma Paternal Aunt Breast CA Ovarian cancer Social History Social History Household Members: Family Housing: Apartment Do you presently have visiting nurse or other home services: No Alcohol intake: current Alcohol intake frequency: holidays/special occasions only Patient Tobacco Use Status: Never used Tobacco Smoked in Last 30 Days: No e-Cigarette/Vaping Use: Never Used Second Hand Smoke Exposure: No Use of substances other than those prescribed or required for medical reasons: No Advance Directives: No Advance Directives Information Provided: No service: No Current occupational status: employed 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 Oriented X3. No acute distress. Eyes: Pupils equal, round and reactive to light. ENT: Pharynx normal. Neck: Normal inspection. Neck supple. CVS: Normal heart rate and rhythm. Pulses normal. Respiratory: No respiratory distress. Breath sounds normal. Abdomen: Soft and nontender. no localized ttp Skin: Skin warm and dry. Normal skin color. Normal skin turgor. Extremities: No lower extremity edema. No calf ttp Neuro: Oriented X 3. No motor deficit. No sensory deficit. CN2-12 intact Medications Administered Discontinued Medications Generic Name Dose Route Start Last Admin Trade Name Freq PRN Reason Stop Dose Admin Lactated Ringer's 1,000 mls @ 999 mls/hr 04/16/24 10:33 04/16/24 12:28 Lr IV 04/16/24 11:33 Infused .Q1H1M ONE Infusion Acetaminophen 1,000 mg in 100 mls @ 400 mls/hr 04/16/24 12:12 04/16/24 12:48 Ofirmev IV 04/16/24 12:26 Infused ONCE ONE Infusion Ketorolac Tromethamine 15 mg 04/16/24 10:33 04/16/24 10:43 Ketorolac Tromethamine 15 Mg/Ml Vial IVPUSH 04/16/24 10:34 15 mg ONCE ONE Administration Ondansetron HCl 4 mg 04/16/24 10:16 04/16/24 10:43 Ondansetron Hcl 4 Mg/2 Ml Vial IVPUSH 04/16/24 10:17 4 mg ONCE ONE Administration Medical Decision Making Medical Decision Making MDM Narrative: 63 yo female with PMH of bronchitis, ovarian cyst, HLD, hypothyroidism, asthma here with c/o abrupt onset n/v/d and abdominal cramps after exposure to her father who has same illness. She has no localized ttp on abdominal exam. She reports no GIB symptoms. At this time will need basic labs, IVF, zofran and toradol. Suspect viral illness given the onset and her exposure to ill father. Differential Diagnosis Differential Diagnoses: The differential diagnosis associated with the presentation includes viral syndrome, dehydration, infectious diarrhea Admission/Observation Consideration of admission/observation: Escalation of care including admission/observation considered tolerating PO stable for DC no diarrhea episodes here WBC count normal doubt c diff Lab Data MDM Lab Attestation statement: I reviewed the patient's lab results. 04/16/24 10:08 04/16/24 10:08 Labs: Lab Results 04/16/24 04/16/24 Range/Units 10:08 10:14 WBC 10.4 (4.8-10.8) X10*3/uL RBC 4.77 (4.20-5.50) X10*6/uL Hgb 14.0 (12.0-16.0) g/dl Hct 41.4 (37.0-47.0) % MCV 86.8 (80.0-98.0) fL MCH 29.4 (27.0-33.0) pg MCHC 33.8 (31.0-35.0) g/dl RDW 12.1 (11.0-16.0) % Plt Count 189 (160-400) X10*3/uL MPV 11.2 (9.4-12.3) fL Immature Gran % (Auto) 0.4 (0.0-0.4) % Neut % (Auto) 87.3 H (45-73) % Lymph % (Auto) 4.1 L (20-40) % Davison % (Auto) 4.1 (2-11) % Eos % (Auto) 3.8 (0-4) % Baso % (Auto) 0.3 (0-2) % Lymph # (Auto) 0.4 L (1.2-4.9) X10*3/uL Davison # (Auto) 0.4 (0.1-1.2) X10*3/uL Eos # (Auto) 0.4 (0.0-0.4) X10*3/uL Baso # (Auto) 0.0 (0.0-0.2) X10*3/uL Abs Immat Gran (auto) 0.04 H (0.00-0.03) X10*3/uL Absolute Neuts (auto) 9.1 H (2.0-8.3) x10*3/uL Absolute Nucleated RBC 0.000 (0.0-0.012) X10*3/uL Nucleated RBC % (auto) 0.0 (0.0-0.2) /100WBC Sodium 142 (135-145) mmol/L Potassium 4.4 (3.3-5.1) mmol/L Chloride 111 H (96-108) mmol/L Carbon Dioxide 25 (22-29) mmol/L Anion Gap 10 L (12-20) BUN 13 (9-16) mg/dL Creatinine 0.74 (0.5-1.4) mg/dL Estim Creat Clear Calc 66.8 Estimated GFR > 60 Random Glucose 111 (60-115) mg/dL Calcium 8.9 D (8.4-10.2) mg/dL Total Bilirubin 0.4 (0.0-1.0) mg/dL Direct Bilirubin 0.1 (0.0-0.5) mg/dL AST 18 (5-31) U/L ALT 23 (0-31) U/L Alkaline Phosphatase 70 (39-117) U/L Total Protein 7.3 (6.5-8.0) g/dL Albumin 4.0 (3.5-5.0) g/dL Lipase 28 (8-78) U/L Influenza Type A (PCR) NEGATIVE (Negative) Influenza Type B (PCR) NEGATIVE (Negative) RSV RNA Qual (PCR) NEGATIVE (Negative) SARS-CoV-2 RNA (RT-PCR) NEGATIVE (Negative) Independent Interpretation I performed an independent interpretation of an: EKG and CT Scan (normal ) Interpretation: Rate: 83 Rhythm: NSR [place]: normal Normal P waves. Normal ADRIANO. Normal QRS complex. ST T wave : no ELVA, inverted t wave III qTC: 390 prior studies: no acute ischemia The study has been interpreted contemporaneously by me. . Radiology Impression Discussion of test interpretation with radiology: I have reviewed the radiologist's reading. External Record Review External record reviewed: Outpatient record Prescription Management I considered prescription management with: Other Discharge Plan Discharge Clinical Impression: Nausea vomiting and diarrhea, Acute viral syndrome Patient Disposition: Home, Self-Care Instructions: Acute Nausea and Vomiting (ED), Acute Diarrhea (ED), Viral Syndrome (ED) Additional Instructions: labs reassuring negative for covid, flu, rsv CT head negative fluids and liquid diet for 24 hours following that 48 hours of very bland diet then advance slowly return for any worsening symptoms such as fevers, severe pain, bloody stools or unable to eat or drink no immodium if you develop a fever or have severe pain or have bloody stools Prescriptions: New ondansetron 4 mg tablet,disintegrating 4 mg PO Q8H PRN (Reason: nausea and vomiting) Qty: 20 0RF loperamide [Imodium A-D] 2 mg capsule 2 mg PO Q6H PRN (Reason: loose stool) Qty: 20 0RF No Action (DME) nebulizers Misc See Rx Instructions .Route Rx Instructions: As directed montelukast [Singulair] 10 mg tablet 10 mg PO BEDTIME 30 Days Qty: 30 11RF albuterol sulfate 2.5 mg /3 mL (0.083 %) solution for nebulization 2.5 mg inhalation Q6H PRN (Reason: shortness of breath or wheezing) 30 Days Qty: 360 9RF Asmanex HFA 100 mcg/actuation HFA aerosol inhaler 2 puff inhalation BID albuterol sulfate [Ventolin HFA] 90 mcg/actuation HFA aerosol inhaler 2 puff inhalation QID PRN (Reason: shortness of breath or wheezing) 30 Days Qty: 18 11RF Trelegy Ellipta 200-62.5-25 mcg blister with device 1 inh inhalation DAILY 30 Days Qty: 60 12RF methylprednisolone 4 mg tablets,dose pack See Rx Instructions PO PER PKG DIR Qty: 21 0RF Rx Instructions: PO PER PKG DIR for 6 days Print Language: Ukrainian
[2024-04-16 10:28] LABS: Alanine Aminotransferase 23 U/L (0-31); Alkaline Phosphatase 70 U/L (39-117); Anion Gap 10 (12-20); Aspartate Amino Transferase 18 U/L (5-31); Bilirubin Direct 0.1 mg/dL (0.0-0.5); Bilirubin Total 0.4 mg/dL (0.0-1.0); Blood Urea Nitrogen 13 mg/dL (9-16); Calcium 8.9 mg/dL (8.4-10.2); Carbon Dioxide 25 mmol/L (22-29); Chloride 111 mmol/L (96-108); Creatinine Clr Calc Pharmacy 66.8; Estimated Glomerular Filt Rate > 60; Glucose Random 111 mg/dL (60-115); Lipase 28 U/L (8-78); Potassium 4.4 mmol/L (3.3-5.1); Sodium 142 mmol/L (135-145); Total Protein 7.3 g/dL (6.5-8.0)
--- OUTSIDE RECORDS SUMMARY | 2024-04-16 10:34 | XMS_ITS ---
Author Organization [employer] [facility] Address [address] [place] [address] Care Team Providers Care Vice President Of Communications Name Role Phone Vaughn Ly Primary Care Provider UnavailNano Raymond Unavailable [phone] MEDICATIONS Medication SIG (Take, Route, Frequency, Duration) [...] Location Date Provider Diagnosis [address] [address] 11/25/2023 Nano Arrington PLAN OF TREATMENT No Information Progress Notes * Vita CARBALLOaDOB:1960 (63 yo F)Acc No.[id number]:11/25/2023 Patient:??Anne Marie CARBALLO Provider:??Nano Arrington PA-C :1960?Age:63 Y?Sex:Fe male Date:11/25/2023 Address:[address] [facility] [facility] [address], [place] Pcp:Vaughn Ly Subjective: * Chief Complaints: * ? * HPI: ?Constitutional:? Sandra is a 62-year-old female here today for weight management follow up. 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 She typically will eat crackers or muffins in the morning often will skip lunch and has rice or sandwich in the evenings. She just restarted exercise regimen at [employer] 2-3 times a week in the past [...] Wishes she lost more. ?PMH: Asthma [facility] ?Highest weight: 183.5 ?Lowest weight: 120 ?Current weight: ?Weight last visit: 168.8, BMI 35.3 ?Goal weight: 130-140 ?Trials in the past: exercise regimen, ?Protein intake: limited ?Water intake: good amount ?Exercise: Started again at [employer] last week- 2-3 times a week. ?Barriers: [...] intact. Assessment: Plan: * Treatment: * Procedure Codes:??29994 NO S HOW OFFICE VISIT * Images: Billing Information: * Visit Code:?? * Procedure Codes:?? 64116 NO SHOW OFFICE VISIT. * Sign off [...] evenings. She just restarted exercise regimen at [employer] 2-3 times a week in the past [...] Wishes she lost more. PMH: Asthma PCP: [facility], Harish Ly Highest weight: 183.5 Lowest weight: 120 Current weight: Weight last visit: 168.8, BMI 35.3 Goal weight: 130-140 Trials in the past: exercise regimen, Protein intake: limited Water intake: good amount Exercise: Started again at [employer] last week- 2-3 times a week. Barriers: [...]
--- OUTSIDE RECORDS SUMMARY | 2024-04-16 10:34 | XMS_ITS ---
Author Organization [employer] [facility] Address [address] [place] [phone] Care Team Providers Care Mortgage Loan Underwriter Name Role Phone Vaughn Ly Primary Care Provider Unavailab jerson Gastongrupo Nano Unavailable [phone] DIO ANTUNEZ Unavailable [phone] REASON FOR VISIT pt here for sema [...] Active Encounters Encounter Location Date Provider Diagnosis [facility] [address] [address] 10/06/2023 DIO ANTUNEZ PLAN OF TREATMENT No Information MEDICATIONS ADMINISTERED Medication Instructions Date of Administration Dosage Notes Semaglutide 10/06/2023 0.5 mg Progress Notes * Saul CARBALLOB:1960 (63 yo F)Acc No.[id number]:10/06/2023 Patient:??Anne Marie CARBALLO Provider:??DIO ANTUNEZ NP :1960?Age:62 Y?Sex:Fe male Date:10/06/2023 Address:[address] [place], [place] [address] Pcp:Vaughn Ly Subjective: * Chief Complaints: * [...]
--- OUTSIDE RECORDS SUMMARY | 2024-04-16 10:34 | XMS_ITS | Patient Health Record ---
Author Organization [employer] [facility] Address [address] [place] [address] Care Team Providers Care Coding Specialist Name Role Phone Vaughn Ly Primary Care Provider Unavailab jerson Guardadoderick Nano Unavailable [phone] DIO ANTUNEZ Unavailable [phone] ALLERGIES No Known Allergies REASON FOR REFERRAL [...] due to excess calories (E66.09) Active confirmed [id number] Problem Moderate asthma without complication, unspecified whether persistent (J45.909) Active confirmed [id number] Problem Body mass index [BMI] 38.0-38.9, adult (Z68.38) Active confirmed [id number] Problem BMI 35.0-35.9,adult (Z68.35) Active confirmed [id number] VITAL SIGNS Heart Rate 66 /min 09/29/2023 Blood pressure diastolic 76 mm Hg 09/29/2023 Oximetry 98 % 09/29/2023 Height 58 in 09/29/2023 Blood pressure systolic 122 mm Hg 09/29/2023 Weight 168 lbs 09/29/2023 BMI 35.11 kg/m2 09/29/2023 Encounters Encounter Location Date Provider Diagnosis [facility] [address] [place] [address] [facility] [address] [place] [address] 08/25/2023 [facility] [place] [address] 09/01[facility]2023 [facility] [address] [place] [address] 09/08/2023 [facility] [address] [place] [address] 09/22[facility]23 [facility] [facility] [address] [place] [address] 10/06/2023 DIO BORHOT [address] [place] [address] 11/25/2023 Nano Svrce[facility] [address] [place] [address] 08/11/2023 Nano Svrcek Other obesity due to excess calories E66.09 ; Body mass index [BMI] 38.0-38.9, adult Z68.38 and Moderate asthma without complication, unspecified whether persistent J45.909 [address] [place] [address] 09/29/2023 Nano Svrcek Other obesity due to excess calories E66.09 ; BMI 35.0-35.9,adult Z68.35 and Moderate asthma without complication, unspecified whether persistent J45.909 [address] [place] [address] 08/11/2023 Nano Arrington ASSESSMENTS Encounter Date Diagnosis [...] we have compounded semaglutide and tirzepatide from [facility] in [place]. These medications are not FDA approved for [...] track activity level. Consider using apps like AgileMesh, Shoptiquespal, lose it, stick as needed for self-monitoring and weight management. Consider group exercises. Consider hiring a personal shopper. Regular exercise is oseguera to sustainable health [...] counseling and psychiatry and Dr Covarrubias at [facility]. We would like to cover regular topics [...] Dictation was accomplished with the use of Iotera voice recognition software, prone to medical misidentifications [...] we have compounded semaglutide and tirzepatide from [facility] in [place]. These medications are not FDA approved for [...] track activity level. Consider using apps like ImpactMediaise, Shoptiquespal, lose it, stick as needed for self-monitoring and weight management. Consider group exercises. Consider hiring a personal shopper. Regular exercise is oseguera to sustainable health [...] counseling and psychiatry and Dr Covarrubias at [facility]. We would like to cover regular topics [...] Dictation was accomplished with the use of Iotera voice recognition software, prone to medical misidentifications [...] Dictation was accomplished with the use of Iotera voice recognition software, prone to medical misidentifications [...] Dictation was accomplished with the use of Iotera voice recognition software, prone to medical misidentifications [...] Dictation was accomplished with the use of Iotera voice recognition software, prone to medical misidentifications [...] we have compounded semaglutide and tirzepatide from [facility] in [place]. These medications are not FDA approved for [...] track activity level. Consider using apps like [employer]Mesh, Shoptiquespal, lose it, stick as needed for self-monitoring and weight management. Consider group exercises. Consider hiring a personal shopper. Regular exercise is oseguera to sustainable health [...] counseling and psychiatry and Dr Covarrubias at [facility]. We would like to cover regular topics [...] Dictation was accomplished with the use of Iotera voice recognition software, prone to medical misidentifications [...] Insured Coverage Start Date Coverage End Date [facility] [address] [place] [address] [id number] Anne Marie Carballo Self - patient is [...]
--- OUTSIDE RECORDS SUMMARY | 2024-04-16 10:34 | XMS_ITS ---
Author Organization [facility] Address [address] [place] [address] Care Team Providers Care Director Of Early Childhood Education Name Role Phone Vaughn Ly Primary Care Provider Unavail Nano Whitehead Unavailable [phone] ALLERGIES No Known Allergies REASON FOR VISIT [...] Problem BMI 35.0-35.9,ad ult (Z68.35) Active confirmed [id number] VITAL SIGNS Blood pressure systolic 122 mm Hg 09/29/19 24 Blood pressure diastolic 76 mm Hg 024 Heart Rate 66 /min 09/29/2023 Height 58 in 09/29/2023 Weight 168 lbs 09/29/2023 BMI 35.11 kg/m2 09/29/2023 Oximetry 98 % 09/29/2023 Encounters Encounter Location Date Provider Diagnosis [address] [facility] [address] [place] [address] 09/29/2023 Nano Arrington Other obesity due to [...] Dictation was accomplished with the use of Koozoo voice recognition software, prone to medical misidentifications [...] Dictation was accomplished with the use of Koozoo voice recognition software, prone to medical misidentifications [...] Dictation was accomplished with the use of Koozoo voice recognition software, prone to medical misidentifications [...] Notes * Vita CARBALLOaDOB:1960 (62 yo F)Acc No.[id number]:09/29/2023 Patient:??Anne Marie CARBALLO Provider:??Nano Arrington PA-C :1960?Age:62 Y?Sex:Fe male Date:09/29/2023 Address:[address] [place] [address] Pcp:Vaughn Ly Subjective: * Chief Complaints: * [...] evenings. She just restarted exercise regimen at [employer] 2-3 times a week in the past [...] Wishes she lost more. ?PMH: Asthma ?PCP: [facility], Harish Ly ?Highest weight: 183.5 ?Lowest weight: 120 ?Current weight: 168.8, BMI 35.3 (-15!) ?Weight last visit: 183.5, BMI 38.4 ?Goal weight: 130-140 ?Trials in the past: exercise regimen, ?Protein intake: limited ?Water intake: good amount ?Exercise: Started again at [employer] last week- 2-3 times a week. ?Barriers: [...] Dictation was accomplished with the use of Koozoo voice recognition software, prone to medical misidentifications [...] by Reji Rick on subcutaneus * Procedure Codes:??83350 P/M COOK MORNING, INDIV 15 MIN * Follow Up:??4 Weeks (Reason: Sema) * Images: Billing Information: * Visit Code:?? 87468 Office Visit, Est Pt., Level 4. * Procedure Codes:?? 00463 P/M COOK MORNING, INDIV 15 MIN. * Sign off status: [...] evenings. She just restarted exercise regimen at [employer] 2-3 times a week in the past [...] Wishes she lost more. PMH: Asthma PCP: [facility], Harish Ly Highest weight: 183.5 Lowest weight: 120 Current weight: 168.8, BMI 35.3 (-15!) Weight last visit: 183.5, BMI 38.4 Goal weight: 130-140 Trials in the past: exercise regimen, Protein intake: limited Water intake: good amount Exercise: Started again at [employer] last week- 2-3 times a week. Barriers: [...]
[2024-04-16] MEDS: Lactated Ringers 1,000 ML 999 ML IV (10:43)
[2024-04-16] MEDS: Ketorolac Tromethamine 15 MG/ML VIAL IVPUSH (10:43)
[2024-04-16] MEDS: ondansetron HCL 4 MG/2 ML VIAL IVPUSH (10:43)
[2024-04-16 11:13] LABS: Influenza A PCR NEGATIVE (Negative); Influenza B PCR NEGATIVE (Negative); Resp Syncy Virus RNA Qual PCR NEGATIVE (Negative); SARS COV2 PCR INHOUSE NEGATIVE (Negative)
[2024-04-16] MEDS: Acetaminophen 1,000 MG/100 ML PIGGYBACK 400 MG IV (12:28)
[2024-04-16 14:45] VITALS: BP 148/62; PULSE 85; RESP 18; TEMP 36.9; O2SAT 98
== END 2024-04-16 14:45 | disposition home or self-care (01) ==
PROVIDERS: Nurse Practitioner Family; Emergency Provider Emergency Medicine; PCP Physician Assistant
DX: B34.9 Viral infection, unspecified (principal); R11.2 Nausea with vomiting, unspecified; R10.13 Epigastric pain; R53.1 Weakness; R51.9 Headache, unspecified; M79.10 Myalgia, unspecified site; Z03.818 Encounter for observation for suspected exposure to other biological agents ruled out; Z79.899 Other long term (current) drug therapy
CPT/HCPCS: 0241U; 36415; 70450; 80048; 80076; 83690; 85025; 93005; 96361; 96365; 96375; 99284; 99285; J0131; J1885; J2405; J7120

== ENCOUNTER → 2024-04-16 10:16 | Outpatient (BNV) | payer OTHER, MEDICARE, SELFPAY | PROVIDERS: Emergency Provider Emergency Medicine; PCP Physician Assistant; Visit Provider Internal Medicine | DX: R53.1 Weakness (principal) | CPT/HCPCS: 93010 ==

== ENCOUNTER → 2024-04-16 12:12 | Outpatient (BNV) | payer OTHER, MEDICARE, SELFPAY | PROVIDERS: Emergency Provider Emergency Medicine; PCP Physician Assistant; Visit Provider Radiology Diagnostic Radiology | DX: R51.9 Headache, unspecified (principal) | CPT/HCPCS: 70450 ==

== ENCOUNTER 2024-06-05 15:56 | Outpatient (AMB) | payer OTHER, MEDICARE, SELFPAY ==
[2024-06-05 15:59] VITALS: BP 110/68; PULSE 73; O2SAT 95; BMI 33.8
--- NOTE | 2024-06-05 15:59 | MHC.PC.OV ---
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 Accompanied by: Self / Same As Patient Allergies No Known Allergies Allergy (Verified 06/05/24 16:16) Medication List - Last Reconciled 06/05/24 by Vaughn Ly PA-C albuterol sulfate 90 mcg/actuation (Ventolin HFA) 2 puffs inhalation QID PRN 30 days albuterol sulfate 2.5 mg (3 mL) inhalation Q6H PRN 30 days zeibxlzbeox-wslhzbsin-fwuqfsci 200-62.5-25 mcg (Trelegy Ellipta) 1 inh inhalation DAILY 30 days loperamide (Imodium A-D) 2 mg PO Q6H PRN methylprednisolone PO PER PKG DIR for 6 days mometasone 100 mcg/actuation (Asmanex HFA) 2 puffs inhalation BID montelukast (Singulair) 10 mg PO BEDTIME 30 days nebulizers As directed ondansetron 4 mg PO Q8H PRN Tobacco use date assessed: 06/05/24 Fall risk assessment: No Falls in past year Last assessed Fall Risk: 06/05/24 Dental Screening Dental Screen Date: 06/05/24 Did you have a dental visit in the last 12 months?: Yes Did you have a dental problem in the last 6 months where you did not have access to dental care?: No Was dental information given to patient?: Patient has dentist HPI Physical HPI Details Patient is a 63-year-old female here today for a routine annual physical.? Patient's past medical history significant for asthma and obesity. Concern-->having dizziness over the last 3-4 months associated with changes in body movements and walking down hallways.. She reports she has a history of positional vertigo in the past. .. Asthma: She has establish care with [facility] (Dr. Eden). Asthma has been generally well controlled on current dose of Trelegy though at times she reports having some asthma symptoms flare up. She does use a portable nebulizer inhaler quite often. . . Borderline high cholesterol:? Also noted most recent labs showing borderline high cholesterol has been working on lifestyle modifications to help reduce her total cholesterol. .. Class 1 obesity: Patient does understand her BMI is over 30 work on being more physically active and adapting to better eating habits to reduce her weight. Colon cancer screening: Done in 2015 and [place]- of note does have a family history of colon cancer Mammogram: Done 08/2023- [facility]IR[facility] 1 .. [facility]: need UTD with PAP- negative Pap in 2019 Vaccines: Up-to-date with COVID vaccine, needs tetanus and shingles vaccine, Need PCV-though was still considering - declines all available vaccines today [facility] Medical History (Updated 06/05/24 @ 16:41 by Vaughn Ly PA-C) Anal polyp Arthralgia Pulmonary nodule Chronic cough Asthma Surgical History No pertinent past surgical history Family History Father Cancer Colon cancer Mother Respiratory arrest Daughter Lymphoma Paternal Aunt Breast CA Ovarian cancer Social History Household Members: Family Housing: Apartment Do you presently have visiting nurse or other home services: No Alcohol intake: current Alcohol intake frequency: holidays/special occasions only Patient Tobacco Use Status: Never used Tobacco e-Cigarette/Vaping Use: Never Used Second Hand Smoke Exposure: No service: No Current occupational status: employed 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 1. Little interest or pleasure in doing things: not at all 2. Feeling down, depressed, or hopeless: not at all 3. Trouble falling or staying asleep, or sleeping too much: not at all 4. Feeling tired or having little energy: not at all 5. Poor appetite or overeating: not at all 6. Feeling bad about yourself - or that you are a failure or have let yourself or your family down: not at all 7. Trouble concentrating on things, such as reading the newspaper or watching television: not at all 8. Moving or speaking so slowly that other people could have noticed. Or the opposite - being so fidgety or restless that you have been moving around a lot more than usual: not at all 9. Thoughts that you would be better off or of hurting yourself in some way: not at all Total score: 0 Depression Screening Interpretation: Negative Depression Screening Done: Yes 67517 - PHQ-9 Billing: Yes Source: Developed by Drs. Luiz Lee, Lorna Mackay, Kevin Gold and colleagues, with an educational lola from [employer]. Thrive Questionnaire Date Thrive assessed: 06/05/24 I am a: Patient What is your living situation today?: I have a steady place to live Within the past 12 months, did the food you bought not last and you didn't have the money to get more?: Never true Within the past 12 months, did you worry whether your food would run out before you got money to buy more?: Never true Do you have trouble paying for medicines?: No Do you have trouble getting transportation to medical appointments?: No Do you have trouble paying your heating and electricity bill?: No Do you have trouble taking care of your child, family member or friend?: No Do you have trouble with day-to-day activities such as bathing, preparing meals, shopping, managing finances, etc.?: No Are you currently unemployed and looking for a job?: No Are you interested in more education?: No Please select the resources that you would like help with: None Currently or been in a relationship where the following occur: No concerns reported THRIVE Score: 0 AUDIT C Alcohol Use Questionnaire (AUDIT-C) 1. How often do you have a drink containing alcohol?: Monthly or less 2. How many drinks containing alcohol do you have on a typical day when you are drinking?: 1 or 2 3. How often do you have six or more drinks on one occasion?: Never Total Score: 1 FLAKITO-7 AMB Questionnaire FLAKITO-7 Date FLAKITO - 7 assessed: 06/05/24 Feeling nervous, anxious, or on edge: 0 = Not at all Not being able to stop or control worryin = Not at all Worrying too much about different things: 0 = Not at all Trouble relaxin = Not at all Being so restless that it is hard to sit still: 0 = Not at all Becoming easily annoyed or irritable: 0 = Not at all Feeling afraid as if something awful might happen: 0 = Not at all Total FLAKITO-7 score (0-4 normal; 5-9 mild; 10-14 moderate; 15-21 severe): 0 Source: Developed by Drs. Luiz Lee, Lorna Mackay, Kevin Gold and colleagues, with an educational lola from [employer]. FLAKITO-7 Assessment Billing FLAKITO-7 Assessment Tool: FLAKITO-7 Assessment 48543 Review of Systems Const Denies body aches, Denies chills, Denies excessive sweating, Denies fatigue, Denies fever(s) and Denies headache(s) Eyes Denies blurry vision ENT Denies dysphagia, Denies vertigo, Denies dizziness, Denies headache(s), Denies hearing loss and Denies tinnitus Card Denies chest pain, Denies chest pain with activity, Denies syncope, Denies irregular heart rhythm and Denies dyspnea Resp Denies chest congestion, Denies cough, Denies hemoptysis, Denies dyspnea and Denies wheezing GI Denies abdominal pain, Denies melena, Denies hematochezia, Denies coffee ground emesis, Denies dysphagia, Denies diarrhea, Denies nausea and Denies vomiting Denies urinary frequency, Denies dysuria, Denies urinary hesitancy and Denies urinary urgency Musc Denies arthralgias, Denies limited range of motion, Denies muscle cramps and Denies muscle weakness Skin/Breast Denies rash and Denies skin ulcer Neuro Denies Abnormal speech present, Denies confusion, Denies vertigo, Denies dizziness, Denies syncope, Denies headache(s), Denies memory loss and Denies seizure-like activity Psych Denies anxiety, Denies confusion, Denies depression, Denies memory loss, Denies panic attacks and Denies paranoia Endo Denies excessive sweating, Denies fatigue, Denies flushing, Denies polydipsia and Denies polyuria Aller/Immun Denies wheezing Physical exam (Primary Care) Vital Signs: Last Vital Signs Pulse 73 06/05/24 15:59 BP 110/68 06/05/24 15:59 Pulse Ox 95 06/05/24 15:59 Oxygen Delivery Method Room Air 06/05/24 15:59 BMI result Body Mass Index 33.8 BMI Assessment/Plan discussion: High BMI High, discussed plan: lifestyle, weight reduction, dietary and physical activity Tobacco/Smoking Status: Tobacco use Status Tobacco use date assessed 06/05/24 06/05/24 16:02 Patient Tobacco Use Status Never used Tobacco 06/05/24 16:02 e-Cigarette/Vaping Use Never Used 06/05/24 16:02 PHQ-9: PHQ-9 Score PHQ-9: Total score 0 06/05/24 16:02 Depression Screening Interpretation: Negative Thrive Assessment: Date of Thrive Assessment Date Thrive assessed 06/05/24 06/05/24 16:08 Currently or been in a relationship where the following occur: No concerns reported Const General: cooperative, comfortable, no acute distress, alert and awake; No confusion Orientation/consciousness: oriented to person, oriented to place, patient oriented x3 and No confusion HENMT Head: Yes normocephalic Ears: external ears normal and TM's normal bilaterally Face and sinus: No sinus tenderness Mouth: Normal oral and palatal mucosa present and tongue normal Teeth and gingiva: dentition normal and gingiva normal Throat: Yes posterior oropharynx normal, Yes tonsils normal and Yes uvula midline Eyes Conjunctivae: conjunctivae normal Sclerae: sclerae normal Pupils: Equal, round and reactive pupils present EOM: EOMs intact bilaterally Direct Ophthalmoscopy: No no photophobia Neck Neck: Yes no lymphadenopathy, No tender and Yes no JVD Thyroid: Thyroid normal Carotids: no bruits Chest Chest palpation & inspection: no tenderness Resp Effort & Inspection: normal respiratory effort, no audible wheezes, not labored and no stridor Auscultation: no crackles, no rales, no rhonchi and no wheezes Cardio Jugular venous distension: no JVD Rate: regular rate, not bradycardic and not tachycardic Rhythm: regular rhythm Bruits: no carotid bruits Peripheral pulses: Peripheral pulses 2+ throughout GI Inspection: Yes normal to inspection, No abdominal wall ecchymosis and No visible herniation Palpation (GI): Soft to palpation, nontender, no guarding, not rigid and No hepatosplenomegaly present Auscultation: normoactive bowel sounds General: Yes no CVA tenderness Back/Spine/Pelvis Back: no CVA tenderness and No back tenderness Cervical Spine: cervical ROM normal Thoracic/Lumbar Spine: thoracic and lumbar spine normal to inspection, straight leg raise negative bilaterally, No thoraco-lumbar ROM limited and No lumbar spinal tenderness Skin Lesions: no lesions Rashes: no rashes Wounds: no wounds Neuro General: oriented to person, oriented to place, patient oriented x3, CN's II-XI intact bilaterally and No confusion Cranial nerves: Yes Equal, round and reactive pupils present and Yes Normal accommodation reflex present Cognition (Neuro): normal cognition Speech: No Abnormal speech present Gait exam (Neuro): Normal gait present Motor exam (neuro): 5/5 motor strength present throughout Extrem Right upper extremity: full ROM; no cyanosis Left upper extremity: full ROM; no cyanosis Right lower extremity: no edema Left lower extremity: no edema Psych Appearance: grossly normal Mental Status: mental status grossly normal Affect: normal affect Attitude: cooperative Thought process: Normal thought process present Coding Level of Care Code Est Pt Prev Care >65y(77686) Diagnoses Annual physical exam Z00.00 Severe persistent asthma without complication J45.50 Asthma severity: severe Asthma persistence: persistent Asthma complication type: uncomplicated Borderline high cholesterol E78.9 Class 1 obesity E66.811 Benign paroxysmal positional vertigo of left ear H81.12 Laterality: left Family history of colon cancer in father Z80.0 Complex ovarian cyst N83.299 Additional Codes PHQ-9 - 36151 - PHQ-9 Billing: Yes ([id number]) FLAKITO-7 Assessment Billing - FLAKITO-7 Assessment Tool: FLAKITO-7 Assessment 84832 ([id number]) Assessment & Plan Assessment & Plan (1) Annual physical exam: Code(s): Z00.00 - Encounter for general adult medical examination without abnormal findings Category: Medical Plan: As per HPI (2) Asthma: Code(s): J45.909 - Unspecified asthma, uncomplicated Category: Medical Qualifiers: Asthma severity: severe Asthma persistence: persistent Asthma complication type: uncomplicated Qualified Code(s): J45.50 - Severe persistent asthma, uncomplicated Plan: Patient reports her asthma is fairly well controlled now on maintenance inhaler trelogy. She does have an albuterol inhaler available to her for rescue. (3) Borderline high cholesterol: Code(s): E78.9 - Disorder of lipoprotein metabolism, unspecified Category: Medical Plan: Patient's most recent lipid panel showing borderline high total cholesterol. She has been working on dietary modifications to reduce her high cholesterol foods. Will continue to follow fasting lipid panel with goal total cholesterol to be below 200. (4) Class 1 obesity: Code(s): E66.811 - Obesity, class 1 Category: Medical Plan: Patient does understand her BMI is over 30 will work on being more physically active and adapting to better eating habits to reduce her weight (5) BPPV (benign paroxysmal positional vertigo): Code(s): H81.10 - Benign paroxysmal vertigo, unspecified ear Category: Medical Qualifiers: Laterality: left Qualified Code(s): H81.12 - Benign paroxysmal vertigo, left ear Plan: Patient does report signs and symptoms of benign paroxysmal positional vertigo. She would likely benefit from vestibular therapy thus will place an order for therapy. (6) Family history of colon cancer in father: Code(s): Z80.0 - Family history of malignant neoplasm of digestive organs Category: Medical Plan: Patient reports her father had colon cancer, last colonoscopy was report in 2014. She is willing to do screening colonoscopy. (7) Complex ovarian cyst: Code(s): N83.299 - Other ovarian cyst, unspecified side Category: Medical Plan: Patient has a history of a left complex ovarian cyst that appeared to benign in June of 2023. Recommendations for annual screening. Orders: Orders PT Evaluation and Treatment Today H81.10 - Benign paroxysmal vertigo, unspecified ear US pelvic and transvaginal Today N83.299 - Other ovarian cyst, unspecified side Referrals Gastroenterology Referral Z80.0 - Family history of malignant neoplasm of digestive organs Medications: Refilled albuterol sulfate 90 mcg/actuation (Ventolin HFA) 2 puffs inhalation QID 30 days PRN 18 grams 3RF shortness of breath or wheezing
--- OUTSIDE RECORDS SUMMARY | 2024-06-05 18:41 | XMS_ITS | Clinical Summary ---
Author Organization [facility] Address [address] [place] [address] Care Team Providers Care Patrol Deputy Sheriff Name Role Phone Mary Garcia MD Primary Care Provider [phone] Social History Tobacco Use Types Packs/Day Years [...] 01/10/2022 COVID-19 Vaccine (2023-2 5 season) 2023 Falls Risk Assessment 10/31/2023 Influenza Vaccine (Season Ended) 2024 RSV Immunization Adult Patie nts (1 - 1-dose 75+ series) 2033 HIB [...] age to complete this topic Meningococcal B Vaccine Aged Out No l onger eligible based on patient's age to complete [...] age to complete this topic Care Teams Patrol Deputy Sheriff Relationship Specialty Start Date End Date Mary Garcia MD [address] [place] [id number] PCP - General Internal Medicine 12/25/16
--- OUTSIDE RECORDS SUMMARY | 2024-06-05 18:41 | XMS_ITS | Patient Health Record ---
Author Organization [facility] Address [address] [place] [address] Care Team Providers Care Bicycle Inspector Name Role Phone Vaughn Ly Primary Care Provider Unavailab jerson Guardadoderick Nano Unavailable [phone] DIO ANTUNEZ Unavailable [phone] ALLERGIES No Known Allergies REASON FOR REFERRAL [...] due to excess calories (E66.09) Active confirmed [id number] Problem Moderate asthma without complication, unspecified whether persistent (J45.909) Active confirmed 836658064 Problem Body mass index [BMI] 38.0-38.9, adult (Z68.38) Active confirmed [id number] Problem BMI 35.0-35.9,adult (Z68.35) Active confirmed 885701361 VITAL SIGNS Heart Rate 66 /min 09/29/2023 Blood pressure diastolic 76 mm Hg 09/29/2023 Oximetry 98 % 09/29/2023 Height 58 in 09/29/2023 Blood pressure systolic 122 mm Hg 09/29/2023 Weight 168 lbs 09/29/2023 BMI 35.11 kg/m2 09/29/2023 Encounters Encounter Location Date Provider Diagnosis [facility] [address] [place] [address] 08/18/2023 [facility] [facility] [address] [place] [address] 08/25/2023 [facility] [address] [facility] [address] [place] [address] 09/01/2023 [facility] [facility] [address] [place] [address] 09/08/2023 [facility] [facility] [address] [place] [address] 09/22/2023 [facility] [place] [address] 10/06/2023 DIO [facility] [address] [place] [address] 11/25/2023 Nano Svrcek [address] [place] [address] 08/11/2023 Nano Svrcek Other obesity due to excess calories E66.09 ; Body mass index [BMI] 38.0-38.9, adult Z68.38 and Moderate asthma without complication, unspecified whether persistent J45.909 [address] [place] [address] 09/29/2023 Nano Svrcek Other obesity due to excess calories E66.09 ; BMI 35.0-35.9,adult Z68.35 and Moderate asthma without complication, unspecified whether persistent J45.909 [address] [place] [address] 08/11/2023 Nano Arrington ASSESSMENTS Encounter Date Diagnosis [...] we have compounded semaglutide and tirzepatide from [facility] in [place]. These medications are not FDA approved for [...] track activity level. Consider using apps like Roundbox, SpaceCurvepal, lose it, stick as needed for self-monitoring and weight management. Consider group exercises. Consider hiring a green jobs trainer. Regular exercise is oseguera to sustainable health [...] counseling and psychiatry and Dr Covarrubias at [email or web address]. We would like to cover regular topics [...] Dictation was accomplished with the use of Hytle voice recognition software, prone to medical misidentifications [...] we have compounded semaglutide and tirzepatide from [facility] in [place]. These medications are not FDA approved for [...] track activity level. Consider using apps like [employer]ise, SpaceCurvepal, lose it, stick as needed for self-monitoring and weight management. Consider group exercises. Consider hiring a green jobs trainer. Regular exercise is oseguera to sustainable health [...] counseling and psychiatry and Dr Covarrubias at [email or web address]. We would like to cover regular topics [...] Dictation was accomplished with the use of Hytle voice recognition software, prone to medical misidentifications [...] Dictation was accomplished with the use of Hytle voice recognition software, prone to medical misidentifications [...] Dictation was accomplished with the use of Hytle voice recognition software, prone to medical misidentifications [...] Dictation was accomplished with the use of Hytle voice recognition software, prone to medical misidentifications [...] we have compounded semaglutide and tirzepatide from [facility] in [place]. These medications are not FDA approved for [...] track activity level. Consider using apps like Roundbox, SpaceCurvepal, lose it, stick as needed for self-monitoring and weight management. Consider group exercises. Consider hiring a green jobs trainer. Regular exercise is oseguera to sustainable health [...] counseling and psychiatry and Dr Covarrubias at [email or web address]. We would like to cover regular topics [...] Dictation was accomplished with the use of Hytle voice recognition software, prone to medical misidentifications [...] Insured Coverage Start Date Coverage End Date [facility] [address] [place] [address] [id number] Anne Marie Carballo Self - patient is [...]
--- OUTSIDE RECORDS SUMMARY | 2024-06-05 18:42 | XMS_ITS ---
Author Organization [employer] [facility] Address [address] [place] [address] Care Team Providers Care Marketing Project Coordinator Name Role Phone Vaughn Ly Primary Care Provider UnavailNano Raymond Unavailable [phone] MEDICATIONS Medication SIG (Take, Route, Frequency, Duration) [...] Location Date Provider Diagnosis [address] [address] 11/25/2023 Nano Arrington PLAN OF TREATMENT No Information Progress Notes * Vita CARBALLOaDOB:1960 (63 yo F)Acc No.[id number]:11/25/2023 Patient:??Anne Marie CARBALLO Provider:??Nano Arrington PA-C :1960?Age:63 Y?Sex:Fe male Date:11/25/2023 Address:[address], [place] Pcp:Vaughn Ly Subjective: * Chief Complaints: * ? * HPI: ?Constitutional:? Sandra is a 62-year-old female here today for weight management follow up. 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 She typically will eat crackers or muffins in the morning often will skip lunch and has rice or sandwich in the evenings. She just restarted exercise regimen at [employer] 2-3 times a week in the past [...] Wishes she lost more. ?PMH: Asthma [facility] ?Highest weight: 183.5 ?Lowest weight: 120 ?Current weight: ?Weight last visit: 168.8, BMI 35.3 ?Goal weight: 130-140 ?Trials in the past: exercise regimen, ?Protein intake: limited ?Water intake: good amount ?Exercise: Started again at [employer] last week- 2-3 times a week. ?Barriers: [...] intact. Assessment: Plan: * Treatment: * Procedure Codes:??95890 NO S HOW OFFICE VISIT * Images: Billing Information: * Visit Code:?? * Procedure Codes:?? 73386 NO SHOW OFFICE VISIT. * Sign off [...] evenings. She just restarted exercise regimen at [employer] 2-3 times a week in the past [...] Wishes she lost more. PMH: Asthma PCP: [facility], Harish Ly Highest weight: 183.5 Lowest weight: 120 Current weight: Weight last visit: 168.8, BMI 35.3 Goal weight: 130-140 Trials in the past: exercise regimen, Protein intake: limited Water intake: good amount Exercise: Started again at [employer] last week- 2-3 times a week. Barriers: [...]
--- OUTSIDE RECORDS SUMMARY | 2024-06-05 18:42 | XMS_ITS ---
Author Organization [facility] Address [address] [place] [address] Care Team Providers Care Net C Developer Name Role Phone Vaughn Ly Primary Care Provider Eleazar Nano Whitehead Unavailable [phone] ALLERGIES No Known Allergies REASON FOR VISIT [...] Problem BMI 35.0-35.9,ad ult (Z68.35) Active confirmed [id number] VITAL SIGNS Blood pressure systolic 122 mm Hg 09/29/19 24 Blood pressure diastolic 76 mm Hg 024 Heart Rate 66 /min 09/29/2023 Height 58 in 09/29/2023 Weight 168 lbs 09/29/2023 BMI 35.11 kg/m2 09/29/2023 Oximetry 98 % 09/29/2023 Encounters Encounter Location Date Provider Diagnosis [address] [facility] [address] [place] [address] 09/29/2023 Nano Arrington Other obesity due to [...] Dictation was accomplished with the use of [employer] voice recognition software, prone to medical misidentifications [...] Dictation was accomplished with the use of [employer] voice recognition software, prone to medical misidentifications [...] Dictation was accomplished with the use of [employer] voice recognition software, prone to medical misidentifications [...] Notes * Vita CARBALLOaDOB:1960 (62 yo F)Acc No.[id number]:09/29/2023 Patient:??Anne Marie CARBALLO Provider:??Nano Arrington PA-C :1960?Age:62 Y?Sex:Fe male Date:09/29/2023 Address:[address] [place] [address] Pcp:Vaughn Ly Subjective: * Chief Complaints: * [...] evenings. She just restarted exercise regimen at [employer] 2-3 times a week in the past [...] Wishes she lost more. ?PMH: Asthma ?PCP: [facility], Harish Ly ?Highest weight: 183.5 ?Lowest weight: 120 ?Current weight: 168.8, BMI 35.3 (-15!) ?Weight last visit: 183.5, BMI 38.4 ?Goal weight: 130-140 ?Trials in the past: exercise regimen, ?Protein intake: limited ?Water intake: good amount ?Exercise: Started again at [employer] last week- 2-3 times a week. ?Barriers: [...] Dictation was accomplished with the use of [employer] voice recognition software, prone to medical misidentifications [...] by Reji Rick on subcutaneus * Procedure Codes:??17114 P/M MANUFACTURING MILLWRIGHT, INDIV 15 MIN * Follow Up:??4 Weeks (Reason: Sema) * Images: Billing Information: * Visit Code:?? 53676 Office Visit, Est Pt., Level 4. * Procedure Codes:?? 42037 P/M [employer]UFA[employer] MILLWRIGHT, INDIV 15 MIN. * Sign off status: [...] evenings. She just restarted exercise regimen at [employer] 2-3 times a week in the past [...] Wishes she lost more. PMH: Asthma PCP: [facility], Harish Ly Highest weight: 183.5 Lowest weight: 120 Current weight: 168.8, BMI 35.3 (-15!) Weight last visit: 183.5, BMI 38.4 Goal weight: 130-140 Trials in the past: exercise regimen, Protein intake: limited Water intake: good amount Exercise: Started again at [employer] last week- 2-3 times a week. Barriers: [...]
--- OUTSIDE RECORDS SUMMARY | 2024-06-05 18:42 | XMS_ITS ---
Author Organization [employer] [facility] Address [address] [place] [address] Care Team Providers Care Motorcycle Police Name Role Phone Vaughn Ly Primary Care Provider Unavailab jerson Gastongrupo Nano Unavailable [phone] DIO ANTUNEZ Unavailable [phone] REASON FOR VISIT pt here for sema [...] Active Encounters Encounter Location Date Provider Diagnosis [facility] [address] [address] 10/06/2023 DIO ANTUNEZ PLAN OF TREATMENT No Information MEDICATIONS ADMINISTERED Medication Instructions Date of Administration Dosage Notes Semaglutide 10/06/2023 0.5 mg Progress Notes * Saul CARBALLOB:1960 (63 yo F)Acc No.[id number]:10/06/2023 Patient:??Anne Marie CARBALLO Provider:??DIO ANTUNEZ NP :1960?Age:62 Y?Sex:Fe male Date:10/06/2023 Address:[address] [place], [place] [id number] Pcp:Vaughn Ly Subjective: * Chief Complaints: * [...]
== END 2024-06-05 16:40 | disposition home or self-care (01) ==
LOC: HO.HMCH 15:57
PROVIDERS: PCP Physician Assistant; Visit Provider Physician Assistant
DX: Z00.00 Encounter for general adult medical examination without abnormal findings (principal); J45.50 Severe persistent asthma, uncomplicated; E66.811 Obesity, class 1; Z68.33 Body mass index [BMI] 33.0-33.9, adult; E78.9 Disorder of lipoprotein metabolism, unspecified; H81.12 Benign paroxysmal vertigo, left ear; Z80.0 Family history of malignant neoplasm of digestive organs; N83.299 Other ovarian cyst, unspecified side

== ENCOUNTER → 2024-06-05 15:56 | Outpatient (BNVA) | payer OTHER, MEDICARE, SELFPAY | PROVIDERS: PCP Physician Assistant; Visit Provider Physician Assistant | DX: Z00.00 Encounter for general adult medical examination without abnormal findings (principal); J45.50 Severe persistent asthma, uncomplicated; E78.9 Disorder of lipoprotein metabolism, unspecified; E66.811 Obesity, class 1; Z68.33 Body mass index [BMI] 33.0-33.9, adult; H81.12 Benign paroxysmal vertigo, left ear; N83.292 Other ovarian cyst, left side; Z80.0 Family history of malignant neoplasm of digestive organs | CPT/HCPCS: 96127 ==

== ENCOUNTER 2024-06-30 15:14 | Outpatient (REF) | payer OTHER, MEDICARE, SELFPAY ==
--- NOTE | ~2024-06-30 | US_ITS ---
EXAMINATION: US PELVIS TRANSABDOMINAL AND TRANSVAGINAL HISTORY: N83.299 - Other ovarian cyst, unspecified side COMPARISON: Comparison is made with the prior examination dated 06/15/2023. TECHNIQUE: Transabdominal and endovaginal real-time 2D jones-scale ultrasound was performed. FINDINGS: Uterus: The uterus is normal in size, measuring 6.1 x 2.7 x 3.0 cm. Myometrium has a normal echotexture. Again seen is an anterior fibroid measuring 1.7 x 1.6 x 1.8 cm (previously 1.6 x 1.1 x 1.7 cm). Endometrium: The endometrial stripe measures 4 mm in thickness. Right ovary: The right ovary is not visualized. Left ovary: The left ovary measures 4.8 x 5.0 x 4.6 cm. Again seen is a septated cyst measuring 3.9 x 3.9 x 4.2 cm (previously 3.8 x 3.7 x 2.6 cm). Pelvic fluid: none. US/US pelvic and transvaginal IMPRESSION: 1. 1.7 x 1.6 x 1.8 cm anterior uterine fibroid. 2. Enlarging septated left ovarian cyst measuring 3.9 x 3.9 x 4.2 cm. MEDIA REPORTER consultation is recommended. Electronically signed by: Luiz Santamaria MD 06/30/2024 03:58 PM EDT
--- OUTSIDE RECORDS SUMMARY | 2024-06-30 15:17 | XMS_ITS | Clinical Summary ---
Author Organization [facility] Address [address] [place] [address] Care Team Providers Care Citrix Consultant Name Role Phone Mary Garcia MD Primary Care Provider [phone] Social History Tobacco Use Types Packs/Day Years [...] age to complete this topic Care Teams Citrix Consultant Relationship Specialty Start Date End Date Mary Garcia MD [address] [place] [address] PCP - General Internal Medicine 12/25/16
== END 2024-06-30 15:15 | disposition home or self-care (01) ==
LOC: HO.US 15:14
PROVIDERS: PCP Physician Assistant; Visit Provider Physician Assistant
DX: N83.299 Other ovarian cyst, unspecified side (principal)
CPT/HCPCS: 76830; 76856

== ENCOUNTER → 2024-06-30 15:18 | Outpatient (BNV) | payer OTHER, MEDICARE, SELFPAY | PROVIDERS: PCP Physician Assistant; Visit Provider Radiology Diagnostic Radiology | DX: N83.292 Other ovarian cyst, left side (principal) | CPT/HCPCS: 76830; 76856 ==

== ENCOUNTER 2024-07-04 15:19 | Outpatient (AMB) | payer OTHER, MEDICARE, SELFPAY ==
--- OUTSIDE RECORDS SUMMARY | 2024-07-04 15:21 | XMS_ITS | Clinical Summary ---
Author Organization [facility] Address [address] [place] [address] Care Team Providers Care Asp Net C Developer Name Role Phone Mary Garcia MD Primary Care Provider [phone] Social History Tobacco Use Types Packs/Day Years [...] age to complete this topic Care Teams Asp Net C Developer Relationship Specialty Start Date End Date Mary Garcia MD [address] [place] [address] PCP - General Internal Medicine 12/25/16
--- NOTE | 2024-07-04 15:24 | MHC.OFFVIS ---
Vital Signs 07/04/24 15:29 Height 4 ft 11 in Weight 167 lb 8.821 oz BMI 33.8 BP 132/70 Blood Pressure Location Lt brachial Position Sitting Pulse 74 Pulse Source Pulse Oximeter Pulse Oximetry (%) 95 Oxygen Delivery Method Room Air Intake Visit Reasons: Asthma Allergies No Known Allergies Allergy (Verified 07/04/24 15:29) HPI Comments Details: The patient is a 63 year woman with known severe persistent asthma. She has been living in the [place] now for several years after moving from [place]. Since she has moved to the [facility] she has had significant asthma symptoms. She is required multiple courses of prednisone. She has been on multiple inhalers without any significant improvement. She does get better response to her nebulizer therapy. She does have a portable nebulizer and also nebulizer in the home. She does perform the nebulized treatments 2 to 3 times a day to help her symptoms. She has a chronic cough typically productive in nature. The patient did have imaging studies including CT scan of the abdomen and pelvis in the past. I did review the images of the lung windows with her. She appears to have significant bronchitis and also mucus plugging. In addition to that she did have a right lower lobe pulmonary nodule subcentimeter in size the needs to have further follow-up. In addition to that we did review blood work. The patient has significant eosinophilia. She was in the hospital back in June when she was having significant symptoms. At that point she did have the highest eosinophil count above a 1000. the patient required multiple courses of prednisone she does respond well to the prednisone. She was switched over to Asmanex inhaler although she is confused about which is her rescue and maintenance inhaler. I do believe that her inhalers have to be simplified in order for her to have the most effective in the best adherence during inhalers. Therefore, we did teach her how to use Trelegy inhaler and we sent 1 prescription to the pharmacy. In addition to that she can use her nebulizer treatments and oral albuterol HFA as needed. The patient also will start allergy medication. The patient does have significant wheezing on examination and I do believe that may benefit from biologic therapy. Will go ahead and request blood work in addition to allergy testing at this time. If her eosinophils continue to be elevated and her IgE level then will further consider biologic therapy. This is specially if she continues to be symptomatic even On maximum respiratory therapy. 09/02/2023 The patient is here for a pulmonary follow up visit. Overall, she is feeling better. She took the Trelegy for a month and felt great, then she stopped it. Slowly her symptoms have been coming back. [facility] We did review her labs demonstrating a significant allergic asthma. She did not feel comfortable taking the singulair because of potential side effects. I did reassure her and would be a good medicine based on her allergy component and also to decrease her inhaled steroid requirements. She will also be a good Biologic therapy candidate if her symptoms continue to worsen. 12/06/2023 the patient is here for a pulmonary follow-up visit. The patient overall has been doing well. She has responded well to the Trelegy. The Trelegy has been affecting beneficial. She has not had to use any prednisone which is reassuring. The patient also has been taking Claritin although is making a little bit more awake at nighttime so therefore she has not been using it. We did review her blood work including allergy testing. Her IgE level is elevated and also her eosinophils continue significantly elevated consistent with allergic asthma. Although her allergy testing did not show any particular allergens in the RAST testing. Any other potential allergens would have to be checked with scratch test with an toy electric train repairer. However, since she is doing well we can hold off on that. She needs to go back on the Claritin. She will try half dose of team she makes that work for her. She is also complaining of some arthralgias. Typically of the hand the small joints. This is something new and she is concerned about it. She is also concerned about her cholesterol. She had to miss her doctor's appointment today because of disappointment and she is concerned that her cholesterol was elevated. Therefore I will go ahead and request blood work and she can follow-up with her primary care atThis time. 07/04/2024 the patient is here for a pulmonary follow-up visit. She continues to do well from an asthma standpoint. She continues to respond well to the respiratory therapy. She does have a rescue medicine. She had to use the last night but otherwise is been typically less than once a week. Feels like her asthma is in good control. No need for any additional interventions. She has been complaining of the abdominal and pelvic discomfort. She recently had an ultrasound. She is going to be following up with her engraver seals doctor for a growing cyst and also uterine Fibroids. At least from a pulmonary standpoint the patient is doing well she may be able to proceed with anesthesia and surgery. Likely that she will require surgery for this. Otherwise the patient is doing well. She did have a CT scan back in August 2023 demonstrating underlying pulmonary nodules. She will need to have a repeat CAT scan around the summer August 2024 to make sure the pulmonary nodules have been stable. She does have a family history positive for cancer. [facility] Medical History (Updated 06/05/24 @ 16:41 by Vaughn Ly PA-C) Anal polyp Arthralgia Pulmonary nodule Chronic cough Asthma Surgical History No pertinent past surgical history Family History Father Cancer Colon cancer Mother Respiratory arrest Daughter Lymphoma Paternal Aunt Breast CA Ovarian cancer Social History Household Members: Family Housing: Apartment Do you presently have visiting nurse or other home services: No Alcohol intake: current Alcohol intake frequency: holidays/special occasions only Patient Tobacco Use Status: Never used Tobacco e-Cigarette/Vaping Use: Never Used Second Hand Smoke Exposure: No service: No Current occupational status: employed 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 [employer] Gender identity: Female Cognitive needs: No Hearing needs: No Vision needs: No Female Reproductive History Menstrual Age of Menarche: 9 Review of Systems Const Denies body aches, Denies chills, Denies excessive sweating, Denies fatigue, Denies fever(s) and Denies headache(s) Eyes Denies blurry vision ENT Denies dysphagia, Denies vertigo, Denies dizziness, Denies headache(s), Denies hearing loss and Denies tinnitus Card Denies chest pain, Denies chest pain with activity, Denies syncope, Denies irregular heart rhythm and Denies dyspnea Resp Denies chest congestion, Denies cough, Denies hemoptysis, Denies dyspnea and Denies wheezing GI Denies abdominal pain, Denies melena, Denies hematochezia, Denies coffee ground emesis, Denies dysphagia, Denies diarrhea, Denies nausea and Denies vomiting Reports as per HPI, Denies urinary frequency, Denies dysuria, Reports pelvic pain, Denies urinary hesitancy and Denies urinary urgency Musc Denies arthralgias, Denies limited range of motion, Denies muscle cramps and Denies muscle weakness Skin/Breast Denies rash and Denies skin ulcer Neuro Denies Abnormal speech present, Denies confusion, Denies vertigo, Denies dizziness, Denies syncope, Denies headache(s), Denies memory loss and Denies seizure-like activity Psych Denies anxiety, Denies confusion, Denies depression, Denies memory loss, Denies panic attacks and Denies paranoia Endo Denies excessive sweating, Denies fatigue, Denies flushing, Denies polydipsia and Denies polyuria Aller/Immun Denies wheezing Physical Exam Vital Signs: Last Vital Signs Pulse 74 07/04/24 15:29 BP 132/70 07/04/24 15:29 Pulse Ox 95 07/04/24 15:29 Oxygen Delivery Method Room Air 07/04/24 15:29 BMI result Body Mass Index 33.8 Const General: No confusion Orientation/consciousness: No confusion HEENT Head: Yes normocephalic Neck Neck: Yes supple Chest Chest palpation & inspection: normal inspection of the chest Resp Effort & Inspection: normal respiratory effort, Actively coughing Quality: actively coughing and No prolonged expiratory phase Auscultation: clear to auscultation bilaterally and no wheezes Cardio Heart sounds: S1 normal heart sound present and S2 normal heart sound present GI Palpation (GI): Soft to palpation Skin General skin exam: no rashes or lesions noted Neuro General: No confusion Speech: No Abnormal speech present Extrem General: Yes no clubbing, cyanosis or edema Assessment & Plan Assessment & Plan (1) Asthma: Code(s): J45.909 - Unspecified asthma, uncomplicated Category: Medical Qualifiers: Asthma complication type: uncomplicated Asthma persistence: persistent Asthma severity: severe Qualified Code(s): J45.50 - Severe persistent asthma, uncomplicated (2) Allergies: Code(s): T78.40XA - Allergy, unspecified, initial encounter Category: Medical Qualifiers: Encounter type: initial encounter Qualified Code(s): T78.40XA - Allergy, unspecified, initial encounter (3) Chronic cough: Code(s): R05.3 - Chronic cough Category: Medical (4) Pulmonary nodule: Code(s): R91.1 - Solitary pulmonary nodule Category: Medical (5) Arthralgia: Code(s): M25.50 - Pain in unspecified joint Category: Medical Qualifiers: Joint pain location: unspecified Qualified Code(s): M25.50 - Pain in unspecified joint Plan Trelegy 200 SARIKA as needed, responds better to nebulizer therapy stopped Singulair PM half dose claritin consider Biologic therapy if worsens Bloodwork able to proceed with anesthesia and PAINTER CHASSIS surgery form a pulmonary standpoint. F/U 8-12 months Orders: Orders CT chest wo IV con 08/20/24 R91.1 - Solitary pulmonary nodule Coding Level of Care Code Est Pt Level 4 (17721) Diagnoses Severe persistent asthma without complication J45.50 Asthma complication type: uncomplicated Asthma persistence: persistent Asthma severity: severe Allergy, initial encounter T78.40XA Encounter type: initial encounter Chronic cough R05.3 Pulmonary nodule R91.1 Arthralgia, unspecified joint M25.50 Joint pain location: unspecified Time Spent (min) 16
[2024-07-04 15:29] VITALS: BP 132/70; PULSE 74; O2SAT 95; BMI 33.8
== END 2024-07-04 15:57 | disposition home or self-care (01) ==
LOC: HO.HPS 15:20
PROVIDERS: PCP Physician Assistant; Visit Provider Hospitalist
DX: J45.50 Severe persistent asthma, uncomplicated (principal); T78.40XA Allergy, unspecified, initial encounter; R05.3 Chronic cough; R91.1 Solitary pulmonary nodule; M25.50 Pain in unspecified joint
CPT/HCPCS: 99214

== ENCOUNTER 2024-09-15 15:48 | Outpatient (REF) | payer OTHER, MEDICARE, SELFPAY ==
--- NOTE | ~2024-09-15 | CT_ITS ---
CLINICAL HISTORY: R91.1 - Solitary pulmonary nodule CT chest without contrast Comparison: 09/03/2023 Findings: The heart size is normal. There is a sliding-type hiatal hernia. The visualized thyroid and mediastinum are otherwise unremarkable. Again noted and unchanged is the 0.5 cm pleural-based right upper lobe pulmonary lesion, 0.3 cm solid right middle lobe pulmonary lesion, and 0.3 cm pleural-based left upper lobe pulmonary lesion. No new consolidation or effusion. The visualized upper abdomen is unremarkable. No acute fractures. IMPRESSION: 1. Stable pulmonary lesions. This document has been electronically signed by: Toby Tom MD on 09/18/2024 09:06:48
--- OUTSIDE RECORDS SUMMARY | 2024-09-15 15:51 | XMS_ITS | Clinical Summary ---
Author Organization [facility] Address [address] [place] [address] Care Team Providers Care Industrial Gas Servicer Helper Name Role Phone Mary Garcia MD Primary Care Provider [phone] Social History Tobacco Use Types Packs/Day Years [...] 2) 2008 Colorectal Cancer Screening: Colonoscopy 01/10/2022 Hepatitis C Screening 01/10/2022 Osteoporosis Screening (Bone Density Screening) 01/10/2022 Social Influencers of Health Screening 01/10/2022 COVID-19 Vaccine ( - 2023-2 5 season) 2023 Falls Risk Assessment 10/31/2023 Depression Screening 02/09/2024 Influenza Vaccine (#1) 2024 RSV Immunization Adult Patie nts (1 [...] age to complete this topic Care Teams Industrial Gas Servicer Helper Relationship Specialty Start Date End Date Mary Garcia MD [address] [place] [address] PCP - General Internal Medicine 12/25/16
--- OUTSIDE RECORDS SUMMARY | 2024-09-15 15:51 | XMS_ITS | Patient Health Record ---
Author Organization [facility] [address] Address [address] [place] [address] Care Team Providers Care Rib Bender Name Role Phone Vaughn Ly Primary Care Provider Unavailab jerson Arrington Nano Unavailable [phone] DIO ANTUNEZ Unavailable [phone] Allergies No Known Allergies Reason For Referral No Information Medications Medication SIG (Take, Route, Frequency, Duration) [...] 0.5MG/DOS) 2 MG/3ML as directed Subcutaneous Active Social History Tobacco Use: Social History Observation Description Date Details (start date - stop date) Never Smoker NA - NA Tobacco Use/Smoking Question Answer Notes Are you a nonsmoker Alcohol Screen (Audit-C) Question Answer Notes Did you have a drink contain ing alcohol in the past year? Yes How often did you have a dri nk containing alcohol in the past year? Monthly or less (1 point) Points 1 Interpretation Negative Problems Problem Type SNOMED Code ICD Code Onset Dates Problem Status W/U Status Risk Notes Problem Obesity due to excess calories (367376061) Other obesity due to excess calories (E66.09) Active confirmed Problem Asthma without status asthmaticus (93859307) Moderate asthma without complication, unspecified whether persistent (J45.909) Active confirmed Problem Body mass index 35.00 to 39.99 (718991253651006 ) Body mass index [BMI] 38.0-38.9, adult (Z68.38) Active confirmed Problem Obese class II (720961832791059 ) BMI 35.0-35.9,adult (Z68.35) Active confirmed Vital Signs Heart Rate 66 /min 09/29/2023 Oximetry 98 % 09/29/2023 Blood pressure diastolic 76 mm Hg 09/29/2023 Height 58 in 09/29/2023 Blood pressure systolic 122 mm Hg 09/29/2023 Weight 168 lbs 09/29/2023 BMI 35.11 kg/m2 09/29/2023 Encounters Encounter Location Date Provider Diagnosis [facility] [address] [facility] [address] [place] [address] 09/22/2023 DIO ANTUNEZ [facility] [address] [facility] [address] [place] [address] 10/06/2023 DIO CAT [facility] [address] [facility] [address] [place] [address] 11/25/2023 Nano Svrcek [facility] [address] [facility] [address] [place] [address] 09/29/2023 Nano Svrcek Other obesity due to excess calories E66.09 ; BMI 35.0-35.9,adult Z68.35 and Moderate asthma without complication, unspecified whether persistent J45.909 Assessments Encounter Date Diagnosis (ICD Code) Assessment Notes Treatment Notes Treatment Clinical Notes [...] Dictation was accomplished with the use of Unfold voice recognition software, prone to medical misidentifications [...] Dictation was accomplished with the use of Unfold voice recognition software, prone to medical misidentifications [...] Dictation was accomplished with the use of Unfold voice recognition software, prone to medical misidentifications and grammatical errors. This is unintentional and the practitioner does try to identify and correct these, but some could still be present. Please do not hesitate to contact practitioner for clarification. All questions answered to patients satisfaction. Patient verbalized understanding of diagnosis and treatments explained. To call sooner prior to next visit it any questions/concerns arise. Plan Of Treatment No Information Insurance Providers Payer Name Payer Address Payer Phone Subscriber Number Group Number Insured Name Patient Relationship to Insured Coverage Start Date Coverage End Date [facility] [address] [place] [address] [id number] Anne Marie Carballo Self - patient is the insured 3 Medications Administered Medication Instructions Date of Administration Dosage Notes MICC B12 INJECTION 08/11/2023 Semaglutide 08/11/2023 .25 mg Semaglutide 08/18/2023 0.25 mg Semaglutide 08/25/2023 0.25 mg Semaglutide 09/01/2023 .25 mg Semaglutide 09/08/2023 0.25 mg Semaglutide 09/22/2023 .5 mg Semaglutide 09/29/2023 .5 mg Semaglutide 10/06/2023 0.5 mg Medical (General) History Medical History History ICD Code asthma Surgical History Surgery Date(Month/Year) right ankle surgery 2016
== END 2024-09-15 15:49 | disposition home or self-care (01) ==
LOC: HO.CT 15:48
PROVIDERS: PCP Physician Assistant; Visit Provider Hospitalist
DX: R91.1 Solitary pulmonary nodule (principal)
CPT/HCPCS: 71250

== ENCOUNTER → 2024-09-15 15:50 | Outpatient (BNV) | payer OTHER, MEDICARE, SELFPAY | PROVIDERS: PCP Physician Assistant; Visit Provider Specialist | DX: R91.1 Solitary pulmonary nodule (principal) | CPT/HCPCS: 71250 ==

== ENCOUNTER 2024-10-03 15:53 | Outpatient (AMB) | payer OTHER, MEDICARE, SELFPAY ==
--- OUTSIDE RECORDS SUMMARY | 2023-10-06 11:15 | XMS_ITS ---
Author Organization [facility] [address] Address [address] [place] [address] Care Team Providers Care Local City Driver Name Role Phone Vaughn Ly Primary Care Provider Unavailab Nano Whitehead Unavailable [phone] DIO ANTUNEZ Unavailable [phone] REASON FOR VISIT pt here for sema [...] Active Encounters Encounter Location Date Provider Diagnosis [facility] [address] [facility] [address] [place] [address] 10/06/2023 DIO ANTUNEZ Plan Of Treatment No Information Medications Administered Medication Instructions Date of Administration Dosage Notes Semaglutide 10/06/2023 0.5 mg Progress Notes * Saul CARBALLOB:1960 (63 yo F)Acc No.[id number]:10/06/2023 Patient: Natalie Anne Marie MISTRY Provider: Sam ANTUNEZ NP :1960 A ge:62 Y S ex:Female Date:10/06/2023 Address:[address] [place], [place] [phone] Pcp:Vaughn Ly Subjective: * Chief Complaints: * [...] * Electronic signature of SAM ANTUNEZ on 10/03/2024 at 04:39 PM EDT Sign off status: Pending * Provider: Sam ANTUNEZ NP Date: 10/06/2023 Generated for Luba davidson/Addis/Julia on: 10/03/2024 04:39 PM EDT
--- OUTSIDE RECORDS SUMMARY | 2023-11-25 09:45 | XMS_ITS ---
Author Organization [facility] [address] Address [address] [place] [address] Care Team Providers Care Assembler Seat Name Role Phone Vaughn Ly Primary Care Provider UnavailNano Raymond Unavailable [phone] Medications Medication SIG (Take, Route, Frequency, Duration) [...] Date Provider Diagnosis [facility] [address] [facility] [address] [place] [address] 11/25/2023 Nano Arrington Plan Of Treatment No Information Progress Notes * Vita CARBALLOaDOB:1960 (63 yo F)Acc No.[id number]:11/25/2023 Patient: Anne Marie ANGELES Provider: Carol Ann Arrington PA-C :1960 A ge:63 Y S ex:Female Date:11/25/2023 Address:[address], [place], [place] Pcp:Vaughn Ly Subjective: * Chief Complaints: * * HPI: C onstitutional: Sandra is a 62-year-old female here today for weight management follow up. 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 She typically will eat crackers or muffins in the morning often will skip lunch and has rice or sandwich in the evenings. She just restarted exercise regimen at [employer] 2-3 times a week in the past [...] Wishes she lost more. PMH: Asthma PCP: [facility], Harish Ly Highest weight: 183.5 Lowest weight: 120 Current weight: Weight last visit: 168.8, BMI 35.3 Goal weight: 130-140 Trials in the past: exercise regimen, Protein intake: limited Water intake: good amount Exercise: Started again at [employer] last week- 2-3 times a week. Barriers: [...] Information: * Visit Code: * Procedure Codes: 06050 NO SHOW OFFICE VISIT. * Electronic signature of Nano Arrington PA-C on 10/03/2024 at 04:39 PM EDT Sign off status: Pending * Provider: Carol Ann Arrington PA-C Date: Generated for Luba davidson/Addis/Julia on: 0 10/03/2024 04:39 PM EDT History and Physical Notes * [...] evenings. She just restarted exercise regimen at [employer] 2-3 times a week in the past [...] Wishes she lost more. PMH: Asthma PCP: [facility], Harish Ly Highest weight: 183.5 Lowest weight: 120 Current weight: Weight last visit: 168.8, BMI 35.3 Goal weight: 130-140 Trials in the past: exercise regimen, Protein intake: limited Water intake: good amount Exercise: Started again at [employer] last week- 2-3 times a week. Barriers: [...]
[2024-10-03 15:56] VITALS: BP 130/72; PULSE 79; O2SAT 96; BMI 34.1
--- NOTE | 2024-10-03 15:56 | A.OFFVIS_ITS ---
Vital Signs 10/03/24 15:56 Height 4 ft 11 in Weight 168 lb 10.458 oz BMI 34.1 BP 130/72 Blood Pressure Location Lt brachial Position Sitting Pulse 79 Pulse Source Pulse Oximeter Pulse Oximetry (%) 96 Oxygen Delivery Method Room Air Intake Visit Reasons: CT Scan follow up Accompanied by: Self / Same As Patient Allergies No Known Allergies Allergy (Verified 10/03/24 16:05) HPI Comments Details: The patient is a 63 year woman with known severe persistent asthma. [place] living [place] years after moving from [place]. Since she has moved to the [facility] she has had significant asthma symptoms. She is required multiple courses of prednisone. She has been on multiple inhalers without any significant improvement. She does get better response to her nebulizer therapy. She does have a portable nebulizer and also nebulizer in the home. She does perform the nebulized treatments 2 to 3 times a day to help her symptoms. She has a chronic cough typically productive in nature. The patient did have imaging studies including CT scan of the abdomen and pelvis in the past. I did review the images of the lung windows with her. She appears to have significant bronchitis and also mucus plugging. In addition to that she did have a right lower lobe pulmonary nodule subcentimeter in size the needs to have further follow-up. In addition to that we did review blood work. The patient has significant eosinophilia. She was in the hospital back in June when she was having significant symptoms. At that point she did have the highest eosinophil count above a 1000. the patient required multiple courses of prednisone she does respond well to the prednisone. She was switched over to Asmanex inhaler although she is confused about which is her rescue and maintenance inhaler. I do believe that her inhalers have to be simplified in order for her to have the most effective in the best adherence during inhalers. Therefore, we did teach her how to use Trelegy inhaler and we sent 1 prescription to the pharmacy. In addition to that she can use her nebulizer treatments and oral albuterol HFA as needed. The patient also will start allergy medication. The patient does have significant wheezing on examination and I do believe that may benefit from biologic therapy. Will go ahead and request blood work in addition to allergy testing at this time. If her eosinophils continue to be elevated and her IgE level then will further consider biologic therapy. This is specially if she continues to be symptomatic even On maximum respiratory therapy. 09/02/2023 The patient is here for a pulmonary follow up visit. Overall, she is feeling better. She took the Trelegy for a month and felt great, then she stopped it. Slowly her symptoms have been coming back. She went back to her asmanex. We did review her labs demonstrating a significant allergic asthma. She did not feel comfortable taking the singulair because of potential side effects. I did reassure her and would be a good medicine based on her allergy component and also to decrease her inhaled steroid requirements. She will also be a good Biologic therapy candidate if her symptoms continue to worsen. 12/06/2023 the patient is here for a pulmonary follow-up visit. The patient melisa graff has been doing well. She has responded well to the Trelegy. The Trelegy has been affecting beneficial. She has not had to use any prednisone which is reassuring. The patient also has been taking Claritin although is making a little bit more awake at nighttime so therefore she has not been using it. We did review her blood work including allergy testing. Her IgE level is elevated and also her eosinophils continue significantly elevated consistent with allergic asthma. Although her allergy testing did not show any particular allergens in the RAST testing. Any other potential allergens would have to be checked with scratch test with an automobile upholstery trim installer. However, since she is doing well we can hold off on that. She needs to go back on the Claritin. She will try half dose of team she makes that work for her. She is also complaining of some arthralgias. Typically of the hand the small joints. This is something new and she is concerned about it. She is also concerned about her cholesterol. She had to miss her doctor's appointment today because of disappointment and she is concerned that her cholesterol was elevated. Therefore I will go ahead and request blood work and she can follow-up with her primary care atThis time. 07/04/2024 the patient is here for a pulmonary follow-up visit. She continues to do well from an asthma standpoint. She continues to respond well to the respiratory therapy. She does have a rescue medicine. She had to use the last night but otherwise is been typically less than once a week. Feels like her asthma is in good control. No need for any additional interventions. She has been complaining of the abdominal and pelvic discomfort. She recently had an ultrasound. She is going to be following up with her pharmacy resource tech doctor for a growing cyst and also uterine Fibroids. At least from a pulmonary standpoint the patient is doing well she may be able to proceed with anesthesia and surgery. Likely that she will require surgery for this. Otherwise the patient is doing well. She did have a CT scan back in August 2023 demonstrating underlying pulmonary nodules. She will need to have a repeat CAT scan around the summer August 2024 to make sure the pulmonary nodules have been stable. She does have a family history positive for cancer. 10/03/2024 the patient is here for pulmonary follow-up visit. Overall the patient has been doing well. O for the last few days she started developing a cough congested in nature with chest tightness. She is having to use her nebulizer more often. She feels like she got sick from her father. In the meantime the patient did have a CT scan of the chest to follow-up pulmonary nodules. She has 2 nodules that are subcentimeter in size. When compared to 2023 did appear to be any significant change in size. The patient will require repeat CAT scan in a year's time to make sure stability of disease. The patient does have significant rhonchi on exam and wheezing. Will go ahead and treat her for a URI and bronchitis. Indeed she will need some Medrol to try to help her with the bronchospasms and wheezing. If the patient is no better she will call for further recommendations. For now she will continue with the current respiratory therapy. I will make sure to have given her enough albuterol for the nebulizer for her to be able to use twice a day until she is better. [facility] Medical History (Updated 10/03/24 @ 22:45 by Jaciel Eden MD) Anal polyp Arthralgia Pulmonary nodule Chronic cough Asthma Surgical History No pertinent past surgical history Family History Father Cancer Colon cancer Mother Respiratory arrest Daughter Lymphoma Paternal Aunt Breast CA Ovarian cancer Social History Household Members: Family Housing: Apartment Do you presently have visiting nurse or other home services: No Alcohol intake: current Alcohol intake frequency: holidays/special occasions only Patient Tobacco Use Status: Never used Tobacco e-Cigarette/Vaping Use: Never Used Second Hand Smoke Exposure: No service: No Current occupational status: employed 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 [employer] Gender identity: Female Cognitive needs: No Hearing needs: No Vision needs: No Female Reproductive History Menstrual Age of Menarche: 9 Review of Systems Const Denies body aches, Denies chills, Denies excessive sweating, Denies fatigue, Denies fever(s) and Denies headache(s) Eyes Denies blurry vision ENT Denies dysphagia, Denies vertigo, Denies dizziness, Denies headache(s), Denies hearing loss and Denies tinnitus Card Denies chest pain, Denies chest pain with activity, Denies syncope, Denies irregular heart rhythm and Denies dyspnea Resp Reports chest congestion, Reports cough, Denies hemoptysis, Denies dyspnea and Reports wheezing GI Denies abdominal pain, Denies melena, Denies hematochezia, Denies coffee ground emesis, Denies dysphagia, Denies diarrhea, Denies nausea and Denies vomiting Reports as per HPI, Denies urinary frequency, Denies dysuria, Reports pelvic pain, Denies urinary hesitancy and Denies urinary urgency Musc Denies arthralgias, Denies limited range of motion, Denies muscle cramps and Denies muscle weakness Skin/Breast Denies rash and Denies skin ulcer Neuro Denies Abnormal speech present, Denies confusion, Denies vertigo, Denies dizziness, Denies syncope, Denies headache(s), Denies memory loss and Denies seizure-like activity Psych Denies anxiety, Denies confusion, Denies depression, Denies memory loss, Denies panic attacks and Denies paranoia Endo Denies excessive sweating, Denies fatigue, Denies flushing, Denies polydipsia and Denies polyuria Aller/Immun Reports wheezing Physical Exam Vital Signs: Last Vital Signs Pulse 79 10/03/24 15:56 BP 130/72 10/03/24 15:56 Pulse Ox 96 10/03/24 15:56 Oxygen Delivery Method Room Air 10/03/24 15:56 BMI result Body Mass Index 34.1 Const General: No confusion Orientation/consciousness: No confusion HEENT Head: Yes normocephalic Neck Neck: Yes supple Chest Chest palpation & inspection: normal inspection of the chest Resp Effort & Inspection: normal respiratory effort, Actively coughing Quality: actively coughing and No prolonged expiratory phase Auscultation: clear to auscultation bilaterally and no wheezes Cardio Heart sounds: S1 normal heart sound present and S2 normal heart sound present GI Palpation (GI): Soft to palpation Skin General skin exam: no rashes or lesions noted Neuro General: No confusion Speech: No Abnormal speech present Extrem General: Yes no clubbing, cyanosis or edema Assessment & Plan Assessment & Plan (1) Asthma: Code(s): J45.909 - Unspecified asthma, uncomplicated Category: Medical Qualifiers: Asthma complication type: with acute exacerbation Asthma persistence: persistent Asthma severity: severe Qualified Code(s): J45.51 - Severe persistent asthma with (acute) exacerbation (2) Allergies: Code(s): T78.40XA - Allergy, unspecified, initial encounter Category: Medical Qualifiers: Encounter type: initial encounter Qualified Code(s): T78.40XA - Allergy, unspecified, initial encounter (3) Chronic cough: Code(s): R05.3 - Chronic cough Category: Medical (4) Pulmonary nodule: Code(s): R91.1 - Solitary pulmonary nodule Category: Medical (5) Arthralgia: Code(s): M25.50 - Pain in unspecified joint Category: Medical Qualifiers: Joint pain location: unspecified Qualified Code(s): M25.50 - Pain in unspecified joint Plan Trelegy 200 SARIKA as needed, responds better to nebulizer therapy start Azithromycin x 5 days start Medrol pk stopped Singulair PM half dose claritin consider Biologic therapy if worsens repeat CT chest 08/2025 F/U 6 months Orders: Orders CT chest wo IV con 08/08/25 R91.1 - Solitary pulmonary nodule Medications: New 2 methylprednisolone (Medrol (Maurilio)) PO PER PKG DIR 21 ea 0RF 6 days azithromycin 500 mg PO DAILY 5 tabs 0RF 5 days Refilled albuterol sulfate 2.5 mg (3 mL) inhalation Q6H PRN 360 mL 9RF shortness of breath or wheezing 30 days J45.20 - Mild intermittent asthma, uncomplicated Coding Level of Care Code Est Pt Level 4 (71994) Complex EM visit Add On G2211 Diagnoses Severe persistent asthma with acute exacerbation J45.51 Asthma complication type: with acute exacerbation Asthma persistence: persistent Asthma severity: severe Allergy, initial encounter T78.40XA Encounter type: initial encounter Chronic cough R05.3 Pulmonary nodule R91.1 Arthralgia, unspecified joint M25.50 Joint pain location: unspecified Time Spent (min) 17
--- OUTSIDE RECORDS SUMMARY | 2024-10-03 16:39 | XMS_ITS | Patient Health Record ---
Author Organization [facility] Address [address] [place] [address] Care Team Providers Care Director Plans Name Role Phone Vaughn Ly Primary Care Provider Unavailab jerson Arrington Nano Unavailable [phone] DIO ANTUNEZ Unavailable [phone] Allergies No Known Allergies Reason For Referral [...] Notes Problem Obesity due to excess calories (790203424) Other obesity due to excess calories (E66.09) Active confirmed Problem Asthma without status asthmaticus (46691542) Moderate asthma without complication, unspecified whether persistent (J45.909) Active confirmed Problem Body mass index 35.00 to 39.99 (600406704118771 ) Body mass index [BMI] 38.0-38.9, adult (Z68.38) Active confirmed Problem Obese class II (053376901896665 ) BMI 35.0-35.9,adult (Z68.35) Active confirmed Encounters Encounter Location Date Provider Diagnosis [facility] [address] [facility] [address] [place] [address] 10/06/2023 DIO ANTUNEZ [facility] [address] [facility] [address] [place] [address] 11/25/2023 Nano Svrcek Plan Of Treatment No Information Insurance Providers Payer Name Payer Address Payer Phone Subscriber Number Group Number Insured Name Patient Relationship to Insured Coverage Start Date Coverage End Date [facility] [address] [place] [address] [id number] Anne Marie Carballo Self - patient is [...]
--- OUTSIDE RECORDS SUMMARY | 2024-10-03 16:39 | XMS_ITS | Clinical Summary ---
Author Organization [facility] Address [address] [place] [address] Care Team Providers Care Pipe Puller Name Role Phone Mary Garcia MD Primary Care Provider [phone] Social History Tobacco Use Types Packs/Day Years [...] age to complete this topic Care Teams Pipe Puller Relationship Specialty Start Date End Date Mary Garcia MD [address] [place] [address] PCP - General Internal Medicine 12/25/16
--- OUTSIDE RECORDS SUMMARY | 2024-10-03 16:39 | XMS_ITS | Clinical Summary ---
Author Organization [facility] Address [address] [facility] [address] [place] [phone] Phone Care Team Providers Care Border Guard Name Role Phone Fan Fernando MD Primary Care Provider + Allergies No known active allergies Medications fluticasone propionate (FLOVENT HFA INHL) Inhale into the lungs. Active albuterol 90 mcg/actuation inhaler Inhale 2 puffs into the lungs every 6 (six) hours as needed for wheezing. Active cyclobenzaprine (FLEXERIL) 10 MG tablet Take 1 tablet (10 mg total) by mouth 3 (three) times a day as needed. 10 tablet 11/03/2018 Active Social History Tobacco Use Types Packs/Day Years Used Date Smoking Tobacco: Never Alcohol Use Standard Drinks/Week Comments Not Currently 0 (1 standard drink = 0.6 oz pur e alcohol) Education Answer Date Recorded Are you interested in more education? Not on cristina e 06/05/2022 Are you concerned about learning? Not on file 06/05/2022 No 06/05/2022 No 06/05/2022 Digital Access Answer Date Recorded No 07/04/2022 No 07/04/2022 No 07/04/2022 Reliable internet access at home? Not on file 07/04/2022 Device with a working camera? Not on file Comments Unknown Sex and Gender Information Value Date Recorded Sex Assigned at Female 01/20/2019 1:16 PM EST Legal Sex Female 9:50 AM EDT Gender Identity Female 01/20/2019 1:16 PM EST Sexual Orientation Not on file Last Filed Vital Signs Vital Sign Reading Time Taken Comments Blood Pressure 131/66 01/20/2019 3:29 PM EST Pulse 63 01/20/2019 3:29 PM EST Temperature 36.8 C (98.2 F) 01/20/2019 1:15 PM EST Respiratory Rate 14 01/20/2019 3:29 PM EST Oxygen Saturation 98% 01/20/2019 3:29 PM EST Inhaled Oxygen Concentration - - Weight 81.6 kg (180 lb) 01/20/2019 1:15 PM EST Height 152.4 cm (5') 01/20/2019 1:15 PM EST Body Mass Index 35.15 01/20/2019 1:15 PM EST Plan of Treatment Health Maintenance Due Date Last Done Comments Adult Td,Tdap Booster 1958 LIPID PANEL 1958 DEPRESSION SCREENING 1970 HEPATITIS C SCREENING 1976 HIV ONE-TIME SCREENING (18-6 5 YEARS) 1976 SMOKING STATUS SCREENING (On ce After 26 Yrs) 1984 MAMMOGRAM 1998 COLOGUARD 10/31/2003 COLONOSCOPY 10/31/2003 COLORECTAL CANCER SCREENING 10/31/2003 FIT TEST 10/31/2003 FOBT 10/31/2003 SIGMOIDOSCOPY 10/31/2003 VIRTUAL COLONOSCOPY 10/31/2003 PNEUMOCOCCAL VACCINES (50+ years) (1 of 1 - PCV) 2008 ZOSTER VACCINES (1 of 2) 2008 COVID-19 VACCINE ( - 2023-2 5 season) 2023 12/05/2020, 05/20/2020, 04/22/2020 OSTEOPOROSIS SCREENING INITI AL (ONE-TIME) 10/31/2023 RSV VACCINE (1 - 1-dose 75+ series) 2033 HEPATITIS A VACCINES Aged Out No long er eligible based on patient's age to complete this topic HIB VACCINES Aged Out No longer eligi ble based on patient's age to complete this topic MENINGOCOCCAL VACCINES (ACWY) Aged Out No longer eligible based on patient's age to complete this topic MENINGOCOCCAL VACCINES (B) Aged Out N o longer eligible based on patient's age to complete this topic Medical Devices Not on file Insurance O O O HMO HMO O HMO AIM INSURANCE Care Teams Border Guard Relationship Specialty Start Date End Date Fan Fernando MD [address] [place] [id number] PCP - General Internal Medicine 11/03/18 Additional Source Comments The information contained in this document represents components of the legal health record. It is not the complete legal health record.[facility]
--- OUTSIDE RECORDS SUMMARY | 2024-10-03 16:39 | XMS_ITS | Encounter Summary ---
Author Organization [facility] Address [address] [facility] [address] [place] [address] Phone Care Team Providers Care Road Hogger Operator Name Role Phone Fan Fernando MD Primary Care Provider + Encounter Details Date Type Department Care Team (Late st Contact Info) Description 01/13/2023 Transcribe Orders Virtual Department [address] [place] [address] Pravin Bonilla MD [address] [place] [address] 4B_OB/[place] [address] Ovarian mass (Primary Dx) Social History Tobacco Use Types Packs/Day Years [...] PM EST Sexual Orientation Not on file documented as of this encounter Plan of Treatment Not on file documented as of this encounter Visit Diagnoses Diagnosis Ovarian mass- Primary Unspecified noninflammatory disorder of ovary, fallopian tube, and broad ligament documented in this encounter Care Teams Road Hogger Operator Relationship Specialty Start Date End Date Fan Fernando MD [facility] [place] [address] PCP - General Internal Medicine 11/03/18 documented as of this encounter Additional Source Comments The information contained in this document represents components of the legal health record. It is not the complete legal health record.[facility]
== END 2024-10-03 16:34 | disposition home or self-care (01) ==
LOC: HO.HPS 15:54
PROVIDERS: PCP Physician Assistant; Visit Provider Hospitalist
DX: J45.51 Severe persistent asthma with (acute) exacerbation (principal); T78.40XA Allergy, unspecified, initial encounter; R05.3 Chronic cough; R91.1 Solitary pulmonary nodule; M25.50 Pain in unspecified joint
CPT/HCPCS: 99214; G2211

== ENCOUNTER 2024-10-14 08:53 | Outpatient (REF) | payer OTHER, MEDICARE, SELFPAY ==
--- OUTSIDE RECORDS SUMMARY | 2023-09-08 11:00 | XMS_ITS ---
Author Organization [facility] [address] Address [address] [place] [address] Care Team Providers Care Customer Professional Name Role Phone Vaughn Ly Primary Care Provider Unavailab Nano Whitehead Unavailable [phone] DIO ANTUNEZ Unavailable [phone] REASON FOR VISIT pt here for sema injection; pt signed consent; 0.25mg administered subcutaneously into LLQ abd; pt tolerated well and left in stable condition Medications [...] Active Encounters Encounter Location Date Provider Diagnosis [facility] [address] [facility] [address] [place] [address] 09/08/2023 DIO ANTUNEZ Plan Of Treatment No Information Medications Administered Medication Instructions Date of Administration Dosage Notes Semaglutide 09/08/2023 0.25 mg Progress Notes * Saul CARBALLOB:1960 (63 yo F)Acc No.[id number]:09/08/2023 Patient: Anne Marie ANGELES Provider: Sam ANTUNEZ NP :1960 A ge:62 Y S ex:Female Date:09/08/2023 Address:[address] [place], [place] [id number] Pcp:Vaughn Ly Subjective: * Chief Complaints: * 1 . pt here for sema injection; pt signed consent; 0.25mg administered subcutaneously into LLQ abd; pt tolerated well and left in stable [...] (Route: Subcutaneous) given by Sherry Crawford on subcutaneus * Images: Billing Information: * Visit Code: * Procedure Codes: * Electronic signature of SAM ANTUNEZ on 10/14/2024 at 08:56 AM EDT Sign off status: Pending * Provider: Sam ANTUNEZ NP Date: 09/08/2023 Generated for Luba davidson/Addis/Julia on: 10/14/2024 08:56 AM EDT
--- OUTSIDE RECORDS SUMMARY | 2023-09-22 11:00 | XMS_ITS ---
Author Organization [facility] [address] Address [address] [place] [address] Care Team Providers Care Vp Information Technology Name Role Phone Vaughn Ly Primary Care Provider UnavailNano Raymond Unavailable [phone] DIO ANTUNEZ Unavailable [phone] REASON FOR VISIT Pt here for SEMA .5mg on LLQ sub q, pt tolerated well with no [...] Active Encounters Encounter Location Date Provider Diagnosis [facility] [address] [facility] [address] [place] [address] 09/22/2023 DIO ANTUNEZ Plan Of Treatment No Information Medications Administered Medication Instructions Date of Administration Dosage Notes Semaglutide 09/22/2023 .5 mg Progress Notes * Saul CARBALLOB:1960 (63 yo F)Acc No.[id number]:09/22/2023 Patient: Anne Marie ANGELES Provider: Sam ANTUNEZ NP :1960 A ge:62 Y S ex:Female Date:09/22/2023 Address:[address] [place], [place] [phone] Pcp:Vaughn Ly Subjective: * Chief Complaints: * 1 . Pt here for SEMA .5mg on LLQ sub q, pt tolerated well with no [...] * Treatment: * Therapeutic Injections: Semaglutide : .5 mg (Route: Subcutaneous) given by Reji Rick on right thigh subcutaneous * Images: Billing Information: * Visit Code: * Procedure Codes: * Electronic signature of SAM ANTUNEZ on 10/14/2024 at 08:56 AM EDT Sign off status: Pending * Provider: Sam ANTUNEZ NP Date: 0 09/22/2023 Generated for Luba davidson/Addis/Julia on: 0 10/14/2024 08:56 AM EDT
--- OUTSIDE RECORDS SUMMARY | 2023-10-06 11:15 | XMS_ITS ---
Author Organization [facility] [address] Address [address] [place] [address] Care Team Providers Care Farrowing Manager Name Role Phone Vaughn Ly Primary Care Provider Unavailab Nano Whitehead Unavailable [phone] DIO ANTUNEZ Unavailable [phone] REASON FOR VISIT pt here for sema [...] [facility] [address] [facility] [address] [place] [address] 10/06/2023 DIO ANTUNEZ Plan Of Treatment No Information Medications Administered Medication Instructions Date of Administration Dosage Notes Semaglutide 10/06/2023 0.5 mg Progress Notes * Saul CARBALLOB:1960 (63 yo F)Acc No.[id number]:10/06/2023 Patient: Natalie Anne Marie MISTRY Provider: Sam ANTUNEZ NP :1960 A ge:62 Y S ex:Female Date:10/06/2023 Address:[address] [place], [place] [phone] Pcp:Vaughn Ly Subjective: * Chief Complaints: * [...] signature of SAM ANTUNEZ on 10/14/2024 at 08:57 AM EDT Sign off status: Pending * Provider: Sam ANTUNEZ NP Date: 10/06/2023 Generated for Luba davidson/Addis/Julia on: 0 10/14/2024 08:57 AM EDT
--- OUTSIDE RECORDS SUMMARY | 2023-11-25 09:45 | XMS_ITS ---
Author Organization [facility] [address] Address [address] [place] [address] Care Team Providers Care Ship Self Defense System Mk1 Operator Name Role Phone Vaughn Ly Primary Care Provider UnavailNano Raymond Unavailable [phone] Medications Medication SIG (Take, Route, Frequency, Duration) [...] Date Provider Diagnosis [facility] [address] [facility] [address] [place] [address] 11/25/2023 Nano Arrington Plan Of Treatment No Information Progress Notes * Vita CARBALLOaDOB:1960 (63 yo F)Acc No.[id number]:11/25/2023 Patient: Anne Marie ANGELES Provider: Carol Ann Arrington PA-C :1960 A ge:63 Y S ex:Female Date:11/25/2023 Address:[address], [place], [place] Pcp:Vaughn Ly Subjective: * Chief Complaints: * * HPI: C onstitutional: Sandra is a 62-year-old female here today for weight management follow up. 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 She typically will eat crackers or muffins in the morning often will skip lunch and has rice or sandwich in the evenings. She just restarted exercise regimen at [email or web address] 2-3 times a week in the past [...] Wishes she lost more. PMH: Asthma PCP: [facility], Harish Ly Highest weight: 183.5 Lowest weight: 120 Current weight: Weight last visit: 168.8, BMI 35.3 Goal weight: 130-140 Trials in the past: exercise regimen, Protein intake: limited Water intake: good amount Exercise: Started again at [employer] last week- 2-3 times a week. Barriers: [...] Information: * Visit Code: * Procedure Codes: 78720 NO SHOW OFFICE VISIT. * Electronic signature of Nano Arrington PA-C on 10/14/2024 at 08:57 AM EDT Sign off status: Pending * Provider: Carol Ann Arrington PA-C Date: 1 Generated for Luba davidson/Addis/Asyaitting on: 0 10/14/2024 08:57 AM EDT History and Physical Notes * HPI [...] evenings. She just restarted exercise regimen at [email or web address] 2-3 times a week in the past [...] Wishes she lost more. PMH: Ast[facility] Highest weight: 183.5 Lowest weight: 120 Current weight: Weight last visit: 168.8, BMI 35.3 Goal weight: 130-140 Trials in the past: exercise regimen, Protein intake: limited Water intake: good amount Exercise: Started again at [employer] last week- 2-3 times a week. Barriers: [...]
--- NOTE | ~2024-10-14 | MM_ITS ---
EXAMINATION: MM SCREENING DIGITAL BREAST TOMOSYNTHESIS, BILATERAL CLINICAL INFORMATION: Screening. Asymptomatic. COMPARISON: Mammography: Comparison is made with available priors TECHNIQUE: Digital breast mammography with tomosynthesis is performed in both the craniocaudal and mediolateral oblique views along with computer-aided detection (CAD). FINDINGS: There are scattered areas of fibroglandular density (ACR BI-RADS breast composition Category b). Right marker clip. There are no significant masses, abnormal calcifications, or other abnormalities. MM/MM tomosynthesis screening BI IMPRESSION: No mammographic evidence of malignancy. ASSESSMENT: BI-RADS BI-RADS 2 - Benign Findings RECOMMENDATION: Routine annual mammography screening. 1 year F/U This examination should not preclude the clinical evaluation of a suspicious palpable abnormality. This patient's information was entered into a reminder system with a target due date for their next mammogram. Electronically signed by: Delicia Rosales DO 10/17/2024 03:18 PM EDT
--- OUTSIDE RECORDS SUMMARY | 2024-10-14 08:57 | XMS_ITS | Clinical Summary ---
Author Organization [facility] Address [address] [place] [address] Care Team Providers Care Plant Culture Manager Name Role Phone Mary Garcia MD Primary Care Provider [phone] Social History Tobacco Use Types Packs/Day Years [...] 01/10/2022 Social Influencers of Health Screening 01/10/2022 Falls Risk Assessment 10/31/2023 Depression Screening 02/09/2024 COVID-19 Vaccine ( - 2023-2 5 season) 2024 Influenza Vaccine (#1) 2024 RSV Immunization Adult [...] age to complete this topic Care Teams Plant Culture Manager Relationship Specialty Start Date End Date Mary Garcia MD [address] [place] [address] PCP - General Internal Medicine 12/25/16
--- OUTSIDE RECORDS SUMMARY | 2024-10-14 08:57 | XMS_ITS | Encounter Summary ---
Author Organization [facility] Address [address] [facility] [address] [place] [address] Phone Care Team Providers Care Costume Design Teacher Name Role Phone Fan Fernando MD Primary Care Provider + Encounter Details Date Type Department Care Team (Late st Contact Info) Description 01/13/2023 Transcribe Orders Virtual Department [address] [place] [address] Pravin Bonilla MD [address] [place] [address] 4B_OB/[place] [address] Ovarian mass (Primary Dx) Social History Tobacco [...] ligament documented in this encounter Care Teams Costume Design Teacher Relationship Specialty Start Date End Date Fan Fernando MD [facility] [place] [address] PCP - General Internal Medicine 11/03/18 documented as of this encounter Additional Source Comments The information contained in this document represents components of the legal health record. It is not the complete legal health record.[facility]
--- OUTSIDE RECORDS SUMMARY | 2024-10-14 08:57 | XMS_ITS | Patient Health Record ---
Author Organization [facility] [address] Address [address] [place] [address] Care Team Providers Care Catering Staff Member Name Role Phone Vaughn Ly Primary Care Provider Unavailab GastonNano lombardo Unavailable [phone] Allergies No Known Allergies Reason For Referral [...] Notes Problem Obesity due to excess calories (172815494) Other obesity due to excess calories (E66.09) Active confirmed Problem Asthma without status asthmaticus (49859635) Moderate asthma without complication, unspecified whether persistent (J45.909) Active confirmed Problem Body mass index 35.00 to 39.99 (265049844493886 ) Body mass index [BMI] 38.0-38.9, adult (Z68.38) Active confirmed Problem Obese class II (730434001454523 ) BMI 35.0-35.9,adult (Z68.35) Active confirmed Encounters Encounter Location Date Provider Diagnosis [facility] [address] [place] [address] 11/25/2023 Nano Svrcek Plan Of Treatment No Information Insurance Providers Payer Name Payer Address Payer Phone Subscriber Number Group Number Insured Name Patient Relationship to Insured Coverage Start Date Coverage End Date [facility] [address] [place] [address] [id number] Anne Marie Carballo Self - patient is [...]
--- OUTSIDE RECORDS SUMMARY | 2024-10-14 08:57 | XMS_ITS | Clinical Summary ---
Author Organization [facility] Address [address] [facility] [address] [place] [address] Phone Care Team Providers Care Director Global Name Role Phone Fan Fernando MD Primary [...] 2008 ZOSTER VACCINES (1 of 2) 2008 OSTEOPOROSIS SCREENING INITI AL (ONE-TIME) 10/31/2023 INFLUENZA VACCINE (#1) 2024 COVID-19 VACCINE (4 - 2024-2 6 season) 2024 12/05/2020, 05/20/2020, 04/22/2020 RSV VACCINE (1 - 1-dose 75+ series) [...] Devices Not on file Insurance O O HMO O HMO AIM INSURANCE Care Teams Director Global Relationship Specialty Start Date End Date Fan Fernando MD [address] [place] [address] PCP - General Internal Medicine 11/03/18 Additional Source Comments The information contained in this document represents components of the legal health record. It is not the complete legal health record.[facility]
== END 2024-10-14 08:54 | disposition home or self-care (01) ==
LOC: HO.MAMMO 08:53
PROVIDERS: PCP Physician Assistant; Visit Provider Physician Assistant
DX: Z12.31 Encounter for screening mammogram for malignant neoplasm of breast (principal)
CPT/HCPCS: 77063; 77067

== ENCOUNTER → 2024-10-14 09:15 | Outpatient (BNV) | payer OTHER, MEDICARE, SELFPAY | PROVIDERS: PCP Physician Assistant; Visit Provider Internal Medicine | DX: Z12.31 Encounter for screening mammogram for malignant neoplasm of breast (principal) | CPT/HCPCS: 77063; 77067 ==

== ENCOUNTER 2024-10-23 17:09 | Emergency (ER) | payer OTHER, MEDICARE, SELFPAY ==
--- OUTSIDE RECORDS SUMMARY | 2023-09-08 11:00 | XMS_ITS ---
Author Organization [facility] [address] Address [address] [place] [address] Care Team Providers Care Cake Batter Mixer Name Role Phone Vaughn Ly Primary Care Provider Unavailab Nano Whitehead Unavailable [phone] DIO ANTUNEZ Unavailable [phone] REASON FOR VISIT pt here for sema [...] Active Encounters Encounter Location Date Provider Diagnosis [facility] [address] [facility] [address] [place] [address] 09/08/2023 DIO ANTUNEZ Plan Of Treatment No Information Medications Administered Medication Instructions Date of Administration Dosage Notes Semaglutide 09/08/2023 0.25 mg Progress Notes * Saul CARBALLOB:1960 (63 yo F)Acc No.[id number]:09/08/2023 Patient: Vita ANGELESa Provider: Sam ANTUNEZ NP :1960 A ge:62 Y S ex:Female Date:09/08/2023 Address:[address] [place], [place] [id number] Pcp:Vaughn Ly Subjective: * Chief Complaints: * [...] * Electronic signature of SAM ANTUNEZ on 10/23/2024 at 11:48 PM EDT Sign off status: Pending * Provider: Sam ANTUNEZ NP Date: 09/08/2023 Generated for Luba davidson/Addis/Julia on: 10/23/2024 11:48 PM EDT
--- OUTSIDE RECORDS SUMMARY | 2023-09-22 11:00 | XMS_ITS ---
Author Organization [facility] [address] Address [address] [place] [address] Care Team Providers Care Bottle Blower Name Role Phone Vaughn Ly Primary Care Provider UnavailNano Raymond Unavailable [phone] DIO ANTUNEZ Unavailable [phone] REASON FOR VISIT Pt here for SEMA [...] [facility] [address] [facility] [address] [place] [address] 09/22/2023 DIO ANTUNEZ Plan Of Treatment No Information Medications Administered Medication Instructions Date of Administration Dosage Notes Semaglutide 09/22/2023 .5 mg Progress Notes * Saul CARBALLOB:1960 (63 yo F)Acc No.[id number]:09/22/2023 Patient: Anne Marie ANGELES Provider: Sam ANTUNEZ NP :1960 A ge:62 Y S ex:Female Date:09/22/2023 Address:[address] [place], [place] [id number] Pcp:Vaughn Ly Subjective: * Chief Complaints: * [...] signature of SAM ANTUNEZ on 10/23/2024 at 11:49 PM EDT Sign off status: Pending * Provider: Sam ANTUNEZ NP Date: 0 09/22/2023 Generated for Luba davidson/Addis/Julia on: 0 10/23/2024 11:49 PM EDT
--- OUTSIDE RECORDS SUMMARY | 2023-10-06 11:15 | XMS_ITS ---
Author Organization [facility] [address] Address [address] [place] [address] Care Team Providers Care Scout Professional Sports Name Role Phone Vaughn Ly Primary Care Provider Unavailab Nano Whitehead Unavailable [phone] DIO ANTUNEZ Unavailable [phone] REASON FOR VISIT pt here for sema injection; pt signed consent; 0.5mg administered subcutaneously into left thigh; pt tolerated well and left in stable condition Medications Medication SIG (Take, Route, Frequency, Duration) Notes Start Date End Date Status Trelegy Ellipta 200-62.5-25 MCG/ACT Inhalation; Duration: 30 Days Active Montelukast Sodium 10 MG TAKE 1 TABLET B Y MOUTH AT BEDTIME Oral; Duration: 90 Days Active Albuterol Sulfate HFA 108 (90 Base) MCG/ACT INHALE 2 PUUFS BY MOUTH FOUR TIMES DAILY NEEDED FIR SHORTNESS OF BRATH ORN WHEEZING Inhalation; Duration: 30 Days Active Semaglutide(0.25 or 0.5MG/DOS) 2 MG/3ML as directed Subcutaneous Active Encounters Encounter Location Date Provider Diagnosis [facility] [address] [facility] [address] [place] [address] 10/06/2023 DIO ANTUNEZ Plan Of Treatment No Information Medications Administered Medication Instructions Date of Administration Dosage Notes Semaglutide 10/06/2023 0.5 mg Progress Notes * Saul CARBALLOB:1960 (63 yo F)Acc No.[id number]:10/06/2023 Patient: Natalie Anne Marie MISTRY Provider: Sam ANTUNEZ NP :1960 A ge:62 Y S ex:Female Date:10/06/2023 Address:[address] [place], [place] [phone] Pcp:Vaughn Ly Subjective: * Chief Complaints: * 1 . Pt here for sema injection; pt signed consent; 0.5mg administered subcutaneously into left thigh; pt tolerated well and left in stable condition. * Medical History: * Medications: T aking Semaglutide(0.25 or 0.5MG/DOS) 2 MG/3ML Solution Pen-injector as directed Subcutaneous , Taking Albuterol Sulfate HFA 108 (90 Base) MCG/ACT Aerosol Solution INHALE 2 PUUFS BY MOUTH FOUR TIMES DAILY NEEDED FIR SHORTNESS OF BRATH ORN WHEEZING Inhalation , Taking Montelukast Sodium 10 MG Tablet TAKE 1 TABLET BY MOUTH AT BEDTIME Oral , Taking Trelegy Ellipta 200-62.5-25 MCG/ACT Aerosol Powder Breath Activated Inhalation Objective: * Vitals: Assessment: Plan: * Treatment: * Therapeutic Injections: Semaglutide : 0.5 mg (Route: Subcutaneous) given by Sherry Crawford on left thigh subcutaneous * Images: Billing Information: * Visit Code: * Procedure Codes: * Electronic signature of SAM ANTUNEZ on 10/23/2024 at 11:49 PM EDT Sign off status: Pending * Provider: Sam ANTUNEZ NP Date: 10/06/2023 Generated for Luba davidson/Addis/Julia on: 0 10/23/2024 11:49 PM EDT
--- OUTSIDE RECORDS SUMMARY | 2023-11-25 09:45 | XMS_ITS ---
Author Organization [facility] [address] Address [address] [place] [address] Care Team Providers Care Mechatronics Technician Name Role Phone Vaughn Ly Primary Care Provider UnavailNano Raymond Unavailable [phone] Medications Medication SIG (Take, Route, Frequency, Duration) [...] Date Provider Diagnosis [facility] [address] [facility] [address] [place] [address] 11/25/2023 Nano Arrington Plan Of Treatment No Information Progress Notes * Vita CARBALLOaDOB:1960 (63 yo F)Acc No.[id number]:11/25/2023 Patient: Anne Marie ANGELES Provider: Carol Ann Arrington PA-C :1960 A ge:63 Y S ex:Female Date:11/25/2023 Address:[address], [place], [place] Pcp:Vaughn Ly Subjective: * Chief Complaints: * * HPI: C onstitutional: Sandra is a 62-year-old female here today for weight management follow up. 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 She typically will eat crackers or muffins in the morning often will skip lunch and has rice or sandwich in the evenings. She just restarted exercise regimen at [employer] 2-3 times a week in the past [...] Wishes she lost more. PMH: Asthma PCP: [facility], Harish Ly Highest weight: 183.5 Lowest weight: 120 Current weight: Weight last visit: 168.8, BMI 35.3 Goal weight: 130-140 Trials in the past: exercise regimen, Protein intake: limited Water intake: good amount Exercise: Started again at [employer] last week- 2-3 times a week. Barriers: [...] Information: * Visit Code: * Procedure Codes: 30546 NO SHOW OFFICE VISIT. * Electronic signature of Nano Arrington PA-C on 10/23/2024 at 11:49 PM EDT Sign off status: Pending * Provider: Carol Ann Arrington PA-C Date: 1 Generated for Luba davidson/Addis/Asyaitting on: 0 10/23/2024 11:49 PM EDT History and Physical Notes * [...] evenings. She just restarted exercise regimen at [employer] 2-3 times a week in the past [...] Wishes she lost more. PMH: Asthma PCP: [facility], Harish Ly Highest weight: 183.5 Lowest weight: 120 Current weight: Weight last visit: 168.8, BMI 35.3 Goal weight: 130-140 Trials in the past: exercise regimen, Protein intake: limited Water intake: good amount Exercise: Started again at [employer] last week- 2-3 times a week. Barriers: [...]
--- NOTE | ~2024-10-23 | CT_ITS ---
CLINICAL HISTORY: Tenderness; Erythema; Hx MRSA Abscess CT lower extremity right with contrast Comparison: None provided Findings: Status post operative bimalleolar fracture repair. No acute fracture or osseous destruction. Mild degenerative change of the knee greatest in the medial compartment. Subcutaneous stranding greatest in the region of the heel and plantar aspect of the foot posteriorly. There is no discrete fluid collection. No intramuscular fluid collections. Vasculature appears patent. No ankle joint effusion. IMPRESSION: No acute fracture or destructive osseous lesion. Evidence of prior operative repair of bilateral ankle fractures. There is mild subcutaneous edema involving the lower leg and plantar aspect of the foot near the heel without discrete subcutaneous or intramuscular fluid collection. This document has been electronically signed by: Candelaria Chung MD on 10/24/2024 05:44:21
--- NOTE | ~2024-10-23 | CT_ITS ---
EXAMINATION: CT FEMUR WITH CONTRAST, RIGHT CLINICAL INFORMATION: MRSA infection in the thigh, tenderness, erythema COMPARISON: None available. TECHNIQUE: Axial CT was performed through the right thigh with IV contrast. Coronal and sagittal reformatted images were generated from the original axial data set. IV contrast: 85 mL Omnipaque 350 ALARA: The examination used one or more of the following radiation dose reduction techniques: Automated exposure control, iterative reconstruction, and/or adjustment of mA and/or KV. DLP: 335 mGy*cm FINDINGS: There is no loculated fluid collection with peripheral enhancement. There is no soft tissue edema. There is no joint effusion. No abnormalities are present on image neurovascular bundles. There are no bony abnormalities. There is narrowing of the posterior hip joint space CT/CT femur RT w IV con IMPRESSION: No acute abnormality. Mild degenerative change with narrowing of the posterior right hip joint space Electronically signed by: Boni Briones MD 10/24/2024 10:02 AM EDT
[2024-10-23 17:46] VITALS: BP 157/62; PULSE 79; RESP 18; TEMP 36.6; O2SAT 95; BMI 34.1
--- NOTE | 2024-10-23 17:47 | ED_ITS ---
HPI - General Adult General Chief complaint: Skin/Abscess/Foreign Body Stated complaint: ? bacteria in skin Time Seen by Provider: 10/23/24 23:44 Source: patient Mode of arrival: ambulatory Limitations: no limitations History of Present Illness ED Provider: Ezra ALCARAZ HPI narrative: The patient is a 63-year-old female presenting to the ED for evaluation of 2 erythematous lesions of the right medial thigh. The patient reports 3 years ago she developed a MRSA infection of her left thigh which grew rapidly, did not respond to doxycycline from urgent care, and ultimately required surgical debridement and IV antibiotics at [facility]. The patient reports following surgical debridement she was discharged from [facility] again on doxycycline, and reports shortly after developing increasing discharge, pain, and systemic symptoms, presented to [facility] where she was admitted for 1 week for IV antibiotics. The patient reports she has been doing well since that time, however last week she noted a papule on the dorsal surface of the DIP of her right 3rd toe. Patient reports she has been putting alcohol swabs and bacitracin on the area, however today noted a similar but larger papule which is pruritic and tender to her distal medial right thigh, and this evening noted another, even larger similar papule on the medial mid thigh. Patient reports she is concerned that she has a similar infection as 3 years ago, based on the similar presentation and rapidly spreading symptoms. The patient denies associated fever/chills, nausea, vomiting, abdominal pain, chest pain, cough, shortness of breath, pleurisy, recent sick contacts, or recent trauma. Related Data Home Medications ?Medication ?Instructions ?Recorded ?Confirmed nebulizers 07/26/23 04/12/24 mometasone 100 mcg/actuation HFA 2 puff inhalation BID 09/02/23 04/12/24 aerosol inhaler (Asmanex HFA) Previous Rx's ?Medication ?Instructions ?Recorded albuterol sulfate 90 mcg/actuation 2 puff inhalation Q ID PRN 06/05/24 aerosol inhaler (Ventolin HFA) shortness of breath or wheezing 30 days #18 grams fluticasone fur. 200 mcg-umeclid 1 ea PO DAILY #60 ea 09/20/24 62.5 mcg-vilant 25 mcg inhalat.powder (Trelegy Ellipta) albuterol sulfate 2.5 mg/3 mL 2.5 mg (3 mL) inhalation Q6H PRN 10/03/24 (0.083 %) solution for nebulization shortness of breat h or wheezing 30 days #360 mL azithromycin 500 mg tablet 500 mg PO DAILY 5 days #5 t abs 10/03/24 methylprednisolone 4 mg tablets in See Rx Instructions PO PER PKG DIR 10/03/24 a dose pack (Medrol (Maurilio)) 6 days #21 ea mupirocin 2 % topical ointment 1 appl topical BID 7 da ys #15 grams 10/24/24 sulfamethoxazole 800 1 tab PO BID #14 tabs mg-trimethoprim 160 mg tablet (Bactrim DS) Allergies Allergy/AdvReac Type Severity Reaction Status Date / Time No Known Allergies Allergy Verified 10/23/24 17:53 Review of Systems 2 Review of Systems: Yes all other systems are reviewed and are negative [facility] Past Medical History Medical History (Updated 10/24/24 @ 22:04 by Shyanne Young RN) Anal polyp Arthralgia Pulmonary nodule Chronic cough Asthma Surgical History No pertinent past surgical history Family History Family History Father Cancer Colon cancer Mother Respiratory arrest Daughter Lymphoma Paternal Aunt Breast CA Ovarian cancer Social History Social History Household Members: Family Housing: Apartment Do you presently have visiting nurse or other home services: No Alcohol intake: current Alcohol intake frequency: holidays/special occasions only Patient Tobacco Use Status: Never used Tobacco e-Cigarette/Vaping Use: Never Used Second Hand Smoke Exposure: No service: No Current occupational status: employed 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 Gender identity: Female Cognitive needs: No Hearing needs: No Vision needs: No Physical Exam ED Vital Signs: Vital Signs - 24 hr 10/24/24 05:58 10/24/24 08:54 10/24/24 11:24 Temperature 79.6 F L 97.5 F 97.6 F Pulse Rate 56 56 67 Respiratory Rate 16 14 20 Blood Pressure 139/62 129/69 132/74 Pulse Oximetry 95 94 94 Oxygen Delivery Method Room Air Room Air Room Air 10/24/24 12:17 Temperature 97.6 F Pulse Rate 67 Respiratory Rate 20 Blood Pressure 132/74 Pulse Oximetry 94 Oxygen Delivery Method Room Air BMI result Body Mass Index 34.1 CONSTITUTIONAL: The patient appears non-toxic, well nourished and in no acute distress. Vital signs as documented. HEAD: Atraumatic, normocephalic. EYES: EOMs grossly intact, pupils equal, conjunctiva clear, no exudate. ENT: Nares patent, no discharge. Airway patent, no audible stridor, visible mucosa is pink and moist without noted lesions. NECK: Trachea is midline, no obvious masses or gross abnormalities. CHEST: Symmetric movement, normal appearance. LUNGS: LS present and CTAB, no w/r/r. Non-labored work of breathing. CARDIAC: Regular Rhythm, S1/S2 appreciated, no murmurs, rubs or gallops. ABDOMEN: Abdomen soft and non-tender x4 quadrants, no palpable masses or organomegaly. : Deferred. EXTREMITIES: Normal tone, moves all extremities spontaneously without reported pain. No obvious acute injury or deformity noted. NEURO: Alert and oriented x3, CN II-XII appear grossly intact. Cerebellar Functioning grossly intact. No obvious sensory or motor deficits. Speech clear and appropriate. PSYCH: normal affect, appropriate eye contact, fluid speech, with appropriate response to questioning. No reported suicidality or homicidality. SKIN: Warm, dry, color appropriate, normal turgor. There is a 3 mm macule of the right 3rd toe, as well as a 1 cm macule of the distal medial right thigh, and a 2.5-3 cm macule of the mid medial right thigh with underlying induration and tenderness. No discharge/drainage or ulceration. No other rashes noted. Course Course Course Narrative: This is a rapid medical exam performed by Sonido Gonzalez NP: Additional HPI, ROS, PE not included below will be deferred to primary provider. Patient is a 63-year-old female with history of MRSA cellulitis presenting to the ED with complaint of rash to both legs x 1 week. Describes as pruritic and painful. Concerned that this will progress to cellulitis similar to in the past. Plan: Labs including cxs Reevaluation(s) Reevaluation #1: CT scans and labs reassuring stable for outpatient therapy with oral and topical medications Meera Trent DO 10/24/24 1015 Medications Administered Discontinued Medications Generic Name Dose Route Start Last Admin Trade Name Kimberly PRN Reason Stop Dose Admin Acetaminophen 975 mg 10/24/24 06:36 10/24/24 06:40 Acetaminophen 325 Mg Tablet PO 10/24/24 06:37 975 mg ONCE ONE Administration Sodium Chloride 500 mls @ 500 mls/hr 10/24/24 09:32 10/24/24 10:52 Ns IV 10/24/24 10:31 500 mls/hr .Q1H ONE Administration Iohexol 85 ml 10/24/24 02:56 10/24/24 02:56 Iohexol 350 Mg/Ml 100 Ml Infus..Btl IV 10/24/24 02:57 85 ml ONCE ONE Administration Iohexol 100 ml 10/24/24 09:50 10/24/24 09:51 Iohexol 350 Mg/Ml 100 Ml Infus..Btl IV 10/24/24 09:51 85 ml ONCE ONE Administration Ketorolac Tromethamine 15 mg 10/24/24 06:36 10/24/24 06:41 Ketorolac Tromethamine 15 Mg/Ml Vial IVPUSH 10/24/24 06:37 Not Given ONCE ONE Medical Decision Making Medical Decision Making MDM Narrative: 12:45 AM 10/24/2024 (Braden ALCARAZ): The patient is a 63-year-old female presenting to the ED for evaluation of 2 erythematous lesions of the right medial thigh. The patient reports 3 years ago she developed a MRSA infection of her left thigh which grew rapidly, did not respond to doxycycline from urgent care, and ultimately required surgical debridement and IV antibiotics at [facility]. The patient reports following surgical debridement she was discharged from [facility] again on doxycycline, and reports shortly after developing increasing discharge, pain, and systemic symptoms, presented to [facility] where she was admitted for 1 week for IV antibiotics. The patient reports she has been doing well since that time, however last week she noted a papule on the dorsal surface of the DIP of her right 3rd toe. Patient reports she has been putting alcohol swabs and bacitracin on the area, however today noted a similar but larger papule which is pruritic and tender to her distal medial right thigh, and this evening noted another, even larger similar papule on the medial mid thigh. Patient reports she is concerned that she has a similar infection as 3 years ago, based on the similar presentation and rapidly spreading symptoms. The patient denies associated fever/chills, nausea, vomiting, abdominal pain, chest pain, cough, shortness of breath, pleurisy, recent sick contacts, or recent trauma. The patient in the ED is well-appearing, nontoxic, however does have a 3 mm macule of the right 3rd toe, as well as a 1 cm macule of the distal medial right thigh, and a 2.5-3 cm macule of the mid medial right thigh with underlying induration and tenderness. No discharge or ulceration. Patient's laboratory evaluation is markedly reassuring with no leukocytosis, anemia, electrolyte abnormality, or AKANKSHA. The patient's LFTs are unremarkable. While the patient is well-appearing, patient does have a history of rapidly progressing MRSA infection, we will obtain CT of the lower extremity to evaluate for deep space abscess, if no evidence of deep space abscess we will attempt treatment with oral antibiotics. 1:01 AM 10/24/2024 (Braden ALCARAZ): Chart reviewed which confirms patient's report, of note patient was treated with Rocephin and vancomycin inpatient, after a positive MRSA nasal swab. Patient was seen by infectious disease and discharged with 2 weeks of p.o. doxycycline following admission. Patient's blood cultures were negative. Admission/Observation Consideration of admission/observation: Escalation of care including admission/observation considered Lab Data MDM Lab Attestation statement: I reviewed the patient's lab results. 10/23/24 18:02 10/23/24 18:02 Labs: Lab Results 10/23/24 10/24/24 Range/Units 18:02 02:19 WBC 6.9 (4.8-10.8) X10*3/uL RBC 4.80 (4.20-5.50) X10*6/uL Hgb 14.1 (12.0-16.0) g/dl Hct 41.6 (37.0-47.0) % MCV 86.7 (80.0-98.0) fL MCH 29.4 (27.0-33.0) pg MCHC 33.9 (31.0-35.0) g/dl RDW 12.1 (11.0-16.0) % Plt Count 234 (160-400) X10*3/uL MPV 11.1 (9.4-12.3) fL Immature Gran % (Auto) 0.3 (0.0-0.4) % Neut % (Auto) 55.8 (45-73) % Lymph % (Auto) 28.6 (20-40) % Bucks % (Auto) 7.4 (2-11) % Eos % (Auto) 6.9 H (0-4) % Baso % (Auto) 1.0 (0-2) % Lymph # (Auto) 2.0 (1.2-4.9) X10*3/uL Bucks # (Auto) 0.5 (0.1-1.2) X10*3/uL Eos # (Auto) 0.5 H (0.0-0.4) X10*3/uL Baso # (Auto) 0.1 (0.0-0.2) X10*3/uL Abs Immat Gran (auto) 0.02 (0.00-0.03) X10*3/uL Absolute Neuts (auto) 3.8 (2.0-8.3) x10*3/uL Absolute Nucleated RBC 0.000 (0.0-0.012) X10*3/uL Nucleated RBC % (auto) 0.0 (0.0-0.2) /100WBC ESR 10 (0-20) MM/HR Sodium 142 (135-145) mmol/L Potassium 3.6 (3.3-5.1) mmol/L Chloride 106 (96-108) mmol/L Carbon Dioxide 30 H (22-29) mmol/L Anion Gap 10 L (12-20) BUN 11 (9-16) mg/dL Creatinine 0.77 (0.5-1.4) mg/dL Estim Creat Clear Calc 65.0 Estimated GFR > 60 Random Glucose 103 (60-115) mg/dL Lactic Acid 0.8 (0.5-2.0) mmol/L Calcium 9.7 D (8.4-10.2) mg/dL Total Bilirubin 0.3 (0.0-1.0) mg/dL AST 33 H (5-31) U/L ALT 25 (0-31) U/L Alkaline Phosphatase 76 (39-117) U/L C-Reactive Protein 0.24 (< or = 0.50) mg/dL Total Protein 7.2 (6.5-8.0) g/dL Albumin 4.4 (3.5-5.0) g/dL External Record Review External record reviewed: Inpatient record and Outpatient record Discharge Plan Discharge Clinical Impression: Cellulitis due to methicillin-resistant Staphylococcus aureus (MRSA) Patient Disposition: Home, Self-Care Additional Instructions: labs reassuring no acute findings on CT scan of lower extremity negative inflammatory markers and normal wbc count use topical ointment and take medications as prescribed return for any worsening symptoms or concerns take all medications wtih food. stop doxycycline Prescriptions: New sulfamethoxazole-trimethoprim [Bactrim DS] 800-160 mg tablet 1 tab PO BID Qty: 14 0RF mupirocin 2 % ointment 1 appl topical BID 7 Days Qty: 15 0RF No Action Trelegy Ellipta 200-62.5-25 mcg blister with device 1 ea PO DAILY Qty: 60 0RF (DME) nebulizers Misc See Rx Instructions .Route Rx Instructions: As directed methylprednisolone [Medrol (Maurilio)] 4 mg tablets,dose pack See Rx Instructions PO PER PKG DIR 6 Days Qty: 21 0RF Rx Instructions: PO PER PKG DIR azithromycin 500 mg tablet 500 mg PO DAILY 5 Days Qty: 5 0RF albuterol sulfate 2.5 mg /3 mL (0.083 %) solution for nebulization 2.5 mg inhalation Q6H PRN (Reason: shortness of breath or wheezing) 30 Days Qty: 360 9RF Asmanex HFA 100 mcg/actuation HFA aerosol inhaler 2 puff inhalation BID albuterol sulfate [Ventolin HFA] 90 mcg/actuation HFA aerosol inhaler 2 puff inhalation QID PRN (Reason: shortness of breath or wheezing) 30 Days Qty: 18 3RF Interventions: ED Discharge Assessment Last Done: 10/24/24 12:17 Discharge Date/Time: 10/24/24 22:04 Print Language: Hungarian
[2024-10-23 18:12] LABS: MANUAL DIFF FLAG NO
[2024-10-23 18:20] LABS: Hematocrit 41.6 % (37.0-47.0); Hemoglobin 14.1 g/dl (12.0-16.0); Imm Gran Abs Auto 0.02 X10*3/uL (0.00-0.03); Imm Gran Pct Auto 0.3 % (0.0-0.4); Lymphocytes Absolute Auto 2.0 X10*3/uL (1.2-4.9); Mean Corpuscular HGB Conc 33.9 g/dl (31.0-35.0); Mean Corpuscular Hemoglobin 29.4 pg (27.0-33.0); Mean Corpuscular Volume 86.7 fL (80.0-98.0); NRBC Abs Auto 0.000 X10*3/uL (0.0-0.012); NRBC Pct Auto 0.0 /100WBC (0.0-0.2); Platelet Count 234 X10*3/uL (160-400); Red Blood Count 4.80 X10*6/uL (4.20-5.50); White Blood Count 6.9 X10*3/uL (4.8-10.8)
[2024-10-23 18:29] LABS: Alanine Aminotransferase 25 U/L (0-31); Albumin Level 4.4 g/dL (3.5-5.0); Alkaline Phosphatase 76 U/L (39-117); Anion Gap 10 (12-20); Aspartate Amino Transferase 33 U/L (5-31); Blood Urea Nitrogen 11 mg/dL (9-16); Calcium 9.7 mg/dL (8.4-10.2); Carbon Dioxide 30 mmol/L (22-29); Chloride 106 mmol/L (96-108); Creatinine Clr Calc Pharmacy 65.0; Estimated Glomerular Filt Rate > 60; Potassium 3.6 mmol/L (3.3-5.1); Sodium 142 mmol/L (135-145); Total Protein 7.2 g/dL (6.5-8.0)
--- OUTSIDE RECORDS SUMMARY | 2024-10-23 23:49 | XMS_ITS | Clinical Summary ---
Author Organization [facility] Address [address] [facility] [address] [place] [address] Phone Care Team Providers Care Granite Installer Name Role Phone Fan Wagner MD Primary Care Provider + Allergies No [...] Not on file Insurance O O O O HMO O HMO AIM INSURANCE Care Teams Granite Installer Relationship Specialty Start Date End Date Fan Wagner MD [address] [place] [address] PCP - General Internal Medicine 11/03/18 Additional Source Comments The information contained in this document represents components of the legal health record. It is not the complete legal health record.[facility]
--- OUTSIDE RECORDS SUMMARY | 2024-10-23 23:49 | XMS_ITS | Encounter Summary ---
Author Organization [facility] Address [address] [facility] [address] [place] [address] Phone Care Team Providers Care Mandrel Puller Name Role Phone Fan Wagner MD Primary Care Provider + Encounter Details Date Type Department Care Team (Late st Contact Info) Description 01/13/2023 Transcribe Orders Virtual Department [address] [place] [address] Pravin Bonilla MD [address] [place] [address] 4B_OB/[place] [address] Ovarian mass (Primary Dx) Social History Tobacco [...] ligament documented in this encounter Care Teams Mandrel Puller Relationship Specialty Start Date End Date Fan Wagner MD [facility] [place] [address] PCP - General Internal Medicine 11/03/18 documented as of this encounter Additional Source Comments The information contained in this document represents components of the legal health record. It is not the complete legal health record.[facility]
--- OUTSIDE RECORDS SUMMARY | 2024-10-23 23:49 | XMS_ITS | Patient Health Record ---
Author Organization [facility] [address] Address [address] [place] [address] Care Team Providers Care Hole Puncher Strap Name Role Phone Vaughn Ly Primary Care Provider Unavailab GastonNano lombardo Unavailable [phone] Allergies No Known Allergies Reason For Referral [...] Notes Problem Obesity due to excess calories (627315955) Other obesity due to excess calories (E66.09) Active confirmed Problem Asthma without status asthmaticus (29694517) Moderate asthma without complication, unspecified whether persistent (J45.909) Active confirmed Problem Body mass index 35.00 to 39.99 (790632991038153 ) Body mass index [BMI] 38.0-38.9, adult (Z68.38) Active confirmed Problem Obese class II (196132212862349 ) BMI 35.0-35.9,adult (Z68.35) Active confirmed Encounters Encounter Location Date Provider Diagnosis [facility] [address] [place] [address] 11/25/2023 Nano Svrcek Plan Of Treatment No Information Insurance Providers Payer Name Payer Address Payer Phone Subscriber Number Group Number Insured Name Patient Relationship to Insured Coverage Start Date Coverage End Date [facility] [address] [place] [address] [id number] Anen Marie Carballo Self - patient is the [...]
--- OUTSIDE RECORDS SUMMARY | 2024-10-23 23:49 | XMS_ITS | Clinical Summary ---
Author Organization [facility] Address [address] [place] [address] Care Team Providers Care Financial Retirement Plan Specialist Name Role Phone Mary Garcia MD Primary Care Provider [phone] Social History Tobacco Use Types Packs/Day Years [...] age to complete this topic Care Teams Financial Retirement Plan Specialist Relationship Specialty Start Date End Date Mary Garcia MD [address] [place] [address] PCP - General Internal Medicine 12/25/16
[2024-10-24 02:09] VITALS: BP 121/46; PULSE 61; RESP 16; TEMP 36.4; O2SAT 95
[2024-10-24] MEDS: iohexoL 350 MG/ML 100 ML INFUS..BTL 85 ML IV (02:56)
[2024-10-24 05:58] VITALS: BP 139/62; PULSE 56; RESP 16; TEMP 26.4; O2SAT 95
--- NOTE | 2024-10-24 07:24 | PC.NURSE ---
Accepted care of pt. Pt A&O X4 VSS NAD No complaints current;y ambulatng to BR states Tylenol helped GREER a little
[2024-10-24 08:54] VITALS: BP 129/69; PULSE 56; RESP 14; TEMP 36.4; O2SAT 94
[2024-10-24] MEDS: iohexoL 350 MG/ML 100 ML INFUS..BTL IV (09:51)
[2024-10-24 11:24] VITALS: BP 132/74; PULSE 67; RESP 20; TEMP 36.4; O2SAT 94
--- NOTE | 2024-10-24 11:24 | PC.NURSE ---
Provider wanted pt to received bolus as ordered prior to DC- Pt will be DC when finished.
[2024-10-24 12:17] VITALS: BP 132/74; PULSE 67; RESP 20; TEMP 36.4; O2SAT 94
== END 2024-10-24 22:04 | disposition home or self-care (01) ==
PROVIDERS: Physician Assistant; Registered Nurse Emergency; Emergency Provider Emergency Medicine; PCP Physician Assistant
DX: L03.116 Cellulitis of left lower limb (principal); A49.02 Methicillin resistant Staphylococcus aureus infection, unspecified site; M79.604 Pain in right leg; R21 Rash and other nonspecific skin eruption; Z79.899 Other long term (current) drug therapy
CPT/HCPCS: 36415; 73701; 80053; 83605; 85025; 85652; 86140; 87040; 96360; 99284; 99285; Q9967

== ENCOUNTER → 2024-10-24 00:42 | Outpatient (BNV) | payer OTHER, MEDICARE, SELFPAY | PROVIDERS: Emergency Provider Emergency Medicine; PCP Physician Assistant; Visit Provider Radiology Diagnostic Radiology | DX: R22.41 Localized swelling, mass and lump, right lower limb (principal); M16.11 Unilateral primary osteoarthritis, right hip | CPT/HCPCS: 73701 ==

== ENCOUNTER 2024-12-07 15:47 | Outpatient (AMB) | payer OTHER, MEDICARE, SELFPAY ==
--- OUTSIDE RECORDS SUMMARY | 2023-08-18 10:30 | XMS_ITS ---
Author Organization [facility] [address] Address [address] [place] [address] Care Team Providers Care Plastic Extruding Machine Operator Name Role Phone Vaughn Ly Primary Care Provider Unavailab jerson GastonNano lombardo Unavailable [phone] DIO ANTUNEZ Unavailable [phone] REASON FOR VISIT pt here for sema injection; pt signed consent; 0.25mg administered subcutaneously into left arm; pttolerated well and left in stable condition Encounters Encounter Location Date Provider Diagnosis [facility] [address] [facility] [address] [place] [address] 08/18/2023 DIO ANTUNEZ Plan Of Treatment No Information Medications Administered Medication Instructions Date of Administration Dosage Notes Semaglutide 08/18/2023 0.25 mg Progress Notes * KAIT VitaaDOB:1960 (64 yo F)Acc No.[id number]:08/18/2023 Patient: Anne Marie ANGELES Provider: Sam ANTUNEZ NP :1960 A ge:62 Y S ex:Female Date:08/18/2023 Address:[address] [place] [address] Pcp:Vaughn Ly Subjective: * Chief Complaints: * 1 . Pt here for sema injection; pt signed consent; 0.25mg administered subcutaneously into left arm; pt tolerated well and left in stable condition. * Medical History: Objective: * Vitals: Assessment: Plan: * Treatment: * Therapeutic Injections: Semaglutide : 0.25 mg (Route: Subcutaneous) given by Sherry Crawford on left arm subcutaneous * Images: Billing Information: * Visit Code: * Procedure Codes: * Electronic signature of SAM ANTUNEZ on 12/07/2024 at 06:09 PM EDT Sign off status: Pending * Provider: Sam ANTUNEZ NP Date: 0 08/18/2023 Generated for Luba davidson/Addis/Julia on: 1 06:09 PM EDT
--- OUTSIDE RECORDS SUMMARY | 2023-08-25 10:00 | XMS_ITS ---
Author Organization [facility] [address] Address [address] [place] [address] Care Team Providers Care Dynamometer Tester Name Role Phone Vaughn Ly Primary Care Provider Unavailab Nano Whitehead Unavailable [phone] DIO ANTUNEZ Unavailable [phone] REASON FOR VISIT pt here for sema injection; pt signed consent; 0.25mg administered subcutaneously into left arm; pttolerated well and left in stable condition Medications Medication SIG (Take, Route, Frequency, Duration) Notes Start Date End Date Status Albuterol Sulfate HFA 108 (90 Base) MCG/ACT INHALE 2 PUUFS BY MOUTH FOUR TIMES DAILY NEEDED FIR SHORTNESS OF BRATH ORN WHEEZING Inhalation; Duration: 30 Days Active Montelukast Sodium 10 MG TAKE 1 TABLET B Y MOUTH AT BEDTIME Oral; Duration: 90 Days Active Trelegy Ellipta 200-62.5-25 MCG/ACT Inhalation; Duration: 30 Days Active Encounters Encounter Location Date Provider Diagnosis [facility] [address] [facility] [address] [place] [address] 08/25/2023 DIO ANTUNEZ Plan Of Treatment No Information Medications Administered Medication Instructions Date of Administration Dosage Notes Semaglutide 08/25/2023 0.25 mg Progress Notes * Ne CARBALLO:1960 (64 yo F)Acc No.[id number]:08/25/2023 Patient: Anne Marie ANGELES Provider: Sam ANTUNEZ NP :1960 A ge:62 Y S ex:Female Date:08/25/2023 Address:[address] [place], [place] [id number] Pcp:Vuaghn Ly Subjective: * Chief Complaints: * 1 . Pt here for sema injection; pt signed consent; 0.25mg administered subcutaneously into left arm; pt tolerated well and left in stable condition. * Medical History: * Medications: T aking Albuterol Sulfate HFA 108 (90 Base) MCG/ACT Aerosol Solution INHALE 2 PUUFS BY MOUTH FOUR TIMES DAILY NEEDED FIR SHORTNESS OF BRATH ORN WHEEZING Inhalation , Taking Montelukast Sodium 10 MG Tablet TAKE 1 TABLET BY MOUTH AT BEDTIME Oral , Taking Trelegy Ellipta 200-62.5-25 MCG/ACT Aerosol Powder Breath Activated Inhalation Objective: * Vitals: Assessment: Plan: * Treatment: * Therapeutic Injections: Semaglutide : 0.25 mg (Route: Subcutaneous) given by Sherry Crawford on left arm subcutaneous * Images: Billing Information: * Visit Code: * Procedure Codes: * Electronic signature of SAM ANTUNEZ on 12/07/2024 at 06:10 PM EDT Sign off status: Pending * Provider: Sam ANTUNEZ NP Date: 0 08/25/2023 Generated for Luba davidson/Addis/Jluia on: 1 06:10 PM EDT
--- OUTSIDE RECORDS SUMMARY | 2023-09-01 11:00 | XMS_ITS ---
Author Organization [facility] [address] Address [address] [place] [address] Care Team Providers Care Creel Selector Name Role Phone Vaughn Ly Primary Care Provider UnavailNano Raymond Unavailable [phone] DIO ANTUNEZ Unavailable [phone] REASON FOR VISIT Pt here for SEMA .25mg on left arm sub q, pt tolerated well with no reaction. Medications Medication SIG (Take, Route, Frequency, Duration) Notes Start Date End Date Status Albuterol Sulfate HFA 108 (90 Base) MCG/ACT INHALE 2 PUUFS BY MOUTH FOUR TIMES DAILY NEEDED FIR SHORTNESS OF BRATH ORN WHEEZING Inhalation; Duration: 30 Days Active Trelegy Ellipta 200-62.5-25 MCG/ACT Inhalation; Duration: 30 Days Active Montelukast Sodium 10 MG TAKE 1 TABLET B Y MOUTH AT BEDTIME Oral; Duration: 90 Days Active Encounters Encounter Location Date Provider Diagnosis [facility] [address] [facility] [address] [place] [address] 09/01/2023 DIO ANTUNEZ Plan Of Treatment No Information Medications Administered Medication Instructions Date of Administration Dosage Notes Semaglutide 09/01/2023 .25 mg Progress Notes * Saul CARBALLOB:1960 (64 yo F)Acc No.[id number]:09/01/2023 Patient: Anne Marie ANGELES Provider: Sam ANTUNEZ NP :1960 A ge:62 Y S ex:Female Date:09/01/2023 Address:[address] [place], [place] [id number] Pcp:Vaughn Ly Subjective: * Chief Complaints: * 1 . Pt here for SEMA .25mg on left arm sub q, pt tolerated well with no reaction.. * Medical History: * Medications: T aking [...] * Treatment: * Therapeutic Injections: Semaglutide : .25 mg (Route: Subcutaneous) given by Reji Rick on left arm subcutaneous * Images: Billing Information: * Visit Code: * Procedure Codes: * Electronic signature of SAM ANTUNEZ on 12/07/2024 at 06:09 PM EDT Sign off status: Pending * Provider: Sam ANTUNEZ NP Date: 0 09/01/2023 Generated for Luba davidson/Addis/Julia on: 1 06:09 PM EDT
--- OUTSIDE RECORDS SUMMARY | 2023-09-08 11:00 | XMS_ITS ---
Author Organization [facility] [address] Address [address] [place] [address] Care Team Providers Care Educational Psychology Professor Name Role Phone Vaughn Ly Primary Care Provider Unavailab Nano Whitehead Unavailable [phone] DIO ANTUNEZ Unavailable [phone] REASON FOR VISIT pt here for sema [...] Active Encounters Encounter Location Date Provider Diagnosis [facility] [address] [facility] [address] [place] [address] 09/08/2023 DIO ANTUNEZ Plan Of Treatment No Information Medications Administered Medication Instructions Date of Administration Dosage Notes Semaglutide 09/08/2023 0.25 mg Progress Notes * Saul CARBALLOB:1960 (64 yo F)Acc No.[id number]:09/08/2023 Patient: Anne Marie ANGELES Provider: Sam ANTUNEZ NP :1960 A ge:62 Y S ex:Female Date:09/08/2023 Address:[address] [place], [place] [phone] Pcp:Vaughn Ly Subjective: * Chief Complaints: * [...] * Provider: Sam ANTUNEZ NP Date: 0 09/08/2023 Generated for Luba davidson/Addis/Julia on: 06:09 PM EDT
--- OUTSIDE RECORDS SUMMARY | 2023-09-22 11:00 | XMS_ITS ---
Author Organization [facility] [address] Address [address] [place] [address] Care Team Providers Care Bottle Assembler Name Role Phone Vaughn Ly Primary Care Provider UnavailNano Raymond Unavailable [phone] DIO ANTUNEZ Unavailable [phone] REASON FOR VISIT Pt here for SEMA [...] Active Encounters Encounter Location Date Provider Diagnosis [facility] [address] [facility] [address] [place] [address] 09/22/2023 DIO ANTUNEZ Plan Of Treatment No Information Medications Administered Medication Instructions Date of Administration Dosage Notes Semaglutide 09/22/2023 .5 mg Progress Notes * Saul CARBALLOB:1960 (64 yo F)Acc No.[id number]:09/22/2023 Patient: Anne Marie ANGELES Provider: Sam ANTUNEZ NP :1960 A ge:62 Y S ex:Female Date:09/22/2023 Address:[address] [place], [place] [id number] Pcp:Vaughn Ly Subjective: * Chief Complaints: * [...] 0 09/22/2023 Generated for Luba davidson/Addis/Julia on: 1 06:10 PM EDT
--- OUTSIDE RECORDS SUMMARY | 2023-10-06 11:15 | XMS_ITS ---
Author Organization [facility] [address] Address [address] [place] [address] Care Team Providers Care Medical Transcriptionist Name Role Phone Vaughn Ly Primary Care Provider Unavailab Nano Whitehead Unavailable [phone] DIO ANTUNEZ Unavailable [phone] REASON FOR VISIT pt here for sema [...] Active Encounters Encounter Location Date Provider Diagnosis [facility] [address] [facility] [address] [place] [address] 10/06/2023 DIO ANTUNEZ Plan Of Treatment No Information Medications Administered Medication Instructions Date of Administration Dosage Notes Semaglutide 10/06/2023 0.5 mg Progress Notes * Saul CARBALLOB:1960 (64 yo F)Acc No.[id number]:10/06/2023 Patient: Natalie Anne Marie MISTRY Provider: Sam ANTUNEZ NP :1960 A ge:62 Y S ex:Female Date:10/06/2023 Address:[address] [place], [place] [phone] Pcp:Vaughn Ly Subjective: * Chief Complaints: * [...] * Provider: Sam ANTUNEZ NP Date: 0 10/06/2023 Generated for Luba davidson/Addis/Julia on: 1 06:10 PM EDT
--- OUTSIDE RECORDS SUMMARY | 2023-11-25 09:45 | XMS_ITS ---
Author Organization [facility] [address] Address [address] [place] [address] Care Team Providers Care Content Strategist Name Role Phone Vaughn Ly Primary Care Provider UnavailNano Raymond Unavailable [phone] Medications Medication SIG (Take, Route, Frequency, Duration) [...] AT BEDTIME Oral; Duration: 90 Days Active Semaglutide(0.25 or 0.5MG/DOS) 2 MG/3ML as directed Subcutaneous Active Encounters Encounter Location Date Provider Diagnosis [facility] [address] [facility] [address] [place] [address] 11/25/2023 Nano Arrington Plan Of Treatment No Information Progress Notes * Vita CARBALLOaDOB:1960 (64 yo F)Acc No.[id number]:11/25/2023 Patient: Anne Marie ANGELES Provider: Carol Ann Arrington PA-C :1960 A ge:63 Y S ex:Female Date:11/25/2023 Address:[address], [place], [place] Pcp:Vaughn Ly Subjective: * Chief Complaints: * * HPI: C onstitutional: Sandra is a 62-year-old female here today for weight management follow up. 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 She typically will eat crackers or muffins in the morning often will skip lunch and has rice or sandwich in the evenings. She just restarted exercise regimen at [employer] 2-3 times a week in the past week. Past medical history significant for asthma which has been limiting as far as exercise in the past. Currently her symptoms are well-controlled. She was started on compounded semaglutide at her initial visit 08/11/23 and has titrated up to 0.5 mg dose (2 doses) She is tolerating well without side effects. Wishes she lost more. PMH: Asthma PCP: [facility], Harish Ly Highest weight: 183.5 Lowest weight: 120 Current weight: Weight last visit: 168.8, BMI 35.3 Goal weight: 130-140 Trials in the past: exercise regimen, Protein intake: limited Water intake: good amount Exercise: Started again at [employer] last week- 2-3 times a week. Barriers: asthma, limits exercise Sleep: not great- 4-5 hours avg a night. FH: Daughter- Hodgkins lymphoma, father- colon cancer, paternal aunt- skin cancer, ovarian cancer, pancereatic cancer, daughter- diabetes. No FH of thyroid cancer Recent Labs: Just had labs last week, will get copy. * ROS: A ll Other Systems: Review of Systems (ROS) A ll others negative except those mentioned in HPI. * Medical History: * Medications: T aking [...] Powder Breath Activated Inhalation Objective: * Vitals: * Physical Examination: G eneral: Well appearing, well nourished, age appropriate in no acute distress. Speaking in full, clear sentences. SKIN: Warm, dry intact. No rashes/lesions. HEENT: Normocephalic atraumatic. EOM intact. No nystagmus noted. PERRLA. LUNGS: Clear to auscultation bilaterally, no wheezes, rales or rhonchi CARDIAC: Regular rate and rhythm, no murmurs, rubs or gallops. Extremities: Warm and well perfused. No edema noted. Neuro: CN II-XI grossly intact. Speaking in full sentences. Hearing intact. Assessment: Plan: * Treatment: * Procedure Codes: 9 9199 NO SHOW OFFICE VISIT * Images: Billing Information: * Visit Code: * Procedure Codes: 86271 NO SHOW OFFICE VISIT. * Electronic signature of Nano Arrington PA-C on 12/07/2024 at 06:09 PM EDT Sign off status: Pending * Provider: Carol Ann Arrington PA-C Date: Generated for Luba davidson/Addis/Julia on: 06:09 PM EDT History and Physical Notes * HPI (History of Present Illness) Category Sub-Category Detail Notes Category Not es Constitutional Sandra is a 62-year-old female here today for weight management follow up. 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 She typically will eat crackers or muffins in the morning often will skip lunch and has rice or sandwich in the evenings. She just restarted exercise regimen at [employer] 2-3 times a week in the past week. Past medical history significant for asthma which has been limiting as far as exercise in the past. Currently her symptoms are well-controlled. She was started on compounded semaglutide at her initial visit 08/11/23 and has titrated up to 0.5 mg dose (2 doses) She is tolerating well without side effects. Wishes she lost more. PMH: [facility] Highest weight: 183.5 Lowest weight: 120 Current weight: Weight last visit: 168.8, BMI 35.3 Goal weight: 130-140 Trials in the past: exercise regimen, Protein intake: limited Water intake: good amount Exercise: Started again at [employer] last week- 2-3 times a week. Barriers: asthma, limits exercise Sleep: not great- 4-5 hours avg a night. FH: Daughter- Hodgkins lymphoma, father- colon cancer, paternal aunt- skin cancer, ovarian cancer, pancereatic cancer, daughter- diabetes. No FH of thyroid cancer Recent Labs: Just had labs last week, will get copy. Physical Examination Category Sub-Category Detail Notes Section Note s General: Well appearing, well nourished, age appropriate in no acute distress. Speaking in full, clear sentences. SKIN: Warm, dry intact. No rashes/lesions. HEENT: Normocephalic atraumatic. EOM intact. No nystagmus noted. PERRLA. LUNGS: Clear to auscultation bilaterally, no wheezes, rales or rhonchi CARDIAC: Regular rate and rhythm, no murmurs, rubs or gallops. Extremities: Warm and well perfused. No edema noted. Neuro: CN II-XI grossly intact. Speaking in full sentences. Hearing intact.
[2024-12-07 15:54] VITALS: BP 110/74; PULSE 74; O2SAT 97; BMI 34.8
--- NOTE | 2024-12-07 15:54 | A.OFFPC_ITS ---
Vital Signs 12/07/24 15:54 Height 4 ft 11 in Weight 172 lb 8 oz BMI 34.8 BP 110/74 Blood Pressure Location Lt brachial Position Sitting Pulse 74 Pulse Source Pulse Oximeter Pulse Oximetry (%) 97 Oxygen Delivery Method Room Air Intake Visit Reasons: f/u Asthma, HLD Taxicab Starter Required: No Accompanied by: Self / Same As Patient Allergies No Known Allergies Allergy (Verified 12/07/24 16:04) Medication List - Last Reconciled 12/07/24 by Vaughn Ly PA-C albuterol sulfate 90 mcg/actuation (Ventolin HFA) 2 puffs inhalation QID PRN 30 days albuterol sulfate 2.5 mg (3 mL) inhalation Q6H PRN 30 days azithromycin 500 mg PO DAILY 5 days tlctqtvqbhp-hmeotdfng-nkzkablm 200-62.5-25 mcg (Trelegy Ellipta) 1 ea PO DAILY methylprednisolone (Medrol (Maurilio)) PO PER PKG DIR 6 days mometasone 100 mcg/actuation (Asmanex HFA) 2 puffs inhalation BID mupirocin 2% 1 appl topical BID 7 days nebulizers As directed sulfamethoxazole-trimethoprim 800-160 mg (Bactrim DS) 1 tab PO BID Tobacco use date assessed: 12/07/24 Fall risk assessment: No Falls in past year Last assessed Fall Risk: 12/07/24 Dental Screening Dental Screen Date: 12/07/24 Did you have a dental visit in the last 12 months?: No Did you have a dental problem in the last 6 months where you did not have access to dental care?: No Was dental information given to patient?: Patient has dentist HPI f/u Asthma, HLD HPI Details Patient is a 64-year-old female here today for a routine annual physical.? Patient's past medical history significant for asthma and obesity. Patient had a bout of cellulitis over her lower extremity in October 2024. .. Asthma: Followed by [facility] (Dr. Eden). Asthma has been generally well controlled on current p.r.n. use of her albut maribel inhaler and nebulizer. She does have access to a maintenance inhaler though does not seem she is using them at this time he also does have allergies to which he had likes to use natural solutions . . Borderline high cholesterol:? Also noted most recent labs showing borderline high cholesterol has been working on lifestyle modifications to help reduce her total cholesterol. Unfortunately has not been able to do fasting labs to recheck her cholesterol. .. Class 1 obesity: Patient does understand her BMI is over 30 work on being more physically active and adapting to better eating habits to reduce her weight. .. Ovarian complex cyst: Has followed up with the Gyne Oncology and would do an oophorectomy in July of 2025 [facility] Medical History Anal polyp Arthralgia Pulmonary nodule Chronic cough Asthma Surgical History No pertinent past surgical history Family History Father Cancer Colon cancer Mother Respiratory arrest Daughter Lymphoma Paternal Aunt Breast CA Ovarian cancer Social History Household Members: Family Housing: Apartment Do you presently have visiting nurse or other home services: No Alcohol intake: current Alcohol intake frequency: holidays/special occasions only Patient Tobacco Use Status: Never used Tobacco e-Cigarette/Vaping Use: Never Used Second Hand Smoke Exposure: No service: No Current occupational status: employed 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 Gender identity: Female Cognitive needs: No Hearing needs: No Vision needs: No Female Reproductive History Menstrual Age of Menarche: 9 Questionnaire Thrive Questionnaire Date Thrive assessed: 06/05/24 I am a: Patient What is your living situation today?: I have a steady place to live Within the past 12 months, did the food you bought not last and you didn't have the money to get more?: Never true Within the past 12 months, did you worry whether your food would run out before you got money to buy more?: Never true Do you have trouble paying for medicines?: No Do you have trouble getting transportation to medical appointments?: No Do you have trouble paying your heating and electricity bill?: No Do you have trouble taking care of your child, family member or friend?: No Do you have trouble with day-to-day activities such as bathing, preparing meals, shopping, managing finances, etc.?: No Are you currently unemployed and looking for a job?: No Are you interested in more education?: No Please select the resources that you would like help with: None Currently or been in a relationship where the following occur: No concerns reported THRIVE Score: 0 AUDIT C Alcohol Use Questionnaire (AUDIT-C) 1. How often do you have a drink containing alcohol?: Monthly or less 2. How many drinks containing alcohol do you have on a typical day when you are drinking?: 1 or 2 3. How often do you have six or more drinks on one occasion?: Never Total Score: 1 FLAKITO-7 AMB Questionnaire FLAKITO-7 Date FLAKITO - 7 assessed: 06/05/24 Source: Developed by Drs. Luiz Lee, Lorna Mackay, Kevin Gold and colleagues, with an educational lola from [employer]. ACT Questionnaire In the past 4 weeks, how much of the time did your asthma keep you from getting as much done at work, school or at home?: None of the time During the past 4 weeks, how often have you had shortness of breath?: 1-2 times a week During the past 4 weeks, how often did your asthma symptoms wake you up at night or earlier than usual in the morning?: Not at all During the past 4 weeks, how often have you had to use your rescue inhaler or nebulizer medication?: Not at all How would you rate your asthma control during the past 4 weeks?: Completely controlled ACT Interpretation: Negative Score: 24 Review of Systems Const Denies excessive sweating, Denies fatigue and Denies headache(s) Eyes Denies loss of vision ENT Denies vertigo, Denies dizziness, Denies headache(s) and Denies sore throat Card Denies chest pain, Denies leg edema and Denies lightheadedness Resp Denies cough, Denies hemoptysis and Denies wheezing GI Denies abdominal pain, Denies melena, Denies constipation, Denies diarrhea and Denies vomiting Denies urinary frequency, Denies dysuria and Denies urinary urgency Musc Denies arthralgias, Denies joint swelling, Denies numbness and Denies tingling Skin/Breast Denies rash and Denies skin ulcer Neuro Denies Abnormal speech present, Denies behavioral changes, Denies vertigo, Denies dizziness, Denies headache(s), Denies loss of vision, Denies memory loss, Denies numbness and Denies tingling Psych Denies anxiety, Denies behavioral changes, Denies depression, Denies memory loss and Denies panic attacks Endo Denies excessive sweating, Denies fatigue, Denies flushing, Denies polydipsia and Denies polyuria David/Lymph Denies easy bleeding and Denies easy bruising Aller/Immun Denies wheezing Physical exam (Primary Care) Vital Signs: Last Vital Signs Pulse 74 12/07/24 15:54 BP 110/74 12/07/24 15:54 Pulse Ox 97 12/07/24 15:54 Oxygen Delivery Method Room Air 12/07/24 15:54 BMI result Body Mass Index 34.8 BMI Assessment/Plan discussion: High BMI High, discussed plan: lifestyle, weight reduction, dietary and physical activity Tobacco/Smoking Status: Tobacco use Status Tobacco use date assessed 12/07/24 12/07/24 16:02 Patient Tobacco Use Status Never used Tobacco 12/07/24 16:02 e-Cigarette/Vaping Use Never Used 12/07/24 16:02 Thrive Assessment: Date of Thrive Assessment Date Thrive assessed 06/05/24 12/07/24 16:02 Currently or been in a relationship where the following occur: No concerns reported Const General: healthy appearing, no acute distress, alert and awake Nutritional Appearance: well nourished Orientation/consciousness: oriented to person, oriented to place and oriented to time HENTX Head: Yes normocephalic Ears: TM's normal bilaterally General nose exam: Normal nasal mucous membranes and turbinates present Face and sinus: No sinus tenderness Mouth: Normal oral and palatal mucosa present and tongue normal Teeth and gingiva: dentition normal and gingiva normal Throat: Yes posterior oropharynx normal, Yes tonsils normal and Yes uvula midline Eyes Conjunctivae: conjunctivae normal Sclerae: sclerae normal Pupils: Equal, round and reactive pupils present EOM: EOMs intact bilaterally Direct Ophthalmoscopy: No no photophobia Neck Neck: Yes no lymphadenopathy and Yes no JVD Thyroid: Thyroid normal Carotids: no bruits Chest Chest palpation & inspection: no tenderness Resp Effort & Inspection: normal respiratory effort and not tachypneic Auscultation: no crackles, no rales, no rhonchi and no wheezes Cardio Jugular venous distension: no JVD Rate: regular rate Rhythm: regular rhythm Heart sounds: no murmurs and normal S1 and S2 Bruits: no carotid bruits Peripheral pulses: Peripheral pulses 2+ throughout GI Inspection: Yes normal to inspection, No abdominal wall ecchymosis and No visib le herniation Palpation (GI): Soft to palpation, nontender, no hepatomegaly and no splenomegaly Auscultation: normal bowel sounds General: Yes no CVA tenderness Back/Spine/Pelvis Back: no CVA tenderness and No back tenderness Cervical Spine: cervical ROM normal Thoracic/Lumbar Spine: thoracic and lumbar spine normal to inspection, straight leg raise negative bilaterally, No thoraco-lumbar ROM limited and No lumbar spinal tenderness Skin General skin exam: no rashes or lesions noted and dry skin Lesions: no lesions Rashes: no rashes Wounds: no wounds Neuro General: oriented to person, oriented to place and oriented to time Cranial nerves: Yes Equal, round and reactive pupils present Cognition (Neuro): normal cognition Speech: No Abnormal speech present Gait exam (Neuro): Normal gait present Motor exam (neuro): no tremor noted Extrem Right upper extremity: full ROM Left upper extremity: full ROM Right lower extremity: full ROM; no edema Left lower extremity: full ROM; no edema Psych Appearance: grossly normal Mental Status: mental status grossly normal Speech and movement: Normal speech and movement present Affect: normal affect Attitude: cooperative Thought process: Normal thought process present Coding Level of Care Code Est Pt Level 4 (66072) Diagnoses Severe persistent asthma with acute exacerbation J45.51 Asthma complication type: with acute exacerbation Asthma persistence: persistent Asthma severity: severe Borderline high cholesterol E78.9 Class 1 obesity E66.811 Complex ovarian cyst N83.299 Additional Codes Asthma Control Questionnaire - ACT Interpretation: Negative ([id number]) Assessment & Plan Assessment & Plan (1) Asthma: Code(s): J45.909 - Unspecified asthma, uncomplicated Category: Medical Qualifiers: Asthma complication type: with acute exacerbation Asthma persistence: persistent Asthma severity: severe Qualified Code(s): J45.51 - Severe persistent asthma with (acute) exacerbation Plan: Patient reports her asthma is fairly well controlled now on maintenance inhaler trelogy. She does have an albuterol inhaler available to her for rescue. (2) Borderline high cholesterol: Code(s): E78.9 - Disorder of lipoprotein metabolism, unspecified Category: Medical Plan: Patient's most recent lipid panel showing borderline high total cholesterol. She has been working on dietary modifications to reduce her high cholesterol foods. Will continue to follow fasting lipid panel with goal total cholesterol to be below 200. (3) Class 1 obesity: Code(s): E66.811 - Obesity, class 1 Category: Medical Plan: Patient does understand her BMI is over 30 will work on being more physically active and adapting to better eating habits to reduce her weight (4) Complex ovarian cyst: Code(s): N83.299 - Other ovarian cyst, unspecified side Category: Medical Plan: Patient has a history of a left complex ovarian cyst to which she has followed up with a gynecological surgeon. She is due for a oophorectomy in July of 2025 Medications: Refilled albuterol sulfate 2.5 mg (3 mL) inhalation Q6H PRN 360 mL 2RF shortness of breath or wheezing 30 days J45.20 - Mild intermittent asthma, uncomplicated Discontinued sulfamethoxazole-trimethoprim 800-160 mg (Bactrim DS) Discontinued Reason: Doctor's Order 1 tab PO BID 14 tabs 0RF
--- OUTSIDE RECORDS SUMMARY | 2024-12-07 18:09 | XMS_ITS | Clinical Summary ---
Author Organization [facility] Address [address] [facility] [address] [place] [id number] Phone Care Team Providers Care Ratings Analyst Name Role Phone Fan Fernando MD Primary [...] DEPRESSION SCREENING 1970 HEPATITIS C SCREENING 1976 SMOKING STATUS SCREENING (On ce After [...] Medical Devices Not on file Insurance O HMO HMO O [place] O [id number] INS[facility] Care Teams Ratings Analyst Relationship Specialty Start Date End Date Fan Fernando MD [address] [place] [id number] PCP - General Internal Medicine 11/03/18 Additional Source Comments The information contained in this document represents components of the legal health record. It is not the complete legal health record.[facility]
--- OUTSIDE RECORDS SUMMARY | 2024-12-07 18:09 | XMS_ITS | Patient Health Record ---
Author Organization [facility] [address] Address [address] [place] [address] Care Team Providers Care Hair Spring Cutter Name Role Phone Vaughn Ly Primary Care Provider Unavailab GastonNano lombardo Unavailable [phone] Allergies No Known Allergies Reason For Referral [...] Notes Problem Obesity due to excess calories (047444138) Other obesity due to excess calories (E66.09) Active confirmed Problem Asthma without status asthmaticus (17345474) Moderate asthma without complication, unspecified whether persistent (J45.909) Active confirmed Problem Body mass index 35.00 to 39.99 (861798754584294 ) Body mass index [BMI] 38.0-38.9, adult (Z68.38) Active confirmed Problem Obese class II ([id number] ) BMI 35.0-35.9,adult (Z68.35) Active confirmed Plan Of Treatment No Information Insurance Providers Payer Name Payer Address Payer Phone Subscriber Number Group Number Insured Name Patient Relationship to Insured Coverage Start Date Coverage End Date [facility] [address] [place] [address] [phone] [id number] Anne Marie Carballo Self - patient is [...]
--- OUTSIDE RECORDS SUMMARY | 2024-12-07 18:10 | XMS_ITS | Encounter Summary ---
Author Organization [facility] Address [address] [facility] [address] [place] [phone] Phone Care Team Providers Care Dietitian Chief Name Role Phone Fan Fernando MD Primary Care Provider + Encounter Details Date Type Department Care Team (Late st Contact Info) Description 01/13/2023 Transcribe Orders Virtual Department [address] [place] [id number] Pravin Bonilla MD [address] [place] [address] 4B_OB/[place] [address] Ovarian mass (Primary Dx) Social History Tobacco [...] ligament documented in this encounter Care Teams Dietitian Chief Relationship Specialty Start Date End Date Fan Fernando MD [facility] [place] [address] PCP - General Internal Medicine 11/03/18 documented as of this encounter Additional Source Comments The information contained in this document represents components of the legal health record. It is not the complete legal health record.[facility]
--- OUTSIDE RECORDS SUMMARY | 2024-12-07 18:10 | XMS_ITS | Clinical Summary ---
Author Organization [facility] Address [address] [place] [address] Care Team Providers Care Agricultural Extension Educator Name Role Phone Mary Garcia MD Primary Care Provider [phone] Social History Tobacco Use Types Packs/Day Years [...] DTaP,Tdap,and Td Vaccines (1 - Tdap) 1977 Pneumococcal Vaccine: 50+ Ye ars (1 of 1 - PCV) 2008 Zoster Vaccines (1 of 2) 2008 Depression Screening 02/09/2024 COVID-19 Vaccine (1 - 2023-2 5 season) 2024 Influenza Vaccine [...] age to complete this topic Care Teams Agricultural Extension Educator Relationship Specialty Start Date End Date Mary Garcia MD [address] [place] [address] PCP - General Internal Medicine 12/25/16
== END 2024-12-07 16:23 | disposition home or self-care (01) ==
LOC: HO.HMCH 15:48
PROVIDERS: PCP Physician Assistant; Visit Provider Physician Assistant
DX: J45.51 Severe persistent asthma with (acute) exacerbation (principal); E66.811 Obesity, class 1; Z68.34 Body mass index [BMI] 34.0-34.9, adult; E78.9 Disorder of lipoprotein metabolism, unspecified; N83.299 Other ovarian cyst, unspecified side

== ENCOUNTER → 2024-12-07 15:47 | Outpatient (BNVA) | payer OTHER, MEDICARE, SELFPAY | PROVIDERS: PCP Physician Assistant; Visit Provider Physician Assistant | DX: Z00.00 Encounter for general adult medical examination without abnormal findings (principal); J45.51 Severe persistent asthma with (acute) exacerbation; E66.811 Obesity, class 1; E78.9 Disorder of lipoprotein metabolism, unspecified; N83.299 Other ovarian cyst, unspecified side; Z68.34 Body mass index [BMI] 34.0-34.9, adult | CPT/HCPCS: 96160 ==